=== PATIENT | female | born 1955 | race Caucasian/White ===

== ENCOUNTER 2019-10-03 08:40 | Outpatient (CLI) | payer MEDICARE, OTHER, SELFPAY ==
--- NOTE | 2019-10-03 09:00 | IR_ITS ---
WS: [id number] MYELOGRAM LUMBAR SPINE Fluoroscopic guided lumbar myelogram CLINICAL INFORMATION: Low back pain COMPARISON: None. TECHNIQUE: The procedure, including risks, benefits, and complications, were discussed with the patie nt who agreed to proceed. A timeout was performed to confirm correct patient, procedure, and site. Using sterile technique, the patient was prepped and draped in the usual sterile fashion. After admin istration of local anesthesia using 1% preservative-free lidocaine and using fluoroscopic guidance, a 5 Khmer 22-gauge spinal needle was advanced into the subarachnoid space at the L5-S1 level. Subsequ ently 13 cc of Omnipaque 240 was administered into the thecal sac. The needle was removed and hemosta sis was achieved. Spot fluoroscopic images were obtained. FLUOROSCOPIC TIME: 0.5 minutes. Spot fluoroscopic images demonstrate pedicle screw fixation L3-L5 with interbody fusion grafts L3-L4 and L5-S1. Dorsolateral bony fusion more prominent at L4-L5 and L5-S1. Sacroiliac fusion. Normal alig nment on the neutral view. Dorsal column stimulator. No instability on flexion-extension. Fracture in volving the midshaft left L5 pedicle screw. Please see CT myelogram report for additional detail. IR/IR myelogram sp lumbar [id number] IMPRESSION: 1. Uncomplicated lumbar myelogram. 2. Fracture involving the mid shaft left L5 pedicle screw. 3. No instability on flexion-extension.
[2019-10-03] MEDS: iohexol 240 mg/mL 50 mL Btl INTRATHECA (09:42)
--- NOTE | 2019-10-03 11:30 | CT_ITS ---
WS: [id number] CT LUMBAR MYELOGRAM TECHNIQUE: CT of the lumbar spine with coronal and sagittal reformatted images post intrathecal admin istration of contrast. CLINICAL INFORMATION: Low back pain COMPARISON: MRI 03/06 2014 DLP: 2100.[address] scans at [facility] use at least one of these dose optimization techniques: automat ed exposure control; mA and/or kV adjustment per patient size (includes targeted exams where dose is matched to clinical indication); or iterative reconstruction. FINDINGS: Mild lumbar curve. No acute appearing compression fractures. Prior postoperative changes pedicle scre w fixation L3-L5 with interbody fusion L3-L4 and L5-S1. Solid appearing interbody fusion graft L5-S1 with bony bridging beyond the confines of the graft. Mild subsidence along the L3-4 interbody fusion graft. Lucency along the right L3 pedicle screw. Lucency along the left L4 and left L5 pedicle screws . SI joint fusion. Laminectomy defects L3-L5. Dorsal lateral bony fusion L3-L5 with more solid appear ance at L4-5. L1-L2: Normal. L2-L3: Slight retrolisthesis L2 on L3. Mild annular bulging with slight effacement of the ventral the robi sac. Tiny right pericentral protrusion with slight narrowing of the right subarticular recess. Mi ld right and no significant left foraminal narrowing. L3-L4: Interbody fusion. Spinal canal and foramen are patent. Laminectomy defects. L4-L5: No significant disc bulging. Moderate facet arthropathy. Mild left and no significant right fo raminal narrowing. L5-S1: Prior postoperative changes interbody fusion with laminectomy defects. Spinal canal and forame n are patent. Visualized pelvic bony structures: Normal. Paravertebral soft tissues: Normal. CT/CT lumbar spine w con [id number] IMPRESSION: 1. Mild lumbar curve. No acute compression fractures. 2. Prior postoperative changes pedicle screw fixation L3-L5 with interbody fus ion L3-L4 and L5-S1. Solid appearing L5-S1 interbody fusion graft. 3. Loosening along the right L3, left L4, and left L5 pedicle screws. 4. Laminectomy defects L3-L5. 5. Dorsolateral bony fusion incomplete L3-4. This has a more solid appearance at L4-5 and L5-S1. 6. No high-grade central canal stenosis. 7. Mild central canal stenosis L2-3 with narrowing of the right subarticular r ecess and mild right L2-3 foraminal narrowing. 8. Mild left L4-5 bony foraminal narrowing.
== END 2019-10-03 08:41 | disposition home or self-care (01) ==
LOC: RADWPI 08:44
PROVIDERS: Family Provider Family Medicine; PCP Family Medicine; Visit Provider Licensed Practical Nurse
DX: M54.5 Low back pain (principal); M48.04 Spinal stenosis, thoracic region; S32.059A Unspecified fracture of fifth lumbar vertebra, initial encounter for closed fracture; X58.XXXA Exposure to other specified factors, initial encounter
CPT/HCPCS: 62304; 72120; 72132; J2001; Q9966

== ENCOUNTER → 2019-10-10 08:27 | Outpatient (BNVA) | payer MEDICARE, OTHER, SELFPAY | PROVIDERS: Family Provider Family Medicine; PCP Family Medicine; Referring Provider Licensed Practical Nurse; Visit Provider Psychiatry & Neurology Neurology | DX: M54.18 Radiculopathy, sacral and sacrococcygeal region (principal); Z87.891 Personal history of nicotine dependence | CPT/HCPCS: 95886; 95909 ==

== ENCOUNTER 2020-01-26 13:27 | Outpatient (CLI) | payer MEDICARE, OTHER, SELFPAY ==
--- NOTE | 2020-01-26 13:45 | CT_ITS ---
WS: [id number] CT LUMBAR SPINE TECHNIQUE: Noncontrast CT of the lumbar spine with coronal and sagittal reformatted images. CLINICAL INFORMATION: lumbar pain COMPARISON: CT October 03, 2019 DLP: 2046.[address] scans at [facility] use at least one of these dose optimization techniques: automat ed exposure control; mA and/or kV adjustment per patient size (includes targeted exams where dose is matched to clinical indication); or iterative reconstruction. FINDINGS: Mild lumbar curve. No acute appearing compression fractures. Vacuum disc phenomenon L2-3 with slight retrolisthesis L2 on L3. Prior postoperative changes pedicle screw fixation L3-L5 with interbody fusi on L3-L4 and L5-S1. Solid appearing interbody fusion graft L5-S1 with bony bridging beyond the confin es of the graft. Mild subsidence along the L3-4 interbody fusion graft. Lucency along the right L3 pedicle screw,left L4 and left L5 pedicle screws. SI joint fusion. Laminectomy defects L3-L5. Dorsal lateral bony fusion L3-L5 with more solid appearance at L4-5. L1-L2: Normal. L2-L3: Slight retrolisthesis L2 on L3. Mild annular bulging with slight effacement of the ventral the robi sac. Tiny right pericentral protrusion with slight narrowing of the right subarticular recess. Mi ld right and no significant left foraminal narrowing. L3-L4: Interbody fusion. Spinal canal and foramen are patent. Laminectomy defects. L4-L5: No significant disc bulging. Moderate facet arthropathy. Mild left and no significant right fo raminal narrowing. L5-S1: Prior postoperative changes interbody fusion with laminectomy defects. Spinal canal and forame n are patent. CT/CT lumbar spine wo con* [id number] IMPRESSION: 1. Prior postoperative changes pedicle screw fixation L3-L5 with interbody fus ion L3-L4 and L5-S1. Solid appearing L5-S1 with interbody fusion graft. 2. Unchanged loosening along the right L3-L4 and left L5 pedicle screws unchan ged. 3. Incomplete dorsal lateral fusion L3-4. More solid-appearing dorsal lateral bony fusion L4-L5 and L5-S1 4. Mild central canal stenosis L2-3 with narrowing of the right articular rece ss and mild right L2-3 foraminal narrowing. 5. Mild left L4-5 bony foraminal narrowing. 6. Fracture along the left L5 pedicle screw unchanged. 7. Overall no significant changes since the prior myelogram October 03, 2019
== END 2020-01-26 13:28 | disposition home or self-care (01) ==
PROVIDERS: Family Provider Family Medicine; PCP Family Medicine; Visit Provider Specialist
DX: M43.26 Fusion of spine, lumbar region (principal); M43.27 Fusion of spine, lumbosacral region; M48.061 Spinal stenosis, lumbar region without neurogenic claudication
CPT/HCPCS: 72131

== ENCOUNTER 2020-08-07 13:06 | Outpatient (CLI) | payer MEDICARE, OTHER, SELFPAY ==
--- NOTE | 2020-08-07 13:00 | CT_ITS ---
WS: [id number] CT LUMBAR SPINE TECHNIQUE: Noncontrast CT of the lumbar spine with coronal and sagittal reformatted images. CLINICAL INFORMATION: lumbar pain COMPARISON: January 26, 2020 DLP: 2122.[address] scans at [facility] use at least one of these dose optimization techniques: automat ed exposure control; mA and/or kV adjustment per patient size (includes targeted exams where dose is matched to clinical indication); or iterative reconstruction. FINDINGS: Mild lumbar curve. No acute appearing compression fractures. Vacuum disc phenomenon L2-3 with slight retrolisthesis L2 on L3. Prior postoperative changes pedicle screw fixation L3-L5 with interbody fusi on L3-L4 and L5-S1. Solid appearing interbody fusion graft L5-S1 with bony bridging beyond the confin es of the graft. Mild subsidence along the L3-4 interbody fusion graft unchanged in appearance. Lucency along the righ t L3 pedicle screw, left L4 pedicle screw and left L5 pedicle screws. SI joint fusion. Laminectomy de fects L3-L5. Dorsal lateral bony fusion L3-L5 with more solid appearance at L4-5 unchanged in appeara nce. L1-L2: Small left foraminal protrusion slightly impinges the exiting left L1 nerve root. Spinal canal and right foramen are patent. L2-L3: Slight retrolisthesis L2 on L3. Moderate central canal stenosis. Disc space narrowing at this level has progressed slightly compared to previous. Tiny right pericentral protrusion with slight marko rowing of the right subarticular recess. Moderate bilateral foraminal narrowing. L3-L4: Interbody fusion graft. Spinal canal and foramen are patent. Laminectomy defects. L4-L5: No significant disc bulging. Moderate facet arthropathy. Mild left and no significant right fo raminal narrowing. L5-S1: Prior postoperative changes interbody fusion with laminectomy defects. Spinal canal and forame n are patent. CT/CT lumbar spine wo con* [id number] IMPRESSION: 1. Prior postoperative changes pedicle screw fixation L3-L5 with interbody fus ion L3-L4 and L5-S1. 2. Mature solid appearing interbody fusion L5-S1. 3. Fracture along the left L5 pedicle screw unchanged. Unchanged sparse dorsal lateral fusion L3-4. Solid appearing dorsal lateral fusion L4-L5 and L5-S1. 4. Moderate central canal stenosis L2-L3 with narrowing of the right subarticu lar recess. Moderate L2-3 foraminal narrowing unchanged. 5. Small left foraminal protrusion L1-2 impinges the exiting left L1 nerve everett t with moderate left foraminal narrowing.. 6. Disc space narrowing L2-3 has progressed slightly from previous. Vacuum dis c phenomenon at this level. 7. No other significant changes from previous.
== END 2020-08-07 13:07 | disposition home or self-care (01) ==
LOC: RADWPI 13:11
PROVIDERS: PCP Family Medicine; Visit Provider Specialist
DX: M51.26 Other intervertebral disc displacement, lumbar region (principal); M48.061 Spinal stenosis, lumbar region without neurogenic claudication; S32.059A Unspecified fracture of fifth lumbar vertebra, initial encounter for closed fracture; X58.XXXA Exposure to other specified factors, initial encounter
CPT/HCPCS: 72131

== ENCOUNTER → 2020-08-08 11:03 | Outpatient (BNVA) | payer MEDICARE, OTHER, SELFPAY | PROVIDERS: PCP Family Medicine; Referring Provider Anesthesiology Pain Medicine; Visit Provider Orthopaedic Surgery | DX: M48.062 Spinal stenosis, lumbar region with neurogenic claudication (principal) | CPT/HCPCS: 72110 ==

== ENCOUNTER 2020-08-23 08:30 | Outpatient (CLI) | payer MEDICARE, OTHER, SELFPAY ==
--- NOTE | 2020-08-23 08:44 | IR_ITS ---
WS: [id number] MYELOGRAM LUMBAR SPINE Fluoroscopic guided lumbar myelogram CLINICAL INFORMATION: SPINAL STENOSIS, PAIN, LUMBAR REGION WITH NEUROGENIC CLAUDIC COMPARISON: None. TECHNIQUE: The procedure, including risks, benefits, and complications, were discussed with the patie nt who agreed to proceed. A timeout was performed to confirm correct patient, procedure, and site. Using sterile technique, the patient was prepped and draped in the usual sterile fashion. After admin istration of local anesthesia using 1% preservative-free lidocaine and using fluoroscopic guidance, a 22-gauge spinal needle was advanced into the subarachnoid space at the L5-S1 level. Subsequently 13 cc of Omnipaque 240 was administered into the thecal sac. The needle was removed and hemostasis was a chieved. Spot fluoroscopic images were obtained. FLUOROSCOPIC TIME: 0.3 minutes. Spot fluoroscopic images demonstrate prior postoperative changes pedicle screw fixation L3-L5 laminec chapo defects lower lumbar spine. Dorsal lateral bone graft material L4-L5 and L5-S1. Prior SI joint f usion. Unchanged fractured right L5 pedicle screw. Interbody fusion grafts L3-L4 and L5-S1. Disc spac e narrowing worse at L2-3 with slight retrolisthesis and endplate degenerative changes. Spinal stimul ator partially visualized. No instability on flexion-extension. Please see CT myelogram report for additional anatomic detail. IR/IR myelogram sp lumbar [id number] IMPRESSION: 1. Uncomplicated lumbar myelogram. 2. Stable postoperative changes L3-L5 pedicle screw fixation with interbody fu elodia grafts L3-L4 and L5-S1. 3. Stable fractured right L5 pedicle screw. 4. Disc space narrowing worse at L2-3 with endplate degenerative changes and s light retrolisthesis. 5. No instability on flexion extension. 6. Moderate central canal stenosis L2-3.
[2020-08-23] MEDS: iohexol 240 mg/mL 50 mL Btl INTRATHECA (09:43)
--- NOTE | 2020-08-23 11:30 | CT_ITS ---
WS: [id number] CT LUMBAR SPINE MYELOGRAM TECHNIQUE: Myelogram CT of the lumbar spine with coronal and sagittal reformatted images. CLINICAL INFORMATION: M48.062 - Spinal stenosis, lumbar region with neurogenic claudication COMPARISON: CT August 07, 2020 and myelogram October 03, 2019 DLP: 2362.[address] scans at [facility] use at least one of these dose optimization techniques: automat ed exposure control; mA and/or kV adjustment per patient size (includes targeted exams where dose is matched to clinical indication); or iterative reconstruction. FINDINGS: Mild lumbar curve. No acute appearing compression fractures. Vacuum disc phenomenon L2-3 with slight retrolisthesis L2 on L3. Endplate degenerative changes at this level progressed since the prior myelo gram October 03, 2019. Prior postoperative changes pedicle screw fixation L3-L5 with interbody fusion L3-L4 and L5-S1. Solid appearing interbody fusion graft L5-S1 with bony bridging beyond the confines of the graft is unchan ged. Mild subsidence along the L3-4 interbody fusion graft unchanged in appearance. Lucency along the right L3 pedicle screw, left L4 pedicle screw and left L5 pedicle screws. Stable fr actured left L5 pedicle screw. Previous SI joint fusion. Laminectomy defects L3-L5. Dorsal lateral hetal ny fusion L3-L5 with more solid appearance at L4-5 unchanged in appearance. L1-L2: Small left foraminal protrusion slightly impinges the exiting left L1 nerve root. Spinal canal and right foramen are patent. L2-L3: Slight retrolisthesis L2 on L3. Moderate central canal stenosis. Disc space narrowing at this level has progressed since 2019. Narrowing of the subarticular recess bilaterally. Moderate bilateral foraminal narrowing, right greater than left. L3-L4: Interbody fusion graft is unchanged in appearance. Spinal canal and foramen are patent. Murali ctomy defects. L4-L5: No significant disc bulging. Moderate facet arthropathy. Mild left and no significant right fo raminal narrowing. L5-S1: Prior postoperative changes interbody fusion with laminectomy defects. Spinal canal and forame n are patent. Diffuse fatty infiltration the liver partially visualized. Adrenal glands are normal. Normal caliber abdominal aorta partially visualized. CT/CT lumbar spine w con [id number] IMPRESSION: 1. Stable prior postoperative changes pedicle screw fixation L3-L5. Unchanged interbody fusion grafts L3-L4 and L5-S1. 2. L5-S1 fusion graft is solid in appearance. 3. Unchanged fracture along the left L5 pedicle screw. Stable solid appearing dorsal lateral fusion L4-L5 and L5-S1. 4. Relative scarcity of bone graft material dorsolateral fusion L3-4 unchanged in appearance. 5. Stable moderate central canal stenosis L2-3 with narrowing of the subarticu lar recess bilaterally. Moderate bilateral foraminal narrowing.. 6. Small left foraminal protrusion L1-2 impinges the left L1 nerve root with m oderate left foraminal narrowing unchanged. 7. Vacuum disc phenomenon L2-3 has progressed from the prior myelogram September 042019 with endplate degenerative changes and vacuum disc phenomenon. This is similar in appearance to more recent exam August 07, 2020
== END 2020-08-23 08:31 | disposition home or self-care (01) ==
LOC: RADWPI 08:38
PROVIDERS: PCP Family Medicine; Visit Provider Orthopaedic Surgery
DX: M48.062 Spinal stenosis, lumbar region with neurogenic claudication (principal); M51.26 Other intervertebral disc displacement, lumbar region; S32.058A Other fracture of fifth lumbar vertebra, initial encounter for closed fracture; X58.XXXA Exposure to other specified factors, initial encounter
CPT/HCPCS: 62304; 72120; 72132; Q9966

== ENCOUNTER → 2020-09-13 08:36 | Outpatient (BNVA) | payer MEDICARE, OTHER, SELFPAY | PROVIDERS: PCP Family Medicine; Referring Provider Orthopaedic Surgery; Visit Provider Anesthesiology Pain Medicine | DX: M48.062 Spinal stenosis, lumbar region with neurogenic claudication (principal); Z98.1 Arthrodesis status; Z79.891 Long term (current) use of opiate analgesic | CPT/HCPCS: 99205 ==

== ENCOUNTER → 2020-09-18 12:46 | Outpatient (BNVA) | payer MEDICARE, OTHER, SELFPAY | PROVIDERS: PCP Family Medicine; Visit Provider Anesthesiology Pain Medicine | DX: M51.17 Intervertebral disc disorders with radiculopathy, lumbosacral region (principal); M48.062 Spinal stenosis, lumbar region with neurogenic claudication | CPT/HCPCS: 64483; 64484; J3490 ==

== ENCOUNTER → 2020-10-23 10:40 | Day surgery (SDC) | payer MEDICARE, OTHER, SELFPAY | PROVIDERS: PCP Family Medicine; Visit Provider Orthopaedic Surgery | DX: Z01.818 Encounter for other preprocedural examination (principal) | CPT/HCPCS: 93005 ==

== ENCOUNTER 2020-10-23 14:22 | Outpatient (CLI) | payer MEDICARE, SELFPAY ==
[2020-10-23 10:20] VITALS: BMI 47.7
--- NOTE | 2020-10-23 10:40 | ECG_ITS ---
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: : 1955 Requested By: Raphael Ocasio Order Number: [id number] Fany MD: ASHUTOSH CORTES Measurements Intervals [place] Rate: 89 P: 34 HI: 198 QRS: -9 QRSD: 85 T: 7 QT: 358 QTc: 438 Interpretive Statements SINUS RHYTHM LOW QRS VOLTAGE IN PRECORDIAL LEADS [QRS DEFLECTION < 1.0 mV IN CHEST LEADS] MODERATE VOLTAGE CRITERIA FOR LVH, CONSIDER NORMAL VARIANT [MEETS CRITERIA IN ONE OF: R(aVL), S(V1), R(V5), R(V5/V6)+S(V1)] No previous ECG available for comparison Electronically Signed On 10-23-2020 19:24:19 CDT by ASHUTOSH CORTES [id number]
[2020-10-23 10:46] LABS: Basophils # 0.2 10^3/uL (0.0-0.1); Basophils % 1.6 %; Eosinophils # 0.6 10^3/uL (0.0-0.8); Eosinophils % 6.6 %; Hematocrit 41.2 % (37.0-47.0); Hemoglobin 12.1 g/dL (11.5-15.3); Lymphocytes # 2.5 10^3/uL (0.8-4.8); Lymphocytes % 27.5 %; Mean Corpuscular HGB Conc 29.4 g/dL (30.0-36.0); Mean Corpuscular Hemoglobin 26.2 pg (28.0-34.0); Mean Corpuscular Volume 89.4 fL (81-99); Mean Platelet Volume 8.4 fL (7.4-10.4); Monocytes # 0.6 10^3/uL (0.2-0.9); Monocytes % 5.9 %; Neutrophils # 5.34 10^3/uL (1.8-7.7); Neutrophils % 57.8 %; Nucleated Red Blood Cells % 0 %; Platelet Count 396 10^3/cmm (130-400); Red Blood Count 4.61 10^6/uL (4.1-5.3); Red Cell Distribution Width 14.7 % (12.1-15.1); White Blood Count 9.3 10^3/uL (4.0-10.0)
--- NOTE | 2020-10-23 11:24 | P.ANESASSM_ITS ---
Pre-Anesthetic Assessment Pre-Anesthetic Assessment: Height/Weight: Height 1.68 m Weight 134.263 kg Preop Diagnosis: lumbar stenosis; failed back syndrome Proposed Procedure: Operation Date: 10/30/20 10:00 Proposed Procedures p PSF T-10 L5 with REVISION 80368, 54715, 60545, 85346, 21956, 11859, 75667, 39213, 27620, 62857 (x3) 3+ modifier(Not Applicable) - Saul Fowler DO s hardware removal at L2-5(Not Applicable) - Saul Fowler DO Was Beta Rony taken within 24 hours: N/A Was Clonidine taken within 24 hours: N/A Social: Social History: No alcohol and No tobacco Exam: Pre-Anes Outpt Exam: alert, oriented x 3, clear to auscultation bilaterally and regular rate & rhythm Airway: Submandibular: WNL Cervical ROM: WNL MP: 2 Dentition: Full GI: GI: GERD Metabolic: Metabolic: Morbid obesity Musc/skel: Musc/skel: Lower Back Pain Comments: Chronic pain Neuropsych: Neuropsych: Anxiety Anesthetic Plan: ASA status: 3 Anesthesia: General Risk of > 500 ml blood loss (7ml/kg in children): No PFSH Anesthesia PFSH: Medical History Degenerative lumbar spinal stenosis Intervertebral disc disorder with radiculopathy of lumbosacral region Lumbar stenosis with neurogenic claudication Morbid obesity with BMI of 50.0-59.9, adult Surgical History History of appendectomy History of carpal tunnel repair History of knee surgery History of laparoscopic adjustable gastric banding History of lumbar surgery (~2011) 12/2016 Dr. Martin Joyner Thoracic spinal cord stimulator placement 04/2016 Dr. Martin Joyner Right SI joint fusion 03/2016 Dr. Martin Joyner [facility] Left SI joint fusion 06/2012 Dr. Christopher Olmstead [facility] L2-L3 posterior fusion/fixation. 10/2011 Dr. Christopher Olmstead [facility] Fractured fusion screws removed. 12/[address] Orthopedic surgeon. [facility] Spine: L3-L4, L4-L5 L5-S1 Posterior Fusion/fusion Status post correction of deviated nasal septum Status post insertion of spinal cord stimulator (~2017) Family History Father CAD (coronary artery disease) Social History Smoking and tobacco status: former smoker Alcohol intake: former Household members: spouse Marital status: Current occupational status: disabled History of recent travel: No Data Anesthesia CBC & Chem 7: 10/23/20 10:30 10/23/20 10:30 Other Labs: Laboratory Results - last 48 hr 10/23/20 10:30 WBC 9.3 RBC 4.61 Hgb 12.1 Hct 41.2 MCV 89.4 MCH 26.2 L MCHC 29.4 L RDW 14.7 Plt Count 396 MPV 8.4 Neut % (Auto) 57.8 Lymph % (Auto) 27.5 [place] % (Auto) 5.9 Eos % (Auto) 6.6 Baso % (Auto) 1.6 Neut # (Auto) 5.34 Lymph # (Auto) 2.5 [place] # (Auto) 0.6 Eos # (Auto) 0.6 Baso # (Auto) 0.2 H Nucleated RBC % (auto) 0 Nucleated RBCs # 0.0 Cardiac Studies: No Data to Display
[2020-10-23 11:38] LABS: Alanine Aminotransferase 21 U/L (0-33); Alkaline Phosphatase 134 IU/L (35-105); Anion Gap 14.2 (5-19); Aspartate Amino Transferase 28 U/L (0-32); Blood Urea Nitrogen 8 mg/dL (8-23); Calcium 8.7 mg/dL (8.5-10.5); Carbon Dioxide 29 mmol/L (22-29); Chloride 99 mmol/L (98-107); Globulin 2.9 g/dL (1.3-4.6); Glomerular Filtration Rate 72.4 mL/min (90-130); Glucose 109 mg/dL (65-115); Osmolality Calculated 285 mOsm/kg (285-295); Potassium 4.2 mmol/L (3.5-5.1); Sodium 138 mmol/L (136-145); Total Bilirubin 0.2 mg/dL (0.15-1.2); Total Protein 6.9 g/dL (6.6-8.7)
== END 2020-10-23 14:23 | disposition home or self-care (01) ==
LOC: GILAB 09-18 14:22
PROVIDERS: PCP Family Medicine; Visit Provider Orthopaedic Surgery
DX: Z01.818 Encounter for other preprocedural examination (principal)
CPT/HCPCS: 36415; 80053; 85025

== ENCOUNTER → 2020-10-24 12:27 | Outpatient (BNVA) | payer MEDICARE, OTHER, SELFPAY | PROVIDERS: PCP Family Medicine; Visit Provider Orthopaedic Surgery | DX: M48.062 Spinal stenosis, lumbar region with neurogenic claudication (principal); Z20.822 Contact with and (suspected) exposure to COVID-19 | CPT/HCPCS: 87635 ==

== ENCOUNTER → 2020-11-04 11:10 | Outpatient (BNVA) | payer MEDICARE, OTHER, SELFPAY | PROVIDERS: PCP Family Medicine; Visit Provider Orthopaedic Surgery | DX: Z01.812 Encounter for preprocedural laboratory examination (principal); Z20.822 Contact with and (suspected) exposure to COVID-19 | CPT/HCPCS: 87635 ==

== ENCOUNTER 2020-11-08 17:52 | Inpatient (IN) | payer MEDICARE, OTHER, SELFPAY ==
[2020-11-07 17:33] VITALS: BMI 47.7
[2020-11-08] VITALS (16 sets, daily range): BP systolic 105–177; BP diastolic 65–102; PULSE 16–99; RESP 12–93; TEMP 36.2–37.3; O2SAT 92–98
--- NOTE | 2020-11-08 | SCC_ITS ---
26 seconds of fluoroscopic guidance, for a cumulative dose of 134.2 mGy, was provided to Dr. Fowler by the radiology department. C-arm images of the lumbar spine were saved for the patient's permanent record. Procedure Done: 1. L2/ Interbody fusion with posterolateral fusion 2. Instrumentation T10- pelvis with Lumbo pelvic fixation 3. Fusion form T10 - pelvis 4. Cage at L2/3 5. Laminectomy L2 6. Removal of hardware from spine 7. Removal of Pain stimulator from spine 8. use of autograft from same incision 9. allograft 10. Bone marrow aspirate from right iliac crest MTDD
--- NOTE | 2020-11-08 06:55 | XR_ITS ---
WS: [id number] Portable AP upright chest, 11/08/2020 Clinical Data: surgery Comparison: PA and lateral chest, 05/04/2006. Findings: No nodules, masses or effusions are seen. The heart is normal. The pulmonary vascularity is not increased. No pneumonia or pneumothorax is seen. There are epidural stimulator wires overlying t he mid thoracic spine. XR/XR chest 1V portable [id number] Impression: Negative chest.
[2020-11-08] MEDS: sodium chloride 0.9% 1,000 ML 30 ML IV (07:40)
--- NOTE | 2020-11-08 08:07 | P.ANESUD_ITS ---
Pre-Anesthetic Update Pre-Anesthetic Assessment: Date of Surgery/Procedure: 11/08/20 Preop Regina gnosis: lumbar stenosis; failed back syndrome Proposed Procedure: Operation Date: 11/08/20 08:40 Proposed Procedures p PLIF T-10 L-5 w/revision 40893, 75958, 41142, 287132, 58692, 34105, 92741, 18114, 64057, 46643 (x3) 3+modifier(Not Applicable) - Saul Fowler, DO s Hardware Removal Lumbar L2-5(Not Applicable) - Saul Fowler, DO Any changes to Pre-Anesthetic Assessment?: No Last Intake: Intake Last Liquid Date 11/07/20 Last Liquid Time 06:00 Last Solid Date 11/07/20 Last Solid Time 23:55 Vitals: Temperature 97.8 F 11/08/20 07:06 Temperature Source Temporal Artery S can 11/08/20 07:06 Pulse Rate 99 11/08/20 07:06 Respiratory Rate 18 11/08/20 07:06 Blood Pressure 177/89 11/08/20 07:06 Blood Pressure Quita n 118 11/08/20 07:06 Pulse Oximetry 98 11/08/20 07:06 Oxygen Delivery Me thod 11/08/20 07:06 Exam: Pre-Anes Outpt Exam: alert, oriented x 3, clear to auscultation bilaterally and regular rate & rhythm Cardiac Studies: No Data to Display
--- NOTE | 2020-11-08 08:26 | W.PM.OPSUD ---
Surgery/Procedure H&P Update DATE OF PROCEDURE: November 08, 2020 DATE H&P PERFORMED: 11/08/20 PREOP DIAGNOSIS: lumbar stenosis; failed back syndrome PLANNED PROCEDURE: Operation Date: 11/08/20 08:40 Proposed Procedures p PLIF T-10 L-5 w/revision 89175, 76514, 51348, 369972, 71188, 97843, 11499, 42082, , 36630 (x3) 3+modifier(Not Applicable) - DO kelly Michaud Hardware Removal Lumbar L2-5(Not Applicable) - Saul Fowler DO
--- NOTE | 2020-11-08 08:29 | PM.HP ---
Providers/Chief Complaint Primary Care Provider: Tadeo Prather MD Chief Complaint: psf History of Present Illness Kathy Patel is a 65 year old female Details: Established 64 year old female patient here for follow up of low back pain. Onset:2001, gradually worsening over the last few years Duration: years Characteristics: sharp, stabbing, ache Severity: 02/11 Location: low/ mid back Radiating symptoms: low back around incision into bilateral lower legs and hip joint worse to the right side Aggravating factors: standing, walking, lifting, bending, stooping, everything Alleviating factors: laying down, oral medication decreases pain Neuro deficits: numbness, tingling & weakness to bilateral lower extremities, no incontinence of bowel/bladder, saddle anesthesia. Prior tx: L3-S1 fusion, multiple back surgeries, pain management- prescribes oral medication norco 10/325, gabapentine 600mg, and cyclobenaprine which she states makes the pain manageable. Patient does have pain stimulator implant which she states increases pain, She states that she does not turn it on due to increase pain with use. She feels that the pain stimulator did help at first but with increase adjustments to the pain stimulator she experienced increased discomfort. Lidocaine injections with no relief. Review of Systems Narrative: General: Reports: 10 or more systems reviewed and unremarkable except as noted in History and below Const: Denies: fever(s) or chills Eyes: Denies: change in vision ENMT: Denies: throat pain Card: Denies: chest pain or dyspnea on exertion Resp: Denies: dyspnea, productive cough or wheezing GI: Denies: abdominal pain, nausea or vomiting Musc: Reports: limited range of motion Skin/Breast: Denies: changes in skin color or dry skin Neuro: Reports: numbness in extremities and weakness in extremities Psych: Denies: anxiety Juan/Lymph: Denies: easy bruising or easy bleeding Medications/Allergies Home Medications Medication Instructions Recorded Confirmed Last Taken Type albuterol sulfate 90 mcg/actuation 1 puff INHALATION QID 09/06/19 11/07/20 Unknown History aerosol inhaler alprazolam 0.5 mg tablet 1 mg PO BEDTIME PRN tab 09/06/19 11/08/20 11/07/20 History cetirizine 5 mg-pseudoephedrine ER 1 tab PO BID 09/06/19 11/08/20 11/07/20 History 120 mg tablet,extended release,12hr cyclobenzaprine 10 mg tablet 10 mg PO BID tab 09/06/19 11/08/20 11/07/20 History duloxetine 60 mg capsule,delayed 60 mg PO QAM 09/06/19 11/08/20 11/07/20 History release fluticasone 500 mcg-salmeterol 50 1 inh INHALATION BID 09/06/19 11/07/20 Unknown History mcg/dose blistr powdr for inhalation furosemide 20 mg tablet 20 mg PO DAILY 09/06/19 11/08/20 11/07/20 History hydrocodone 10 mg-acetaminophen 3 tab PO BID PRN 09/06/19 11/08/20 11/08/20 History 325 mg tablet gabapentin 600 mg tablet 1,200 mg PO BID tab 08/08/20 11/08/20 11/08/20 History guaifenesin 600 mg tablet, 600 mg PO BEDTIME tab 08/08/20 11/08/20 11/07/20 History extended release 12 hr meclizine 25 mg tablet 25 mg PO DAILY 08/08/20 11/08/20 11/07/20 History omeprazole 20 mg capsule,delayed 20 mg PO DAILY 08/08/20 11/08/20 11/07/20 History release meloxicam 15 mg tablet 15 mg PO BEDTIME 09/18/20 11/08/20 11/07/20 History Bone Growth Stimulator [id number] #1 ea 10/03/20 10/03/20 Unknown Rx biotin 4 mg PO BID 10/23/20 11/08/20 11/07/20 History calcium carbonate-vitamin D2 2 tab PO BID 10/23/20 11/08/20 11/07/20 History [Calcium + Vitamin D] cranberry 2 mg PO BEDTIME 10/23/20 11/08/20 11/07/20 History duloxetine 30 mg PO QPM 10/23/20 11/08/20 11/08/20 History Allergies Allergy/AdvReac Type Severity Reaction Status Date / Time latex Allergy blisters Verified 11/08/20 07:00 PFSH Acute PFSH: Medical History Degenerative lumbar spinal stenosis Intervertebral disc disorder with radiculopathy of lumbosacral region Lumbar stenosis with neurogenic claudication Morbid obesity with BMI of 50.0-59.9, adult Surgical History History of appendectomy History of carpal tunnel repair History of knee surgery History of laparoscopic adjustable gastric banding History of lumbar surgery (~2011) 12/2016 Dr. Martin Jyoner Thoracic spinal cord stimulator placement 04/2016 Dr. Martin Joyner Right SI joint fusion 03/2016 Dr. Martin Joyner [facility] Left SI joint fusion 06/2012 Dr. Christopher Shah [facility] L2-L3 posterior fusion/fixation. 10/2011 Dr. Christopher Shah [facility] Fractured fusion screws removed. 12/[address] Orthopedic surgeon. [facility] Spine: L3-L4, L4-L5 L5-S1 Posterior Fusion/fusion Status post correction of deviated nasal septum Status post insertion of spinal cord stimulator (~2016) Family History Father CAD (coronary artery disease) Social History Smoking and tobacco status: former smoker Alcohol intake: former Household members: spouse Marital status: Current occupational status: disabled History of recent travel: No Vitals/I&O/Wt Last Vital Signs Temp 97.8 F 11/08/20 07:06 Pulse 99 11/08/20 07:06 Resp 18 11/08/20 07:06 BP 177/89 11/08/20 07:06 Pulse Ox 98 11/08/20 07:06 Weight last 48 hrs Weight 296 lb Physical Exam Narrative: EXAM NARRATIVE: EXAM NARRATIVE: CONSTITUTIONAL: The patient is normal appearing, well groomed, cooperative and in no apparent distress. GENERAL: Patient in no acute distress. Well nourished. CARDIAC: Regular rate and rhythm. CHEST: Normal inspirator effort, normal respiratory rate. ABDOMEN: Soft and non-tender. SKIN: Clear, warm and intact. NEURO?PSYCH: The patient is alert and oriented to person, place and time. NEUROVASCULAR: Upper Extremity Sensory - SILT. Motor Strength: Shoulder abduction C5: 5/5; Wrist extension C6: 5/5; Elbow extension C7: 5/5; Hand Tugboat Engineer C8: 5/5; Finger abduction T1: 5/5. Radial/ Ulnar/ Median in intact Lower Extremity Sensory - SILT. Motor Strength: Hip flexion L2/3; Ant/inner thigh: 5/5; Hip adduction L2/3: 5/5; Knee extension L4 Lat thigh: 5/5; Toe dorsiflexion L5: 5/5; Ankle dorsiflexion L5/ S1: 5/5; Plantar flexion S1: 5/5. DTR: Triceps 2+; Brachioradialis 2+; Patellar 2+; Achilles 2+. MUSCULOSKELETAL: UPPER EXTREMITIES: The patient had full active ROM in fingers, wrist, elbow, and shoulder. The patient demonstrated ability to fully flex/extend/abduct/adduct fingers, make ok sign, cross 2nd/3rd digits, extend 1st digit fully.. Radial pulse 2+, CR<2 seconds. LOWER EXTREMITIES: Pt has full, active ROM of toes, ankle, knee, and hip. Dorsalis pedis & posterior tibialis pulses 2+, CR<2 seconds. SPINE: Skin warm, dry, intact. A&P Assessment and plan (1) Degenerative lumbar spinal stenosis: Revision spine surgery Status: Acute Attestations Medical Necessity Statement*: failed coservative treatment Coding Level of Care Code Acute [employer] Services Assistant for [facility] Fwd Diagnoses Degenerative lumbar spinal stenosis M48.061
--- NOTE | 2020-11-08 11:14 | SUR.OPER ---
updated family via cell phone
[2020-11-08] MEDS: heparin, porcine 1,000 unit/mL INJ 10 mL 10000 UNIT IRRIGATION (15:31)
--- NOTE | 2020-11-08 16:15 | XR_ITS ---
WS: [id number] [facility] RADIOGRAPHS SPINE; 3 IMAGES HISTORY: PSF COMPARISON: 06/20/2012 Intraoperative imaging during fusion of the lumbar spine. Quality the images significantly compromise d. XR/XR lumbar spine 2-3V* [id number] IMPRESSION: Intraoperative imaging during posterior spinal fusion surgery.
--- NOTE | 2020-11-08 16:27 | P.OP_ITS ---
Operative Report Date of procedure: November 08, 2020 Pre-op Diagnosis: lumbar stenosis; failed back syndrome Post-op diagnosis: same Procedure Done: 1. L2/ Interbody fusion with posterolateral fusion 2. Instrumentation T10- pelvis with Lumbo pelvic fixation 3. Fusion form T10 - pelvis 4. Cage at L2/3 5. Laminectomy L2 6. Removal of hardware from spine 7. Removal of Pain stimulator from spine 8. use of autograft from same incision 9. allograft 10. Bone marrow aspirate from right iliac crest Surgeon: Saul Fowler Anesthesia: General Estimated blood loss (mL): 650 Condition: stable Disposition: PACU Procedure: 1. L2/ Interbody fusion with posterolateral fusion 2. Instrumentation T10- pelvis with Lumbo pelvic fixation 3. Fusion form T10 - pelvis 4. Cage at L2/3 5. Laminectomy L2 6. Removal of hardware from spine 7. Removal of Pain stimulator from spine 8. use of autograft from same incision 9. allograft 10. Bone marrow aspirate from right iliac crest 11 Use of spinal navigation Patient is brought to the operative suite. After undergoing anesthesia, the patient had neuro monitoring attached. Patient was then placed in the prone position on the Ben table. All areas of impingement were well-padded. Patient was then prepped and draped in the normal sterile fashion. Skin incision was then made over the T10 to S1 spine. Subperiosteal dissection was made out to the transverse processes of T10 to the sacral Ala. scar tissue was identified from the L3-L5 levels. The L3-L5 pedicle screws her previous place were identified. Once the exposure was complete attention was then brought to placing the pedicle screws. To placing the pedicle screws. The fiducial for the spinal navigation was placed into the iliac crest on the right side. The using C-arm was brought in and a spin was done for the lower half of the spine. Once the spine data was loaded into the navigation system. Attention was then brought to placing an iliac screw on the right side. Patient had previous SI joint fusion screws placed. Navigation was used to navigate around the screws. Patient was brought to placing the left iliac screws. However I cannot get around the SI joint fusion screws. So elected to place a screw at the S1 level. This was done on the left side. The technique for placing the iliac and the S1 screws were using the navigated gearshift. Using the ball probe. Followed by placing the screw. Attention was then brought to removing the hardware at the L3-L5 levels. The screws were identified and the top caps were removed with the rods removed and the screws removed. The left L5 screw was broken. One of the screws at L3 was replaced with a Clay screw. And then a L3-4 and 5 screws were replaced with Frost screws. After the hardware was removed. Another spin with Ziem was done to navigate the T10-L2 levels. Once this pin was completed then attention was brought to placing screws at L2 bilaterally. This was done using the gearshift navigation probe. Followed by the ball probe followed by placing the appropriate size screw. This process was repeated at L1 T12 T11 and T10. Once the pedicle screws the [employer] bone marrow aspirate kit was used to aspirate bone marrow aspirate. This was done by using the sharp probe to open up the bone on the right iliac crest. Aspiration was performed and then the blunt probe was then used to dissect down to through the bone tunnel. An aspirating well drawn back a millimeter approximately 20 cc of bone marrow aspirate was used. And mixed with the allograft and autograft bone that will be used. Next attention was brought to performing the laminectomy of L2. This was done using the high-speed bur Kerrisons and curettes. Once the lamina was removed and then attention was brought to performing a partial facetectomy on the contralateral side. This was done again using the high-speed bur curettes and Kerrisons. The ligamentum flavum was taken down bilaterally from L2 to L3. Attention was then brought to the facet on the ipsilateral side. The facet was taken down. The L3 nerve was decompressed as it passed around the L3 pedicle. The laminectomy was done for purposes of decompressing the nerve as well as placement of the cage. The L2 nerve was identified as it traversed through the L2/3 foramen. The thecal sac was identified and retracted. The L2/3 disc base was identified. Using a knife the disc base was opened. And then sequential brian were placed. The first shaver was a 6 and the last shaver was a 8. Using a pituitary and down going curette the endplates were scraped and disc material was removed from the space. Once adequate decompression of the disc base was felt to be had. Osteoamp sponge was packed into the anterior aspect of the disc base. Then a size 8 cage from [employer] was placed after packing osteoamp into the cage. While placing the cage the thecal sac and L3 nerve was protected. C arm was used to ensure that the cages placed in the appropriate position. Attention was then brought to attaching the rods to the screws placed in the T10 TO THE PELVIS ON THE RIGHT AND T10 TO S1 ON THE LEFT. bilaterally. Rods were bent to accommodate the lordosis of the lumbar spine and the kyphosis of the thoracic spine. Caps were torqued into position. Locking the construct in place. Wound was copiously irrigated and then attention was brought to decorticating the facets and transverse processes laterally T10 to sacrum. Bone that was taken down from the lamina was used along with osteoamp fibers and sponges were packed into the lateral gutters along the facet joints. This was done bilaterally from T10 to the sacrum. Next attention was brought to removing the pain stimulator. The wires were identified going in and around the T9 level. A Kerrison and curette were used to identify where the pain stimulator went into the sublaminar space. Once this was freed up the pain stimulator was removed. And then cut. Incision is made over the lateral flank where the pain stimulator battery was. Incision was made fascia was identified removed. Wires were pulled through the fascial layer. The pouch that was made was gated and closed with 0 Vicryl 2-0 Vicryl and nylon suture. Wound was then closed in a layered fashion starting with the thoracolumbar fascia. 0-stratafix was used the sub cutaneous tissue was closed with 2-0 stratafix and skin with 3-0 nylon. a steril dressing was applied. Patient was then placed in the supine position. The endotracheal tube was removed and patient was transferred to the PACU in stable condition.
--- NOTE | 2020-11-08 16:34 | SUR.PHASEI ---
1634 PT HAS SENSATION/MOVEMENT TO ALL EXTREMITIES
--- NOTE | 2020-11-08 16:53 | ANE.PACU2 ---
Inpatient post-anesthesia follow up: Airway intact: Yes Vital signs: Temperature 97.2 F Pulse Rate 93 Respiratory Rate 14 Blood Pressure 122/90 Pulse Oximetry 96 Oxygen Delivery Me thod Simple Mask Oxygen Flow Rate 8 Fraction of Inspir ed Oxygen Hydration adequate: Yes Nausea and vomiting: No Pain level: 2 Additional Comments: Sedated
--- NOTE | 2020-11-08 18:14 | CTR_ITS ---
PROCEDURE INFORMATION: Exam: CT Head Without Contrast Exam date and time: 11/08/2020 7:35 PM Age: 65 years old Clinical indication: Altered mental status/memory loss; Confusion or disorientation; Patient HX: Post op AMS; Additional info: Confusion post op TECHNIQUE: Imaging protocol: Computed tomography of the head without contrast. Radiation optimization: All CT scans at this facility use at least one of these dose optimization techniques: automated exposure control; mA and/or kV adjustment per patient size (includes targeted exams where dose is matched to clinical indication); or iterative reconstruction. COMPARISON: No relevant prior studies available. RADIATION DOSE METRICS: Total DLP (mGy-cm): 1014.86 FINDINGS: Brain: Normal. No hemorrhage. Unremarkable white matter. No mass effect. Cerebral ventricles: No ventriculomegaly. Bones/joints: Unremarkable. No acute fracture. Paranasal sinuses: The small air-fluid levels in the maxillary sinuses. Mucosal thickening in the ethmoid air cells. Mastoid air cells: Visualized mastoid air cells are well aerated. Soft tissues: Unremarkable. Submandibular/Parotid glands: The fatty infiltration of the left parotid gland. CT/CT head wo con* [id number] IMPRESSION: 1. No acute intracranial abnormality. Radiation Dose CTDIVOL = (mGy): DLP = 1014.86 (mGy-cm)
--- NOTE | 2020-11-08 18:16 | PM.CONSULT ---
Providers/Reason For Consult Consulting Physican/Specialty*: Dr. David MD/internal medicine Reason for Consult*: Medical problems and postoperative care Attending Physician: Saul Fowler DO Primary Care Provider: Tadeo Prather MD History of Present Illness History of Present Illness Kathy Patel is a 65 year old female medical history of morbid obesity, degenerative lumbar stenosis, multiple lumbar surgeries in the past who underwent spinal surgery with Dr. Fowler today for lumbar stenosis and failed back syndrome. Medicine was consulted to manage medical problems during hospitalization. On examination patient is postoperative, drowsy with nurses concern for her to be mildly confused. As per the operative note patient had an approximated blood loss of 650 cc. Patient did not have any episodes of hypotension during the OR. On examination patient is awake, alert 3 times but having occasional episodes of expressive aphasia which she says is common for her and she is tired. Vitals are stable. No labs in the system. Review of Systems General: Reports: 10 or more systems reviewed and unremarkable except in HPI and below Const: Denies: fever(s), chills, body aches, change in appetite, change in weight, malaise, night sweats, diaphoresis, change in sleep pattern, daytime sleepiness or snoring Eyes: Denies: change in vision, blurry vision, photophobia, eye discomfort or eye discharge ENMT: Denies: throat pain, enlarged tonsils, hoarseness, mouth pain, oral sores, dry mouth, tinnitus, nasal congestion or post nasal drip Card: Denies: chest pain, palpitations, irregular heart rhythm, edema, swelling of feet/ankles, lightheadedness, syncope, pre-syncope, dyspnea on exertion, orthopnea, leg pain with exertion or acrocyanosis Resp: Denies: dyspnea, productive cough, non-productive cough, wheezing, stridor, pain on inspiration, change in phlegm color, hemoptysis or chest congestion GI: Denies: abdominal pain, nausea, vomiting, hematemesis, coffee ground emesis, dysphagia, heartburn, diarrhea, constipation, bloating, GI cramping, change in bowel habits, pain on defecation, hematochezia or melena : Denies: flank pain, dysuria, urinary frequency, urinary urgency, urinary hesitancy, nocturia or hematuria Musc: Denies: neck pain, back pain, extremity pain, joint pain, joint swelling, joint redness, joint stiffness or limited range of motion Neuro: Denies: headache(s), numbness in extremities, weakness in extremities, sensory changes, lack of coordination, difficulty walking, frequent falls, dizziness, vertigo, confusion, Slurred speech present, difficulty communicating thoughts or seizure-like activity Psych: Denies: anxiety, depression, mood swings, panic attacks, hopelessness or irritability Endo: Denies: polyuria, polydipsia, tired all the time, cold intolerance, excessive sweating, flushing or heat intolerance Juan/Lymph: Denies: easy bruising or easy bleeding All/Imm: Denies: tongue swelling, facial swelling or acute wheezing Meds/Allergies Home Medications and Allergies Home Medications Medication Instructions Recorded Confirmed Last Taken Type albuterol sulfate 90 mcg/actuation 2 puff INHALATION Q4H PRN 09/06/19 11/09/20 Unknown History aerosol inhaler alprazolam 0.5 mg tablet 1 mg PO DAILY@ tab 09/06/19 11/09/20 Unknown History cyclobenzaprine 10 mg tablet 10 mg PO BID@ tab 09/06/19 11/09/20 Unknown History duloxetine 60 mg capsule,delayed 60 mg PO DAILY@09/06/19 11/09/20 Unknown History release fluticasone 500 mcg-salmeterol 50 1 inh INHALATION BID 09/06/19 11/09/20 Unknown History mcg/dose blistr powdr for inhalation furosemide 20 mg tablet 20 mg PO QAM 09/06/19 11/09/20 Unknown History hydrocodone 10 mg-acetaminophen 3 tab PO BID 09/06/19 11/09/20 Unknown History 325 mg tablet gabapentin 600 mg tablet 600 mg PO BID@ tab 08/08/20 11/09/20 Unknown History guaifenesin 600 mg tablet, 600 mg PO DAILY@ tab 08/08/20 11/09/20 Unknown History extended release 12 hr meclizine 25 mg tablet 25 mg PO PRN 08/08/20 11/09/20 Unknown History omeprazole 20 mg capsule,delayed 20 mg PO DAILY@08/08/20 11/09/20 Unknown History release meloxicam 15 mg tablet 15 mg PO DAILY@09/18/20 11/09/20 Unknown History Bone Growth Stimulator E0748 #1 ea 10/03/20 11/09/20 Unknown Rx duloxetine 30 mg PO DAILY@10/23/20 11/09/20 Unknown History Diane 1 tab PO DAILY PRN 11/09/20 11/09/20 Unknown History ascorbic acid-vitamin E-biotin 4 tab PO DAILY@11/09/20 11/09/20 Unknown History [Hair, Skin, Nails with Biotin] calcium carbonate-vitamin D3 4 tab PO DAILY@11/09/20 11/09/20 Unknown History [Calcium + D] cetirizine [Zyrtec] 10 mg PO DAILY@11/09/20 11/09/20 Unknown History cranberry 2 tab PO DAILY@11/09/20 11/09/20 Unknown History nystatin 5 ml PO BID@11/09/20 11/09/20 Unknown History Allergies Allergy/AdvReac Type Severity Reaction Status Date / Time adhesive tape Allergy Unknown Verified 11/09/20 09:14 latex Allergy blisters Verified 11/08/20 07:00 PFSH Acute PFSH: Medical History Degenerative lumbar spinal stenosis Intervertebral disc disorder with radiculopathy of lumbosacral region Lumbar stenosis with neurogenic claudication Morbid obesity with BMI of 50.0-59.9, adult Surgical History History of appendectomy History of carpal tunnel repair History of knee surgery History of laparoscopic adjustable gastric banding History of lumbar surgery (~2011) 12/2016 Dr. Martin Joyner Thoracic spinal cord stimulator placement 04/2016 Dr. Martin Joyner Right SI joint fusion 03/2016 Dr. Martin Joyner [facility] Left SI joint fusion 06/2012 Dr. Christopher Olmstead [facility] L2-L3 posterior fusion/fixation. 10/2011 Dr. Christopher Olmstead [facility] Fractured fusion screws removed. 12/[address] Orthopedic surgeon. [facility] Spine: L3-L4, L4-L5 L5-S1 Posterior Fusion/fusion Status post correction of deviated nasal septum Status post insertion of spinal cord stimulator (~2016) Family History Father CAD (coronary artery disease) Social History Smoking and tobacco status: former smoker Alcohol intake: former Household members: spouse Marital status: Current occupational status: disabled History of recent travel: No Vitals/I&O/Wt Last Vital Signs Temp 97.9 F 11/08/20 17:25 Pulse 91 11/08/20 17:25 Resp 14 11/08/20 17:25 BP 105/74 11/08/20 17:25 Pulse Ox 93 11/08/20 17:25 11/08/20 11/08/20 11/08/20 06:59 14:59 22:59 Intake Total 1100 / 1100 700 / 1800 Output Total 1250 / 1250 Balance 1100 / 1100 -550 / 550 Weight last 48 hrs Weight 134.263 kg Physical Exam Narrative: EXAM NARRATIVE: EXAM NARRATIVE: General: No acute distress, AO x2-3, occasional expressive aphasia, drowsy HEENT: PERRLA, pupils bilaterally equal and reactive Chest: Normal vesicular breath sounds bilaterally, equal good air entry bilaterally all over the lung rogers CVS: S1-S2 regular, no murmurs, no tachycardia, no gallops, no rubs Abdomen: Soft, nontender, no organomegaly, bowel sounds present, morbidly obese Neuro: No focal deficits, no facial deformity, AO x3, power 5/5 in all limbs. Back: Surgical dressing present. Drain in place. Urinary Catheter Management^: Latex Free: Cath Placed During This Visit: yes Reason for Continuing Indwelling Catheter: Perioperative Use in Selected Surgeries Urinary Catheter Date of Insertion: 11/08/20 Urinary Catheter Time of Insertion: 10:42 A&P Assessment and plan (1) Encounter for postoperative care: Status: Acute (2) Degenerative lumbar spinal stenosis: Status: Acute (3) Morbid obesity with BMI of 50.0-59.9, adult: Status: Chronic Additional A&P Information 65-year-old female past medical history of degenerative disorder of lumbar spine, multiple lumbar spinal disease is seen by the medicine team for postoperative care after spinal surgery. Check CBC, CMP, urinalysis, blood cultures, CT head. Fall precaution, neurological assessment. IV fluids at 75 cc/h. Anticoagulation, diet advancement, physical therapy as per surgical team. Continue chronic medications including Cymbalta, Lasix. Stop meloxicam for now as patient is already on ketorolac. [place] five 1 tablet every 8 hours as needed. Morbid obesity: Patient uses CPAP at night. We will continue with CPAP overnight. We will change medications as per the lab results. Monitor vitals. Full code. Clear liquid diet for now. Advance as per surgical team. Lovenox as per Dr. Fowler. Consult Attestations Medical Necessity Statement: As per primary team Time Spent in Patient Care: Greater than 35 minutes (>than 50% of time spent in counselling and/or direct pt care on unit). Coding Level of Care Code Acute Visual Journalist for [facility] Diagnoses Encounter for postoperative care Z48.89 Degenerative lumbar spinal stenosis M48.061 Morbid obesity with BMI of 50.0-59.9, adult E66.01; Z68.43
[2020-11-08] MEDS: lactated ringers 1,000 ML 90 ML IV (18:47)
[2020-11-08] MEDS: docusate sodium 100 mg Capsule PO (18:50)
[2020-11-08] MEDS: duloxetine 30 mg Capsule PO (18:50)
[2020-11-08] MEDS: ketorolac 30 mg/mL INJ IVP (18:50)
[2020-11-08] MEDS: cyclobenzaprine 10 mg Tablet PO (18:50)
[2020-11-08] MEDS: HYDROcodone-acetaminophen 10-325 mg Tablet PO (20:09)
[2020-11-08] MEDS: gabapentin 400 mg Capsule 1200 MG PO (20:09)
[2020-11-08] MEDS: guaiFENesin 600 mg Tablet PO (20:12)
[2020-11-08 20:46] LABS: Basophils # 0.1 10^3/uL (0.0-0.1); Basophils % 0.5 %; Eosinophils % 0.1 %; Hematocrit 34.9 % (37.0-47.0); Hemoglobin 10.3 g/dL (11.5-15.3); Lymphocytes # 1.4 10^3/uL (0.8-4.8); Lymphocytes % 8.5 %; Mean Corpuscular HGB Conc 29.5 g/dL (30.0-36.0); Mean Corpuscular Hemoglobin 26.2 pg (28.0-34.0); Mean Corpuscular Volume 88.8 fL (81-99); Mean Platelet Volume 8.4 fL (7.4-10.4); Monocytes # 0.5 10^3/uL (0.2-0.9); Monocytes % 2.7 %; Neutrophils # 14.71 10^3/uL (1.8-7.7); Nucleated Red Blood Cells % 0 %; Platelet Count 385 10^3/cmm (130-400); Red Blood Count 3.93 10^6/uL (4.1-5.3); Red Cell Distribution Width 14.8 % (12.1-15.1); White Blood Count 16.9 10^3/uL (4.0-10.0)
[2020-11-08 21:06] LABS: Alanine Aminotransferase 20 U/L (0-33); Albumin Level 3.5 g/dL (3.5-5.2); Alkaline Phosphatase 118 IU/L (35-105); Anion Gap 14.5 (5-19); Aspartate Amino Transferase 41 U/L (0-32); Blood Urea Nitrogen 11 mg/dL (8-23); Calcium 7.9 mg/dL (8.5-10.5); Carbon Dioxide 27 mmol/L (22-29); Chloride 101 mmol/L (98-107); Globulin 2.1 g/dL (1.3-4.6); Glomerular Filtration Rate 63.2 mL/min (90-130); Glucose 166 mg/dL (65-115); Iron 28 ug/dL (37-145); Osmolality Calculated 289 mOsm/kg (285-295); Percent Saturation 9.6 % (20-50); Potassium 4.5 mmol/L (3.5-5.1); Sodium 138 mmol/L (136-145); Total Bilirubin 0.2 mg/dL (0.15-1.2); Total Iron Binding Capacity 290 mcg/dl; Total Protein 5.6 g/dL (6.6-8.7); Unsaturated Iron Binding 262 ug/dL (112-347)
[2020-11-08] MEDS: albuterol 8 gm MDI 1 PUFF INHALATION (21:11)
[2020-11-08 21:16] LABS: Thyroid Stimulating Hormone 1.39 uIU/mL (0.27-4.20)
[2020-11-09] VITALS (14 sets, daily range): BP systolic 119–138; BP diastolic 63–84; PULSE 86–99; RESP 16–20; TEMP 36.4–37.5; O2SAT 92–98
[2020-11-09 06:09] LABS: Basophils % 0.3 %; Eosinophils % 0.1 %; Hematocrit 30.3 % (37.0-47.0); Lymphocytes # 1.8 10^3/uL (0.8-4.8); Lymphocytes % 12.3 %; Mean Corpuscular HGB Conc 29.7 g/dL (30.0-36.0); Mean Corpuscular Hemoglobin 26.2 pg (28.0-34.0); Mean Corpuscular Volume 88.3 fL (81-99); Mean Platelet Volume 8.9 fL (7.4-10.4); Monocytes # 0.9 10^3/uL (0.2-0.9); Monocytes % 5.8 %; Neutrophils # 12.05 10^3/uL (1.8-7.7); Neutrophils % 80.6 %; Nucleated Red Blood Cells % 0 %; Platelet Count 398 10^3/cmm (130-400); Red Blood Count 3.43 10^6/uL (4.1-5.3); Red Cell Distribution Width 14.9 % (12.1-15.1); White Blood Count 14.9 10^3/uL (4.0-10.0)
[2020-11-09] MEDS: duloxetine 60 mg Capsule PO (06:11)
[2020-11-09] MEDS: enoxaparin 40 mg/0.4 mL Syringe SUBCUT (06:11)
[2020-11-09 06:15] LABS: Alanine Aminotransferase 17 U/L (0-33); Albumin Level 3.2 g/dL (3.5-5.2); Alkaline Phosphatase 103 IU/L (35-105); Anion Gap 11.2 (5-19); Aspartate Amino Transferase 38 U/L (0-32); Blood Urea Nitrogen 12 mg/dL (8-23); Calcium 7.8 mg/dL (8.5-10.5); Carbon Dioxide 28 mmol/L (22-29); Chloride 102 mmol/L (98-107); Globulin 2.3 g/dL (1.3-4.6); Glomerular Filtration Rate 84.5 mL/min (90-130); Glucose 146 mg/dL (65-115); Osmolality Calculated 286 mOsm/kg (285-295); Potassium 4.2 mmol/L (3.5-5.1); Sodium 137 mmol/L (136-145); Total Bilirubin 0.3 mg/dL (0.15-1.2); Total Protein 5.5 g/dL (6.6-8.7)
[2020-11-09] MEDS: lactated ringers 1,000 ML 90 ML IV ×2 (06:16→14:43)
[2020-11-09] MEDS: albuterol 8 gm MDI 1 PUFF INHALATION ×4 (07:18→19:25)
[2020-11-09] MEDS: HYDROcodone-acetaminophen 10-325 mg Tablet PO ×2 (07:32→18:22)
[2020-11-09] MEDS: meclizine 25 mg tablet PO (09:02)
[2020-11-09] MEDS: gabapentin 400 mg Capsule 1200 MG PO (09:02)
[2020-11-09] MEDS: calcium carb-vit d 600mg/400unit 1 Tablet 2 EACH PO ×2 (09:02→18:17)
[2020-11-09] MEDS: docusate sodium 100 mg Capsule PO ×2 (09:02→18:08)
[2020-11-09] MEDS: pantoprazole DR 40 mg Tablet PO (09:02)
[2020-11-09] MEDS: cyclobenzaprine 10 mg Tablet PO ×2 (09:02→18:09)
--- NOTE | 2020-11-09 10:43 | PC.CHAP ---
Pastoral Care Encounter/Spiritual Assessment Type of Contact [] Declined cafe aide visit [] Patient/Family/Request visit [] Outpatient visit [] Follow-up visit [] Physician referral [] Code/Alert [XX] Routine visit [] Staff referral [] Actively dying [] Patient sleeping [] Family support [] [] Out of room [] Palliative care [] [XX] Receiving care in room [] Pre-surgical visit [] Trauma [] Long length of stay [] ICU visit [] Other: Relational/Emotional Strength [] Patient feels connected with others/family/visitors/staff [] Distress [] Loneliness/isolation [] Abandonment Spirituality of Patient [] Person of Patience [] Attends Sikh of their Patience [] Believes in Prayer [] Reads Bible or Anglican materials [] There are Spiritual issues to be addressed Steam[employer] Att[employer] Interventions [] Prayer [] Active listening [] Non-anxious presence [] Spiritual/emotional support [] Crisis/trauma care [] Spiritual counseling [] Bereavement support [] Provided bereavement packet [] Provided Bible/devotional materials [] Provided toy/stuffed animal, coloring book to patient or family member [] Provided Communion [] Anointing/Kathleen [] Salvation [] Completed spiritual assessment [] Other: Impact on Illness or Injury [] Angry [] Fearful [] Anxious [] Often cries [] Exhaustion [] Unable to work [] Unable to attend jain [] Unable to walk/stand [] Unable to read [] Unable to drive [] Unable to eat/drink [] Unable to sleep [] Unable to be with family [] Patient intubated [] Other: Summary: Two attempts to visit were made by cafe aide; staff present both times. Time spent with patient
[2020-11-09] MEDS: ketorolac 30 mg/mL INJ IVP (10:48)
--- NOTE | 2020-11-09 10:58 | P.PN_ITS ---
Subjective Subjective: Interval history: pain controlled resting Vitals/I&O/Wt Last Vital Signs Temp 97.7 F 11/09/20 07:41 Pulse 95 11/09/20 07:41 Resp 18 11/09/20 07:41 BP 119/75 11/09/20 07:41 Pulse Ox 92 11/09/20 07:41 11/08/20 11/09/20 11/09/20 22:59 06:59 14:59 Intake Total 940 / 2040 1130 / 3170 400 / 400 Output Total 1250 / 1250 585 / 1835 310 / 310 Balance -310 / 790 545 / 1335 90 / 90 Weight last 48 hrs Weight 296 lb Physical Exam Narrative: EXAM NARRATIVE: 11/06 strength Urinary Catheter Management^: Latex Free: Cath Placed During This Visit: yes, but has since been removed by the nurse Reason for Continuing Indwelling Catheter: Decision to DC Catheter Urinary Catheter Date of Insertion: 11/08/20 Urinary Catheter Time of Insertion: 10:42 Date Urinary Catheter Removed: 11/09/20 Time Urinary Catheter Discontinued: 10:54 Data : 11/09/20 05:25 11/09/20 05:25 Micro: Microbiology 11/08/20 20:27 Blood Culture - Preliminary Blood SPECIMEN COLLECTED 11/08/20 20:33 Blood Culture - Preliminary Blood SPECIMEN COLLECTED A&P Assessment and plan (1) Degenerative lumbar spinal stenosis: POD #1 T10- Pelvis d/c berry up with PT Status: Acute Attestations Medical Necessity Statement*: need pain control Coding Level of Care Code Acute Tutorial Laboratory Supervisor for [facility] Diagnoses Degenerative lumbar spinal stenosis M48.061
[2020-11-09] MEDS: morphine 4 mg/mL SDV 1 mL 1 MG IVP (12:52)
--- NOTE | 2020-11-09 15:06 | CTR_ITS ---
PROCEDURE INFORMATION: Exam: CT Angiography Head With Contrast, Arteriography Exam date and time: 11/09/2020 4:44 PM Age: 65 years old Clinical indication: Speech disturbance; Patient HX: S/P L sp surgery w expressive aphasia TECHNIQUE: Imaging protocol: Computed tomography angiography of the head with contrast. Exam focused on the arteries. 3D rendering (Not supervised by radiologist): MIP and/or 3D reconstructed images were created by the technologist. Radiation optimization: All CT scans at this facility use at least one of these dose optimization techniques: automated exposure control; mA and/or kV adjustment per patient size (includes targeted exams where dose is matched to clinical indication); or iterative reconstruction. Contrast material: OMNI 350; Contrast volume: 95 ml; Contrast route: INTRAVENOUS (IV); COMPARISON: CT head wo con* [id number] 11/08/2020 7:54 PM RADIATION DOSE METRICS: Total DLP (mGy-cm): 2357.28 FINDINGS: ANTERIOR CIRCULATION: Right internal carotid artery: Unremarkable. Intracranial segment is patent with no significant stenosis. No aneurysm. Right middle cerebral artery: Unremarkable. No occlusion or significant stenosis. No aneurysm. Right anterior cerebral artery: Unremarkable. No occlusion or significant stenosis. No aneurysm. Left internal carotid artery: Unremarkable. Intracranial segment is patent with no significant stenosis. No aneurysm. Left middle cerebral artery: Unremarkable. No occlusion or significant stenosis. No aneurysm. Left anterior cerebral artery: Unremarkable. No occlusion or significant stenosis. No aneurysm. POSTERIOR CIRCULATION: Right vertebral artery: Unremarkable. No occlusion or significant stenosis. No aneurysm. Left vertebral artery: Unremarkable. No occlusion or significant stenosis. No aneurysm. Basilar artery: Unremarkable. No occlusion or significant stenosis. No aneurysm. Right posterior cerebral artery: Unremarkable. No occlusion or significant stenosis. No aneurysm. Left posterior cerebral artery: Unremarkable. No occlusion or significant stenosis. No aneurysm. Brain: No definite mass, mass effect, or midline shift. Cerebral ventricles: No ventriculomegaly. Pituitary gland and sella: Empty sella. Bones/joints: Unremarkable. No acute fracture. Soft tissues: Unremarkable. IMPRESSION: 1. No large artery occlusion or stenosis. PROCEDURE INFORMATION: Exam: CT Angiography Neck With Contrast Exam date and time: 11/09/2020 4:44 PM Age: 65 years old Clinical indication: Speech disturbance; Patient HX: S/P L sp surgery w expressive aphasia TECHNIQUE: Imaging protocol: Computed tomography angiography of the neck with contrast. 3D rendering (Not supervised by radiologist): MIP and/or 3D reconstructed images were created by the technologist. Radiation optimization: All CT scans at this facility use at least one of these dose optimization techniques: automated exposure control; mA and/or kV adjustment per patient size (includes targeted exams where dose is matched to clinical indication); or iterative reconstruction. Contrast material: OMNI 350; Contrast volume: 95 ml; Contrast route: INTRAVENOUS (IV); COMPARISON: CT head wo con* [id number] 11/08/2020 7:54 PM RADIATION DOSE METRICS: Total DLP (mGy-cm): 2357.28 FINDINGS: Right common carotid artery: No stenosis. No dissection or occlusion. Right internal carotid artery: Calcified plaque with 0% stenosis in the proximal right internal carotid artery. Right external carotid artery: No occlusion or stenosis of the origin. Right vertebral artery: No stenosis. No dissection or occlusion. Left common carotid artery: No stenosis. No dissection or occlusion. Left internal carotid artery: Calcified plaque with 20% diameter stenosis in the proximal left internal carotid artery. Left external carotid artery: No occlusion or stenosis of the origin. Left vertebral artery: No stenosis. No dissection or occlusion. Bones/joints: No acute fracture. Soft tissues: Normal. No significant soft tissue swelling. Lymph nodes: Prominent mediastinal, cervical and submandibular lymph nodes measure less than 1 cm short axis and are most likely reactive. CT/CT angio headneck* [id number] IMPRESSION: 1. Calcified plaque in the proximal internal carotid arteries with 20% diameter stenosis on the left and 0% stenosis on the right. REFERENCES: NASCET CRITERIA. The degree of internal carotid artery stenosis is based on NASCET criteria. Normal is no stenosis. Mild is less than 50% stenosis. Moderate is 50-69% stenosis. Severe is 70% to 99% stenosis. Total occlusion is no detectable patent lumen. Radiation Dose CTDIVOL = (mGy): DLP = 2357.28~2357.28 (mGy-cm)
--- NOTE | 2020-11-09 15:15 | PM.PN ---
Subjective Subjective: Interval history: No acute events overnight. On examination today patient is a lot more awake. She still having occasional episodes of expressive aphasia. It takes her a long time to remember the correct word for her name. She states this happens to her sometimes when she is tired and is not able to her. Have tried multiple times to get in touch with her to confirm but not able to. Moving all limbs appropriately, no facial deformity. Denies any headache, nausea, vomiting. Worked with physical therapy today. As per the nurse taking care of the patient patient was AOx3 and not having expressive aphasia and this morning. Patient had similar event yesterday after pain medications. Patient got morphine 1 hour prior to my examination. Vitals/I&O/Wt Last Vital Signs Temp 99.5 F 11/09/20 12:00 Pulse 99 11/09/20 15:10 Resp 16 11/09/20 15:10 BP 123/63 11/09/20 12:00 Pulse Ox 96 11/09/20 15:10 11/09/20 11/09/20 11/09/20 06:59 14:59 22:59 Intake Total 1130 / 3170 1515.5 / 1515.5 Output Total 585 / 1835 310 / 310 Balance 545 / 1335 1205.5 / 1205.5 Weight last 48 hrs Weight 134.263 kg Physical Exam Narrative: EXAM NARRATIVE: EXAM NARRATIVE: General: No acute distress, AO 3, occasional expressive aphasia, morbid obesity HEENT: PERRLA, pupils bilaterally equal and reactive Chest: Normal vesicular breath sounds bilaterally, equal good air entry bilaterally all over the lung rogers CVS: S1-S2 regular, no murmurs, no tachycardia, no gallops, no rubs Abdomen: Soft, nontender, no organomegaly, bowel sounds present, morbidly obese Neuro: No focal deficits, no facial deformity, AO x3, power 5/5 in all limbs. Back: Surgical dressing present. Drain in place. Urinary Catheter Management^: Latex Free: Cath Placed During This Visit: yes, but has since been removed by the nurse Reason for Continuing Indwelling Catheter: Decision to DC Catheter Urinary Catheter Date of Insertion: 11/08/20 Urinary Catheter Time of Insertion: 10:42 Date Urinary Catheter Removed: 11/09/20 Time Urinary Catheter Discontinued: 10:54 Data : 11/09/20 05:25 11/09/20 05:25 Micro: Microbiology 11/08/20 20:27 Blood Culture - Preliminary Blood SPECIMEN COLLECTED 11/08/20 20:33 Blood Culture - Preliminary Blood SPECIMEN COLLECTED A&P Assessment and plan (1) Encounter for postoperative care: Status: Acute (2) Degenerative lumbar spinal stenosis: Status: Acute (3) Morbid obesity with BMI of 50.0-59.9, adult: Status: Chronic (4) Expressive aphasia: Status: Acute (5) Obstructive sleep apnea: Status: Acute Additional A&P Information 65-year-old female past medical history of degenerative disorder of lumbar spine, multiple lumbar spinal disease is seen by the medicine team for postoperative care after spinal surgery. Possible expressive aphasia: Patient states is chronic. Not able to confirm the story as is not at bedside and not picking up the phone. CT head results appreciated without any signs of acute abnormality. Check CTA head and neck. Telemetry stable. No electrolyte abnormality. Stop morphine. Continue with [place] as needed. Urinalysis awaited. For now start patient on ceftriaxone. Patient has leukocytosis which is most likely reactive to stress from OR yesterday. IV fluids at 75 cc/h. Fall precautions. Stop meloxicam for now as patient is already on ketorolac. [place] five 1 tablet every 8 hours as needed. Morbid obesity: Patient uses CPAP at night. We will continue with CPAP overnight. Continue other chronic medications including Cymbalta, gabapentin at 600 mg twice daily, meclizine as needed, Lasix. Full code. Regular diet. Lovenox as per Dr. Fowler. Attestations Medical Necessity Statement*: As per primary team Time Spent in Patient Care: Greater than 35 minutes (>than 50% of time spent in counselling and/or direct pt care on unit). Coding Level of Care Code Acute Personal Protection Specialist for [facility] Diagnoses Encounter for postoperative care Z48.89 Degenerative lumbar spinal stenosis M48.061 Morbid obesity with BMI of 50.0-59.9, adult E66.01; Z68.43 Expressive aphasia R47.01 Obstructive sleep apnea G47.33
[2020-11-09] MEDS: cefTRIAXone 1,000 MG in sodium chloride 0.9% (plus) 50 ML 100 MG IV (15:33)
[2020-11-09 16:07] LABS: Urine Appearance Clear (CLEAR); Urine Color Yellow (Yellow)
[2020-11-09 16:08] LABS: Add Urine Microscopic? YES; Bilirubin Urine Neg (Negative); Blood Urine 2+ (Negative); Glucose Urine UA Norm (Normal); Ketones Urine Negative (Negative); Leukocyte Esterase Urine Negative (Negative); Nitrate Urine Negative (Negative); Protein Urine Neg (Negative); Urobilinogen Urine Norm (Negative); pH Urine 5 (5-7)
[2020-11-09 16:09] LABS: Bacteria Urine TRACE /hpf; Mucus Urine TRACE /hpf; RBC Urine 0-4 /hpf (0-2); Squamous Epithelial Cell Urine RARE /hpf (0-5); WBC Urine RARE /hpf (0-5)
[2020-11-09 16:10] LABS: Add Urine Culture? No
[2020-11-09] MEDS: iohexol 350 mg/mL 100 mL Btl IV (17:08)
[2020-11-09] MEDS: duloxetine 30 mg Capsule PO (18:08)
[2020-11-09] MEDS: gabapentin 300 mg Capsule 600 MG PO (18:18)
[2020-11-09] MEDS: guaiFENesin 600 mg Tablet PO (21:11)
[2020-11-10] VITALS (7 sets, daily range): BP systolic 124–149; BP diastolic 63–92; PULSE 97–105; RESP 18; TEMP 36.6–37.5; O2SAT 91–93
[2020-11-10] MEDS: ketorolac 30 mg/mL INJ IVP (01:11)
[2020-11-10] MEDS: lactated ringers 1,000 ML 90 ML IV (03:33)
--- NOTE | 2020-11-10 04:16 | PC.NURSE ---
pt pulled hemavac drain out, Dr. Malone notified and pictures were sent via volte. No active bleeding noticed, Dr. Malone wants Dr. Fowler notified in the AM.
[2020-11-10] MEDS: duloxetine 60 mg Capsule PO (06:14)
[2020-11-10] MEDS: HYDROcodone-acetaminophen 10-325 mg Tablet PO (06:14)
[2020-11-10] MEDS: enoxaparin 40 mg/0.4 mL Syringe SUBCUT (06:15)
[2020-11-10 06:31] LABS: Basophils # 0.1 10^3/uL (0.0-0.1); Basophils % 0.9 %; Eosinophils # 0.2 10^3/uL (0.0-0.8); Eosinophils % 1.3 %; Hematocrit 27.8 % (37.0-47.0); Hemoglobin 8.1 g/dL (11.5-15.3); Lymphocytes # 3.1 10^3/uL (0.8-4.8); Lymphocytes % 26.7 %; Mean Corpuscular HGB Conc 29.1 g/dL (30.0-36.0); Mean Corpuscular Hemoglobin 26.3 pg (28.0-34.0); Mean Corpuscular Volume 90.3 fL (81-99); Mean Platelet Volume 8.7 fL (7.4-10.4); Monocytes % 8.1 %; Neutrophils # 7.17 10^3/uL (1.8-7.7); Neutrophils % 61.3 %; Nucleated Red Blood Cells % 0 %; Platelet Count 366 10^3/cmm (130-400); Red Blood Count 3.08 10^6/uL (4.1-5.3); Red Cell Distribution Width 15.5 % (12.1-15.1); White Blood Count 11.7 10^3/uL (4.0-10.0)
[2020-11-10 06:44] LABS: Alanine Aminotransferase 11 U/L (0-33); Alkaline Phosphatase 90 IU/L (35-105); Anion Gap 11.7 (5-19); Aspartate Amino Transferase 29 U/L (0-32); Blood Urea Nitrogen 13 mg/dL (8-23); Calcium 8.3 mg/dL (8.5-10.5); Carbon Dioxide 30 mmol/L (22-29); Chloride 103 mmol/L (98-107); Globulin 2.2 g/dL (1.3-4.6); Glomerular Filtration Rate 72.4 mL/min (90-130); Glucose 124 mg/dL (65-115); Osmolality Calculated 294 mOsm/kg (285-295); Potassium 3.7 mmol/L (3.5-5.1); Sodium 141 mmol/L (136-145); Total Bilirubin 0.2 mg/dL (0.15-1.2); Total Protein 5.2 g/dL (6.6-8.7)
--- NOTE | 2020-11-10 07:26 | PC.NURSE ---
hemavac drain pulled per Dr. Fowler's orders
[2020-11-10] MEDS: albuterol 8 gm MDI 1 PUFF INHALATION (08:03)
[2020-11-10] MEDS: gabapentin 300 mg Capsule 600 MG PO (09:01)
[2020-11-10] MEDS: pantoprazole DR 40 mg Tablet PO (09:01)
[2020-11-10] MEDS: cyclobenzaprine 10 mg Tablet PO (09:01)
[2020-11-10] MEDS: docusate sodium 100 mg Capsule PO (09:01)
[2020-11-10] MEDS: calcium carb-vit d 600mg/400unit 1 Tablet 2 EACH PO (09:01)
--- NOTE | 2020-11-10 10:12 | PM.DCS ---
Discharge Providers Date of Admission: 11/08/20 17:52 Date of Discharge: November 10, 2020 Attending Provider at Admission: Saul Fowler DO Attending Provider at Discharge: Saul Fowler DO Primary Care Provider: Tadeo Prather MD Diagnoses at Discharge Discharge Diagnosis (1) Encounter for postoperative care: Status: Acute (2) Degenerative lumbar spinal stenosis: Status: Acute (3) Morbid obesity with BMI of 50.0-59.9, adult: Status: Chronic (4) Expressive aphasia: Status: Acute (5) Obstructive sleep apnea: Status: Acute Reason for Visit Reason for Visit: psf Hospital Course Hospital Course Tolerated her stay. She was admitted on 11/08/2020 had a T10 to the pelvis revision fusion done. Her stay was uneventful. She initially postoperatively had some postop confusion likely from the medication from surgery. She did not have any more episodes of this confusion since then. Postop day 2 she will be discharged on 11/10/2020. Physical Exam Urinary Catheter Management^: Latex Free: Cath Placed During This Visit: yes, but has since been removed by the nurse Reason for Continuing Indwelling Catheter: Decision to DC Catheter Urinary Catheter Date of Insertion: 11/08/20 Urinary Catheter Time of Insertion: 10:42 Date Urinary Catheter Removed: 11/09/20 Time Urinary Catheter Discontinued: 10:54 Discharge Data Data Completed and Pending: Completed Studies During Hospitalization Category Date Time Status CT angio headneck * 59669/69766 Urge nt Cat Scan 11/09/20 15:[address] head wo con* 7 0450 Routine Cat Scan 11/08/20 18:14 Completed XR chest 1V tati ble [id number] Routine Exams 11/08/20 06:55 Completed Pending at discharge Category Date Time Status C-arm Fluoroscopy [id number] Routine Exams 11/08/20 06:55 Taken XR lumbar spine 2 -3V* [id number] Routine Exams 11/08/20 16:15 Taken Blood Culture Sta t Lab 11/08/20 20:27 Results Labs from last 24 hours 11/10/20 11/10/20 11/09/20 06:10 06:10 15:02 WBC 11.7 H RBC 3.08 L Hgb 8.1 L Hct 27.8 L MCV 90.3 MCH 26.3 L MCHC 29.1 L RDW 15.5 H Plt Count 366 MPV 8.7 Neut % (Auto) 61.3 Lymph % (Auto) 26.7 Martin % (Auto) 8.1 Eos % (Auto) 1.3 Baso % (Auto) 0.9 Neut # (Auto) 7.17 Lymph # (Auto) 3.1 Martin # (Auto) 1.0 H Eos # (Auto) 0.2 Baso # (Auto) 0.1 Nucleated RBC % (a uto) 0 Nucleated RBCs # 0.0 Sodium 141 Potassium 3.7 Chloride 103 Carbon Dioxide 30 H Anion Gap 11.7 BUN 13 Creatinine 0.8 GFR Calculation 72.4 L Glucose 124 H Calculated Osmolal ity 294 Calcium 8.3 L Total Bilirubin 0.2 AST 29 ALT 11 Alkaline Phosphata se 90 Total Protein 5.2 L Albumin 3.0 L Globulin 2.2 Urine Color Yellow Urine Appearance Clear Urine pH 5 Ur Specific Gravit y 1.020 Urine Protein Neg Urine Glucose (UA) Norm Urine Ketones Negative Urine Blood 2+ H Urine Nitrate Negative Urine Bilirubin Neg Urine Urobilinogen Norm Ur Leukocyte Dipti ase Negative Urine RBC 0-4 H Urine WBC Rare Ur Squamous Epith Cells Rare Amorphous Sediment Not Reportable Urine Bacteria Trace Hyaline Casts 5-10 H Urine Mucus Trace Vitals: Last Vital Signs Temp 97.9 F 11/10/20 08:00 Pulse 105 H 11/10/20 08:07 Resp 18 11/10/20 08:04 BP 129/63 11/10/20 08:00 Pulse Ox 92 11/10/20 08:04 Discharge Plan Discharge Patient Disposition: Home Condition: Stable Prescriptions: New hydrocodone-acetaminophen 10-325 mg tablet 1 - 2 tab PO Q4H PRN (Reason: pain) 7 Days Qty: 60 RF: 0 Continued meloxicam [Mobic] 15 mg tablet 15 mg PO DAILY@ RF: 0 furosemide 20 mg tablet 20 mg PO QAM RF: 0 fluticasone propion-salmeterol [Advair Diskus] 500-50 mcg/dose blister with device 1 inh INHALATION BID RF: 0 cyclobenzaprine 10 mg tablet 10 mg PO BID@ RF: 0 alprazolam 0.5 mg tablet 1 mg PO DAILY@ RF: 0 hydrocodone-acetaminophen 10-325 mg tablet 3 tab PO BID RF: 0 albuterol sulfate [ProAir HFA] 90 mcg/actuation HFA aerosol inhaler 2 puff INHALATION Q4H PRN (Reason: Shortness Of Breath) RF: 0 duloxetine [Cymbalta] 60 mg capsule,delayed release(DR/EC) 60 mg PO DAILY@09 RF: 0 gabapentin 600 mg tablet 600 mg PO BID@ RF: 0 meclizine 25 mg tablet 25 mg PO PRN RF: 0 guaifenesin [Mucinex] 600 mg tablet extended release 12hr 600 mg PO DAILY@ RF: 0 omeprazole 20 mg capsule,delayed release(DR/EC) 20 mg PO DAILY@ RF: 0 (DME) Bone Growth Stimulator E0748 See Rx Instructions .Route .MEDSUPPLY Qty: 1 RF: 0 Diane 1 tab PO DAILY PRN (Reason: Allergy Symptoms) RF: 0 nystatin 100,000 unit/mL suspension 5 ml PO BID@ RF: 0 Zyrtec 10 mg Tablet 10 mg PO DAILY@ RF: 0 calcium carbonate-vitamin D3 600 mg(1,500mg) -200 unit Tablet 4 tab PO DAILY@ RF: 0 Hair, Skin, Nails with Biotin 7.5-7.5-1,250 mg-unit-mcg Tablet,Chewable 4 tab PO DAILY@ RF: 0 cranberry 2 tab PO DAILY@ RF: 0 duloxetine 30 mg capsule,delayed release(DR/EC) 30 mg PO DAILY@ RF: 0 Discharge Orders: Discharge Order (Routine); Ordered 11/10/20 Ordered By: Saul Fowler Referrals: Saul Fowler, DO [Physician] - Discharge Diet: Advance as tolerated Discharge Activity: Limit activity as instructed Patient Instructions: Aphasia (DC), Lumbar Spinal Fusion (GEN), Opioid Safety Activity Restrictions/Additional Instructions: Thank you for [facility] for your care! The following is a list of instructions, from your provider, to follow upon your discharge to ensure you have the optimal recovery from your recent injury orsurgery. Follow-up care is a panchal part of your treatment and safety. Be sure to make and go to all appointments, and call your doctor if you are having problems. If you do not already have a follow-up appointment made, call Dr. Fowler office in the next 1-3 days to make follow up appointment for 2 weeks at [phone]. It is also a good idea to know your test results and keep a list of the medicines you take. Medications will be prescribed for you at your provider's discretion. These medications are to be used as instructed; if they are taken more often that prescribed they will not be refilled early and in most cases will not be refilled at all. > When a refill is needed,you should contact yulissa streeter 2-3 business days before your prescription runs out. Medications will NOT be refilled by sales contract administrator providers after hours! > Many pain medications contain Tylenol (Acetaminophen). Do not consume more than 4,000 mg of Tylenol per day in total with any combination ofmedications. > Pain medications can cause constipation. Please use an over the counter stool softener as directed, while taking pain medications. Consulty our local pharmacist with questions or recommendations on stool softeners. If constipation persists, contact our office or your primary care provider. > While under our care,you are not to receive pain medications or other controlled substances from any other provider unless our office is notified and approves. Any attempts to do so will result in refusal to prescribe any further pain medications and possible dismissal from our practice. ? Your wound and/or dressing should remain clean and dry for 2 days after surgery. On postoperative day 2 (48 hours after your surgery) the dressing (if present) should be removed and it is okay to shower and get the incision wet. Pad dry afterwards. No further dressing should be required from that point on. Do not put any creams or ointments on theincision > It is normal for there to be a small amount of discharge (bloody or blood tinged) present from a surgical wound for the first 1-3days. > The wound should be examined twice a day for signs of infection. Mild redness or bruising is to be expected but indications that an infection maybe starting would include; An increase in redness, swelling, or discharge, a foul odor present around the incision, and/or a fever greater than 101 ?F ? Showering is permitted, however we ask that you do not take a bath, sit in a whirlpool / Jacuzzi, or go swimming for 1 month. For only the first 2 days after surgery, lt wilt be necessary for you to cover your wound/dressing with plastic and tape to keep it dry. ? Walking is essential for the healing process after surgery. We would like you to slowly advance your walking. This should be done on relatively flat clear ground (inside or out) or can be done on a treadmill. Remember this goal does not have to happen all at once, slowly increase your distance and duration. This can be broken into more more than one walk per day as tolerated. Patients who walk as directed after surgery rarely require Physical Therapy. In the unlikely event this issue arises your provider will direct hospital staff to make the appropriate arrangements. ? No lifting over 5 pounds {a gallon of milk) or bending/twisting until further notice. Each of these activities places an unnecessary amount of stress onto the body and can impede the delicate healing process. > Instead of bending at the waist, keep your back straight and bend at the knees. > Instead of twisting your torso, keep your back straight and turn your entire body with your feet. ? You may sleep in any position which makes you comfortable. Many patients find comfort sleeping in a reclining chair. It is not abnormal to have difficulty sleeping for the first several weeks following your surgery. We recommend trying Benadry! or Tylenol PM as directed to help with your sleeping difficulties. Both medications are over the counter and available withoutprescription. ? NO SMOKING!!! Smoking dramatically increases the probability of developing postoperative wound infections. ? Common complaints after lumbar and/or thoracic spine surgery include, but are not limited to: numbness and/or tingling in the legs, pain around the incision and surrounding tissues, muscle spasms, or stiffness of the middle to low back. Contact our office if these symptoms persist or if an acute change occurs. ? No driving for the first 3-5days, and not while taking narcotics until seen at your follow-up appointment and cleared. There are no restrictions for riding on short trips, however if you take a longer trip, arrangements should be made to make regular stops to get out of the vehicle and stretch . ? Swelling is an unfortunate event that will take place with any surgery and is the primary source of your postoperative discomfort. While walking and regular approved activities helps control inflammation, there are additional steps you can take to minimizeswelling. > Place ice over the surgical site and surrounding tissue for twenty minutes, followed by applying a low/medium heat (heating pad) for an additional twenty minutes every 1-2 hours as needed for painrelief. > You may use of over the counter anti-inflammatory medications (Ibuprofen, Motrin, Aleve, Advil, etc) as directed on the package label. These types of medicines wm significantly reduce the amount of discomfort you experience after surgery from swelling. It should be noted that if you have and allergy to any of these medications, or a history of ulcers or kidney disease you should consult you primary care provider prior to starting these medications. Discharge Attestations Time Spent in Discharge Care*: less than 30 min Quality Metrics Clinical Quality Measures During this hospital stay, did patient experience: None Coding Level of Care Code Acute [facility] note Diagnoses Encounter for postoperative care Z48.89 Degenerative lumbar spinal stenosis M48.061 Morbid obesity with BMI of 50.0-59.9, adult E66.01; Z68.43 Expressive aphasia R47.01 Obstructive sleep apnea G47.33
--- NOTE | 2020-11-10 11:22 | P.PN_ITS ---
Subjective Subjective: Interval history: No acute events overnight. She denies any nausea, vomiting, headache overnight. Has remained hemodynamically stable. Working well with physical therapy. Vitals/I&O/Wt Last Vital Signs Temp 97.9 F 11/10/20 08:00 Pulse 105 H 11/10/20 08:07 Resp 18 11/10/20 08:04 BP 129/63 11/10/20 08:00 Pulse Ox 92 11/10/20 08:04 11/09/20 11/10/20 11/10/20 22:59 06:59 14:59 Intake Total 720 / 2235.5 1000 / 3235.5 360 / 360 Output Total 230 / 540 110 / 650 Balance 490 / 1695.5 890 / 2585.5 360 / 360 Physical Exam Narrative: EXAM NARRATIVE: EXAM NARRATIVE: General: No acute distress, AO 3, occasional expressive aphasia, morbid obesity HEENT: PERRLA, pupils bilaterally equal and reactive Chest: Normal vesicular breath sounds bilaterally, equal good air entry bilaterally all over the lung rogers CVS: S1-S2 regular, no murmurs, no tachycardia, no gallops, no rubs Abdomen: Soft, nontender, no organomegaly, bowel sounds present, morbidly obese Neuro: No focal deficits, no facial deformity, AO x3, power 5/5 in all limbs. Back: Surgical dressing present. Drain in place. Urinary Catheter Management^: Latex Free: Cath Placed During This Visit: yes, but has since been removed by the nurse Reason for Continuing Indwelling Catheter: Decision to DC Catheter Urinary Catheter Date of Insertion: 11/08/20 Urinary Catheter Time of Insertion: 10:42 Date Urinary Catheter Removed: 11/09/20 Time Urinary Catheter Discontinued: 10:54 Data : 11/10/20 06:10 11/10/20 06:10 Micro: Microbiology 11/08/20 20:33 Blood Culture - Preliminary Blood NEGATIVE TO DATE 11/08/20 20:27 Blood Culture - Preliminary Blood NEGATIVE TO DATE A&P Assessment and plan (1) Encounter for postoperative care: Status: Acute (2) Degenerative lumbar spinal stenosis: Status: Acute (3) Morbid obesity with BMI of 50.0-59.9, adult: Status: Chronic (4) Expressive aphasia: Status: Acute (5) Obstructive sleep apnea: Status: Acute Additional A&P Information 65-year-old female past medical history of degenerative disorder of lumbar spine, multiple lumbar spinal disease is seen by the medicine team for postoperative care after spinal surgery. Possible expressive aphasia: Patient states is chronic. states she has this problem on and off. Stroke ruled out with a CT head and CTA head and neck. Telemetry stable. No electrolyte abnormality. Stop morphine. Continue with [place] as needed. Urinalysis awaited. For now start patient on ceftriaxone. Patient has leukocytosis which is most likely reactive to stress from OR yesterday. IV fluids at 75 cc/h. Fall precautions. Stop meloxicam for now as patient is already on ketorolac. [place] five 1 tablet every 8 hours as needed. Morbid obesity: Patient uses CPAP at night. We will continue with CPAP overnight. Continue other chronic medications including Cymbalta, gabapentin at 600 mg twice daily, meclizine as needed, Lasix. Patient is stable to be discharged from medicine point of view. Continue with chronic medications like before. She is to follow-up with a primary care provider within next 4 to 7 days. Full code. Regular diet. Lovenox as per Dr. Fowler. Attestations Medical Necessity Statement*: As per primary team Time Spent in Patient Care: Greater than 35 minutes (>than 50% of time spent in counselling and/or direct pt care on unit) . 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
== END 2020-11-10 12:40 | disposition home or self-care (01) | DRG 454 ==
LOC: MEDSURG 11-09 09:29
PROVIDERS: Student in an Organized Health Care Education/Training Program; Admitting Provider Orthopaedic Surgery; PCP Family Medicine; Visit Provider Orthopaedic Surgery
PROC: 0SG00AJ Fusion of Lumbar Vertebral Joint with Interbody Fusion Device, Posterior Approach, Anterior Column, Open Approach (ICD-10-PCS; CPT 22612; principal; 2020-11-08 08:10)
PROC: 0SG00AJ Fusion of Lumbar Vertebral Joint with Interbody Fusion Device, Posterior Approach, Anterior Column, Open Approach (ICD-10-PCS; 2020-11-08 08:10)
DX: M48.061 Spinal stenosis, lumbar region without neurogenic claudication (principal); Z68.42 Body mass index [BMI] 45.0-49.9, adult; R47.01 Aphasia; R41.0 Disorientation, unspecified; M96.1 Postlaminectomy syndrome, not elsewhere classified; E66.01 Morbid (severe) obesity due to excess calories; G47.33 Obstructive sleep apnea (adult) (pediatric); Z79.891 Long term (current) use of opiate analgesic; Z87.891 Personal history of nicotine dependence; Z98.84 Bariatric surgery status
CPT/HCPCS: 36415; 51702; 70450; 70496; 70498; 71045; 72100; 76000; 80053; 81001; 83540; 83550; 84443; 85025; 87040; 94640; 96372; 97110; 97116; 97161; 97530; C1713; J0690; J0696; J1100; J1170; J1644; J1650; J1885; J2270; J2405; J2704; J3010; J3490; J3535; J7030; J8597; Q9967

== ENCOUNTER → 2020-11-26 15:26 | Outpatient (BNVA) | payer MEDICARE, OTHER, SELFPAY | PROVIDERS: PCP Family Medicine; Visit Provider Orthopaedic Surgery | DX: Z98.1 Arthrodesis status; Z47.89 Encounter for other orthopedic aftercare | CPT/HCPCS: 72100 ==

== ENCOUNTER 2020-12-09 10:04 | Outpatient (CLI) | payer MEDICARE, OTHER, SELFPAY | END 2020-12-09 10:05 | disposition home or self-care (01) | LOC: WOUND 10:04 | PROVIDERS: PCP Family Medicine; Visit Provider Nurse Practitioner Family | DX: T81.31XA Disruption of external operation (surgical) wound, not elsewhere classified, initial encounter (principal); Y83.8 Other surgical procedures as the cause of abnormal reaction of the patient, or of later complication, without mention of misadventure at the time of the procedure | CPT/HCPCS: 11042; G0463 ==

== ENCOUNTER 2020-12-16 09:40 | Outpatient (CLI) | payer MEDICARE, OTHER, SELFPAY | END 2020-12-16 09:41 | disposition home or self-care (01) | LOC: WOUND 09:46 | PROVIDERS: PCP Family Medicine; Visit Provider Nurse Practitioner Family | DX: T81.31XA Disruption of external operation (surgical) wound, not elsewhere classified, initial encounter (principal); Y83.8 Other surgical procedures as the cause of abnormal reaction of the patient, or of later complication, without mention of misadventure at the time of the procedure | CPT/HCPCS: 11042 ==

== ENCOUNTER → 2020-12-19 09:26 | Outpatient (BNVA) | payer MEDICARE, OTHER, SELFPAY | PROVIDERS: PCP Family Medicine; Visit Provider Orthopaedic Surgery | DX: Z48.89 Encounter for other specified surgical aftercare (principal); Z98.1 Arthrodesis status | CPT/HCPCS: 72100 ==

== ENCOUNTER 2020-12-23 08:19 | Outpatient (CLI) | payer MEDICARE, OTHER, SELFPAY | END 2020-12-23 08:20 | disposition home or self-care (01) | LOC: WOUND 08:20 | PROVIDERS: PCP Family Medicine; Visit Provider Nurse Practitioner Family | DX: T81.31XA Disruption of external operation (surgical) wound, not elsewhere classified, initial encounter (principal); Y83.8 Other surgical procedures as the cause of abnormal reaction of the patient, or of later complication, without mention of misadventure at the time of the procedure | CPT/HCPCS: 11042 ==

== ENCOUNTER 2020-12-30 09:11 | Outpatient (CLI) | payer MEDICARE, OTHER, SELFPAY | END 2020-12-30 09:12 | disposition home or self-care (01) | LOC: WOUND 09:12 | PROVIDERS: PCP Family Medicine; Visit Provider Nurse Practitioner Family | DX: T81.31XA Disruption of external operation (surgical) wound, not elsewhere classified, initial encounter (principal); Y83.8 Other surgical procedures as the cause of abnormal reaction of the patient, or of later complication, without mention of misadventure at the time of the procedure | CPT/HCPCS: 11042 ==

== ENCOUNTER → 2020-12-31 08:30 | Outpatient (BNVA) | payer MEDICARE, OTHER, SELFPAY | PROVIDERS: PCP Family Medicine; Visit Provider Orthopaedic Surgery | DX: Z48.89 Encounter for other specified surgical aftercare (principal); Z98.1 Arthrodesis status | CPT/HCPCS: 72100 ==

== ENCOUNTER 2021-01-13 09:41 | Outpatient (CLI) | payer MEDICARE, OTHER, SELFPAY | END 2021-01-13 09:42 | disposition home or self-care (01) | LOC: WOUND 09:43 | PROVIDERS: PCP Family Medicine; Visit Provider Thoracic Surgery (Cardiothoracic Vascular Surgery) | DX: T81.31XA Disruption of external operation (surgical) wound, not elsewhere classified, initial encounter (principal); Y83.8 Other surgical procedures as the cause of abnormal reaction of the patient, or of later complication, without mention of misadventure at the time of the procedure | CPT/HCPCS: 11042 ==

== ENCOUNTER 2021-01-20 08:54 | Outpatient (CLI) | payer MEDICARE, OTHER, SELFPAY | END 2021-01-20 08:55 | disposition home or self-care (01) | LOC: WOUND 08:55 | PROVIDERS: PCP Family Medicine; Visit Provider Nurse Practitioner Family | DX: T81.31XA Disruption of external operation (surgical) wound, not elsewhere classified, initial encounter (principal); Y83.8 Other surgical procedures as the cause of abnormal reaction of the patient, or of later complication, without mention of misadventure at the time of the procedure | CPT/HCPCS: 11042 ==

== ENCOUNTER 2021-01-27 10:31 | Outpatient (CLI) | payer MEDICARE, OTHER, SELFPAY | END 2021-01-27 10:32 | disposition home or self-care (01) | LOC: WOUND 10:32 | PROVIDERS: PCP Family Medicine; Visit Provider Nurse Practitioner Family | DX: Z09 Encounter for follow-up examination after completed treatment for conditions other than malignant neoplasm (principal) | CPT/HCPCS: G0463 ==

== ENCOUNTER → 2021-03-14 10:32 | Outpatient (BNVA) | payer MEDICARE, OTHER, SELFPAY | PROVIDERS: PCP Family Medicine; Visit Provider Orthopaedic Surgery | DX: M51.17 Intervertebral disc disorders with radiculopathy, lumbosacral region (principal); Z48.89 Encounter for other specified surgical aftercare | CPT/HCPCS: 72100 ==

== ENCOUNTER 2021-04-13 01:28 | Inpatient (IN) | payer MEDICARE, SELFPAY ==
[2021-04-13] VITALS (17 sets, daily range): BP systolic 120–188; BP diastolic 70–126; PULSE 70–96; RESP 16–20; TEMP 36.5–36.9; O2SAT 90–100; BMI 41.1
--- NOTE | 2021-04-13 01:39 | CTR_ITS ---
PROCEDURE INFORMATION: Exam: CT Abdomen And Pelvis With Contrast Exam date and time: 04/13/2021 1:39 AM Age: 65 years old Clinical indication: Abdominal pain; Localized; Right; Prior surgery; Surgery date: 1-6 months; Surgery type: Back<6months. Appy>6months; Additional info: Abd pain ruq x weeks, worsening TECHNIQUE: Imaging protocol: Computed tomography of the abdomen and pelvis with contrast. Radiation optimization: All CT scans at this facility use at least one of these dose optimization techniques: automated exposure control; mA and/or kV adjustment per patient size (includes targeted exams where dose is matched to clinical indication); or iterative reconstruction. Contrast material: OMNI 300; Contrast volume: 95 ml; Contrast route: INTRAVENOUS (IV); COMPARISON: CT pelvis wo con [id number] 03/23/2016 2:35 PM RADIATION DOSE METRICS: Total DLP (mGy-cm): 1587.89 FINDINGS: Lungs: The lung bases are clear. No effusion Mediastinal space: Small hiatal hernia. Liver: There is fatty infiltration of the liver. Gallbladder and bile ducts: No wall thickening, pericholecystic fluid or stones. Pancreas: Normal. No ductal dilation. Spleen: Normal. No splenomegaly. Adrenal glands: Normal. No mass. Kidneys and ureters: There are multiple hepatic cysts, largest of which measures 11 mm 4 mm nonobstructing left renal pelvis stone. 1.8 cm right renal cyst. Stomach and bowel: Unremarkable. No obstruction. No mucosal thickening. Appendix: Appendix has been removed. Intraperitoneal space: Unremarkable. No free air. No significant fluid collection. Vasculature: Unremarkable. No abdominal aortic aneurysm. Lymph nodes: Unremarkable. No enlarged lymph nodes. Urinary bladder: Unremarkable as visualized. Reproductive: There has been a hysterectomy. Bones/joints: Intact posterior fusion hardware T10 through to the sacrum. There is inferior endplate destruction at T9 with superior endplate destruction at T10. Soft tissues: Unremarkable. CT/CT abdomen pelvis w con* [id number] IMPRESSION: 1. Findings consistent with spondylitis and disc infection at T9-T10 . 2. Small hiatal hernia. 3. Fatty infiltration of the liver. 4. There are multiple hepatic cysts, largest of which measures 11 mm 4 mm nonobstructing left renal pelvis stone. COMMENTS: Consistent with the [employer]'s Incidental Findings Committee white paper (J Am Sulma Radiol 2018): Any incidental renal lesion less than 1 cm or classified as too small to characterize, or any incidental cystic renal lesion characterized as simple-appearing, is likely benign. No follow-up imaging is recommended for these lesions per consensus recommendations based on imaging criteria. Radiation Dose CTDIVOL = (mGy): DLP = 1587.89 (mGy-cm)
--- NOTE | 2021-04-13 01:41 | ED_ITS ---
Documented by User: WILLOW Avalos 04/17/21 06:56 HPI - Abdominal Pain General: Chief Complaint: Abdominal Pain Stated Complaint: abd pain Time Seen by Provider: 04/13/21 04:54 History of Present Illness: HPI narrative: IsArrived via ambulance with complaint about worsening abdominal pain on the right side. Patient states she has had abdominal pain on her that side since her surgery back in December when she had to have a broken screw taken care of in her back. She had a history of multiple back surgeries. Patient was pain clinic patient not going any more and she has been off opioids x3 weeks and she said the pain is intensified since then. Mentation her wanting to stop and the doctor not willing to give her any more opioids. Patient states her bowels working fine she denies any problems eating and drinking no nausea or vomiting. MD elicited complaint: abdominal pain Onset (ago): week(s) Pain Consistency: constant Location: RUQ and RLQ Severity: moderate Quality: aching and fullness Exacerbating factors: nothing Relieving factors: nothing Associated Symptoms: Reports no associated symptoms; Denies chills, fever(s), nausea and vomiting Review of Systems Const: Denies: fever(s), chills or body aches Eyes: Denies: change in vision or blurry vision ENMT: Denies: throat pain or nasal congestion Card: Denies: chest pain or dyspnea on exertion Resp: Denies: dyspnea, productive cough or non-productive cough GI: Reports: abdominal pain; Denies: nausea or vomiting Musc: Denies: extremity pain Skin/Breast: Denies: rash Neuro: Denies: headache(s) Psych: Denies: anxiety or depression Juan/Lymph: Denies: easy bruising PFSH ED PFSH: Medical History (Updated 04/15/21 @ 13:53 by ESPERANZA Fong) DDD (degenerative disc disease), thoracic Degenerative lumbar spinal stenosis Internal fixation device (pin, nixon, or screw) mechanical complication Intervertebral disc disorder with radiculopathy of lumbosacral region Lumbar stenosis with neurogenic claudication Morbid obesity with BMI of 50.0-59.9, adult Spondylarthritis Surgical History History of appendectomy History of carpal tunnel repair History of knee surgery History of laparoscopic adjustable gastric banding History of lumbar surgery (~2011) 12/2016 Dr. Martin Joyner Thoracic spinal cord stimulator placement 04/2016 Dr. Martin Joyner Right SI joint fusion 03/2016 Dr. Martin Joyner [facility] Left SI joint fusion 06/2012 Dr. Christopher Olmstead [facility] L2-L3 posterior fusion/fixation. 10/2011 Dr. Christopher Olmstead [facility] Fractured fusion screws removed. 12/[address] Orthopedic surgeon. [facility] Spine: L3-L4, L4-L5 L5-S1 Posterior Fusion/fusion Status post correction of deviated nasal septum Status post insertion of spinal cord stimulator (~2016) Family History Father CAD (coronary artery disease) Social History Smoking and tobacco status: former smoker Alcohol intake: former Household members: spouse Marital status: Current occupational status: disabled History of recent travel: No Physical Exam Const: COMMON NORMALS: no acute distress, average body habitus and patient oriented x3 HENMT: COMMON NORMALS: normocephalic HEAD & SCALP: normal to inspection and normocephalic FACE & SINUS: normal facial exam Eye: COMMON NORMALS: conjunctivae normal GENERAL EYE: appearance normal, both eyes and all related structures CONJUNCTIVA: Yes conjunctivae normal Neck/C-Spine: COMMON NORMALS: no JVD Chest: COMMONS NORMALS: normal inspection of the chest Resp: COMMON NORMALS: normal respiratory effort and clear to auscultation bilaterally AUSCULTATION: clear to auscultation bilaterally Cardio: COMMON NORMALS: no JVD, regular rate and regular rhythm RATE: regular rate RHYTHM: regular rhythm GI: COMMON NORMALS: Soft to palpation AUSCULTATION: Yes Hypoactive bowel sounds present PALPATION: Yes Soft to palpation and Yes Tenderness to palpation present (GI) (Mild right-sided tenderness) Extremity: COMMON NORMALS: normal to inspection and full ROM Neuro: COMMON NORMALS: patient oriented x3 Course Vital Signs: Vital signs: Vital Signs Temperature 98.1 F 04/17/21 04:00 Pulse Rate 84 04/17/21 04:00 Respiratory Rate 16 04/17/21 04:00 Blood Pressure 144/84 04/17/21 04:00 Pulse Oximetry 90 04/17/21 04:00 MDM - Abdominal Pain Lab Data: Labs: Lab Results 04/13/21 04/13/21 04/13/21 01:27 01:27 01:27 WBC 13.8 10^3/uL H 10 ^3/uL (4.0-10.0) RBC 5.53 10^6/uL H 10 ^6/uL (4.1-5.3) Hgb 11.0 g/dL L g/dL (11.5-15.3) Hct 39.6 % % (37.0-47.0) MCV 71.6 fl L fl (81-99) MCH 19.9 pg L pg (28.0-34.0) MCHC 27.8 g/dL L g/dL (30.0-36.0) RDW 21.2 % H % (12.1-15.1) Plt Count 853 10^3/cmm H 10 ^3/cmm (130-400) MPV 8.7 fL fL (7.4-10.4) Neut % (Auto) 70.3 % % Lymph % (Auto) 19.1 % % [place] % (Auto) 5.1 % % Eos % (Auto) 4.0 % % Baso % (Auto) 0.9 % % Neut # (Auto) 9.69 10^3/uL H 10 ^3/uL (1.8-7.7) Lymph # (Auto) 2.6 10^3/uL 10^3/ uL (0.8-4.8) [place] # (Auto) 0.7 10^3/uL 10^3/ uL (0.2-0.9) Eos # (Auto) 0.6 10^3/uL 10^3/ uL (0.0-0.8) Baso # (Auto) 0.1 10^3/uL 10^3/ uL (0.0-0.1) Nucleated RBC % (a uto) 0 % % Nucleated RBCs # 0.0 /100WBC /100W BC Sodium 139 mmol/L mmol/L (136-145) Potassium 4.0 mmol/L mmol/L (3.5-5.1) Chloride 99 mmol/L mmol/L (98-107) Carbon Dioxide 27 mmol/L mmol/L (22-29) Anion Gap 17.0 (5-19) BUN 8 mg/dL mg/dL (8-23) Creatinine 0.6 mg/dL mg/dL (0.5-0.9) GFR Calculation 101.0 mL/min mL/m in (90-130) Glucose 122 mg/dL H mg/dL (65-115) Calculated Osmolal ity 288 mOsm/kg mOsm/ kg (285-295) Calcium 9.8 mg/dL mg/dL (8.5-10.5) Iron 18 ug/dL L ug/dL (37-145) TIBC 285 mcg/dl mcg/dl % Saturation 6.3 % L % (20-50) Unsat Iron Binding 267 ug/dL ug/dL (112-347) Total Bilirubin 0.2 mg/dL mg/dL (0.15-1.2) AST 18 U/L U/L (0-32) ALT 16 U/L U/L (0-33) Alkaline Phosphata se 144 IU/L H IU/L (35-105) C-Reactive Protein Total Protein 7.0 g/dL g/dL (6.6-8.7) Albumin 3.8 g/dL g/dL (3.5-5.2) Globulin 3.2 g/dL g/dL (1.3-4.6) Lipase 27 U/L U/L (13-60) Procalcitonin 0.07 ng/mL ng/mL (0-0.5) TSH Urine Color Urine Appearance Urine pH Ur Specific Gravit y Urine Protein Urine Glucose (UA) Urine Ketones Urine Blood Urine Nitrate Urine Bilirubin Urine Urobilinogen Ur Leukocyte Dipti ase 3 04/13/21 04/13/21 01:27 03:51 WBC RBC Hgb Hct MCV MCH MCHC RDW Plt Count MPV Neut % (Auto) Lymph % (Auto) [place] % (Auto) Eos % (Auto) Baso % (Auto) Neut # (Auto) Lymph # (Auto) [place] # (Auto) Eos # (Auto) Baso # (Auto) Nucleated RBC % (a uto) Nucleated RBCs # Sodium Potassium Chloride Carbon Dioxide Anion Gap BUN Creatinine GFR Calculation Glucose Calculated Osmolal ity Calcium Iron TIBC % Saturation Unsat Iron Binding Total Bilirubin AST ALT Alkaline Phosphata se C-Reactive Protein 41.9 mg/L H mg/L (0.0-4.9) Total Protein Albumin Globulin Lipase Procalcitonin TSH 0.86 uIU/mL uIU/m L (0.27-4.20) Urine Color Yellow (Yellow) Urine Appearance Clear (CLEAR) Urine pH 5 (5-7) Ur Specific Gravit y 1.005 (1.005-1.030) Urine Protein Neg (Negative) Urine Glucose (UA) Norm (Normal) Urine Ketones Negative (Negative) Urine Blood Neg (Negative) Urine Nitrate Negative (Negative) Urine Bilirubin Neg (Negative) Urine Urobilinogen Norm mg/dL mg/dL (Negative) Ur Leukocyte Dipti ase Negative (Negative) Discharge Plan Discharge Patient Disposition: Admitted As Inpatient Admit Provider: Palak Gomez Clinical Impression: Spondylarthritis, Discitis of thoracic region Condition: Stable Coding Level of Care Code ED Toolmaker Grade Three for Chg Fwd Exam Comprehensive Documented by User: Cosmo Palacios DO 04/13/21 05:19 HPI - Abdominal Pain General: Chief Complaint: Abdominal Pain Stated Complaint: abd pain Time Seen by Provider: 04/13/21 04:54 [facility] ED PFSH: Medical History (Updated 04/15/21 @ 13:53 by ESPERANZA Fong) DDD (degenerative disc disease), thoracic Degenerative lumbar spinal stenosis Internal fixation device (pin, nixon, or screw) mechanical complication Intervertebral disc disorder with radiculopathy of lumbosacral region Lumbar stenosis with neurogenic claudication Morbid obesity with BMI of 50.0-59.9, adult Spondylarthritis Surgical History History of appendectomy History of carpal tunnel repair History of knee surgery History of laparoscopic adjustable gastric banding History of lumbar surgery (~2011) 12/2016 Dr. Martin Joyner Thoracic spinal cord stimulator placement 04/2016 Dr. Martin Joyner Right SI joint fusion 03/2016 Dr. Martin Joyner [facility] Left SI joint fusion 06/2012 Dr. Christopher Olmstead [facility] L2-L3 posterior fusion/fixation. 10/2011 Dr. Christopher Olmstead [facility] Fractured fusion screws removed. 12/[address] Orthopedic surgeon. [facility] Spine: L3-L4, L4-L5 L5-S1 Posterior Fusion/fusion Status post correction of deviated nasal septum Status post insertion of spinal cord stimulator (~2017) Family History Father CAD (coronary artery disease) Social History Smoking and tobacco status: former smoker Alcohol intake: former Household members: spouse Marital status: Current occupational status: disabled History of recent travel: No Course Consultations: Consultation #1: siddhartha Time: 05:17 Vital Signs: Vital signs: Vital Signs Temperature 98.1 F 04/17/21 04:00 Pulse Rate 84 04/17/21 04:00 Respiratory Rate 16 04/17/21 04:00 Blood Pressure 144/84 04/17/21 04:00 Pulse Oximetry 90 04/17/21 04:00 MDM - Abdominal Pain MDM Narrative: Medical decision making narrative: This patient was originally seen by WILLOW Jaramillo. I agree with his history, evaluation, and treatment. Neurologically patient is intact. Her white blood cell count is 13.8. Platelet count is elevated. BMP is essentially normal. She underwent CT scanning, which revealed a T9-10 spondylitis and disc infection. She will be admitted for IV antibiotic therapy. Lab Data: Labs: Lab Results 04/13/21 04/13/21 04/13/21 01:27 01:27 01:27 WBC 13.8 10^3/uL H 10 ^3/uL (4.0-10.0) RBC 5.53 10^6/uL H 10 ^6/uL (4.1-5.3) Hgb 11.0 g/dL L g/dL (11.5-15.3) Hct 39.6 % % (37.0-47.0) MCV 71.6 fl L fl (81-99) MCH 19.9 pg L pg (28.0-34.0) MCHC 27.8 g/dL L g/dL (30.0-36.0) RDW 21.2 % H % (12.1-15.1) Plt Count 853 10^3/cmm H 10 ^3/cmm (130-400) MPV 8.7 fL fL (7.4-10.4) Neut % (Auto) 70.3 % % Lymph % (Auto) 19.1 % % [place] % (Auto) 5.1 % % Eos % (Auto) 4.0 % % Baso % (Auto) 0.9 % % Neut # (Auto) 9.69 10^3/uL H 10 ^3/uL (1.8-7.7) Lymph # (Auto) 2.6 10^3/uL 10^3/ uL (0.8-4.8) [place] # (Auto) 0.7 10^3/uL 10^3/ uL (0.2-0.9) Eos # (Auto) 0.6 10^3/uL 10^3/ uL (0.0-0.8) Baso # (Auto) 0.1 10^3/uL 10^3/ uL (0.0-0.1) Nucleated RBC % (a uto) 0 % % Nucleated RBCs # 0.0 /100WBC /100W BC Sodium 139 mmol/L mmol/L (136-145) Potassium 4.0 mmol/L mmol/L (3.5-5.1) Chloride 99 mmol/L mmol/L (98-107) Carbon Dioxide 27 mmol/L mmol/L (22-29) Anion Gap 17.0 (5-19) BUN 8 mg/dL mg/dL (8-23) Creatinine 0.6 mg/dL mg/dL (0.5-0.9) GFR Calculation 101.0 mL/min mL/m in (90-130) Glucose 122 mg/dL H mg/dL (65-115) Calculated Osmolal ity 288 mOsm/kg mOsm/ kg (285-295) Calcium 9.8 mg/dL mg/dL (8.5-10.5) Iron 18 ug/dL L ug/dL (37-145) TIBC 285 mcg/dl mcg/dl % Saturation 6.3 % L % (20-50) Unsat Iron Binding 267 ug/dL ug/dL (112-347) Total Bilirubin 0.2 mg/dL mg/dL (0.15-1.2) AST 18 U/L U/L (0-32) ALT 16 U/L U/L (0-33) Alkaline Phosphata se 144 IU/L H IU/L (35-105) C-Reactive Protein Total Protein 7.0 g/dL g/dL (6.6-8.7) Albumin 3.8 g/dL g/dL (3.5-5.2) Globulin 3.2 g/dL g/dL (1.3-4.6) Lipase 27 U/L U/L (13-60) Procalcitonin 0.07 ng/mL ng/mL (0-0.5) TSH Urine Color Urine Appearance Urine pH Ur Specific Gravit y Urine Protein Urine Glucose (UA) Urine Ketones Urine Blood Urine Nitrate Urine Bilirubin Urine Urobilinogen Ur Leukocyte Dipti ase 04/13/21 04/13/21 01:27 03:51 WBC RBC Hgb Hct MCV MCH MCHC RDW Plt Count MPV Neut % (Auto) Lymph % (Auto) [place] % (Auto) Eos % (Auto) Baso % (Auto) Neut # (Auto) Lymph # (Auto) [place] # (Auto) Eos # (Auto) Baso # (Auto) Nucleated RBC % (a uto) Nucleated RBCs # Sodium Potassium Chloride Carbon Dioxide Anion Gap BUN Creatinine GFR Calculation Glucose Calculated Osmolal ity Calcium Iron TIBC % Saturation Unsat Iron Binding Total Bilirubin AST ALT Alkaline Phosphata se C-Reactive Protein 41.9 mg/L H mg/L (0.0-4.9) Total Protein Albumin Globulin Lipase Procalcitonin TSH 0.86 uIU/mL uIU/m L (0.27-4.20) Urine Color Yellow (Yellow) Urine Appearance Clear (CLEAR) Urine pH 5 (5-7) Ur Specific Gravit y 1.005 (1.005-1.030) Urine Protein Neg (Negative) Urine Glucose (UA) Norm (Normal) Urine Ketones Negative (Negative) Urine Blood Neg (Negative) Urine Nitrate Negative (Negative) Urine Bilirubin Neg (Negative) Urine Urobilinogen Norm mg/dL mg/dL (Negative) Ur Leukocyte Dipti ase Negative (Negative) Discharge Plan Discharge Patient Disposition: Admitted As Inpatient Admit Provider: Palak Gomez Clinical Impression: Spondylarthritis, Discitis of thoracic region Condition: Stable Coding Level of Care Code ED Toolmaker Grade Three for Chg Fwd Exam Comprehensive
[2021-04-13 01:48] LABS: Basophils # 0.1 10^3/uL (0.0-0.1); Basophils % 0.9 %; Eosinophils # 0.6 10^3/uL (0.0-0.8); Hematocrit 39.6 % (37.0-47.0); Lymphocytes # 2.6 10^3/uL (0.8-4.8); Lymphocytes % 19.1 %; Mean Corpuscular HGB Conc 27.8 g/dL (30.0-36.0); Mean Corpuscular Hemoglobin 19.9 pg (28.0-34.0); Mean Corpuscular Volume 71.6 fl (81-99); Mean Platelet Volume 8.7 fL (7.4-10.4); Monocytes # 0.7 10^3/uL (0.2-0.9); Monocytes % 5.1 %; Neutrophils # 9.69 10^3/uL (1.8-7.7); Neutrophils % 70.3 %; Nucleated Red Blood Cells % 0 %; Platelet Count 853 10^3/cmm (130-400); Red Blood Count 5.53 10^6/uL (4.1-5.3); Red Cell Distribution Width 21.2 % (12.1-15.1); White Blood Count 13.8 10^3/uL (4.0-10.0)
[2021-04-13] MEDS: metoclopramide 5 mg/mL SDV 2 mL IVP (01:55)
[2021-04-13] MEDS: ketorolac 30 mg/mL INJ IVP (01:56)
[2021-04-13] MEDS: cloNIDine 0.1 mg Tablet PO (01:57)
[2021-04-13 02:00] LABS: Alanine Aminotransferase 16 U/L (0-33); Albumin Level 3.8 g/dL (3.5-5.2); Alkaline Phosphatase 144 IU/L (35-105); Aspartate Amino Transferase 18 U/L (0-32); Blood Urea Nitrogen 8 mg/dL (8-23); Calcium 9.8 mg/dL (8.5-10.5); Carbon Dioxide 27 mmol/L (22-29); Chloride 99 mmol/L (98-107); Globulin 3.2 g/dL (1.3-4.6); Glucose 122 mg/dL (65-115); Lipase 27 U/L (13-60); Osmolality Calculated 288 mOsm/kg (285-295); Sodium 139 mmol/L (136-145); Total Bilirubin 0.2 mg/dL (0.15-1.2)
[2021-04-13] MEDS: iohexol 300 mg/mL 100 mL Btl IV (02:15)
[2021-04-13] MEDS: haloperidol inj 5 mg/mL INJ 1 mL 3 MG IVP (03:55)
[2021-04-13 03:56] LABS: Add Urine Microscopic? NO; Charge for UA Resulting for Rev
[2021-04-13 04:04] LABS: Bilirubin Urine Neg (Negative); Blood Urine Neg (Negative); Glucose Urine UA Norm (Normal); Ketones Urine Negative (Negative); Leukocyte Esterase Urine Negative (Negative); Nitrate Urine Negative (Negative); Protein Urine Neg (Negative); Specific Gravity, Urine 1.005 (1.005-1.030); Urine Appearance Clear (CLEAR); Urine Color Yellow (Yellow); Urobilinogen Urine Norm (Negative); pH Urine 5 (5-7)
[2021-04-13] MEDS: cefTRIAXone 1,000 MG in sodium chloride 0.9% (plus) 50 ML 100 MG IV (05:40)
[2021-04-13] MEDS: vancomycin 1,000 MG in sodium chloride 0.9% 250 ML 250 MG IV (05:59)
[2021-04-13] MEDS: gabapentin 300 mg Capsule 600 MG PO ×2 (08:44→20:47)
[2021-04-13] MEDS: pantoprazole DR 40 mg Tablet PO ×2 (08:44→20:47)
[2021-04-13] MEDS: amlodipine 5 mg Tablet PO (08:44)
[2021-04-13] MEDS: duloxetine 60 mg Capsule PO (08:44)
[2021-04-13] MEDS: enoxaparin 40 mg/0.4 mL Syringe SUBCUT (08:45)
[2021-04-13 08:55] LABS: Lactate (Lactic Acid level) 1.1 mmol/L (0.5-2.2)
[2021-04-13] MEDS: vancomycin 750 MG in sodium chloride 0.9% 250 ML 250 MG IV (09:33)
[2021-04-13] MEDS: budesonide 0.5 mg/2 mL Neb INHALATION ×2 (10:27→20:19)
[2021-04-13] MEDS: ipratropium-albuterol 3 mL Neb INHALATION ×3 (10:27→20:20)
--- NOTE | 2021-04-13 11:12 | PM.HP ---
Providers/Chief Complaint Admitting Physician: Palak Gomez MD Primary Care Provider: Tadeo Prather MD Chief Complaint: abd pain History of Present Illness Kathy Patel is a 65 year old femal<del>e</del> with past medical history of morbid obesity, degenerative lumbar stenosis, multiple lumbar surgery with most recent multilevel spinal fusion with Dr. Fowler in November 2020 complicated by delayed wound healing for which she was being followed up by wound care as an outpatient with last seen in January 2021 at which point she was deemed healed and stable she has been on Bactrim on and off as an outpatient. Patient states she used to follow-up with pain clinic but was discharged and has been trying to come off the narcotics for last few months and has not taken any narcotic medication for last few weeks and has been dealing with pain pretty well on oral ibuprofen which she has been taking few times a day. She presented to the ER today with complaint of epigastric pain radiating down the right side and to back associated with nausea but no vomiting. He states she does not have any bowel or bladder accidents, numbness in her feet and finally she thinks she has more sensation in her feet than she has had in the past. She denies of having any fevers, night sweats. She states she has lost up to 70 pounds intentionally. Blood work in the ER showed a white count 13.8, hemoglobin of 11, platelet count of 853, sodium of 139, creatinine of 0.6, alkaline phosphatase of 144, AST/ALT of 18/16, UA negative for any signs of infection with CT abdomen pelvis concerning for possible discitis at T9-T10 level. Review of Systems General: Reports: 10 or more systems reviewed and unremarkable except in HPI and below Const: Denies: fever(s), chills, body aches, change in appetite, change in weight, malaise, night sweats, diaphoresis, change in sleep pattern, daytime sleepiness or snoring Eyes: Denies: change in vision, blurry vision, photophobia, eye discomfort or eye discharge ENMT: Denies: throat pain, enlarged tonsils, hoarseness, mouth pain, oral sores, dry mouth, tinnitus, nasal congestion or post nasal drip Card: Denies: chest pain, palpitations, irregular heart rhythm, edema, swelling of feet/ankles, lightheadedness, syncope, pre-syncope, dyspnea on exertion, orthopnea, leg pain with exertion or acrocyanosis Resp: Denies: dyspnea, productive cough, non-productive cough, wheezing, stridor, pain on inspiration, change in phlegm color, hemoptysis or chest congestion GI: Denies: abdominal pain, nausea, vomiting, hematemesis, coffee ground emesis, dysphagia, heartburn, diarrhea, constipation, bloating, GI cramping, change in bowel habits, pain on defecation, hematochezia or melena : Denies: flank pain, dysuria, urinary frequency, urinary urgency, urinary hesitancy, nocturia or hematuria Musc: Denies: neck pain, back pain, extremity pain, joint pain, joint swelling, joint redness, joint stiffness or limited range of motion Neuro: Denies: headache(s), numbness in extremities, weakness in extremities, sensory changes, lack of coordination, difficulty walking, frequent falls, dizziness, vertigo, confusion, Slurred speech present, difficulty communicating thoughts or seizure-like activity Psych: Denies: anxiety, depression, mood swings, panic attacks, hopelessness or irritability Endo: Denies: polyuria, polydipsia, tired all the time, cold intolerance, excessive sweating, flushing or heat intolerance Juan/Lymph: Denies: easy bruising or easy bleeding All/Imm: Denies: tongue swelling, facial swelling or acute wheezing Medications/Allergies Home Medications Medication Instructions Recorded Confirmed Last Taken Type albuterol sulfate 90 mcg/actuation 2 puff INHALATION Q4H PRN 09/06/19 04/13/21 Unknown History aerosol inhaler alprazolam 0.5 mg tablet 0.5 mg PO TID PRN tab 09/06/19 04/13/21 Unknown History duloxetine 60 mg capsule,delayed 60 mg PO DAILY@09/06/19 04/13/21 Unknown History release fluticasone 500 mcg-salmeterol 50 1 inh INHALATION BID 09/06/19 04/13/21 Unknown History mcg/dose blistr powdr for inhalation gabapentin 600 mg tablet 600 mg PO BID@ tab 08/08/20 04/13/21 Unknown History guaifenesin 600 mg tablet, 600 mg PO DAILY PRN tab 08/08/20 04/13/21 Unknown History extended release 12 hr omeprazole 20 mg capsule,delayed 20 mg PO DAILY@08/08/20 04/13/21 Unknown History release meloxicam 15 mg tablet 15 mg PO DAILY@09/18/20 04/13/21 Unknown History Bone Growth Stimulator E0748 #1 ea 10/03/20 04/13/21 Unknown Rx duloxetine 30 mg PO DAILY@10/23/20 04/13/21 Unknown History Hair, Skin, Nails with Biotin 4 tab PO DAILY@11/09/20 04/13/21 Unknown History calcium carbonate-vitamin D3 4 tab PO DAILY@11/09/20 04/13/21 Unknown History cetirizine [Zyrtec] 10 mg PO DAILY@11/09/20 04/13/21 Unknown History cranberry 2 tab PO DAILY@11/09/20 04/13/21 Unknown History fexofenadine [Diane] 60 mg PO BID PRN #0 11/09/20 04/13/21 Unknown History gauze bandage 4 X 4 #25 ea 12/05/20 04/13/21 Unknown Rx cyclobenzaprine 5 mg tablet 5 mg PO TID PRN #90 tab 12/31/20 04/13/21 Unknown Rx Allergies Allergy/AdvReac Type Severity Reaction Status Date / Time adhesive tape Allergy Unknown Verified 03/20/21 09:25 latex Allergy blisters Verified 03/20/21 09:25 PFSH Acute PFSH: Medical History (Updated 04/13/21 @ 12:46 by Seamus Hernandez MD) DDD (degenerative disc disease), thoracic Degenerative lumbar spinal stenosis Internal fixation device (pin, nixon, or screw) mechanical complication Intervertebral disc disorder with radiculopathy of lumbosacral region Lumbar stenosis with neurogenic claudication Morbid obesity with BMI of 50.0-59.9, adult Spondylarthritis Surgical History History of appendectomy History of carpal tunnel repair History of knee surgery History of laparoscopic adjustable gastric banding History of lumbar surgery (~2011) 12/2016 Dr. Martin Joyner Thoracic spinal cord stimulator placement 04/2016 Dr. Martin Joyner Right SI joint fusion 03/2016 Dr. Martin Joyner [facility] Left SI joint fusion 06/2012 Dr. Christopher Olmstead [facility] L2-L3 posterior fusion/fixation. 10/2011 Dr. Christopher Olmstead [facility] Fractured fusion screws removed. 12/[address] Orthopedic surgeon. Rajani Spine: L3-L4, L4-L5 L5-S1 Posterior Fusion/fusion Status post correction of deviated nasal septum Status post insertion of spinal cord stimulator (~2017) Family History Father CAD (coronary artery disease) Social History Smoking and tobacco status: former smoker Alcohol intake: former Household members: spouse Marital status: Current occupational status: disabled History of recent travel: No Vitals/I&O/Wt Last Vital Signs Temp 98.4 F 04/13/21 08:00 Pulse 88 04/13/21 10:33 Resp 17 04/13/21 10:27 BP 123/84 04/13/21 08:00 Pulse Ox 96 04/13/21 10:27 04/12/21 04/13/21 04/13/21 22:59 06:59 14:59 Intake Total 50 / 50 Balance 50 / 50 Weight last 48 hrs Weight 115.666 kg Physical Exam Narrative: EXAM NARRATIVE: General: No acute distress, AO x3, morbidly obese, ambulatory HEENT: PERRLA, pupils bilaterally equal and reactive Chest: Normal vesicular breath sounds, no added sounds, equal good air entry bilaterally CVS: S1-S2 regular, no murmurs, no tachycardia, no gallops, no rubs Abdomen: Soft, nontender, no organomegaly, bowel sounds present Neuro: No focal deficits, no facial deformity, AO x3, power 5/5 in all limbs Data : 04/13/21 01:27 04/13/21 01:27 Other Labs: Laboratory Results WBC 13.8 10^3/uL (4.0-10.0) H 04/13/21 01:27 RBC 5.53 10^6/uL (4.1-5.3) H 04/13/21 01:27 Hgb 11.0 g/dL (11.5-15.3) L 04/13/21 01:27 Hct 39.6 % (37.0-47.0) 04/13/21 01:27 MCV 71.6 fl (81-99) L 04/13/21 01:27 MCH 19.9 pg (28.0-34.0) L 04/13/21 01: MCHC 27.8 g/dL (30.0-36.0) L 04/13/21 01:27 RDW 21.2 % (12.1-15.1) H 04/13/21 01:27 Plt Count 853 10^3/cmm (130-400) H 04/13/21 01:27 MPV 8.7 fL (7.4-10.4) 04/13/21 01:27 Neut % (Auto) 70.3 % 04/13/21 01:27 Lymph % (Auto) 19.1 % 04/13/21 01:27 Jerome % (Auto) 5.1 % 04/13/21 01:27 Eos % (Auto) 4.0 % 04/13/21 01:27 Baso % (Auto) 0.9 % 04/13/21 01:27 Neut # (Auto) 9.69 10^3/uL (1.8-7.7) H 04/13/21 01:27 Lymph # (Auto) 2.6 10^3/uL (0.8-4.8) 04/13/21 01:27 Jerome # (Auto) 0.7 10^3/uL (0.2-0.9) 04/13/21 01:27 Eos # (Auto) 0.6 10^3/uL (0.0-0.8) 04/13/21 01:27 Baso # (Auto) 0.1 10^3/uL (0.0-0.1) 04/13/21 01:27 Nucleated RBC % (auto) 0 % 04/13/21 01:27 Nucleated RBCs # 0.0 /100WBC 04/13/21 01:27 Sodium 139 mmol/L (136-145) 04/13/21 01:27 Potassium 4.0 mmol/L (3.5-5.1) 04/13/21 01:27 Chloride 99 mmol/L (98-107) 04/13/21 01:27 Carbon Dioxide 27 mmol/L (22-29) 04/13/21 01:27 Anion Gap 17.0 (5-19) 04/13/21 01:27 BUN 8 mg/dL (8-23) 04/13/21 01:27 Creatinine 0.6 mg/dL (0.5-0.9) 04/13/21 01:27 GFR Calculation 101.0 mL/min (90-130) 04/13/21 01:27 Glucose 122 mg/dL (65-115) H 04/13/21 01:27 Calculated Osmolality 288 mOsm/kg (285-295) 04/13/21 01:27 Lactate 1.1 mmol/L (0.5-2.2) 04/13/21 08:05 Calcium 9.8 mg/dL (8.5-10.5) 04/13/21 01:27 Iron 18 ug/dL (37-145) L 04/13/21 01:27 TIBC 285 mcg/dl 04/13/21 01:27 % Saturation 6.3 % (20-50) L 04/13/21 01:27 Unsat Iron Binding 267 ug/dL (112-347) 04/13/21 01:27 Total Bilirubin 0.2 mg/dL (0.15-1.2) 04/13/21 01:27 AST 18 U/L (0-32) 04/13/21 01:27 ALT 16 U/L (0-33) 04/13/21 01:27 Alkaline Phosphatase 144 IU/L (35-105) H 04/13/21 01:27 C-Reactive Protein 41.9 mg/L (0.0-4.9) H 04/13/21 01:27 Total Protein 7.0 g/dL (6.6-8.7) 04/13/21 01:27 Albumin 3.8 g/dL (3.5-5.2) 04/13/21 01:27 Globulin 3.2 g/dL (1.3-4.6) 04/13/21 01:27 Lipase 27 U/L (13-60) 04/13/21 01:27 Procalcitonin 0.07 ng/mL (0-0.5) 04/13/21 01:27 TSH 0.86 uIU/mL (0.27-4.20) 04/13/21 01:27 Urine Color Yellow (Yellow) 04/13/21 03:51 Urine Appearance Clear (CLEAR) 04/13/21 03:51 Urine pH 5 (5-7) 04/13/21 03:51 Ur Specific [place] 1.005 (1.005-1.030) 04/13/21 03:51 Urine Protein Neg (Negative) 04/13/21 03:51 Urine Glucose (UA) Norm (Normal) 04/13/21 03:51 Urine Ketones Negative (Negative) 04/13/21 03:51 Urine Blood Neg (Negative) 04/13/21 03:51 Urine Nitrate Negative (Negative) 04/13/21 03:51 Urine Bilirubin Neg (Negative) 04/13/21 03:51 Urine Urobilinogen Norm mg/dL (Negative) 04/13/21 03:51 Ur Leukocyte Esterase Negative (Negative) 04/13/21 03:51 Impressions Abdomen/Pelvis CT 04/13/21 01:39 IMPRESSION: 1. Findings consistent with spondylitis and disc infection at T9-T10 . 2. Small hiatal hernia. 3. Fatty infiltration of the liver. 4. There are multiple hepatic cysts, largest of which measures 11 mm 4 mm nonobstructing left renal pelvis stone. COMMENTS: Consistent with the [employer]'s Incidental Findings Committee white paper (J Am Sulma Radiol 2018): Any incidental renal lesion less than 1 cm or classified as too small to characterize, or any incidental cystic renal lesion characterized as simple-appearing, is likely benign. No follow-up imaging is recommended for these lesions per consensus recommendations based on imaging criteria. Radiation Dose CTDIVOL = (mGy): DLP = 1587.89 (mGy-cm) ADDENDUM: 04/13/21 0455 THIS REPORT CONTAINS FINDINGS THAT MAY BE CRITICAL TO PATIENT CARE. The findings were verbally communicated by me to Dr Palacios via telephone conference at 4:53 AM CDT on 04/13/2021. The findings were acknowledged and understood. Radiation Dose CTDIVOL = (mGy): DLP = 1587.89 (mGy-cm) Micro: Microbiology 04/13/21 08:10 Blood Culture - Preliminary Blood SPECIMEN COLLECTED 04/13/21 08:05 Blood Culture - Preliminary Blood SPECIMEN COLLECTED A&P Assessment and plan (1) Discitis of thoracic region: Status: Acute (2) Fusion of spine, thoracolumbar region: Status: Acute (3) Obstructive sleep apnea: Status: Acute (4) Morbid obesity: Status: Acute (5) Epigastric abdominal pain: Status: Acute Additional A&P Information Discitis of thoracic region: Recent history of fusion of spine thoracic or lumbar region with delayed wound healing. Check blood culture, ESR, CRP, MRSA swab, procalcitonin MRI thoracic and lumbar spine. Start on broad-spectrum antibiotic with vancomycin and ceftriaxone. Will de-escalate antibiotics as per culture results. Morphine 1 mg every 6 hours as needed for pain, tramadol 50 every 4 hours as needed for pain. We will try to avoid narcotics as per patient request. Fentanyl patch. Epigastric pain: Could be secondary to discitis as a referred pain but cannot rule out gastritis from frequent ibuprofen currently use. Alkaline phosphatase mildly elevated. Check gallbladder ultrasound. Troponin cycle. Protonix IV daily, Zofran as needed. Continue other chronic medications. We will change treatment as per clinical picture. Full code. Cardiac diet. Heparin for DVT prophylaxis. Attestations Medical Necessity Statement*: More than 2 midnights for possible discitis Time Spent in Patient Care: Greater than 35 minutes (>than 50% of time spent in counselling and/or direct pt care on unit). Coding Level of Care Code Acute Biomedical Equipment Tech for [place] Diagnoses Discitis of thoracic region M46.44 Fusion of spine, thoracolumbar region M43.25 Obstructive sleep apnea G47.33 Morbid obesity E66.01 Epigastric abdominal pain R10.13
[2021-04-13] MEDS: HYDROcodone-acetaminophen 5-325 mg Tablet 1 TAB PO (11:18)
[2021-04-13] MEDS: ondansetron 2 mg/ML SDV 2 mL 4 MG IVP ×2 (11:27→19:20)
[2021-04-13 12:16] LABS: Iron 18 ug/dL (37-145); Percent Saturation 6.3 % (20-50); Total Iron Binding Capacity 285 mcg/dl; Unsaturated Iron Binding 267 ug/dL (112-347)
[2021-04-13 12:23] LABS: Procalcitonin 0.07 ng/mL (0-0.5)
[2021-04-13 12:24] LABS: C Reactive Protein 41.9 mg/L (0.0-4.9); Thyroid Stimulating Hormone 0.86 uIU/mL (0.27-4.20)
--- NOTE | 2021-04-13 12:47 | ECG_ITS ---
[facility] Test Date: 2021-04-13 Pat Name: Kathy Patel Department: Room: 261 Gender: Female Hog Buyer: : 1955 Requested By: Seamus Hernandez Order Number: [id number] Fany MD: Shashi Lott M.D. Measurements Intervals [place] Rate: 85 P: 61 DC: 201 QRS: -8 QRSD: 100 T: 56 QT: 385 QTc: 460 Interpretive Statements SINUS RHYTHM MINIMAL VOLTAGE CRITERIA FOR LV NONSPECIFIC T-WAVE ABNORMALITY Compared to ECG 10/23/2020 10:48:19 T-wave abnormality now present Electronically Signed On 04-13-2021 23:19:02 CDT by Shashi Lott M.D. [id number]
[2021-04-13] MEDS: fentaNYL 12 mcg Patch 1 PATCH TRANSDERMA (14:05)
--- NOTE | 2021-04-13 14:06 | PC.NURSE ---
FENTANYL PATCH FENTANYL PATCH APPLIED TO RIGHT UPPER SHOULDER
[2021-04-13 14:22] LABS: Troponin(5th) Baseline 10 ng/L (0-10)
[2021-04-13] MEDS: TRAMadol 50 mg Tablet PO ×2 (14:29→20:45)
--- NOTE | 2021-04-13 14:47 | ECG_ITS ---
[facility] Test Date: 2021-04-13 Pat Name: Kathy Patel Department: Room: 261 Gender: Female Manufacturing Tech: : 1955 Requested By: Seamus Hernandez Order Number: [id number] Reading MD: Shashi Lott M.D. Measurements Intervals [place] Rate: 80 P: 60 MA: 192 QRS: -1 QRSD: 103 T: 52 QT: 409 QTc: 474 Interpretive Statements SINUS RHYTHM NONSPECIFIC T-WAVE ABNORMALITY Compared to ECG 04/13/2021 13:45:13 No significant changes Electronically Signed On 04-13-2021 23:23:17 CDT by Shashi Lott M.D. [id number]
--- NOTE | 2021-04-13 15:56 | PC.NURSE ---
END OF SHIFT SUMMARY PT HAS REMAINED IN BED MOST OF SHIFT - HAS GOTTEN UP TO AMBULATE TO BATHROOM AND RETURNED TO BED - VOICES DECREASE IN ABD PAIN - X1 EPISODE OF NAUSEA WITH ZOFRAN GIVEN - NO EMESIS UP - PT WILL BE NPO AFTER MIDNIGHT FOR GB ULTRASOUND - FENTANYL PATCH APPLIED TO RIGHT SHOULDER - EKG COMPLETED PER RT ORDER - WILL CONTINUE TO MONITOR
[2021-04-13 16:44] LABS: Troponin 5 2HR 10.85 ng/L (0-10); Troponin 5 2HR Delta 0.85 ABS# (0-10)
[2021-04-13] MEDS: cefTRIAXone 2,000 MG in sodium chloride 0.9% (plus) 50 ML 100 MG IV (18:27)
[2021-04-13] MEDS: morphine 4 mg/mL SDV 1 mL 1 MG IVP (19:21)
[2021-04-13 20:19] LABS: Troponin 5 6HR 9.13 ng/L (0-10)
[2021-04-13 20:20] LABS: Troponin 5 6HR Delta -0.87 ng/L (0-12)
[2021-04-13] MEDS: acetaminophen 325 mg Tablet 650 MG PO (20:45)
[2021-04-13] MEDS: duloxetine 30 mg Capsule PO (20:47)
--- NOTE | 2021-04-13 20:53 | PC.NURSE ---
i reported high reps 20 to nurse
[2021-04-14] VITALS (13 sets, daily range): BP systolic 122–162; BP diastolic 77–87; PULSE 64–87; RESP 16–20; TEMP 36.8–37.1; O2SAT 90–100
[2021-04-14] MEDS: morphine 4 mg/mL SDV 1 mL 1 MG IVP ×3 (01:27→21:23)
[2021-04-14] MEDS: ipratropium-albuterol 3 mL Neb INHALATION ×3 (02:31→21:17)
[2021-04-14 05:49] LABS: Basophils # 0.1 10^3/uL (0.0-0.1); Basophils % 1.2 %; Eosinophils # 0.3 10^3/uL (0.0-0.8); Hematocrit 33.3 % (37.0-47.0); Hemoglobin 9.1 g/dL (11.5-15.3); Lymphocytes # 2.6 10^3/uL (0.8-4.8); Lymphocytes % 25.1 %; Mean Corpuscular HGB Conc 27.3 g/dL (30.0-36.0); Mean Corpuscular Hemoglobin 20.3 pg (28.0-34.0); Mean Corpuscular Volume 74.3 fl (81-99); Mean Platelet Volume 8.9 fL (7.4-10.4); Monocytes # 0.6 10^3/uL (0.2-0.9); Monocytes % 6.3 %; Neutrophils # 6.56 10^3/uL (1.8-7.7); Nucleated Red Blood Cells % 0 %; Platelet Count 642 10^3/cmm (130-400); Red Blood Count 4.48 10^6/uL (4.1-5.3); White Blood Count 10.2 10^3/uL (4.0-10.0)
--- NOTE | 2021-04-14 06:00 | US_ITS ---
WS: [id number] ABDOMINAL ULTRASOUND LIMITED REASON FOR VISIT: epigastric pain, elevated alp TECHNIQUE: Grayscale and Doppler ultrasound examination of the abdomen. FINDINGS: Pancreas: No mass, ductal dilatation, or calcification. Abdominal aorta and IVC: Normal Liver: Liver measures 19.0 cm in length. Increased echogenicity without focal lesion. Normal portal v enous blood flow. Gallbladder: Gallbladder wall thickness measures 0.2 mm. No calculi. Common bile duct measures 6 mm w hich is at the upper limits of normal. Right kidney: Right kidney measures 11.2 cm x 5.8 cm x 5.2 cm. No mass, calculus, or hydronephrosis. Normal blood flow. No ascites US/US gall bladder [id number] IMPRESSION: No significant abnormality.
[2021-04-14 06:31] LABS: Alanine Aminotransferase 10 U/L (0-33); Albumin Level 3.1 g/dL (3.5-5.2); Alkaline Phosphatase 106 IU/L (35-105); Anion Gap 13.5 (5-19); Aspartate Amino Transferase 13 U/L (0-32); Blood Urea Nitrogen 8 mg/dL (8-23); Carbon Dioxide 27 mmol/L (22-29); Chloride 106 mmol/L (98-107); Globulin 3.1 g/dL (1.3-4.6); Glucose 127 mg/dL (65-115); Osmolality Calculated 296 mOsm/kg (285-295); Potassium 3.5 mmol/L (3.5-5.1); Sodium 143 mmol/L (136-145); Total Bilirubin 0.2 mg/dL (0.15-1.2); Total Protein 6.2 g/dL (6.6-8.7)
[2021-04-14 07:12] LABS: Procalcitonin 0.08 ng/mL (0-0.5)
--- NOTE | 2021-04-14 07:17 | MR_ITS ---
WS: [id number] MRI LUMBAR SPINE NONCONTRAST HISTORY: discitis level t9 noted on CT abdomen. COMPARISON: None available. TECHNIQUE: Sagittal and axial multisequence imaging is submitted. Quality of this examination is extremely limited due to the extensive hardware throughout the lower t horacic and lumbar spine. There is contiguous hardware from T10 to the sacrum. Extensive postsurgical changes. No definite fluid collections are identified. MR/MR lumbar spine wo con* [id number] IMPRESSION: Essentially nondiagnostic examination for discitis or spondylitis throughout th e lumbar spine due to extensive hardware. Postsurgical changes are noted extens ively in the soft tissues along the posterior paraspinal region.
--- NOTE | 2021-04-14 07:17 | MR_ITS ---
WS: [id number] MRI THORACIC SPINE noncontrast. HISTORY: discitis on CT abdomen COMPARISON: CT 04/13/2021 TECHNIQUE: Multiplanar sequences are performed in sagittal and axial planes. This examination was performed without IV contrast. Posterior fusion hardware begins at the T10 level and extends into the upper lumbar spine. Bone and s oft tissue detail from the T10 level inferiorly is extremely limited. There is marrow edema and increased T2 signal throughout the T9 vertebral body. Low signal on the T1 sequence within the T10 vertebral body consistent with edema. There is also fluid in the disc at T9-1 0. Very small increased T2 signal in the posterior T8 vertebral artery. No epidural abscess or cord c ompression. There is an additional inflammatory collection extending into the RIGHT paravertebral sof t tissues centered at the T9 level. Combination of fragmented vertebral body with adjacent paraverteb ral inflammatory changes. Cannot exclude abscess but no definite fluid collection is seen on this une nhanced study. Nerve root sleeve diverticulum on the RIGHT at T7. MR/MR thoracic spin wo con* [id number] IMPRESSION: 1. There is significant discitis and spondylitis involving the T9 and T10 vert ebral bodies with pathological fracture and fragmentation of the vertebral bodi es. 2. Paravertebral inflammatory soft tissue collection centered to the RIGHT of the T9 vertebral body measures 4.4 x 5.5 cm. 3. Additional marrow edema in the posterior T8 vertebral body may be an additi onal focus of spondylitis.
[2021-04-14] MEDS: FUROsemide 20 mg Tablet PO (07:28)
[2021-04-14] MEDS: gabapentin 300 mg Capsule 600 MG PO ×2 (08:41→20:25)
[2021-04-14] MEDS: amlodipine 5 mg Tablet PO (08:41)
[2021-04-14] MEDS: diazePAM 5 mg Tablet PO (08:41)
[2021-04-14] MEDS: duloxetine 60 mg Capsule PO (08:41)
[2021-04-14] MEDS: heparin 5,000 unit/mL INJ 1 mL 5000 UNIT SUBCUT ×2 (08:41→20:24)
[2021-04-14] MEDS: budesonide 0.5 mg/2 mL Neb INHALATION ×2 (09:38→21:17)
--- NOTE | 2021-04-14 10:08 | PC.CHAP ---
Pastoral Care Encounter/Spiritual Assessment Type of Contact [] Declined candle pourer visit [] Patient/Family/Request visit [] Outpatient visit [] Follow-up visit [] Physician referral [] Code/Alert [x] Routine visit [] Staff referral [] Actively dying [] Patient sleeping [] Family support [] [] Out of room [] Palliative care [] [] Receiving care in room [] Pre-surgical visit [] Trauma [] Long length of stay [] ICU visit [] Other: Relational/Emotional Strength [x] Patient feels connected with others/family/visitors/staff [] Distress [] Loneliness/isolation [] Abandonment Spirituality of Patient [x] Person of Patience [] Attends Bahai of their Patience [] Believes in Prayer [] Reads Bible or Adventist materials [] There are Spiritual issues to be addressed Director Of Cloud Services Interventions [x] Prayer [x] Active listening [x] Non-anxious presence [] Spiritual/emotional support [] Crisis/trauma care [] Spiritual counseling [] Bereavement support [] Provided bereavement packet [] Provided Bible/devotional materials [] Provided toy/stuffed animal, coloring book to patient or family member [] Provided Communion [] Anointing/[place] [] Salvation [x] Completed spiritual assessment [] Other: Impact on Illness or Injury [] Angry [] Fearful [] Anxious [] Often cries [] Exhaustion [] Unable to work [] Unable to attend adventism [] Unable to walk/stand [] Unable to read [] Unable to drive [] Unable to eat/drink [] Unable to sleep [] Unable to be with family [] Patient intubated [] Other: Summary patient has upset stomach Time spent with patient 10 min
[2021-04-14] MEDS: TRAMadol 50 mg Tablet PO ×2 (10:15→16:12)
--- NOTE | 2021-04-14 14:32 | PC.NURSE ---
Patient to MRI at this time.
--- NOTE | 2021-04-14 15:49 | PC.NURSE ---
Patient returned from MRI at this time.
[2021-04-14] MEDS: acetaminophen 325 mg Tablet 650 MG PO (16:39)
[2021-04-14 18:01] LABS: Vancomycin Trough 20.4 ug/mL (10-15)
[2021-04-14] MEDS: cefTRIAXone 2,000 MG in sodium chloride 0.9% (plus) 50 ML 100 MG IV (18:41)
--- NOTE | 2021-04-14 19:02 | PC.NURSE ---
Report to Keeley BARRETO at this time.
[2021-04-14] MEDS: duloxetine 30 mg Capsule PO (20:24)
[2021-04-14] MEDS: fentaNYL 12 mcg Patch 1 PATCH TRANSDERMA (20:24)
[2021-04-14] MEDS: pantoprazole DR 40 mg Tablet PO (20:24)
--- NOTE | 2021-04-14 20:39 | PM.PN ---
Subjective Subjective: Interval history: Patient was seen and examined this morning continues to complain of right upper quadrant, abdominal pain. She has remained afebrile. Awaiting MRI of thoracic and lumbar region. Her other vitals and labs have been reviewed. Medications: Reviewed: Yes Vitals/I&O/Wt Last Vital Signs Temp 98.6 F 04/14/21 16:00 Pulse 87 04/14/21 16:00 Resp 18 04/14/21 16:00 BP 139/87 04/14/21 16:00 Pulse Ox 92 04/14/21 16:00 04/14/21 04/14/21 04/14/21 06:59 14:59 22:59 Intake Total 500 / 2270 550 / 550 Balance 500 / 2270 550 / 550 Weight last 48 hrs Weight 115.666 kg Physical Exam Const: COMMON NORMALS: patient oriented x3 HENMT: COMMON NORMALS: normocephalic and atraumatic HEAD & SCALP: normocephalic and atraumatic Resp: COMMON NORMALS: clear to auscultation bilaterally AUSCULTATION: clear to auscultation bilaterally Cardio: COMMON NORMALS: regular rate, regular rhythm, S1 normal heart sound present, S2 normal heart sound present, No gallops present (Cardio), No murmurs present (Cardio), No rub (Cardio) and Peripheral pulses 2+ throughout RATE: regular rate RHYTHM: regular rhythm HEART SOUNDS: S1 normal heart sound present and S2 normal heart sound present PERIPHERAL PULSES: Peripheral pulses 2+ throughout GI: COMMON NORMALS: Normal to inspection, nondistended, normoactive bowel sounds present AUSCULTATION: Yes normoactive bowel sounds RECTAL EXAM: deferred OTHER: Right upper quadrant tenderness present, no guarding no rigidity, no rebound tenderness Extremity: COMMON NORMALS: no clubbing, cyanosis or edema and no pedal edema Neuro: COMMON NORMALS: patient oriented x3 Data : 04/14/21 04:30 04/14/21 04:30 Micro: Microbiology 04/13/21 12:05 MRSA Culture - Final Nose 04/13/21 08:05 Blood Culture - Preliminary Blood 04/13/21 08:10 Blood Culture - Preliminary Blood NEGATIVE TO DATE A&P Assessment and plan (1) Discitis of thoracic region: Status: Acute (2) Fusion of spine, thoracolumbar region: Status: Acute (3) Obstructive sleep apnea: Status: Acute (4) Morbid obesity: Status: Acute (5) Epigastric abdominal pain: Status: Acute Additional A&P Information Discitis of thoracic region: Recent history of fusion of spine thoracic or lumbar region with delayed wound healing. Check blood culture, ESR, CRP, MRSA swab, procalcitonin MRI thoracic and lumbar spine. Start on broad-spectrum antibiotic with vancomycin and ceftriaxone. Will de-escalate antibiotics as per culture results. Morphine 1 mg every 6 hours as needed for pain, tramadol 50 every 4 hours as needed for pain. We will try to avoid narcotics as per patient request. Fentanyl patch. Epigastric pain: Could be secondary to discitis as a referred pain but cannot rule out gastritis from frequent ibuprofen currently use. Alkaline phosphatase mildly elevated. Check gallbladder ultrasound. Troponin cycle. Protonix IV daily, Zofran as needed. Continue other chronic medications. We will change treatment as per clinical picture. Full code. Cardiac diet. Heparin for DVT prophylaxis. Attestations Medical Necessity Statement*: Patient needs to be in hospital for management of discitis. Coding Level of Care Code Acute Edge Trimming Machine Operator for [place] Diagnoses Discitis of thoracic region M46.44 Fusion of spine, thoracolumbar region M43.25 Obstructive sleep apnea G47.33 Morbid obesity E66.01 Epigastric abdominal pain R10.13
[2021-04-14] MEDS: cyclobenzaprine 10 mg Tablet PO (21:30)
[2021-04-15] VITALS (12 sets, daily range): BP systolic 122–148; BP diastolic 70–80; PULSE 76–98; RESP 16–18; TEMP 36.3–36.9; O2SAT 90–97
[2021-04-15] MEDS: TRAMadol 50 mg Tablet PO ×2 (00:58→09:16)
[2021-04-15] MEDS: acetaminophen 325 mg Tablet 650 MG PO ×2 (00:59→17:52)
[2021-04-15] MEDS: morphine 4 mg/mL SDV 1 mL 1 MG IVP (03:46)
[2021-04-15] MEDS: FUROsemide 20 mg Tablet PO (05:34)
[2021-04-15] MEDS: heparin 5,000 unit/mL INJ 1 mL 5000 UNIT SUBCUT ×2 (09:11→21:28)
[2021-04-15] MEDS: duloxetine 60 mg Capsule PO (09:12)
[2021-04-15] MEDS: amlodipine 5 mg Tablet PO (09:12)
[2021-04-15] MEDS: diazePAM 5 mg Tablet PO (09:12)
[2021-04-15] MEDS: gabapentin 300 mg Capsule 600 MG PO ×2 (09:12→21:28)
[2021-04-15] MEDS: ipratropium-albuterol 3 mL Neb INHALATION ×2 (09:49→15:36)
[2021-04-15] MEDS: budesonide 0.5 mg/2 mL Neb INHALATION ×2 (09:49→19:45)
--- NOTE | 2021-04-15 10:59 | PC.CHAP ---
Pastoral Care Encounter/Spiritual Assessment Type of Contact [] Declined blueprint processor visit [] Patient/Family/Request visit [] Outpatient visit [] Follow-up visit [] Physician referral [] Code/Alert [x] Routine visit [] Staff referral [] Actively dying [] Patient sleeping [] Family support [] [] Out of room [] Palliative care [] [] Receiving care in room [] Pre-surgical visit [] Trauma [] Long length of stay [] ICU visit [] Other: Relational/Emotional Strength [] Patient feels connected with others/family/visitors/staff [] Distress [] Loneliness/isolation [] Abandonment Spirituality of Patient [] Person of Patience [] Attends Church of their Patience [] Believes in Prayer [] Reads Bible or Religion materials [] There are Spiritual issues to be addressed Non Destructive Testing Scientist Interventions [] Prayer [] Active listening [] Non-anxious presence [] Spiritual/emotional support [] Crisis/trauma care [] Spiritual counseling [] Bereavement support [] Provided bereavement packet [] Provided Bible/devotional materials [] Provided toy/stuffed animal, coloring book to patient or family member [] Provided Communion [] Anointing/[place] [] Salvation [] Completed spiritual assessment [] Other: Impact on Illness or Injury [] Angry [] Fearful [] Anxious [] Often cries [] Exhaustion [] Unable to work [] Unable to attend evangelical [] Unable to walk/stand [] Unable to read [] Unable to drive [] Unable to eat/drink [] Unable to sleep [] Unable to be with family [] Patient intubated [] Other: Summary She was on the phone. Time spent with patient
[2021-04-15] MEDS: cyclobenzaprine 10 mg Tablet PO (12:59)
--- NOTE | 2021-04-15 13:43 | P.CONIM_ITS ---
Providers/Reason For Consult Consulting Physician/Specialty*: Ortho Spine Reason for Consult*: Back Pain Attending Physician: Ras Tirado MD Primary Care Provider: Tadeo Prather MD History of Present Illness History of Present Illness Kathy Patel is a 65 year old female [facility] number of different paths. SHe underwent a revision thoracolumbar fusion and during followup reported increased back pain. Denied any fevers, chills or signs of infection. Her back xrays suggested new compression fracture. An MRI scan was performed. Her back pain increased and was sharp, stabbing and constant in nature. 9/10 on the pain scale. Review of Systems General: Reports: 10 or more systems reviewed and unremarkable except in HPI and below Const: Denies: fever(s), chills, body aches, change in appetite, change in weight, malaise, night sweats, diaphoresis, change in sleep pattern, daytime sleepiness or snoring Eyes: Denies: change in vision, blurry vision, photophobia, eye discomfort or eye discharge ENMT: Denies: throat pain, enlarged tonsils, hoarseness, mouth pain, oral sores, dry mouth, tinnitus, nasal congestion or post nasal drip Card: Denies: chest pain, palpitations, irregular heart rhythm, edema, swelling of feet/ankles, lightheadedness, syncope, pre-syncope, dyspnea on exertion, orthopnea, leg pain with exertion or acrocyanosis Resp: Denies: dyspnea, productive cough, non-productive cough, wheezing, stridor, pain on inspiration, change in phlegm color, hemoptysis or chest congestion GI: Denies: abdominal pain, nausea, vomiting, hematemesis, coffee ground emesis, dysphagia, heartburn, diarrhea, constipation, bloating, GI cramping, change in bowel habits, pain on defecation, hematochezia or melena : Denies: flank pain, dysuria, urinary frequency, urinary urgency, urinary hesitancy, nocturia or hematuria Musc: Denies: neck pain, back pain, extremity pain, joint pain, joint swelling, joint redness, joint stiffness or limited range of motion Skin/Breast: Reports: surgical incision; Denies: rash Neuro: Denies: headache(s), numbness in extremities, weakness in extremities, sensory changes, lack of coordination, difficulty walking, frequent falls, dizziness, vertigo, confusion, Slurred speech present, difficulty communicating thoughts or seizure-like activity Psych: Denies: anxiety, depression, mood swings, panic attacks, hopelessness or irritability Endo: Denies: polyuria, polydipsia, tired all the time, cold intolerance, excessive sweating, flushing or heat intolerance Juan/Lymph: Denies: easy bruising or easy bleeding All/Imm: Denies: tongue swelling, facial swelling or acute wheezing Meds/Allergies Home Medications and Allergies Home Medications Medication Instructions Recorded Confirmed Last Taken Type albuterol sulfate 90 mcg/actuation 2 puff INHALATION Q4H PRN 09/06/19 04/13/21 Unknown History aerosol inhaler alprazolam 0.5 mg tablet 0.5 mg PO TID PRN tab 09/06/19 04/13/21 Unknown History duloxetine 60 mg capsule,delayed 60 mg PO DAILY@09/06/19 04/13/21 Unknown History release fluticasone 500 mcg-salmeterol 50 1 inh INHALATION BID 09/06/19 04/13/21 Unknown History mcg/dose blistr powdr for inhalation gabapentin 600 mg tablet 600 mg PO BID@ tab 08/08/20 04/13/21 Unknown History guaifenesin 600 mg tablet, 600 mg PO DAILY PRN tab 08/08/20 04/13/21 Unknown History extended release 12 hr omeprazole 20 mg capsule,delayed 20 mg PO DAILY@08/08/20 04/13/21 Unknown History release meloxicam 15 mg tablet 15 mg PO DAILY@09/18/20 04/13/21 Unknown History Bone Growth Stimulator E0748 #1 ea 10/03/20 04/13/21 Unknown Rx duloxetine 30 mg PO DAILY@10/23/20 04/13/21 Unknown History Hair, Skin, Nails with Biotin 4 tab PO DAILY@11/09/20 04/13/21 Unknown History calcium carbonate-vitamin D3 4 tab PO DAILY@11/09/20 04/13/21 Unknown History cetirizine [Zyrtec] 10 mg PO DAILY@11/09/20 04/13/21 Unknown History cranberry 2 tab PO DAILY@11/09/20 04/13/21 Unknown History fexofenadine [Diane] 60 mg PO BID PRN #0 11/09/20 04/13/21 Unknown History gauze bandage 4 X 4 #25 ea 12/05/20 04/13/21 Unknown Rx cyclobenzaprine 5 mg tablet 5 mg PO TID PRN #90 tab 12/31/20 04/13/21 Unknown Rx Allergies Allergy/AdvReac Type Severity Reaction Status Date / Time adhesive tape Allergy Unknown Verified 03/20/21 09:25 latex Allergy blisters Verified 03/20/21 09:25 Current Medications Current Medications Generic Name Dose Route Start Last Admin Trade Name Freq PRN Reason Stop Dose Admin Acetaminophen 650 mg 04/13/21 07:17 04/15/21 00:59 Acetaminophen 325 Mg Tablet PO 650 mg Q6H PRN Administration Mild/Mod Pain Or Temp >/= 101 Albuterol/Ipratropium 3 ml 04/13/21 09:00 04/15/21 09:49 Ipratropium-Albuterol 3 Ml Neb INHALATION 3 ml Q6H NUBIA Administration Amlodipine Besylate 5 mg 04/13/21 09:00 04/15/21 09:12 Amlodipine 5 Mg Tablet PO 5 mg DAILY NUBIA Administration Budesonide 0.5 mg 04/13/21 08:00 04/15/21 09:49 Budesonide 0.5 Mg/2 Ml Neb INHALATION 0.5 mg BID.RESPIRATORY NUBIA Administration Cyclobenzaprine HCl 10 mg 04/15/21 11:50 04/15/21 12:59 Cyclobenzaprine 10 Mg Tablet PO 10 mg TID PRN Administration MUSCLE SPASMS Duloxetine HCl 60 mg 04/13/21 09:00 04/15/21 09:12 Duloxetine 60 Mg Capsule PO 60 mg DAILY@09 NUBIA Administration Duloxetine HCl 30 mg 04/13/21 21:00 04/14/21 20:24 Duloxetine 30 Mg Capsule PO 30 mg DAILY@ NUBIA Administration Fentanyl 1 patch 04/14/21 20:00 04/14/21 20:24 Fentanyl 12 Mcg Patch TRANSDERMA 1 patch Q72H NUBIA Administration Furosemide 20 mg 04/14/21 06:00 04/15/21 05:34 Furosemide 20 Mg Tablet PO 20 mg QAM NUBIA Administration Gabapentin 600 mg 04/13/21 09:00 04/15/21 09:12 Gabapentin 300 Mg Capsule PO 600 mg BID@ NUBIA Administration Heparin Sodium (Porcine) 5,000 unit 04/14/21 08:00 04/15/21 09:11 Heparin 5,000 Unit/Ml Inj 1 Ml SUBCUT 5,000 unit Q12H NUBIA Administration Ceftriaxone Sodium 2,000 mg/ 50 mls @ 100 mls/hr 04/13/21 17:30 04/14/21 19:19 Sodium Chloride IV Infused Q24H NUBIA Infusion Protocol Vancomycin HCl 2,000 mg/ 500 mls @ 250 mls/hr 04/15/21 10:00 04/15/21 12:46 Sodium Chloride IV Infused Q18H NUIBA Infusion Ondansetron HCl 4 mg 04/13/21 07:17 04/13/21 19:20 Ondansetron 2 Mg/Ml Sdv 2 Ml IVP 4 mg Q8H PRN Administration vomiting, or N/V if npo Pantoprazole Sodium 40 mg 04/13/21 21:00 04/14/21 20:[address] 40 Mg Tablet PO 40 mg DAILY@21 NUBIA Administration PFSH Acute PFSH: Medical History (Updated 04/15/21 @ 13:53 by ESPERANZA Fong) DDD (degenerative disc disease), thoracic Degenerative lumbar spinal stenosis Internal fixation device (pin, nixon, or screw) mechanical complication Intervertebral disc disorder with radiculopathy of lumbosacral region Lumbar stenosis with neurogenic claudication Morbid obesity with BMI of 50.0-59.9, adult Spondylarthritis Surgical History History of appendectomy History of carpal tunnel repair History of knee surgery History of laparoscopic adjustable gastric banding History of lumbar surgery (~2011) 12/2016 Dr. Martin Joyner Thoracic spinal cord stimulator placement 04/2016 Dr. Martin Joyner Right SI joint fusion 03/2016 Dr. Martin Joyner [facility] Left SI joint fusion 06/2012 Dr. Christopher Olmstead [facility] L2-L3 posterior fusion/fixation. 10/2011 Dr. Christopher Olmstead [facility] Fractured fusion screws removed. 12/[address] Orthopedic surgeon. [facility] Spine: L3-L4, L4-L5 L5-S1 Posterior Fusion/fusion Status post correction of deviated nasal septum Status post insertion of spinal cord stimulator (~2016) Family History Father CAD (coronary artery disease) Social History Smoking and tobacco status: former smoker Alcohol intake: former Household members: spouse Marital status: Current occupational status: disabled History of recent travel: No Dietary Habits: Current diet type/program: regular Exercise: What type of physical activity do you participate in?: none Vitals/I&O/Wt Last Vital Signs Temp 98.2 F 04/15/21 12:00 Pulse 81 04/15/21 12:00 Resp 16 04/15/21 12:00 BP 129/74 04/15/21 12:00 Pulse Ox 93 04/15/21 12:00 04/14/21 04/15/21 04/15/21 22:59 06:59 14:59 Intake Total 550 / 550 500 / 500 Balance 550 / 550 500 / 500 Physical Exam Narrative: EXAM NARRATIVE: AO x3 with good general appearance, normal mood and affect, in no apparent distress, Palpable pain over midline of thoracic spine, incision c/d, 5/5 motor strength in BLE, fires in all mucsle groups, feet warm with good cap refill Resp: COMMON NORMALS: normal respiratory effort Cardio: COMMON NORMALS: regular rate and regular rhythm RATE: regular rate RHYTHM: regular rhythm : COMMON NORMALS: Yes no CVA tenderness BLADDER/KIDNEY EXAM: Yes no CVA tenderness Back/Pelvis: COMMON NORMALS: no CVA tenderness Psych: COMMON NORMALS: mental status grossly normal Data Micro: Micro: Microbiology 04/13/21 12:05 MRSA Culture - Fin al Nose 04/13/21 08:05 Blood Culture - Pr eliminary Blood A&P Assessment and plan (1) Fracture, thoracic vertebra, compression: Dr Fowler recommends Kyphoplasty, discussed options of brace verses surgery with patient. She would like to procedure with surgery. I discussed risks and benefits with her which include but not limited to, bleeding, infection, continued back pain, further fracture, continued pain. she understands and wishes to proceed. Status: Acute (2) Fusion of spine, thoracolumbar region: Status: Acute Coding Level of Care Code Acute Coding Advisor for [facility] Fwd Diagnoses Fracture, thoracic vertebra, compression S22.000A Fusion of spine, thoracolumbar region M43.25
[2021-04-15] MEDS: TRAMadol 50 mg Tablet 100 MG PO ×2 (15:01→21:35)
--- NOTE | 2021-04-15 16:59 | PM.PN ---
Subjective Subjective: Interval history: Patient was seen and examined this morning continues abdominal pain has improved. Medications: Reviewed: Yes Vitals/I&O/Wt Last Vital Signs Temp 98.2 F 04/15/21 12:00 Pulse 88 04/15/21 15:43 Resp 17 04/15/21 15:36 BP 129/74 04/15/21 12:00 Pulse Ox 90 04/15/21 15:36 04/15/21 04/15/21 04/15/21 06:59 14:59 22:59 Intake Total 500 / 500 Balance 500 / 500 Physical Exam Const: COMMON NORMALS: patient oriented x3 HENMT: COMMON NORMALS: normocephalic and atraumatic HEAD & SCALP: normocephalic and atraumatic Resp: COMMON NORMALS: clear to auscultation bilaterally AUSCULTATION: clear to auscultation bilaterally Cardio: COMMON NORMALS: regular rate, regular rhythm, S1 normal heart sound present, S2 normal heart sound present, No gallops present (Cardio), No murmurs present (Cardio), No rub (Cardio) and Peripheral pulses 2+ throughout RATE: regular rate RHYTHM: regular rhythm HEART SOUNDS: S1 normal heart sound present and S2 normal heart sound present PERIPHERAL PULSES: Peripheral pulses 2+ throughout GI: COMMON NORMALS: Normal to inspection, nondistended, normoactive bowel sounds present AUSCULTATION: Yes normoactive bowel sounds RECTAL EXAM: deferred OTHER: Right upper quadrant tenderness present, no guarding no rigidity, no rebound tenderness Extremity: COMMON NORMALS: no clubbing, cyanosis or edema and no pedal edema Neuro: COMMON NORMALS: patient oriented x3 Data : 04/14/21 04:30 04/14/21 04:30 Micro: Microbiology 04/13/21 08:05 Blood Culture - Preliminary Blood Bacillus sp not b. anthracis 04/13/21 12:05 MRSA Culture - Final Nose A&P Assessment and plan (1) Discitis of thoracic region: Status: Acute (2) Fusion of spine, thoracolumbar region: Status: Acute (3) Obstructive sleep apnea: Status: Acute (4) Morbid obesity: Status: Acute (5) Epigastric abdominal pain: Status: Acute Additional A&P Information Compression fracture in thoracic vertebra: Orthopedic surgery intended to kyphoplasty Discitis of thoracic region: Recent history of fusion of spine thoracic or lumbar region with delayed wound healing. blood culture: 07/07 bottles : bacillus sp not b anthracis ESR:39 CRP: 41.9 MRSA swab: Not detected procalcitonin: Normal MRI thoracic without contrast: There is significant discitis and spondylitis involving the T9 and T10 vertebral bodies with pathological fracture and fragmentation of the vertebral bodies.Paravertebral inflammatory soft tissue collection centered to the RIGHT of the T9 vertebral body measures 4.4 x 5.5 cm. MRI lumbar spine without contrast: nondiagnostic examination for discitis or spondylitis throughout the lumbar spine due to extensive hardware. Continue vancomycin and ceftriaxone. Will de-escalate antibiotics as per culture results. Morphine 1 mg every 6 hours as needed for pain, tramadol 50 every 4 hours as needed for pain. We will try to avoid narcotics as per patient request. Fentanyl patch. Epigastric pain: Could be secondary to discitis as a referred pain but cannot rule out gastritis from frequent ibuprofen currently use. Alkaline phosphatase mildly elevated. ultrasound abdomen; No significant abnormality. Troponin without significant delta Protonix IV daily, Zofran as needed. Continue other chronic medications. We will change treatment as per clinical picture. Full code. Cardiac diet. Heparin for DVT prophylaxis. Attestations Medical Necessity Statement*: Patient needs to be in hospital for management of compression fracture and discitis Coding Level of Care Code Acute Manager Credit for [facility] Fwkrunal Exam Detailed Diagnoses Discitis of thoracic region M46.44 Fusion of spine, thoracolumbar region M43.25 Obstructive sleep apnea G47.33 Morbid obesity E66.01 Epigastric abdominal pain R10.13
[2021-04-15 17:06] LABS: Erythrocyte Sedimentation Rate 39 mm/hr (0-15)
[2021-04-15] MEDS: docusate sodium 100 mg Capsule PO (17:45)
[2021-04-15] MEDS: cefTRIAXone 2,000 MG in sodium chloride 0.9% (plus) 50 ML 100 MG IV (17:45)
--- NOTE | 2021-04-15 18:52 | PC.NURSE ---
Report to Porsha BARRETO at this time.
[2021-04-15] MEDS: duloxetine 30 mg Capsule PO (21:28)
[2021-04-15] MEDS: pantoprazole DR 40 mg Tablet PO (21:28)
[2021-04-16] VITALS (15 sets, daily range): BP systolic 103–184; BP diastolic 65–104; PULSE 74–90; RESP 14–19; TEMP 36.2–37.3; O2SAT 88–100
--- NOTE | 2021-04-16 | SCC_ITS ---
Procedure Done: T8 Kyphoplasty T9 Kyphoplasty 101.3 seconds of fluoroscopic guidance, for a cumulative dose of 39.92 mGy and 60.19 mGy , was provided to Dr. Fowler by the radiology department. C-arm images of the [facility] spine were saved for the patient's permanent record. [facility]
[2021-04-16] MEDS: TRAMadol 50 mg Tablet 100 MG PO (02:11)
[2021-04-16] MEDS: acetaminophen 325 mg Tablet 650 MG PO (02:11)
[2021-04-16] MEDS: sodium chloride 0.9% 1,000 ML 30 ML IV (07:51)
--- NOTE | 2021-04-16 07:51 | P.ANESASSM_ITS ---
Pre-Anesthetic Assessment Pre-Anesthetic Assessment: Height/Weight: Height 1.68 m Weight 115.666 kg Temp Pulse Resp BP Pulse Ox 97.7 F 82 18 184/104 96 04/16/21 07:21 04/16/21 07:21 04/16/21 07:21 04/16/21 07:21 04/16/21 07:21 Preop Diagnosis: lumbar stenosis; failed back syndrome Proposed Procedure: Operation Date: 04/16/21 08:15 Proposed Procedures p Kyphoplasty t8, t9(Not Applicable) - Saul Fowler, Familial anesthetic complications: None Was Beta Rony taken within 24 hours: N/A Was Clonidine taken within 24 hours: N/A Last intake: Intake Last Liquid Date 04/16/21 Last Liquid Time 02:30 Last Solid Date 04/15/21 Last Solid Time 19:00 Social: Social History: No alcohol and No tobacco Exam: Pre-Anes Outpt Exam: alert, oriented x 3, clear to auscultation bilaterally and regular rate & rhythm Airway: Cervical ROM: WNL MP: 3 Dentition: Full Pulmonary: Pulmonary: Sleep apnea GI: GI: GERD Metabolic: Metabolic: Morbid obesity Musc/skel: Musc/skel: Lower Back Pain Anesthetic Plan: ASA status: 3 Anesthesia: General Risk of > 500 ml blood loss (7ml/kg in children): No Meds/Allergies Current Medications: Current Medications Generic Name Dose Route Start Last Admin Trade Name Freq PRN Reason Stop Dose Admin Acetaminophen 650 mg 04/13/21 07:17 04/16/21 02:11 Acetaminophen 32 5 Mg Tablet PO 650 mg Q6H PRN Administration Mild/Mod Pain Or Temp >/= 101 Albuterol/Ipratrop ium 3 ml 04/13/21 09:00 04/15/21 15:36 Ipratropium-Albu terol 3 Ml Neb INHALATION 3 ml Q6H NUBIA Administration Amlodipine Besylat e 5 mg 04/13/21 09:00 04/15/21 09:12 Amlodipine 5 Mg Tablet PO 5 mg DAILY NUBIA Administration Budesonide 0.5 mg 04/13/21 08:00 04/15/21 19:45 Budesonide 0.5 M g/2 Ml Neb INHALATION 0.5 mg BID.RESPIRATORY S CH Administration Cyclobenzaprine HC l 10 mg 04/15/21 11:50 04/15/21 12:59 Cyclobenzaprine 10 Mg Tablet PO 10 mg TID PRN Administration MUSCLE SPASMS Docusate Sodium 100 mg 04/15/21 15:45 04/15/21 17:45 Docusate Sodium 100 Mg Capsule PO 100 mg DAILY NUBIA Administration Duloxetine HCl 60 mg 04/13/21 09:00 04/15/21 09:12 Duloxetine 60 Mg Capsule PO 60 mg DAILY@09 NUBIA Administration Duloxetine HCl 30 mg 04/13/21 21:00 04/15/21 21:28 Duloxetine 30 Mg Capsule PO 30 mg DAILY@ NUBIA Administration Fentanyl 1 patch 04/14/21 20:00 04/14/21 20:24 Fentanyl 12 Mcg Patch TRANSDERMA 1 patch Q72H NUBIA Administration Furosemide 20 mg 04/14/21 06:00 04/16/21 06:17 Furosemide 20 Mg Tablet PO Not Given QAM NUBIA Gabapentin 600 mg 04/13/21 09:00 04/15/21 21:28 Gabapentin 300 M g Capsule PO 600 mg BID@ NUBIA Administration Heparin Sodium (Po rcine) 5,000 unit 04/14/21 08:00 04/15/21 21:28 Heparin 5,000 Un it/Ml Inj 1 Ml SUBCUT 5,000 unit Q12H NUBIA Administration Ceftriaxone Sodium 2,000 mg/ 50 mls @ 100 mls/ hr 04/13/21 17:30 04/15/21 18:15 Sodium Chloride IV Infused Q24H NUBIA Infusion Protocol Vancomycin HCl 2,0 00 mg/ 500 mls @ 250 mls /hr 04/15/21 10:00 04/16/21 07:13 Sodium Chloride IV Infused Q18H NUBIA Infusion Ondansetron HCl 4 mg 04/13/21 07:17 04/13/21 19:20 Ondansetron 2 Mg /Ml Sdv 2 Ml IVP 4 mg Q8H PRN Administration vomiting, or N/V if npo Pantoprazole Sodiu m 40 mg 04/13/21 21:00 04/15/21 21:[address] 40 Mg Tablet PO 40 mg DAILY@21 NUBIA Administration Polyethylene Glyco l 17 gm 04/15/21 18:00 04/15/21 17:45 Polyethylene Gly col 3350 Pkt 17 Gm PO Not Given BID NUBIA Tramadol HCl 100 mg 04/15/21 11:53 04/16/21 02:11 Tramadol 50 Mg T ablet PO 100 mg Q6H PRN Administration MODERATE PAIN PFSH Anesthesia PFSH: Medical History (Updated 04/15/21 @ 13:53 by ESPERANZA Fong) DDD (degenerative disc disease), thoracic Degenerative lumbar spinal stenosis Internal fixation device (pin, nixon, or screw) mechanical complication Intervertebral disc disorder with radiculopathy of lumbosacral region Lumbar stenosis with neurogenic claudication Morbid obesity with BMI of 50.0-59.9, adult Spondylarthritis Surgical History History of appendectomy History of carpal tunnel repair History of knee surgery History of laparoscopic adjustable gastric banding History of lumbar surgery (~2011) 12/2016 Dr. Martin Joyner Thoracic spinal cord stimulator placement 04/2016 Dr. Martin Joyner Right SI joint fusion 03/2016 Dr. Martin Joyner [facility] Left SI joint fusion 06/2012 Dr. Christopher Shah [facility] L2-L3 posterior fusion/fixation. 10/2011 Dr. Christopher Olmstead [facility] Fractured fusion screws removed. 12/[address] Orthopedic surgeon. [facility] Spine: L3-L4, L4-L5 L5-S1 Posterior Fusion/fusion Status post correction of deviated nasal septum Status post insertion of spinal cord stimulator (~2016) Family History Father CAD (coronary artery disease) Social History Smoking and tobacco status: former smoker Alcohol intake: former Household members: spouse Marital status: Current occupational status: disabled History of recent travel: No Data Anesthesia CBC & Chem 7: 04/14/21 04:30 04/14/21 04:30 Other Labs: Laboratory Results - last 48 hr 04/14/21 04/14/21 04:30 16:20 ESR 39 H Vancomycin Trough 20.4 H Micro: Microbiology 04/13/21 08:05 Blood Culture - Preliminary Blood Bacillus sp not b. anthracis Cardiac Studies: No Data to Display
--- NOTE | 2021-04-16 07:59 | W.PM.OPSUD ---
Surgery/Procedure H&P Update DATE OF PROCEDURE: April 16, 2021 DATE H&P PERFORMED: 04/15/21 H&P UPDATE INFORMATION: I have reviewed H&P completed within last 30 days, I have examined patient prior to procedure and No changes to prior documentation PREOP DIAGNOSIS: lumbar stenosis; failed back syndrome PLANNED PROCEDURE: Operation Date: 04/16/21 08:15 Proposed Procedures p Kyphoplasty t8, t9(Not Applicable) - Saul Fowler DO
--- NOTE | 2021-04-16 08:09 | SC_ITS ---
WS: [id number] Exam: C-arm FL for Kyphoplasty Date/Time of Exam: 04/16/2021 8:09 AM Reason For Exam: T8-T9 Kyphoplasty Intraoperative C-arm images of the lower T-spine are submitted in the lateral and AP projections. The re are signs of kyphoplasty with methyl methacrylate injection in the region of the lower endplate of the T9. There are pedicle screws and posterior rods extending from T10 to T12. No other significant finding on this limited study.
[2021-04-16] MEDS: iohexol 300 mg/mL 50 mL Btl (OR ONLY) XX (09:03)
--- NOTE | 2021-04-16 09:25 | PM.OP ---
Operative Report Date of procedure: April 16, 2021 Pre-op Diagnosis: T8and T9 compression fracture Procedure Done: T8 Kyphoplasty T9 Kyphoplasty Surgeon: Saul Fowler Anesthesia: General Estimated blood loss (mL): 5 Condition: stable Disposition: PACU Procedure: Patient was brought to the operative suite after undergoing anesthesia was placed in a prone position. All areas impingement well-padded. Patient was prepped and draped normal sterile fashion. Skin incision was made over the T9 pedicle on the left side. The starting awl was inserted through the pedicle pain attention to the endplates and the pedicles. The drill was placed and then the bone from the drill was sent for culture. The balloon was then inserted in the balloon both of the endplate where the screw below had likely broken through. Next attention was brought to the T8 level. The awl was inserted followed by the drill followed by the balloon. The cement was then inserted into the T8 and T9 levels. The cement tracked into the disc and of the T10 T9 level. And then the T8 cement was inserted into the preposition. The AP lateral fluoroscopy inserted the cement was in good position and wounds were irrigated closed with nylon suture sterile dressings applied patient was transferred to the PACU in some addition.
--- NOTE | 2021-04-16 09:50 | SUR.PHASEI ---
PT AWAKE ALERT TALKATIVE TAKING ICE CHIPS DENIES PAIN , UNABLE TO GIVE REPORT TO FLOOR, VSS, PT NOW IN HOLDING.
--- NOTE | 2021-04-16 10:09 | SUR.PHASEI ---
STILL UNABLE TO GIVE REPORT TO FLOOR, VSS IV PATENT.WILL GIVE REPORT ON THE FLOOR.
--- NOTE | 2021-04-16 11:14 | P.PN_ITS ---
Subjective Subjective: Interval history: Patient was seen and examined this morning s/p T8 Kyphoplasty. Medications: Reviewed: Yes Vitals/I&O/Wt Last Vital Signs Temp 97.4 F L 04/16/21 09:57 Pulse 79 04/16/21 09:57 Resp 17 04/16/21 09:57 BP 112/65 04/16/21 09:57 Pulse Ox 94 04/16/21 09:57 04/15/21 04/16/21 04/16/21 22:59 06:59 14:59 Intake Total 50 / 550 500 / 500 Output Total 5 / 5 Balance 50 / 550 495 / 495 Physical Exam Const: COMMON NORMALS: patient oriented x3 HENMT: COMMON NORMALS: normocephalic and atraumatic HEAD & SCALP: normocephalic and atraumatic Resp: COMMON NORMALS: clear to auscultation bilaterally AUSCULTATION: clear to auscultation bilaterally Cardio: COMMON NORMALS: regular rate, regular rhythm, S1 normal heart sound present, S2 normal heart sound present, No gallops present (Cardio), No murmurs present (Cardio), No rub (Cardio) and Peripheral pulses 2+ throughout RATE: regular rate RHYTHM: regular rhythm HEART SOUNDS: S1 normal heart sound present and S2 normal heart sound present PERIPHERAL PULSES: Peripheral pulses 2+ throughout GI: COMMON NORMALS: Normal to inspection, nondistended, normoactive bowel sounds present AUSCULTATION: Yes normoactive bowel sounds RECTAL EXAM: deferred OTHER: Right upper quadrant tenderness present, no guarding no rigidity, no rebound tenderness Extremity: COMMON NORMALS: no clubbing, cyanosis or edema and no pedal edema Neuro: COMMON NORMALS: patient oriented x3 Data : 04/14/21 04:30 04/14/21 04:30 Micro: Microbiology 04/13/21 08:05 Blood Culture - Preliminary Blood Bacillus sp not b. anthracis A&P Assessment and plan (1) Discitis of thoracic region: Status: Acute (2) Fusion of spine, thoracolumbar region: Status: Acute (3) Obstructive sleep apnea: Status: Acute (4) Morbid obesity: Status: Acute (5) Epigastric abdominal pain: Status: Acute Additional A&P Information Compression fracture in thoracic vertebra: Orthopedic surgery intended to kyphoplasty Possible discitis of thoracic region: Recent history of fusion of spine thoracic or lumbar region with delayed wound healing. blood culture: 07/07 bottles : bacillus sp not b anthracis ESR:39 CRP: 41.9 MRSA swab: Not detected procalcitonin: Normal MRI thoracic without contrast: There is significant discitis and spondylitis involving the T9 and T10 vertebral bodies with pathological fracture and fragmentation of the vertebral bodies.Paravertebral inflammatory soft tissue collection centered to the RIGHT of the T9 vertebral body measures 4.4 x 5.5 cm. MRI lumbar spine without contrast: nondiagnostic examination for discitis or spondylitis throughout the lumbar spine due to extensive hardware. She has been on vancomycin and ceftriaxone. Since admission, based on orthopedic feedback, they are of the opinion that right now they want to hold off on antibiotics. They will follow up with the cultures taken during kyphoplasty. And based on that we will decide a further course of antibiotic if needed and possible ID consult. Plan is to discontinue antibiotic on discharge. Morphine 1 mg every 6 hours as needed for pain, tramadol 50 every 4 hours as n eeded for pain. We will try to avoid narcotics as per patient request. Fentanyl patch. Epigastric pain: Could be secondary to discitis as a referred pain but cannot rule out gastritis from frequent ibuprofen currently use. Alkaline phosphatase mildly elevated. ultrasound abdomen; No significant abnormality. Troponin without significant delta Protonix IV daily, Zofran as needed. Continue other chronic medications. We will change treatment as per clinical picture. Full code. Cardiac diet. Heparin for DVT prophylaxis. Attestations Medical Necessity Statement*: s/p Kyphoplasty. 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
--- NOTE | 2021-04-16 12:15 | PC.SOCIAL ---
IMM update IMM updated with patient. Verbalized an understanding. Copy Pg 2 provided. Initialled, dated, timed, and placed in chart.
[2021-04-16] MEDS: HYDROcodone-acetaminophen 5-325 mg Tablet PO ×2 (14:43→20:16)
--- NOTE | 2021-04-16 15:03 | ANE.PACU2 ---
Inpatient post-anesthesia follow up: Airway intact: Yes Vital signs: Temperature 98.1 F Pulse Rate [Monito r] 86 Pulse Rate 81 Respiratory Rate 18 Blood Pressure [Ri ght Arm] 185/121 Blood Pressure 122/65 Pulse Oximetry 95 Oxygen Delivery Me thod Room Air Oxygen Flow Rate Fraction of Inspir ed Oxygen Hydration adequate: Yes Nausea and vomiting: No Pain level: 2 Mental status: Baseline
[2021-04-16] MEDS: cefTRIAXone 2,000 MG in sodium chloride 0.9% (plus) 50 ML 100 MG IV (17:21)
[2021-04-16] MEDS: docusate sodium 100 mg Capsule PO (17:23)
[2021-04-16] MEDS: polyethylene glycol 3350 Pkt 17 gm PO (17:23)
[2021-04-16] MEDS: pantoprazole DR 40 mg Tablet PO (20:17)
[2021-04-16] MEDS: duloxetine 30 mg Capsule PO (20:17)
[2021-04-16] MEDS: heparin 5,000 unit/mL INJ 1 mL 5000 UNIT SUBCUT (20:18)
[2021-04-16] MEDS: gabapentin 300 mg Capsule 600 MG PO (20:20)
[2021-04-16 21:29] LABS: Vancomycin Trough 20.4 ug/mL (10-15)
[2021-04-17] MEDS: cyclobenzaprine 10 mg Tablet PO (00:49)
[2021-04-17 03:07] VITALS: PULSE 86; RESP 18; O2SAT 92
[2021-04-17 04:00] VITALS: BP 144/84; PULSE 84; RESP 16; TEMP 36.7; O2SAT 90
[2021-04-17] MEDS: HYDROcodone-acetaminophen 5-325 mg Tablet PO (05:20)
[2021-04-17] MEDS: FUROsemide 20 mg Tablet PO (05:20)
--- NOTE | 2021-04-17 07:32 | PM.PN ---
Subjective Subjective: Interval history: POD 1 Patient reports walking the halls last evening. Reports her pain has improved significantly reporting only dull aches around her back and in the right upper quadrant region her pain is significantly less than prior to surgery. She denies any chest pain denies any shortness of breath or headaches. Vitals/I&O/Wt Last Vital Signs Temp 98.1 F 04/17/21 04:00 Pulse 84 04/17/21 04:00 Resp 16 04/17/21 04:00 BP 144/84 04/17/21 04:00 Pulse Ox 90 04/17/21 04:00 04/16/21 04/17/21 04/17/21 22:59 06:59 14:59 Intake Total 110 / 1910 560 / 2470 Balance 110 / 1905 560 / 2465 Physical Exam Narrative: EXAM NARRATIVE: She is alert and orient x3 she has good general appearance normal normal affect. Fires in all motor groups with 5 out of 5 strength. Incisions clean and dry. Normal sensation light touch down both lower extremities skin is clear warm feet normal good cap refill. Data : 04/14/21 04:30 04/14/21 04:30 A&P Assessment and plan (1) Fracture, thoracic vertebra, compression: Status: Acute (2) Fusion of spine, thoracolumbar region: Status: Acute Additional A&P Information I encouraged her to continue walking program and be cautious with bending lifting or twisting. We will see her back in the office in 2 weeks for postoperative follow-up or sooner if she is having problems. Encouraged her to continue with incentive spirometry at home for pulmonary toilet. Okay from orthopedic standpoint to discharge home once medically stable. 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
[2021-04-17 08:00] VITALS: BP 150/70; PULSE 86; RESP 16; TEMP 36.8; O2SAT 100
[2021-04-17] MEDS: heparin 5,000 unit/mL INJ 1 mL 5000 UNIT SUBCUT (08:02)
[2021-04-17] MEDS: amlodipine 5 mg Tablet PO (08:02)
[2021-04-17] MEDS: duloxetine 60 mg Capsule PO (08:02)
[2021-04-17] MEDS: docusate sodium 100 mg Capsule PO (08:02)
[2021-04-17] MEDS: gabapentin 300 mg Capsule 600 MG PO (08:02)
[2021-04-17] MEDS: polyethylene glycol 3350 Pkt 17 gm PO (08:04)
[2021-04-17 08:07] VITALS: PULSE 102; RESP 18; O2SAT 95
--- NOTE | 2021-04-17 10:10 | P.DS_ITS ---
Discharge Providers Date of Admission: 04/13/21 06:36 Date of Discharge: April 17, 2021 Attending Provider at Admission: Palak Gomez MD Attending Provider at Discharge: Ras Tirado MD Primary Care Provider: Tadeo Prather MD Diagnoses at Discharge Discharge Diagnosis (1) Fracture, thoracic vertebra, compression: Status: Acute (2) Fusion of spine, thoracolumbar region: Status: Acute Reason for Visit Reason for Visit: abd pain Hospital Course Hospital Course HPI By 65 year old female with past medical history of morbid obesity, degenerative lumbar stenosis, multiple lumbar surgery with most recent multilevel spinal fusion with Dr. Fowler in November 2020 complicated by delayed wound healing for which she was being followed up by wound care as an outpatient with last seen in January 2021 at which point she was deemed healed and stable she has been on Bactrim on and off as an outpatient. Patient states she used to follow-up with pain clinic but was discharged and has been trying to come off the narcotics for last few months and has not taken any narcotic medication for last few weeks and has been dealing with pain pretty well on oral ibuprofen which she has been taking few times a day. She presented to the ER today with complaint of epigastric pain radiating down the right side and to back associated with nausea but no vomiting. He states she does not have any bowel or bladder accidents, numbness in her feet and finally she thinks she has more sensation in her feet than she has had in the past. She denies of having any fevers, night sweats. She states she has lost up to 70 pounds intentionally. Blood work in the ER showed a white count 13.8, hemoglobin of 11, platelet count of 853, sodium of 139, creatinine of 0.6, alkaline phosphatase of 144, AST/ALT of 18/16, UA negative for any signs of infection with CT abdomen pelvis concerning for possible discitis at T9-T10 level. Hospital course Initially admitted for the management of possible discitis of thoracic region, kept on broad-spectrum antibiotic. blood culture: 07/07 bottles : bacillus sp not b anthracis, repeat blood culture negative,ESR:39,CRP: 41.9 MRSA swab: Not detected procalcitonin: Normal. MRI thoracic without contrast: There is significant discitis and spondylitis involving the T9 and T10 vertebral bodies with pathological fracture and fragmentation of the vertebral bodies.Paravertebral inflammatory soft tissue collection centered to the RIGHT of the T9 vertebral body measures 4.4 x 5.5 cm. MRI lumbar spine without contrast: nondiagnostic examination for discitis or spondylitis throughout the lumbar spine due to extensive hardware. CT Abdomen And Pelvis With Contrast:Findings consistent with spondylitis and disc infection at T9-T10 . Orthopedic surgery was brought on board: They are of the opinion that it is compression fraction of thoracic vertebra T8and T9. S/p T8 Kyphoplasty. Tissue cultures was taken at the time of procedure. Given the low clinical suspicion for possible discitis antibiotics has been held on discharge.They will follow up with the cultures taken during kyphoplasty. And based on that it will be decided a further course of antibiotic if needed and possible ID consult. Patient was also complaining of referred right upper quadrant abdominal pain: Ultrasound abdomen was done to rule out any abdominal pathology No significant abnormality seen on ultrasound abdomen.Troponin without significant delta. Patient is being discharged in stable condition will follow orthopedic as an outpatient. Physical Exam Const: COMMON NORMALS: patient oriented x3 HENMT: COMMON NORMALS: normocephalic and atraumatic HEAD & SCALP: normocephalic and atraumatic Resp: COMMON NORMALS: clear to auscultation bilaterally AUSCULTATION: clear to auscultation bilaterally Cardio: COMMON NORMALS: regular rate, regular rhythm, S1 normal heart sound present, S2 normal heart sound present, No gallops present (Cardio), No murmurs present (Cardio), No rub (Cardio) and Peripheral pulses 2+ throughout RATE: regular rate RHYTHM: regular rhythm HEART SOUNDS: S1 normal heart sound present and S2 normal heart sound present PERIPHERAL PULSES: Peripheral pulses 2+ throughout GI: COMMON NORMALS: Normal to inspection, nondistended, normoactive bowel sounds present AUSCULTATION: Yes normoactive bowel sounds RECTAL EXAM: deferred Extremity: COMMON NORMALS: no clubbing, cyanosis or edema and no pedal edema Neuro: COMMON NORMALS: patient oriented x3 Discharge Data Data Completed and Pending: Completed Studies During Hospitalization Category Date Time Status CT abdomen pelvis w con* [id number] Stat Cat Scan 04/13/21 01:39 Completed MR lumbar spine w o con* [id number] Routi ne MRI 04/14/21 07:17 Completed MR thoracic spin wo con* [id number] Rout ine MRI 04/14/21 07:17 Completed US gall bladder 7 [id number] Routine Ultrasound 04/14/21 06:00 Completed Pending at discharge Category Date Time Status C-arm FL for Kyph oplasty Routine Exams 04/16/21 08:09 Taken Blood Culture Sta t Lab 04/13/21 08:10 Results Tissue Culture an d Gram Stain Mark ne Lab 04/16/21 08:53 Results Labs from last 24 hours 04/16/21 20:37 Vancomycin Trough 20.4 H Vitals: Last Vital Signs Temp 98.2 F 04/17/21 08:00 Pulse 102 H 04/17/21 08:07 Resp 18 04/17/21 08:07 BP 150/70 04/17/21 08:00 Pulse Ox 95 04/17/21 08:07 Discharge Plan Discharge Patient Disposition: Home Condition: Stable Prescriptions: New polyethylene glycol 3350 17 gram powder in packet 17 g PO DAILY 7 Days RF: 0 hydrocodone-acetaminophen 5-325 mg tablet 1 - 2 tab PO .Q4-6H Qty: 40 RF: 0 Continued meloxicam [Mobic] 15 mg tablet 15 mg PO DAILY@21 RF: 0 fluticasone propion-salmeterol [Advair Diskus] 500-50 mcg/dose blister with device 1 inh INHALATION BID RF: 0 alprazolam 0.5 mg tablet 0.5 mg PO TID PRN (Reason: Anxiety) RF: 0 albuterol sulfate [ProAir HFA] 90 mcg/actuation HFA aerosol inhaler 2 puff INHALATION Q4H PRN (Reason: Shortness Of Breath) RF: 0 duloxetine [Cymbalta] 60 mg capsule,delayed release(DR/EC) 60 mg PO DAILY@09 RF: 0 gabapentin 600 mg tablet 600 mg PO BID@ RF: 0 guaifenesin [Mucinex] 600 mg tablet extended release 12hr 600 mg PO DAILY PRN (Reason: Congestion) RF: 0 omeprazole 20 mg capsule,delayed release(DR/EC) 20 mg PO DAILY@21 RF: 0 (DME) Bone Growth Stimulator E0748 See Rx Instructions .Route .MEDSUPPLY Qty: 1 RF: 0 (DME) gauze bandage 4 X 4 bandage See Rx Instructions .Route Qty: 25 RF: 0 cyclobenzaprine 5 mg tablet 5 mg PO TID PRN (Reason: muscle spasm) Qty: 90 RF: 0 cetirizine [Zyrtec] 10 mg Tablet 10 mg PO DAILY@21 RF: 0 calcium carbonate-vitamin D3 600 mg(1,500mg) -200 unit Tablet 4 tab PO DAILY@21 RF: 0 fexofenadine 30 mg Tablet 60 mg PO BID PRN (Reason: allergy symptoms) Qty: 0 RF: 0 Hair, Skin, Nails with Biotin 7.5-7.5-1,250 mg-unit-mcg Tablet,Chewable 4 tab PO DAILY@21 RF: 0 cranberry 2 tab PO DAILY@21 RF: 0 duloxetine 30 mg capsule,delayed release(DR/EC) 30 mg PO DAILY@21 RF: 0 Discharge Orders: Discharge Order (Routine); Ordered 04/17/21 Ordered By: Ras Tirado Referrals: Saul Fowler DO [Physician] - 05/01/21 9:00 am Tadeo Prather MD [Primary Care Provider] - 05/01/21 12:40 pm Discharge Diet: Regular Discharge Activity: Increase activity as tolerated Patient Instructions: Hydrocodone/Acetaminophen (By mouth), Polyethylene Glycol 3350 (By mouth), Kyphoplasty (DC), Opioid Safety Discharge Attestations Time Spent in Discharge Care*: less than 30 min Specific Discharge Activities: educating patient, educating and/or supporting family/caregiver, discussing with pcp/other providers, discussing with disease case manager rn/social workers/dc planners, documenting/other paperwork and evaluating patient/reviewing data Status at Discharge: Cognitive status at discharge: cognitively intact , Behavioral status at discharge: cooperative , Functional status at discharge: independent ambulation Overall status at discharge: patient is progressing back to baseline Quality Metrics Clinical Quality Measures During this hospital stay, did patient experience: None Coding Level of Care Code Acute Chg FW DC note Exam Detailed Diagnoses Fracture, thoracic vertebra, compression S22.000A Fusion of spine, thoracolumbar region M43.25
[2021-04-17 12:34] VITALS: PULSE 102; RESP 18; TEMP 36.8; O2SAT 95
--- NOTE | 2021-04-18 15:06 | PC.SOCIAL ---
discharge follow up call, spoke with patients. she reports she is feeling great. patient is taking hydrocodone as needed for pain with pain relief. patient is ambulating slow but without difficulty. patient is aware of follow up appointment dates and times. patient denies any questions regarding discharge instructions.
== END 2021-04-17 11:30 | disposition home or self-care (01) | DRG 516 ==
LOC: ER 05:42 → MEDSURG 06:37
PROVIDERS: Nurse Practitioner Family; Orthopaedic Surgery; Student in an Organized Health Care Education/Training Program; Admitting Provider Student in an Organized Health Care Education/Training Program; Emergency Provider Emergency Medicine; PCP Family Medicine; Visit Provider Internal Medicine
PROC: 0PU40JZ Supplement Thoracic Vertebra with Synthetic Substitute, Open Approach (ICD-10-PCS; principal; 2021-04-16 08:10)
DX: M48.54XA Collapsed vertebra, not elsewhere classified, thoracic region, initial encounter for fracture (principal); Z68.41 Body mass index [BMI] 40.0-44.9, adult; M46.94 Unspecified inflammatory spondylopathy, thoracic region; E66.01 Morbid (severe) obesity due to excess calories; M47.9 Spondylosis, unspecified; Z98.1 Arthrodesis status; Z87.891 Personal history of nicotine dependence; G47.33 Obstructive sleep apnea (adult) (pediatric); G89.29 Other chronic pain; Z79.51 Long term (current) use of inhaled steroids; K29.70 Gastritis, unspecified, without bleeding; T39.315A Adverse effect of propionic acid derivatives, initial encounter
CPT/HCPCS: 36415; 72146; 72148; 74177; 76000; 76705; 80053; 80202; 81003; 83540; 83550; 83605; 83690; 84145; 84443; 84484; 85025; 85651; 86140; 87040; 87070; 87176; 87205; 87641; 93005; 94640; 96365; 96367; 96372; 96375; 97116; 97161; 97530; 99285; J0690; J0696; J1630; J1644; J1650; J1885; J2270; J2405; J2704; J2765; J3010; J3370; J3490; J7030; J7040; J7050; J7626; Q9967

== ENCOUNTER → 2021-05-08 08:59 | Outpatient (BNVA) | payer MEDICARE, OTHER, SELFPAY | PROVIDERS: PCP Family Medicine; Visit Provider Orthopaedic Surgery | DX: Z47.89 Encounter for other orthopedic aftercare (principal); Z98.1 Arthrodesis status; M48.062 Spinal stenosis, lumbar region with neurogenic claudication; M51.17 Intervertebral disc disorders with radiculopathy, lumbosacral region | CPT/HCPCS: 72070; 72100 ==

== ENCOUNTER → 2021-06-05 14:53 | Outpatient (BNVA) | payer MEDICARE, OTHER, SELFPAY | PROVIDERS: PCP Family Medicine; Visit Provider Orthopaedic Surgery | DX: Z48.89 Encounter for other specified surgical aftercare (principal); M48.061 Spinal stenosis, lumbar region without neurogenic claudication; Z98.1 Arthrodesis status | CPT/HCPCS: 72070; 72100 ==

== ENCOUNTER → 2021-06-19 10:07 | Outpatient (BNVA) | payer MEDICARE, OTHER, SELFPAY | PROVIDERS: PCP Family Medicine; Visit Provider Orthopaedic Surgery | DX: M48.062 Spinal stenosis, lumbar region with neurogenic claudication (principal); Z48.89 Encounter for other specified surgical aftercare; M48.54XA Collapsed vertebra, not elsewhere classified, thoracic region, initial encounter for fracture | CPT/HCPCS: 72070; 72100 ==

== ENCOUNTER 2021-07-01 11:30 | Outpatient (CLI) | payer MEDICARE, OTHER, SELFPAY | END 2021-07-01 11:31 | disposition home or self-care (01) | LOC: SPT 07-06 16:42 | PROVIDERS: PCP Family Medicine; Visit Provider Orthopaedic Surgery | DX: Z46.89 Encounter for fitting and adjustment of other specified devices (principal); M54.50 Low back pain, unspecified; M43.23 Fusion of spine, cervicothoracic region | CPT/HCPCS: 97760; L0456 ==

== ENCOUNTER 2021-07-15 16:17 | Observation (INO) | payer MEDICARE, SELFPAY ==
--- NOTE | 2021-07-15 16:21 | CTR_ITS ---
PROCEDURE INFORMATION: Exam: CT Head Without Contrast Exam date and time: 07/15/2021 4:21 PM Age: 65 years old Clinical indication: Altered mental status/memory loss; Additional info: Symptoms of acute stroke TECHNIQUE: Imaging protocol: Computed tomography of the head without contrast. Radiation optimization: All CT scans at this facility use at least one of these dose optimization techniques: automated exposure control; mA and/or kV adjustment per patient size (includes targeted exams where dose is matched to clinical indication); or iterative reconstruction. COMPARISON: CT head wo con* [id number] 11/08/2020 7:54 PM RADIATION DOSE METRICS: Total DLP (mGy-cm): 987.07 FINDINGS: Brain: No hemorrhage. No cerebral edema. No significant white matter disease. No mass effect. Partially empty sella noted. Cerebral ventricles: No ventriculomegaly. Paranasal sinuses: Visualized sinuses are unremarkable. No fluid levels. Mastoid air cells: Visualized mastoid air cells are well aerated. Bones/joints: Unremarkable. No acute fracture. Soft tissues: Unremarkable. CT/CT head wo con* [id number] IMPRESSION: No acute intracranial abnormality.
--- NOTE | 2021-07-15 16:21 | ECG_ITS ---
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 Measurements Intervals [place] Rate: 102 P: 44 [place]: 184 QRS: -5 QRSD: 82 T: 15 QT: 350 QTc: 456 Interpretive Statements SINUS TACHYCARDIA ABNORMAL RHYTHM ECG Compared to ECG 04/13/2021 15:30:40 Sinus rhythm no longer present T-wave abnormality no longer present Electronically Signed On 07-16-2021 19:54:00 MARIONETTE PERFORMER by Chase Rodriguez M.D. [id number]
[2021-07-15 16:23] VITALS: BP 159/108; PULSE 102; RESP 17; O2SAT 98; BMI 40.8
--- NOTE | 2021-07-15 16:34 | CTR_ITS ---
PROCEDURE INFORMATION: Exam: CT Angiography Head With Contrast, Arteriography Exam date and time: 07/15/2021 4:34 PM Age: 65 years old Clinical indication: Weakness; Additional info: Late presentation CVA TECHNIQUE: Imaging protocol: Computed tomography angiography of the head with contrast. Exam focused on the arteries. 3D rendering (Not supervised by radiologist): MIP and/or 3D reconstructed images were created by the technologist. Radiation optimization: All CT scans at this facility use at least one of these dose optimization techniques: automated exposure control; mA and/or kV adjustment per patient size (includes targeted exams where dose is matched to clinical indication); or iterative reconstruction. Contrast material: OMNI 350; Contrast volume: 95 ml; Contrast route: INTRAVENOUS (IV); COMPARISON: CT angio headneck* [id number] 11/09/2020 5:01 PM RADIATION DOSE METRICS: Total DLP (mGy-cm): 2532.32 FINDINGS: ANTERIOR CIRCULATION: Right internal carotid artery: Unremarkable. Intracranial segment is patent with no significant stenosis. No aneurysm. Right middle cerebral artery: Unremarkable. No occlusion or significant stenosis. No aneurysm. Right anterior cerebral artery: Unremarkable. No occlusion or significant stenosis. No aneurysm. Left internal carotid artery: Unremarkable. Intracranial segment is patent with no significant stenosis. No aneurysm. Left middle cerebral artery: Unremarkable. No occlusion or significant stenosis. No aneurysm. Left anterior cerebral artery: Unremarkable. No occlusion or significant stenosis. No aneurysm. POSTERIOR CIRCULATION: Right vertebral artery: Unremarkable. No occlusion or significant stenosis. No aneurysm. Left vertebral artery: Unremarkable. No occlusion or significant stenosis. No aneurysm. Basilar artery: Unremarkable. No occlusion or significant stenosis. No aneurysm. Right posterior cerebral artery: Unremarkable. No occlusion or significant stenosis. No aneurysm. Left posterior cerebral artery: Unremarkable. No occlusion or significant stenosis. No aneurysm. Brain: No definite mass, mass effect, or midline shift. Cerebral ventricles: No ventriculomegaly. Bones/joints: Unremarkable. No acute fracture. Soft tissues: Unremarkable. PROCEDURE INFORMATION: Exam: CT Angiography Neck With Contrast Exam date and time: 07/15/2021 4:34 PM Age: 65 years old Clinical indication: Weakness; Additional info: Late presentation CVA TECHNIQUE: Imaging protocol: Computed tomography angiography of the neck with contrast. 3D rendering (Not supervised by radiologist): MIP and/or 3D reconstructed images were created by the technologist. Radiation optimization: All CT scans at this facility use at least one of these dose optimization techniques: automated exposure control; mA and/or kV adjustment per patient size (includes targeted exams where dose is matched to clinical indication); or iterative reconstruction. Contrast material: OMNI 350; Contrast volume: 95 ml; Contrast route: INTRAVENOUS (IV); COMPARISON: CT angio headneck* [id number] 11/09/2020 5:01 PM RADIATION DOSE METRICS: Total DLP (mGy-cm): 2532.32 FINDINGS: Right common carotid artery: No stenosis. No dissection or occlusion. Right internal carotid artery: Calcified plaque in the proximal right internal carotid artery with 0% stenosis. Right external carotid artery: No occlusion or stenosis of the origin. Left common carotid artery: No stenosis. No dissection or occlusion. Left internal carotid artery: Calcified plaque in the proximal left internal carotid artery with 20% diameter stenosis. Left external carotid artery: No occlusion or stenosis of the origin. Right vertebral artery: No stenosis. No dissection or occlusion. Left vertebral artery: No stenosis. No dissection or occlusion. Aorta: The ascending thoracic aorta is upper normal in diameter measuring 3.9 cm. Soft tissues: Normal. No significant soft tissue swelling. Bones/joints: No acute fracture. CT/CT angio headneck* [id number] IMPRESSION: No large artery stenosis or occlusion. IMPRESSION: 1. No acute finding. 2. Stable calcified plaque in the proximal internal carotid arteries with 20% stenosis on the left and 0% stenosis on the right. REFERENCES: NASCET CRITERIA. The degree of internal carotid artery stenosis is based on NASCET criteria. Normal is no stenosis. Mild is less than 50% stenosis. Moderate is 50-69% stenosis. Severe is 70% to 99% stenosis. Total occlusion is no detectable patent lumen.
[2021-07-15 16:49] LABS: Basophils # 0.2 10^3/uL (0.0-0.1); Basophils % 1.4 %; Eosinophils # 0.1 10^3/uL (0.0-0.8); Hematocrit 40.8 % (37.0-47.0); Hemoglobin 11.8 g/dL (11.5-15.3); Lymphocytes # 2.8 10^3/uL (0.8-4.8); Lymphocytes % 22.2 %; Mean Corpuscular HGB Conc 28.9 g/dL (30.0-36.0); Mean Corpuscular Hemoglobin 21.4 pg (28.0-34.0); Mean Platelet Volume 8.6 fL (7.4-10.4); Monocytes # 0.7 10^3/uL (0.2-0.9); Monocytes % 5.3 %; Neutrophils # 8.88 10^3/uL (1.8-7.7); Neutrophils % 69.8 %; Nucleated Red Blood Cells % 0 %; Platelet Count 903 10^3/cmm (130-400); Red Blood Count 5.51 10^6/uL (4.1-5.3); Red Cell Distribution Width 18.3 % (12.1-15.1); White Blood Count 12.7 10^3/uL (4.0-10.0)
--- NOTE | 2021-07-15 17:01 | PC.NURSE ---
BGL IS [id number]
[2021-07-15 17:04] LABS: INR 0.91 (0.8-1.2); Partial Thromboplastin Time 34.2 SECONDS (23.9-36.7)
--- NOTE | 2021-07-15 17:05 | W.ED.NEUROSD ---
HPI - Neuro Symptoms/Deficit General: Chief Complaint: Neuro Symptoms/Deficit Stated Complaint: STROKE LIKE SYMPTOMS Time Seen by Provider: 07/15/21 16:20 History of Present Illness: HPI Narrative: 65-year-old female presents to the emergency room with slurred speech and left-sided weakness. She woke with up with it this morning at around 8 or 9 AM. She told the nurse aide she told me 9:00 when she was giving her history. She has difficulty with word finding and slurred speech she does have very subtle left-sided weakness. She gone to bed at around 9:00 the night before states that was the last time she was felt to be well. She recently had a kyphoplasty and is complaining some pain in her back she thinks she may have fallen in the bathroom earlier today. She has difficult time relating the story she has something about her she may have tripped over her dogs. Onset (ago): hour(s) (20) Time: 16:17 Last Observed Normal: 21:00 Location: speech, left arm and left leg History of same: No Severity: moderate Quality: weak Relieving factors: none Exacerbating factors: none Context: other (Awoke with symptoms) Associated symptoms: Deny chest pain, cough, diaphoresis, fevers/chills, headache(s), anorexia, malaise, nausea, seizures, short of breath, syncope, tingling, vertigo, vomiting or weakness Treatments Prior to Arrival: none Review of Systems Const: Denies: malaise or diaphoresis ENMT: Denies: throat pain, ear or mastoid pain, nasal discharge or nasal congestion Card: Denies: chest pain or syncope Resp: Denies: dyspnea, productive cough or non-productive cough GI: Denies: nausea or vomiting : Denies: flank pain, difficulty voiding, dysuria, urinary frequency or urinary urgency Skin/Breast: Denies: rash or pruritus Neuro: Denies: headache(s) or vertigo PFSH ED PFSH: Medical History (Updated 07/19/21 @ 13:55 by Leonard Su DO) Chronic prescription opiate use DDD (degenerative disc disease), thoracic Degenerative lumbar spinal stenosis Discitis of thoracic region Epigastric abdominal pain Fracture, thoracic vertebra, compression Fusion of spine, thoracolumbar region Internal fixation device (pin, nixon, or screw) mechanical complication Intervertebral disc disorder with radiculopathy of lumbosacral region Lumbar stenosis with neurogenic claudication Morbid obesity Morbid obesity with BMI of 50.0-59.9, adult Obstructive sleep apnea Spondylarthritis Surgical History History of appendectomy History of carpal tunnel repair History of knee surgery History of laparoscopic adjustable gastric banding History of lumbar surgery (~2011) 12/2016 Dr. Martin Joyner Thoracic spinal cord stimulator placement 04/2016 Dr. Martin Joyner Right SI joint fusion 03/2016 Dr. Martin Joyner [place] [facility] Left SI joint fusion 06/2012 Dr. Christopher Olmstead [facility] L2-L3 posterior fusion/fixation. 10/2011 Dr. Christopher Olmstead [facility] Fractured fusion screws removed. 12/[address] Orthopedic surgeon. [facility] Spine: L3-L4, L4-L5 L5-S1 Posterior Fusion/fusion Status post correction of deviated nasal septum Status post insertion of spinal cord stimulator (~2016) Family History Father CAD (coronary artery disease) Social History Smoking and tobacco status: never smoked Alcohol intake: former Household members: spouse Marital status: Current occupational status: disabled History of recent travel: No NIH stroke score NIHSS: Level Of Consciousness - 1a: 1 Level Of Consciousness Questions - 1b: One Correct Level Of Consciousness Commands - 1c: One Correct Best Gaze - 2: Normal Visual Raymond - 3: No Visual Loss Facial Palsy - 4: Normal Motor Arm Right - 5: No Drift Motor Arm Left - 5: No Drift Motor Leg Right - 6: No Drift Motor Leg Left - 6: No Drift Limb Ataxia - 7: Absent Sensory - 8: Normal Best Language - 9: Mild/Moderate Aphasia Dysarthia - 10: Mild/Moderate Dysarthia Extinction And Inattention - 11: 0 Score: Total Score: 5 Physical Exam Const: GENERAL APPEARANCE: cooperative and comfortable ORIENTATION/CONSCIOUSNESS: Yes awake HENMT: COMMON NORMALS: normocephalic, atraumatic and hearing grossly normal bilaterally HEAD & SCALP: normocephalic and atraumatic Neck/C-Spine: COMMON NORMALS: no JVD Resp: COMMON NORMALS: normal respiratory effort, No retractions, No use of accessory muscles and clear to auscultation bilaterally AUSCULTATION: clear to auscultation bilaterally Cardio: COMMON NORMALS: no JVD, regular rate, regular rhythm and No murmurs present (Cardio) RATE: regular rate RHYTHM: regular rhythm GI: COMMON NORMALS: Soft to palpation and No hepatosplenomegaly present AUSCULTATION: Yes normoactive bowel sounds PALPATION: Yes Soft to palpation, No Tenderness to palpation present (GI), No Guarding due to palpation present (GI) and Yes No hepatosplenomegaly present Extremity: COMMON NORMALS: normal to inspection, capillary refill normal, no clubbing, cyanosis or edema, no calf tenderness and no pedal edema Skin: COMMON NORMALS: no rashes or lesions noted GENERAL SKIN EXAM: no rashes or lesions noted Course Vital Signs: Vital signs: Vital Signs Temperature 98.2 F 07/16/21 14:55 Pulse Rate 107 H 07/16/21 14:55 Respiratory Rate 18 07/16/21 14:55 Blood Pressure 134/75 07/16/21 14:55 Pulse Oximetry 97 07/16/21 14:55 MDM - Neuro Symptoms/Deficit MDM Narrative: Medical decision making narrative: Patient has left-sided weakness on exam we will go ahead and admit discussed Dr. Serna orders written. Lab Data: Labs: Lab Results 07/15/21 07/15/21 07/15/21 00:37 16:03 16:03 WBC 12.7 10^3/uL H 10 ^3/uL (4.0-10.0) RBC 5.51 10^6/uL H 10 ^6/uL (4.1-5.3) Hgb 11.8 g/dL g/dL (11.5-15.3) Hct 40.8 % % (37.0-47.0) MCV 74.0 fl L fl (81-99) MCH 21.4 pg L pg (28.0-34.0) MCHC 28.9 g/dL L g/dL (30.0-36.0) RDW 18.3 % H % (12.1-15.1) Plt Count 903 10^3/cmm H 10 ^3/cmm (130-400) MPV 8.6 fL fL (7.4-10.4) Neut % (Auto) 69.8 % % Lymph % (Auto) 22.2 % % Marin % (Auto) 5.3 % % Eos % (Auto) 1.0 % % Baso % (Auto) 1.4 % % Neut # (Auto) 8.88 10^3/uL H 10 ^3/uL (1.8-7.7) Lymph # (Auto) 2.8 10^3/uL 10^3/ uL (0.8-4.8) Marin # (Auto) 0.7 10^3/uL 10^3/ uL (0.2-0.9) Eos # (Auto) 0.1 10^3/uL 10^3/ uL (0.0-0.8) Baso # (Auto) 0.2 10^3/uL H 10^ 3/uL (0.0-0.1) Nucleated RBC % (a uto) 0 % % Nucleated RBCs # 0.0 /100WBC /100W BC PT 12.60 SECONDS SEC ONDS (12.1-14.9) INR 0.91 (0.8-1.2) APTT 34.2 SECONDS SECO NDS (23.9-36.7) Specimen Type Arterial Sample Site Radial, left ABG pH 7.49 H (7.35-7.45) ABG pCO2 36.2 mmHg mmHg (35-45) ABG pO2 75.0 mmHg L mmHg (80.0-100.0) ABG HCO3 27.6 mmol/L H mmo l/L (22-26) ABG Base Excess 4.1 mmol/L H mmol /L (-2.0-2.0) Benton Test Pos Hematocrit 34.6 % L % (37-47) O2 Delivery Device Room air FiO2 21.0 % % Chief Recordist ID glc Sodium Potassium Chloride Carbon Dioxide Anion Gap BUN Creatinine GFR Calculation Glucose Calculated Osmolal ity Calcium Total Bilirubin AST ALT Alkaline Phosphata se Total Protein Albumin Globulin 07/15/21 16:03 WBC RBC Hgb Hct MCV MCH MCHC RDW Plt Count MPV Neut % (Auto) Lymph % (Auto) Marin % (Auto) Eos % (Auto) Baso % (Auto) Neut # (Auto) Lymph # (Auto) Marin # (Auto) Eos # (Auto) Baso # (Auto) Nucleated RBC % (a uto) Nucleated RBCs # PT INR APTT Specimen Type Sample Site ABG pH ABG pCO2 ABG pO2 ABG HCO3 ABG Base Excess Benton Test Hematocrit O2 Delivery Device FiO2 Chief Recordist ID Sodium 141 mmol/L mmol/L (136-145) Potassium 4.3 mmol/L mmol/L (3.5-5.1) Chloride 100 mmol/L mmol/L (98-107) Carbon Dioxide 22 mmol/L mmol/L (22-29) Anion Gap 23.3 H (5-19) BUN 6 mg/dL L mg/dL (8-23) Creatinine 0.5 mg/dL mg/dL (0.5-0.9) GFR Calculation 124.6 mL/min mL/m in (90-130) Glucose 147 mg/dL H mg/dL (65-115) Calculated Osmolal ity 292 mOsm/kg mOsm/ kg (285-295) Calcium 10.3 mg/dL mg/dL (8.5-10.5) Total Bilirubin 0.4 mg/dL mg/dL (0.15-1.2) AST 23 U/L U/L (0-32) ALT 10 U/L U/L (0-33) Alkaline Phosphata se 147 IU/L H IU/L (35-105) Total Protein 8.0 g/dL g/dL (6.6-8.7) Albumin 4.0 g/dL g/dL (3.5-5.2) Globulin 4.0 g/dL g/dL (1.3-4.6) Discharge Plan Discharge Patient Disposition: Admitted As Inpatient Admit Provider: Vamshi Malone Clinical Impression: Cerebrovascular accident, Obstructive sleep apnea, Obesity Condition: Stable Discharge Diet: Cardiac Discharge Activity: Increase activity as tolerated and Use walker/crutches as instructed Coding Level of Care Code ED Brake Drum Lathe Operator for Chg Fwd Exam Comprehensive
[2021-07-15 17:07] VITALS: BP 181/108; PULSE 103; RESP 24; O2SAT 97
--- NOTE | 2021-07-15 17:07 | PC.NURSE ---
PT PLACED ON CONTINUOUS SPO2, NIBP, AND CM.
[2021-07-15 17:20] LABS: Alanine Aminotransferase 10 U/L (0-33); Alkaline Phosphatase 147 IU/L (35-105); Aspartate Amino Transferase 23 U/L (0-32); Blood Urea Nitrogen 6 mg/dL (8-23); Calcium 10.3 mg/dL (8.5-10.5); Carbon Dioxide 22 mmol/L (22-29); Chloride 100 mmol/L (98-107); Creatinine Clr Calc Pharmacy 148.1417; Glomerular Filtration Rate 124.6 mL/min (90-130); Glucose 147 mg/dL (65-115); Osmolality Calculated 292 mOsm/kg (285-295); Sodium 141 mmol/L (136-145); Total Bilirubin 0.4 mg/dL (0.15-1.2)
[2021-07-15 17:27] LABS: Anion Gap 23.3 (5-19); Potassium 4.3 mmol/L (3.5-5.1)
[2021-07-15] MEDS: iohexol 350 mg/mL 100 mL Btl IV (17:47)
--- NOTE | 2021-07-15 18:14 | XRR_ITS ---
PROCEDURE INFORMATION: Exam: XR Thoracic Spine Exam date and time: 07/15/2021 6:14 PM Age: 65 years old Clinical indication: Pain in thoracic spine; Prior surgery; Surgery date: 6+ months; Surgery type: T and L spine TECHNIQUE: Imaging protocol: XR of the thoracic spine. Views: 3 views. COMPARISON: CR XR thoracic spine 2V [id number] 06/19/2021 10:14 AM FINDINGS: Bones/joints: Pedicle screws and posterior stabilization hardware extending from T10 into the lumbar spine. Stable compression of T9 and T10 with kyphoplasty cement and focal kyphosis. Stable cement in the T8 vertebral body. The other vertebral bodies are normal alignment and stature. No acute fracture identified. Soft tissues: Unremarkable. XR/XR thoracic spine 3V* [id number] IMPRESSION: 1. No acute finding. 2. Stable compression fractures of T9 and T10, previously treated with cement.
--- NOTE | 2021-07-15 19:09 | PC.NURSE ---
REPORT GIVEN TO [facility].
[2021-07-15 20:47] VITALS: BMI 40.8
[2021-07-15 21:40] VITALS: PULSE 99; O2SAT 97
[2021-07-15 22:15] VITALS: BP 142/86; PULSE 88; RESP 20; TEMP 36.8; O2SAT 97
[2021-07-15 23:07] LABS: Add Urine Microscopic? YES; Bilirubin Urine Neg (Negative); Blood Urine Neg (Negative); Glucose Urine UA Norm (Normal); Ketones Urine 1+ (Negative); Leukocyte Esterase Urine Negative (Negative); Nitrate Urine Negative (Negative); Protein Urine Neg (Negative); Sulfosalicylic Acid Urine Negative (Negative); Urine Appearance Clear (CLEAR); Urine Color Yellow (Yellow); Urobilinogen Urine 1 mg/dL (Negative); pH Urine 9 (5-7)
--- NOTE | 2021-07-15 23:12 | P.HP_ITS ---
Providers/Chief Complaint Admitting Physician: Vamshi Malone MD Primary Care Provider: Tadeo Prather MD Chief Complaint: STROKE LIKE SYMPTOMS History of Present Illness Kathy Patel is a 65 year old female with past medical history of morbid obesity, degenerative lumbar stenosis, multiple lumbar surgery, last T8 kyphoplasty 04/16/21 brought to the ER today by EMS with slurred speech and left sided weakness. History obtained by talking to as patient's speech is slurred, disoriented. Per , patient was in her usual state of health when he left for work this morning. It appears patient had a telemedicine follow up with her pain medicine provider and she was noted to have slurred speech over the phone for which EMS was called. When her returned from work, there was an unintelligible note on the door, uncertain if left by the patient. Per , patient was off narcotics for a few months, doing well overall however recently resumed narcotics again on Wednesday. Uncertain at this time if she may have taken too much of her prescription medications. She has a h/o being on increasing narcotics for chronic pain over last several years and a corela tion has been noticed between her becoming lethargic, slurred with her speech when she is on. For the few months that she was off narcotics, her mentation was reportedly better. No recent h/o fever. H/o increased recent falls thought to be related to increasing kyphosis from recent surgery. CT myelogram had been prescriebed on outpatient visit in 06/2021 but unable to find results. Ct head today is unremarkable, CTA without acute large vessel occlusion. ROS + for h/o recurrent UTIs. No recent fver, chills , dysuria. Review of Systems General: Reports: ROS unobtainable due to mental status Medications/Allergies Home Medications Medication Instructions Recorded Confirmed Last Taken Type albuterol sulfate 90 mcg/actuation 2 puff INHALATION Q4H PRN 09/06/19 07/15/21 Unknown History aerosol inhaler alprazolam 0.5 mg tablet 0.5 mg PO TID PRN tab 09/06/19 07/15/21 Unknown History duloxetine 60 mg capsule,delayed 60 mg PO DAILY@09 09/06/19 07/15/21 07/14/21 History release fluticasone 500 mcg-salmeterol 50 1 inh INHALATION BID 09/06/19 07/15/21 07/14/21 History mcg/dose blistr powdr for inhalation gabapentin 600 mg tablet 600 mg PO BID@ tab 08/08/20 07/15/21 07/14/21 History guaifenesin 600 mg tablet, 600 mg PO DAILY PRN tab 08/08/20 07/15/21 Unknown History extended release 12 hr omeprazole 20 mg capsule,delayed 20 mg PO DAILY@08/08/20 07/15/21 07/14/21 Hi story release meloxicam 15 mg tablet 15 mg PO DAILY@09/18/20 07/15/21 07/14/21 History Bone Growth Stimulator E0748 #1 ea 10/03/20 07/15/21 Unknown Rx duloxetine 30 mg PO DAILY@10/23/20 07/15/21 07/14/21 History Hair, Skin, Nails with Biotin 4 tab PO DAILY@11/09/20 07/15/21 07/14/21 History calcium carbonate-vitamin D3 4 tab PO DAILY@11/09/20 07/15/21 07/14/21 History cetirizine [Zyrtec] 10 mg PO DAILY@11/09/20 07/15/21 07/14/21 History cranberry 2 tab PO DAILY@11/09/20 07/15/21 07/14/21 History fexofenadine 60 mg PO BID PRN #0 11/09/20 07/15/21 Unknown History gauze bandage 4 X 4 #25 ea 12/05/20 07/15/21 Unknown Rx TLSO Brace #1 ea 06/19/21 07/15/21 Unknown Rx cyclobenzaprine 5 mg tablet 5 mg PO TID PRN #30 tab 06/19/21 07/15/21 Unknown Rx hydrocodone 5 mg-acetaminophen 325 1 - 2 tab PO .Q4-6H PRN 7 Days #40 07/08/21 07/15/21 Unknown Rx mg tablet tab Allergies Allergy/AdvReac Type Severity Reaction Status Date / Time adhesive tape Allergy Unknown Verified 07/01/21 10:49 latex Allergy blisters Verified 07/01/21 10:49 PFSH Acute PFSH: Medical History (Updated 07/15/21 @ 23:26 by Palak Gomez MD) DDD (degenerative disc disease), thoracic Degenerative lumbar spinal stenosis Discitis of thoracic region Epigastric abdominal pain Fracture, thoracic vertebra, compression Fusion of spine, thoracolumbar region Internal fixation device (pin, nixon, or screw) mechanical complication Intervertebral disc disorder with radiculopathy of lumbosacral region Lumbar stenosis with neurogenic claudication Morbid obesity Morbid obesity with BMI of 50.0-59.9, adult Obstructive sleep apnea Spondylarthritis Surgical History History of appendectomy History of carpal tunnel repair History of knee surgery History of laparoscopic adjustable gastric banding History of lumbar surgery (~2011) 12/2016 Dr. Martin Joyner Thoracic spinal cord stimulator placement 04/2016 Dr. Martin Joyner Right SI joint fusion 03/2016 Dr. Martin Joyner [place] [facility] Left SI joint fusion 06/2012 Dr. Christopher Olmstead [facility] L2-L3 posterior fusion/fixation. 10/2011 Dr. Christopher Olmstead [facility] Fractured fusion screws removed. 12/[address] Orthopedic surgeon. [facility] Spine: L3-L4, L4-L5 L5-S1 Posterior Fusion/fusion Status post correction of deviated nasal septum Status post insertion of spinal cord stimulator (~2016) Family History Father CAD (coronary artery disease) Social History Smoking and tobacco status: never smoked Alcohol intake: former Household members: spouse Marital status: Current occupational status: disabled History of recent travel: No Vitals/I&O/Wt Last Vital Signs Temp 98.3 F 07/15/21 22:15 Pulse 88 07/15/21 22:15 Resp 20 H 07/15/21 22:15 BP 142/86 07/15/21 22:15 Pulse Ox 97 07/15/21 22:15 Weight last 48 hrs Weight 114.759 kg Weight 114.759 kg Physical Exam Narrative: EXAM NARRATIVE: General: No acute distress, lethargic, dysarthria HEENT: PERRLA, pupils bilaterally equal and reactive, pallors not present Chest: Normal vesicular breath sounds, no added sounds, equal good air entry bilaterally CVS: S1-S2 regular, no murmurs, no tachycardia, no gallops, no rubs Abdomen: Soft, nontender, no organomegaly, bowel sounds present Neuro: unable to assess at this time Data : 07/16/21 04:33 07/15/21 16:03 A&P Assessment and plan (1) Altered mental status: Presenting today with AMS, left sided weakness and droop on initial exam Differentials include CVA, CT head and CTA head and neck currently without acute events start ASA 81mg po daily and statin Other possibilities include opiate overdose check urine drug screen Given elevated WBC count and h/o recurrent UTI will additionally evalute for UTI with UA and urine cx if positive UA. Check blood cx given PMH possible discitis Hold opiates and monitor for improvement ABG to evaluate for hypercapnea TSH Status: Acute (2) Morbid obesity with BMI of 50.0-59.9, adult: Status: Chronic (3) Chronic prescription opiate use: Status: Acute Attestations Medical Necessity Statement*: anticipate >2midnight admission for above defined care Coding Level of Care Code Acute Mime Artist for Chg Fwd Diagnoses Altered mental status R41.82 Morbid obesity with BMI of 50.0-59.9, adult E66.01; Z68.43 Chronic prescription opiate use Z79.891
[2021-07-16] VITALS: BP 140/85; PULSE 85; RESP 18; TEMP 36.8; O2SAT 98
[2021-07-16 00:50] LABS: ABG PCO2 36.2 mmHg (35-45); ABG PH Result 7.49 (7.35-7.45); Arterial Blood Gas Hematocrit 34.6 % (37-47); Base Excess ABG 4.1 mmol/L (-2.0-2.0); Blood Gas Allen Test Pos; Blood Gas Operator Identificat glc; Blood Gas Sample Site Radial, left; Blood Gas Sample Type Arterial; HCO3 ABG 27.6 mmol/L (22-26); Oxygen Device ROOM AIR
[2021-07-16 03:29] LABS: Amphetamines Screen Urine Negative (Negative); Barbiturates Screen Urine Negative (Negative); Benzodiazepines Screen Urine Positive (Negative); Cocaine Screen Urine Negative (Negative); Opiate Screen Urine Positive (Negative); PCP Screen Urine Negative (Negative); THC Screen Urine Negative (Negative)
[2021-07-16 04:00] VITALS: BP 159/86; PULSE 86; RESP 18; TEMP 36.8; O2SAT 95
[2021-07-16 06:40] LABS: Basophils # 0.1 10^3/uL (0.0-0.1); Basophils % 1.1 %; Eosinophils # 0.2 10^3/uL (0.0-0.8); Eosinophils % 1.8 %; Hematocrit 36.7 % (37.0-47.0); Hemoglobin 10.4 g/dL (11.5-15.3); Lymphocytes # 2.2 10^3/uL (0.8-4.8); Lymphocytes % 21.8 %; Mean Corpuscular HGB Conc 28.3 g/dL (30.0-36.0); Mean Corpuscular Hemoglobin 21.3 pg (28.0-34.0); Mean Corpuscular Volume 75.1 fl (81-99); Mean Platelet Volume 8.4 fL (7.4-10.4); Monocytes # 0.7 10^3/uL (0.2-0.9); Monocytes % 6.5 %; Neutrophils # 7.03 10^3/uL (1.8-7.7); Neutrophils % 68.5 %; Nucleated Red Blood Cells % 0 %; Platelet Count 722 10^3/cmm (130-400); Red Blood Count 4.89 10^6/uL (4.1-5.3); Red Cell Distribution Width 18.4 % (12.1-15.1); White Blood Count 10.3 10^3/uL (4.0-10.0)
[2021-07-16 07:12] LABS: Alanine Aminotransferase 7 U/L (0-33); Albumin Level 3.6 g/dL (3.5-5.2); Alkaline Phosphatase 127 IU/L (35-105); Anion Gap 18.8 (5-19); Aspartate Amino Transferase 18 U/L (0-32); Blood Urea Nitrogen 7 mg/dL (8-23); Calcium 8.8 mg/dL (8.5-10.5); Carbon Dioxide 24 mmol/L (22-29); Chloride 101 mmol/L (98-107); Globulin 3.4 g/dL (1.3-4.6); Glomerular Filtration Rate 161.2 mL/min (90-130); Glucose 101 mg/dL (65-115); Osmolality Calculated 288 mOsm/kg (285-295); Potassium 3.8 mmol/L (3.5-5.1); Sodium 140 mmol/L (136-145); Thyroid Stimulating Hormone 0.16 uIU/mL (0.27-4.20); Total Bilirubin 0.3 mg/dL (0.15-1.2)
[2021-07-16 07:18] VITALS: BP 138/86; PULSE 106; RESP 16; O2SAT 99
[2021-07-16 07:54] VITALS: PULSE 90; O2SAT 95
[2021-07-16] MEDS: duloxetine 60 mg Capsule PO (07:54)
[2021-07-16] MEDS: pantoprazole DR 40 mg Tablet PO (07:54)
[2021-07-16] MEDS: aspirin 81 mg EC Tablet PO (07:54)
--- NOTE | 2021-07-16 09:54 | P.DS_ITS ---
Discharge Providers Date of Admission: 07/15/21 18:22 Date of Discharge: July 16, 2021 Attending Provider at Admission: Vamshi Malone MD Attending Provider at Discharge: Vamshi Malone MD Primary Care Provider: Tadeo Prather MD Diagnoses at Discharge Discharge Diagnosis (1) Altered mental status: Status: Acute (2) Morbid obesity with BMI of 50.0-59.9, adult: Status: Chronic (3) Chronic prescription opiate use: Status: Acute Reason for Visit Reason for Visit: STROKE LIKE SYMPTOMS Hospital Course Hospital Course History of Present Illness by Dr Patricia Chavez Fang Patel is a 65 year old female with past medical history of morbid obesity, degenerative lumbar stenosis, multiple lumbar surgery, last T8 kyphoplasty 04/16/21 brought to the ER today by EMS with slurred speech and left sided weakness. History obtained by talking to as patient's speech is slurred, disoriented. Per , patient was in her usual state of health when he left for work this morning. It appears patient had a telemedicine follow up with her pain medicine provider and she was noted to have slurred speech over the phone for which EMS was called. When her returned from work, there was an unintelligible note on the door, uncertain if left by the patient. Per , patient was off narcotics for a few months, doing well overall however recently resumed narcotics again on Wednesday. Uncertain at this time if she may have taken too much of her prescription medications. She has a h/o being on increasing narcotics for chronic pain over last several years and a corelat ion has been noticed between her becoming lethargic, slurred with her speech when she is on. For the few months that she was off narcotics, her mentation was reportedly better. No recent h/o fever. H/o increased recent falls thought to be related to increasing kyphosis from recent surgery. CT myelogram had been prescriebed on outpatient visit in 06/2021 but unable to find results. Ct head today is unremarkable, CTA without acute large vessel occlusion. ROS + for h/o recurrent UTIs. No recent fver, chills , dysuria Hospital course Code stroke was called 5 mins before patient arrived in the ER, however not a tPA candidate because of low NIH score and out of tPA window. Her symptoms started 20 hours before her arrival in the ER. Her drug screen positive for benzodiazepine and opioids. Her symptoms have temporal association with initiation of opioids at home. When I examined the patient on 07/16, her slurring of speech improved, there was no numbness, there was no focal deficit, patient was feeling much better and improved. She will be discharged home, patient is stating that she will not be using opioids anymore however for possible TIA I will add aspirin Plavix for 3 weeks and then she will take aspirin along atorvastatin. CTA head and neck showed 20% stenosis of left ICA. CT head unremarkable. Physical Exam Narrative: EXAM NARRATIVE: Patient was doing well NIH 0 No slurring of speech No cerebellar or cerebral signs Nonfocal neuro exam EOMI, PERRLA Awake and alert oriented x3 GCS 15 S1, S2 Abdomen soft visceral obesity No signs of edema Very pleasant and conversive during my evaluation Discharge Data Data Completed and Pending: Completed Studies During Hospitalization Category Date Time Status CT angio headneck * [id number] Stat Cat Scan 07/15/21 16:[address] head wo con* [id number] Stat Cat Scan 07/15/21 16:21 Completed XR thoracic spine 3V* [id number] Stat Exams 07/15/21 18:14 Completed Pending at discharge Category Date Time Status Blood Culture AM LABS Lab 07/16/21 04:33 Results Free T4 Free Thyr oxine Stat Lab 07/16/21 04:33 Received Labs from last 24 hours 07/16/21 07/16/21 07/16/21 04:33 04:33 04:33 WBC 10.3 H RBC 4.89 Hgb 10.4 L Hct 36.7 L MCV 75.1 L MCH 21.3 L MCHC 28.3 L RDW 18.4 H Plt Count 722 H MPV 8.4 Neut % (Auto) 68.5 Lymph % (Auto) 21.8 Mcminn % (Auto) 6.5 Eos % (Auto) 1.8 Baso % (Auto) 1.1 Neut # (Auto) 7.03 Lymph # (Auto) 2.2 Mcminn # (Auto) 0.7 Eos # (Auto) 0.2 Baso # (Auto) 0.1 Nucleated RBC % (a uto) 0 Nucleated RBCs # 0.0 PT INR APTT Specimen Type Sample Site ABG pH ABG pCO2 ABG pO2 ABG HCO3 ABG Base Excess Benton Test Hematocrit O2 Delivery Device FiO2 Parts Assembler ID Sodium 140 Potassium 3.8 Chloride 101 Carbon Dioxide 24 Anion Gap 18.8 BUN 7 L Creatinine 0.4 L GFR Calculation 161.2 H Glucose 101 Calculated Osmolal ity 288 Calcium 8.8 Total Bilirubin 0.3 AST 18 ALT 7 Alkaline Phosphata se 127 H Total Protein 7.0 Albumin 3.6 Globulin 3.4 TSH 0.16 L Free T4 Pending Urine Color Urine Appearance Urine pH Ur Specific Gravit y Urine Protein Urine Glucose (UA) Urine Ketones Urine Blood Urine Nitrate Urine Bilirubin Prot Sulfosalicyli c Acd Urine Urobilinogen Ur Leukocyte Dipti ase Urine RBC Urine WBC Ur Squamous Epith Cells Amorphous Sediment Urine Bacteria Urine Opiates Scre en Ur Barbiturates Sc reen Ur Phencyclidine S crn Ur Amphetamines Sc reen U Benzodiazepines Scrn Urine Cocaine Scre en U Marijuana (THC) Screen 07/15/21 07/15/21 07/15/21 22:00 22:00 16:03 WBC RBC Hgb Hct MCV MCH MCHC RDW Plt Count MPV Neut % (Auto) Lymph % (Auto) Mcminn % (Auto) Eos % (Auto) Baso % (Auto) Neut # (Auto) Lymph # (Auto) Mcminn # (Auto) Eos # (Auto) Baso # (Auto) Nucleated RBC % (a uto) Nucleated RBCs # PT INR APTT Specimen Type Sample Site ABG pH ABG pCO2 ABG pO2 ABG HCO3 ABG Base Excess Benton Test Hematocrit O2 Delivery Device FiO2 Parts Assembler ID Sodium 141 Potassium 4.3 Chloride 100 Carbon Dioxide 22 Anion Gap 23.3 H BUN 6 L Creatinine 0.5 GFR Calculation 124.6 Glucose 147 H Calculated Osmolal ity 292 Calcium 10.3 Total Bilirubin 0.4 AST 23 ALT 10 Alkaline Phosphata se 147 H Total Protein 8.0 Albumin 4.0 Globulin 4.0 TSH Free T4 Urine Color Yellow Urine Appearance Clear Urine pH 9 H Ur Specific Gravit y 1.010 Urine Protein Neg Urine Glucose (UA) Norm Urine Ketones 1+ H Urine Blood Neg Urine Nitrate Negative Urine Bilirubin Neg Prot Sulfosalicyli c Acd Negative Urine Urobilinogen 1 H Ur Leukocyte Dipti ase Negative Urine RBC None Urine WBC None Ur Squamous Epith Cells None Amorphous Sediment Not Reportable Urine Bacteria None Urine Opiates Scre en Positive H Ur Barbiturates Sc reen Negative Ur Phencyclidine S crn Negative Ur Amphetamines Sc reen Negative U Benzodiazepines Scrn Positive H Urine Cocaine Scre en Negative U Marijuana (THC) Screen Negative 07/15/21 07/15/21 07/15/21 16:03 16:03 00:37 WBC 12.7 H RBC 5.51 H Hgb 11.8 Hct 40.8 MCV 74.0 L MCH 21.4 L MCHC 28.9 L RDW 18.3 H Plt Count 903 H MPV 8.6 Neut % (Auto) 69.8 Lymph % (Auto) 22.2 Mcminn % (Auto) 5.3 Eos % (Auto) 1.0 Baso % (Auto) 1.4 Neut # (Auto) 8.88 H Lymph # (Auto) 2.8 Mcminn # (Auto) 0.7 Eos # (Auto) 0.1 Baso # (Auto) 0.2 H Nucleated RBC % (a uto) 0 Nucleated RBCs # 0.0 PT 12.60 INR 0.91 APTT 34.2 Specimen Type Arterial Sample Site Radial, left ABG pH 7.49 H ABG pCO2 36.2 ABG pO2 75.0 L ABG HCO3 27.6 H ABG Base Excess 4.1 H Benton Test Pos Hematocrit 34.6 L O2 Delivery Device Room air FiO2 21.0 Parts Assembler ID glc Sodium Potassium Chloride Carbon Dioxide Anion Gap BUN Creatinine GFR Calculation Glucose Calculated Osmolal ity Calcium Total Bilirubin AST ALT Alkaline Phosphata se Total Protein Albumin Globulin TSH Free T4 Urine Color Urine Appearance Urine pH Ur Specific Gravit y Urine Protein Urine Glucose (UA) Urine Ketones Urine Blood Urine Nitrate Urine Bilirubin Prot Sulfosalicyli c Acd Urine Urobilinogen Ur Leukocyte Dipti ase Urine RBC Urine WBC Ur Squamous Epith Cells Amorphous Sediment Urine Bacteria Urine Opiates Scre en Ur Barbiturates Sc reen Ur Phencyclidine S crn Ur Amphetamines Sc reen U Benzodiazepines Scrn Urine Cocaine Scre en U Marijuana (THC) Screen Vitals: Last Vital Signs Temp 98.3 F 07/16/21 04:00 Pulse 90 07/16/21 07:54 Resp 16 07/16/21 07:18 BP 138/86 07/16/21 07:18 Pulse Ox 95 07/16/21 07:54 Discharge Plan Discharge Patient Disposition: Home Condition: Stable Prescriptions: New aspirin 81 mg tablet,chewable 81 mg PO DAILY Qty: 60 RF: 3 atorvastatin 40 mg tablet 40 mg PO DAILY Qty: 60 RF: 2 Plavix 75 mg tablet 75 mg PO DAILY Qty: 20 RF: 0 Continued meloxicam [Mobic] 15 mg tablet 15 mg PO DAILY@21 RF: 0 fluticasone propion-salmeterol [Advair Diskus] 500-50 mcg/dose blister with device 1 inh INHALATION BID RF: 0 alprazolam 0.5 mg tablet 0.5 mg PO TID PRN (Reason: Anxiety) RF: 0 albuterol sulfate [ProAir HFA] 90 mcg/actuation HFA aerosol inhaler 2 puff INHALATION Q4H PRN (Reason: Shortness Of Breath) RF: 0 duloxetine [Cymbalta] 60 mg capsule,delayed release(DR/EC) 60 mg PO DAILY@09 RF: 0 gabapentin 600 mg tablet 600 mg PO BID@, RF: 0 guaifenesin [Mucinex] 600 mg tablet extended release 12hr 600 mg PO DAILY PRN (Reason: Congestion) RF: 0 omeprazole 20 mg capsule,delayed release(DR/EC) 20 mg PO DAILY@21 RF: 0 (DME) Bone Growth Stimulator [id number] See Rx Instructions .Route .MEDSUPPLY Qty: 1 RF: 0 (DME) gauze bandage 4 X 4 bandage See Rx Instructions .Route Qty: 25 RF: 0 (DME) TLSO Brace See Rx Instructions .Route .MEDSUPPLY Qty: 1 RF: 0 cyclobenzaprine 5 mg tablet 5 mg PO TID PRN (Reason: muscle spasm) Qty: 30 RF: 0 hydrocodone-acetaminophen 5-325 mg tablet 1 - 2 tab PO .Q4-6H PRN (Reason: pain) 7 Days Qty: 40 RF: 0 cetirizine [Zyrtec] 10 mg Tablet 10 mg PO DAILY@21 RF: 0 calcium carbonate-vitamin D3 600 mg(1,500mg) -200 unit Tablet 4 tab PO DAILY@21 RF: 0 fexofenadine 30 mg Tablet 60 mg PO BID PRN (Reason: allergy symptoms) Qty: 0 RF: 0 Hair, Skin, Nails with Biotin 7.5-7.5-1,250 mg-unit-mcg Tablet,Chewable 4 tab PO DAILY@21 RF: 0 cranberry 2 tab PO DAILY@21 RF: 0 duloxetine 30 mg capsule,delayed release(DR/EC) 30 mg PO DAILY@21 RF: 0 Discharge Orders: Discharge Order (Routine); Ordered 07/16/21 Ordered By: Vamshi Malone Referrals: Tadeo rPather MD [Primary Care Provider] - 07/23/21 12:40 pm Discharge Diet: Cardiac Discharge Activity: Increase activity as tolerated and Use walker/crutches as instructed Patient Instructions: Aspirin (By mouth), Atorvastatin (By mouth), Clopidogrel (By mouth), Stroke (DC), Opioid Safety, Stroke Stoplight Discharge Attestations Time Spent in Discharge Care*: less than 30 min Status at Discharge: Cognitive status at discharge: cognitively intact , Behavioral status at discharge: cooperative , Quality Metrics Clinical Quality Measures During this hospital stay, did patient experience: None Coding Level of Care Code Acute Chg FW DC note Diagnoses Altered mental status R41.82 Morbid obesity with BMI of 50.0-59.9, adult E66.01; Z68.43 Chronic prescription opiate use Z79.891
--- NOTE | 2021-07-16 10:54 | PC.CHAP ---
Pastoral Care Encounter/Spiritual Assessment Type of Contact [] Declined tie hacker visit [] Patient/Family/Request visit [] Outpatient visit [] Follow-up visit [] Physician referral [] Code/Alert [x] Routine visit [] Staff referral [] Actively dying [] Patient sleeping [] Family support [] [] Out of room [] Palliative care [] [] Receiving care in room [] Pre-surgical visit [] Trauma [] Long length of stay [] ICU visit [] Other: Relational/Emotional Strength [x] Patient feels connected with others/family/visitors/staff [] Distress [] Loneliness/isolation [] Abandonment Spirituality of Patient [x] Person of Patience [x] Attends [employer] of their Patience [x] Believes in Prayer [] Reads Bible or Church materials [] There are Spiritual issues to be addressed Industrial Designer Interventions [x] Prayer [x] Active listening [x] Non-anxious presence [x] Spiritual/emotional support [] Crisis/trauma care [] Spiritual counseling [] Bereavement support [] Provided bereavement packet [] Provided Bible/devotional materials [] Provided toy/stuffed animal, coloring book to patient or family member [] Provided Communion [] Anointing/[place] [] Salvation [x] Completed spiritual assessment [] Other: Impact on Illness or Injury [] Angry [] Fearful [] Anxious [] Often cries [] Exhaustion [] Unable to work [] Unable to attend mandaen [] Unable to walk/stand [] Unable to read [] Unable to drive [] Unable to eat/drink [] Unable to sleep [] Unable to be with family [] Patient intubated [] Other: Summary Time spent with patient +10 min
[2021-07-16 11:38] VITALS: BP 134/75; PULSE 107; RESP 18; TEMP 36.8; O2SAT 97
[2021-07-16 14:55] VITALS: BP 134/75; PULSE 107; RESP 18; TEMP 36.8; O2SAT 97
== END 2021-07-16 14:20 | disposition home or self-care (01) ==
LOC: ER 19:22 → MEDSURG 19:57
PROVIDERS: Student in an Organized Health Care Education/Training Program; Admitting Provider Internal Medicine; Emergency Provider Family Medicine; PCP Family Medicine; Visit Provider Internal Medicine
DX: R41.82 Altered mental status, unspecified (principal); E66.01 Morbid (severe) obesity due to excess calories; Z68.43 Body mass index [BMI] 50.0-59.9, adult; Z79.891 Long term (current) use of opiate analgesic; G47.33 Obstructive sleep apnea (adult) (pediatric); Z82.49 Family history of ischemic heart disease and other diseases of the circulatory system
CPT/HCPCS: 36600; 70450; 70496; 70498; 72072; 80053; 80306; 81001; 82803; 84439; 84443; 85025; 85610; 85730; 87040; 93005; 97161; 97165; 99285; G0378; Q9967

== ENCOUNTER 2021-09-04 10:20 | Outpatient (CLI) | payer MEDICARE, SELFPAY ==
--- NOTE | 2021-09-04 10:30 | CT_ITS ---
WS: [email or web address] CT THORACIC MYELOGRAM HISTORY: M48.062 - Spinal stenosis, lumbar region with neurogenic ... TECHNIQUE: Contiguous 2.5 mm axial images are reviewed to thoracic spine. Images are reformatted in s agittal and coronal planes. All CT scans at [facility] use at least one of these dose optimiz ation techniques: automated exposure control; mA and/or kV adjustment per patient size (includes targ eted exams where dose is matched to clinical indication); or iterative reconstruction. DLP: 2679.94 mGy-cm. COMPARISON: 07/15/2021. Limited opacification of the thecal sac with contrast due to patient's immobility and body habitus. T here is layering of the intrathecal contrast posteriorly. Posterior fusion hardware at T10-T12. Verte broplasty cement at T8 and T9. Destructive of the adjacent disc spaces and vertebral bodies from T8 t hrough T10. This has been previously described. There is increased soft tissue surrounding the verteb ral vertebral bodies. Chronic osteomyelitis should be considered. There is also posterior retropulsio n by 8 mm of the posterior inferior T9 vertebral body with contact on the cord. There is mild posteri or displacement of the thoracic cord at T9-10 level. T8-9: Annular disc bulging with increased soft tissue surrounding the vertebral body encroaching upon the ventral thecal sac. T9-10: Destruction of the endplates of the vertebral bodies with loss of height and a focal kyphosis. Posterior retropulsion of the vertebral bodies. There is slight encasement the central canal by oste ophyte. Cannot exclude chronic osteomyelitis. Central canal narrowing from T8 to the superior endplate of T10 to the soft tissue in the retropulsio n of the T9 vertebral body. Mild central stenosis and encasement by soft tissue. The remaining discs levels demonstrate no significant areas of high-grade stenosis. Low-attenuation n odule measuring 10 mm at the RIGHT C7 8 foramen is probably a nerve root diverticulum. CT/CT thoracic spine w con [id number] IMPRESSION: 1. Quality of this myelogram examination is degraded by body habitus and artif act from hardware. 2. Destructive changes involving the endplates of T8-9 and T9-T10 have been pr eviously described. Chronic osteomyelitis or treated osteomyelitis should be co nsidered. Vertebroplasty is now present T8 and T9. 3. Retropulsion of posterior and there are endplate of T9 with contact and pos terior displacement of the thoracic cord. 4. Soft tissue encasement of the vertebral bodies of T8, T9 and T10. 5. Posterior fusion hardware from T10 to T12.
--- NOTE | 2021-09-04 10:30 | CT_ITS ---
WS: [email or web address] CT MYELOGRAM LUMBAR SPINE HISTORY: M48.062 - Spinal stenosis, lumbar region with neurogenic ... TECHNIQUE: Contiguous 2.5 mm axial imaging performed from T12 through the mid sacral level. Bone and soft tissue windows reviewed. Sagittal and coronal reformats are submitted and reviewed. DLP: All CT scans at [facility] use at least one of these dose optimization techniques: automated e xposure control; mA and/or kV adjustment per patient size (includes targeted exams where dose is matc hed to clinical indication); or iterative reconstruction. COMPARISON: 08/23/2020 Quality of this examination is significantly degraded by body habitus and hardware. Fusion hardware throughout the lumbar spine begins at the L1 level through S2. Interbody spacers at L 2-3 and L3-4 are stable in position. Mild disc space narrowing at L5-S1. Pedicle screws on the RIGHT from L1 to L5. Pedicle screws on the LEFT at L1, L2 and L3. Removal of the L4 pedicle screw. L5 pedic le screw is fractured. There is significant lucency surrounding the LEFT S1 pedicle screw indicating loosening. L1-L2: Mild annular disc bulging. No significant stenosis. L2-L3: Large posterior laminectomy defect greatest on the LEFT. Deformity of the thecal sac. No high- grade stenosis. L3-L4: Large posterior laminectomy defect. No significant stenosis. L4-L5: Extensive laminectomy defects with posterior bone grafting. Partial fusion of bone graft mater ial. There is very minimal disc contact on the LEFT L4 nerve root. Nerve roots are becoming clumped w ithin the thecal sac. L5-S1: Large posterior laminectomy defects with clumping of the nerve roots. No significant stenosis. Bilateral SI joint stabilization hardware. There is mild asymmetry of widening of the RIGHT SI joint as compared to the LEFT. The RIGHT SI joint widening has progressed since 08/23/2020 measuring up to 7 mm. Bilateral SI joint erosions. Nonobstructing calcification LEFT kidney. CT/CT lumbar spine w con [id number] IMPRESSION: 1. Quality of the lumbar myelogram is limited due to body habitus and extensiv e hardware. 2. There is hardware throughout the lumbar spine extending into the sacrum. 3. Significant lucency surrounding the LEFT S1 pedicle screw probably indicati ng loosening. 4. Extensive laminectomy defects throughout the lumbar spine. No areas of high -grade stenosis or significant disc protrusions. 5. Fractured LEFT L5 pedicle screw, previously described. 6. Mild progressive widening of the RIGHT SI joint as compared to 08/23/2020.
--- NOTE | 2021-09-04 10:30 | IR_ITS ---
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 Chronic back pain. COMPARISON: 08/23/2020 FLUOROSCOPY TIME: 2.5 minutes. Procedure, risks and complications were explained to the patient. Risks including bleeding, infection , headaches, allergic reaction and seizures. Consent has been obtained. With the patient in prone position the skin over the lumbar region is cleansed with ChloraPrep and an esthetized with lidocaine. 22-gauge spinal needle is inserted into the thecal sac at the appropriate level determined by fluoroscopy. Omnipaque 240; 13 ml is injected slowly under fluoroscopy with no co mplications. Needle bevel is perpendicular to the longitudinal fibers of the dura. Stylet is reinsert ed prior to removal of the needle. Patient tolerated the procedure well. Patient will proceed to CT f or further evaluation. Injection is successful at the L5-S1 level. Good injection of contrast into the thecal sac. The theca l sac is widely patent during injection. There are pedicle rods and fixation screws noted. Interbody spacer at L2-3. Additional interbody spacer at L3-4. Rods extend from T10 to S1. There is a broken pe dicle screw at L5 on the LEFT. Prior vertebroplasties at T8 and T9. Increase in thoracic kyphosis jesse tered at the T9-10 level. Very little contrast noted within the thecal sac due to body habitus. IR/IR myelogram spine thorac/lumb IMPRESSION: 1. Uncomplicated thoracic and lumbar spine injection. 2. Extensive hardware throughout the lower thoracic and lumbar spines as descr ibed above. 3. Prior vertebroplasties at T8 and T9. 4. Focal kyphosis centered at T9-10 with loss of the disc space and endplates. 5. CT myelogram thoracic and lumbar spines to follow.
[2021-09-04] MEDS: iohexol 240 mg/mL 50 mL Btl INTRATHECA (12:23)
== END 2021-09-04 10:21 | disposition home or self-care (01) ==
LOC: RAD 10:37
PROVIDERS: PCP Family Medicine; Visit Provider Orthopaedic Surgery
DX: M48.062 Spinal stenosis, lumbar region with neurogenic claudication (principal); M51.17 Intervertebral disc disorders with radiculopathy, lumbosacral region; M96.1 Postlaminectomy syndrome, not elsewhere classified
CPT/HCPCS: 62305; 72120; 72129; 72132

== ENCOUNTER → 2021-12-09 07:52 | Outpatient (BNVA) | payer MEDICARE, SELFPAY | PROVIDERS: PCP Family Medicine; Visit Provider Orthopaedic Surgery | DX: Z47.89 Encounter for other orthopedic aftercare (principal); Z98.890 Other specified postprocedural states | CPT/HCPCS: 72070; 72120; 99213 ==

== ENCOUNTER → 2022-03-26 14:43 | Outpatient (BNVA) | payer MEDICARE, SELFPAY | PROVIDERS: PCP Family Medicine; Visit Provider Physician Assistant | DX: R20.2 Paresthesia of skin (principal); Z98.1 Arthrodesis status | CPT/HCPCS: 72070; 72100; 99213 ==

== ENCOUNTER → 2022-06-16 12:54 | Outpatient (BNVA) | payer MEDICARE, SELFPAY | PROVIDERS: PCP Family Medicine; Referring Provider Physician Assistant; Visit Provider Specialist | DX: M48.061 Spinal stenosis, lumbar region without neurogenic claudication (principal); Z98.1 Arthrodesis status; R20.2 Paresthesia of skin | CPT/HCPCS: 95909; 95911 ==

== ENCOUNTER → 2022-06-23 11:23 | Outpatient (BNVA) | payer MEDICARE, SELFPAY | PROVIDERS: PCP Family Medicine; Visit Provider Orthopaedic Surgery | DX: Z47.89 Encounter for other orthopedic aftercare (principal); Z98.1 Arthrodesis status; M47.812 Spondylosis without myelopathy or radiculopathy, cervical region | CPT/HCPCS: 72040; 72100; 99213 ==

== ENCOUNTER 2022-07-23 15:23 | Outpatient (CLI) | payer MEDICARE, SELFPAY ==
--- NOTE | 2022-07-23 15:15 | MR_ITS ---
WS: [email or web address] MRI CERVICAL SPINE NONCONTRAST TECHNIQUE: Sagittal T1, T2 and STIR imaging. Axial T2, gradient, and fiesta imaging. CLINICAL INFORMATION: pain COMPARISON: None. FINDINGS: Straightening/reversal the normal cervical lordosis. Disc bulging mid cervical spine C4-C6. C2-C3: Mild LEFT and no significant RIGHT foraminal narrowing. Mild facet arthropathy. Spinal canal i s patent. Proximal C3-C4: Mild disc osteophytic ridging. Moderate RIGHT and mild LEFT bony foraminal narrowing. Moderate facet arthropathy. C4-C5: Disc osteophyte complex with endplate ridging. Small central disc osteophyte protrusion with i ndentation on cervical cord. Mild central canal stenosis. Moderate bilateral bony foraminal narrowing . Moderate facet arthropathy. C5-C6: Disc osteophyte complex with indentation on the LEFT ventral cervical cord. Moderate central c anal stenosis. Moderate bilateral bony foraminal narrowing. Moderate facet arthropathy. C6-C7: Disc osteophyte complex with endplate ridging. Moderate bilateral bony foraminal narrowing. Mi ld facet arthropathy. Spinal canal is patent. C7-T1: Mild LEFT and no significant RIGHT foraminal narrowing. Spinal canal is patent. Benign partially empty sella partially visualized. Visualized brain stem structures: Normal. Prevertebral soft tissues: Normal. A few partially visualized small thyroid nodules the largest measuring 9 mm. MR/MR cervical spin wo con* [id number] IMPRESSION: 1. Straightening with slight reversal normal cervical lordosis. 2. Mild central canal stenosis C4-C5 and C5-C6 due to small central disc osteo phyte protrusions. Slight indentation on cervical cord. 3. Moderate bony foraminal narrowing worse at RIGHT C3-C4, bilateral C4-C5, bi lateral C5-C6, and LEFT C6-C7. 4. Moderate bony foraminal narrowing C3-C4 C4-C5 and C5-C6.
== END 2022-07-23 15:24 | disposition home or self-care (01) ==
LOC: RAD 15:25
PROVIDERS: PCP Family Medicine; Visit Provider Orthopaedic Surgery
DX: M48.02 Spinal stenosis, cervical region; M25.78 Osteophyte, vertebrae
CPT/HCPCS: 72141

== ENCOUNTER → 2022-07-30 10:43 | Outpatient (BNVA) | payer MEDICARE, SELFPAY | PROVIDERS: PCP Family Medicine; Visit Provider Orthopaedic Surgery | DX: M48.02 Spinal stenosis, cervical region (principal); M54.12 Radiculopathy, cervical region | CPT/HCPCS: 99214 ==

== ENCOUNTER → 2022-08-25 10:09 | Outpatient (BNVA) | payer MEDICARE, SELFPAY | PROVIDERS: PCP Family Medicine; Visit Provider Orthopaedic Surgery | DX: M47.12 Other spondylosis with myelopathy, cervical region (principal); R29.6 Repeated falls | CPT/HCPCS: 72050; 99214 ==

== ENCOUNTER 2022-09-28 10:06 | Inpatient (IN) | payer MEDICARE, SELFPAY ==
--- NOTE | 2022-08-26 13:42 | P.ANESASSM_ITS ---
Pre-Anesthetic Assessment Height/Weight: Height 1.68 m Preop Diagnosis: T8and T9 compression fracture Operation Date: 09/28/22 07:30 Proposed Procedures p Anterior Cervical Discectomy & Fusion C4/5 C5/6 C6/7 with Cage 21544, Anterior Instruction 39286, Allograft 00121 Navigation 13437 Modifier 59(Not Applicable) - Saul Fowler DO s Anterior Interbody Fusion C4/5 C5/6 C6/7 77041 [id number] 64255 Latex Allergy: YES-Latex and Adhesive Tape,M47.12(Not Applicable) - Saul Fowler DO Familial anesthetic complications: None Social Tobacco and No alcohol Exam alert, oriented x 3, clear to auscultation bilaterally and regular rate & rhythm Airway Mallampati: Class II Dentition: other (nio teeth) Pulmonary Sleep Apnea CV/HEM None reported None reported Hepatic None reported GI Gastroesophageal Reflux Disease Metabolic Diabetes Mellitus Musc/skel Lower Back Pain and Osteoarthritis/DJD Neuropsych None reported Anesthetic Plan ASA status: 3 Anesthesia: General Risk of > 500 ml blood loss (7ml/kg in children): No Medications/Allergies Home Medications Medication Instructions Recorded Confirmed Last Taken Type duloxetine 60 mg capsule,delayed 60 mg PO DAILY@09 09/06/19 08/25/22 07/14/21 History release (Cymbalta) fluticasone 500 mcg-salmeterol 50 1 inh inhalation BID 09/06/19 08/25/22 07/14/21 History mcg/dose blistr powdr for inhalation (Advair Diskus) gabapentin 600 mg tablet 600 mg PO BID@08/08/20 08/25/22 07/14/21 History guaifenesin 600 mg tablet, 600 mg PO DAILY PRN Congestion 08/08/20 08/25/22 Unknown History extended release 12 hr (Mucinex) omeprazole 20 mg capsule,delayed 20 mg PO DAILY@08/08/20 08/25/22 07/14/21 History release duloxetine 30 mg capsule,delayed 30 mg PO DAILY@ depression 10/23/20 08/25/22 07/14/21 History release ascorbic acid 7.5 mg-vit E 7.5 4 tab PO DAILY@11/09/20 08/25/22 07/14/21 History unit-biotin 1,250 mcg chewable tablet (Hair,Skin,Nails with Biotin) calcium carbonate 600 mg-vitamin 4 tab PO DAILY@11/09/20 08/25/22 07/14/21 History D3 5 mcg (200 unit) tablet cetirizine 10 mg tablet (Zyrtec) 10 mg PO DAILY@11/09/20 08/25/22 07/14/21 History cranberry 2 tab PO DAILY@11/09/20 08/25/22 07/14/21 History fexofenadine 30 mg tablet 60 mg PO BID PRN allergy symptoms 11/09/20 08/25/22 Unknown History ##0 gauze bandage 4 X 4 #25 ea 12/05/20 08/25/22 Unknown Rx TLSO Brace #1 ea 06/19/21 08/25/22 Unknown Rx cyclobenzaprine 5 mg tablet 5 mg PO TID PRN muscle spasm #30 06/19/21 08/25/22 Unknown Rx tabs hydrocodone 5 mg-acetaminophen 325 1 - 2 tab PO .Q4-6H PRN pain 7 07/08/21 08/25/22 Unknown Rx mg tablet days #40 tabs aspirin 81 mg chewable tablet 81 mg PO DAILY #60 tabs 07/16/21 08/25/22 Unknown Rx atorvastatin 40 mg tablet 40 mg PO DAILY #60 tabs 07/16/21 08/25/22 Unknown Rx clopidogrel 75 mg tablet (Plavix) 75 mg PO DAILY #20 tabs 07/16/21 08/25/22 Unknown Rx albuterol sulfate 90 mcg/actuation 2 puff inhalation Q4H PRN 02/26/22 08/25/22 Unknown Rx aerosol inhaler (ProAir HFA) Shortness Of Breath #8.5 grams meloxicam 15 mg tablet 15 mg PO DAILY@ #90 tabs 04/16/22 08/25/22 Unknown Rx gabapentin 300 mg capsule 300 mg PO BID nerve pain #30 caps 04/22/22 08/25/22 Unknown Rx c-pap supplies #1 ea 05/03/22 08/25/22 Unknown Rx amitriptyline 25 mg tablet See Rx Instructions .Route 06/25/22 08/25/22 Unknown Rx .COMPLEX #180 tabs alprazolam 0.5 mg tablet 0.5 mg PO TID PRN Anxiety #90 tabs 08/24/22 08/25/22 Unknown Rx Bone Growth Stimulator EO748 #1 ea 08/25/22 08/25/22 Unknown Rx Intraoperative Neuromonitoring #1 ea 08/25/22 08/25/22 Unknown Rx Allergies Allergy/AdvReac Type Severity Reaction Status Date / Time adhesive tape Allergy Unknown Verified 07/30/22 11:17 latex Allergy blisters Verified 07/30/22 11:17 [facility] Anesthesia Medical History Chronic prescription opiate use DDD (degenerative disc disease), thoracic Degenerative lumbar spinal stenosis Discitis of thoracic region Epigastric abdominal pain Fracture, thoracic vertebra, compression Fusion of spine, thoracolumbar region Internal fixation device (pin, nixon, or screw) mechanical complication Intervertebral disc disorder with radiculopathy of lumbosacral region Lumbar stenosis with neurogenic claudication Morbid obesity Morbid obesity with BMI of 50.0-59.9, adult Obstructive sleep apnea Spondylarthritis Surgical History History of appendectomy History of carpal tunnel repair History of knee surgery History of laparoscopic adjustable gastric banding History of lumbar surgery (~2011) 12/2016 Dr. Martin Joyner Thoracic spinal cord stimulator placement 04/2016 Dr. Martin Joyner Right SI joint fusion 03/2016 Dr. Martin Joyner [facility] Left SI joint fusion 06/2012 Dr. Christopher Olmstead [facility] L2-L3 posterior fusion/fixation. 10/2011 Dr. Christopher Olmstead [facility] Fractured fusion screws removed. 12/[address] Orthopedic surgeon. [facility] Spine: L3-L4, L4-L5 L5-S1 Posterior Fusion/fusion Status post correction of deviated nasal septum Status post insertion of spinal cord stimulator (~2016) Family History Father CAD (coronary artery disease) Social History Smoking and tobacco status: never smoked Alcohol intake: former Household members: spouse Marital status: Current occupational status: disabled Data Anesthesia Cardiac Studies: No Data to Display
--- NOTE | 2022-09-23 10:29 | ECG_ITS ---
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 Measurements Intervals [place] Rate: 88 P: 46 MA: 187 QRS: 17 QRSD: 85 T: 16 QT: 353 QTc: 427 Interpretive Statements SINUS RHYTHM LOW QRS VOLTAGE IN PRECORDIAL LEADS [QRS DEFLECTION < 1.0 mV IN CHEST LEADS] Compared to ECG 07/15/2021 17:12:18 Low QRS voltage now present Sinus tachycardia no longer present Electronically Signed On 09-23-2022 16:46:10 CDT by Shashi Lott M.D. [id number]
--- NOTE | 2022-09-23 11:01 | P.ANESASSM_ITS ---
Pre-Anesthetic Assessment Height/Weight: Height 1.68 m Weight 146.964 kg Preop Diagnosis: T8and T9 compression fracture Operation Date: 09/28/22 07:00 Proposed Procedures p Anterior Cervical Discectomy & Fusion C4/5 C5/6 C6/7 with Cage 54997, Anterior Instruction 05567, Allograft 83837 Navigation 47338 Modifier 59(Not Applicable) - Saul Fowler DO s Anterior Interbody Fusion C4/5 C5/6 C6/7 47571 11894 80911 Latex Allergy: YES-Latex and Adhesive Tape,M47.12(Not Applicable) - Saul Fowler DO Familial anesthetic complications: none Social No alcohol and No tobacco Exam alert, oriented x 3, clear to auscultation bilaterally and regular rate & rhythm Airway Mallampati: Class III Dentition: chipped Pulmonary Sleep Apnea GI Gastroesophageal Reflux Disease Metabolic Morbid Obesity Neuropsych Cerebrovascular Accident Anesthetic Plan ASA status: 3 Anesthesia: General Risk of > 500 ml blood loss (7ml/kg in children): No Medications/Allergies Home Medications Medication Instructions Recorded Confirmed Last Taken Type duloxetine 60 mg capsule,delayed 60 mg PO DAILY@09/06/19 09/23/22 09/23/22 History release (Cymbalta) omeprazole 20 mg capsule,delayed 20 mg PO DAILY@08/08/20 09/23/22 09/23/22 History release ascorbic acid 7.5 mg-vit E 7.5 4 tab PO DAILY@11/09/20 09/23/22 09/23/22 H istory unit-biotin 1,250 mcg chewable tablet (Hair,Skin,Nails with Biotin) calcium carbonate 600 mg-vitamin 4 tab PO DAILY@11/09/20 09/23/22 09/23/22 History D3 5 mcg (200 unit) tablet cetirizine 10 mg tablet (Zyrtec) 10 mg PO DAILY@11/09/20 09/23/22 07/14/21 History cranberry 2 tab PO DAILY@11/09/20 08/30/22 09/23/22 History TLSO Brace #1 ea 06/19/21 08/30/22 Unknown Rx aspirin 81 mg chewable tablet 81 mg PO DAILY #60 tabs 07/16/21 09/23/22 09/16/22 Rx albuterol sulfate 90 mcg/actuation 2 puff inhalation Q4H PRN 02/26/22 09/23/22 09/20/22 Rx aerosol inhaler (ProAir HFA) Shortness Of Breath #8.5 grams meloxicam 15 mg tablet 15 mg PO DAILY@21 #90 tabs 04/16/22 09/23/22 09/09/22 Rx c-pap supplies #1 ea 05/03/22 08/30/22 Unknown Rx amitriptyline 25 mg tablet See Rx Instructions .Route 06/25/22 09/23/22 09/22/22 Rx .COMPLEX #180 tabs prednisone 20 mg tablet 20 mg PO DAILY #6 tabs 08/30/22 09/23/22 09/23/22 Rx pregabalin 75 mg capsule (Lyrica) 150 mg PO BID 08/30/22 09/23/22 09/23/22 History alprazolam 0.5 mg tablet 0.5 mg PO TID PRN Anxiety #90 tabs 09/02/22 09/23/22 09/22/22 Rx intraoperative Neuromonitoring #1 ea 09/07/22 Unknown Rx Allergies Allergy/AdvReac Type Severity Reaction Status Date / Time adhesive tape Allergy Unknown Verified 09/23/22 10:06 [facility] Anesthesia Medical History Chronic prescription opiate use DDD (degenerative disc disease), thoracic Degenerative lumbar spinal stenosis Discitis of thoracic region Epigastric abdominal pain Fracture, thoracic vertebra, compression Fusion of spine, thoracolumbar region Internal fixation device (pin, nixon, or screw) mechanical complication Intervertebral disc disorder with radiculopathy of lumbosacral region Lumbar stenosis with neurogenic claudication Morbid obesity Morbid obesity with BMI of 50.0-59.9, adult Obstructive sleep apnea Spondylarthritis Surgical History History of appendectomy History of carpal tunnel repair History of knee surgery History of laparoscopic adjustable gastric banding History of lumbar surgery (~2011) 12/2016 Dr. Martin Joyner Thoracic spinal cord stimulator placement 04/2016 Dr. Martin Joyner Right SI joint fusion 03/2016 Dr. Martin Joyner [place] [facility] Left SI joint fusion 06/2012 Dr. Christopher Shah [facility] L2-L3 posterior fusion/fixation. 10/2011 Dr. Christopher Shah [facility] Fractured fusion screws removed. 12/[address] Orthopedic surgeon. [facility] Spine: L3-L4, L4-L5 L5-S1 Posterior Fusion/fusion Status post correction of deviated nasal septum Status post insertion of spinal cord stimulator (~2017) Family History Father CAD (coronary artery disease) Social History Smoking and tobacco status: never smoked Alcohol intake: former Household members: spouse Marital status: Current occupational status: disabled Data Anesthesia Cardiac Studies: No Data to Display
[2022-09-28] VITALS (52 sets, daily range): BP systolic 99–177; BP diastolic 60–109; PULSE 84–104; RESP 11–21; TEMP 36.2–36.9; O2SAT 90–99; BMI 52.2
[2022-09-28] MEDS: sodium chloride 0.9% 1,000 ML 30 ML IV (06:18)
--- NOTE | 2022-09-28 06:36 | P.HP_ITS ---
Providers/Chief Complaint Primary Care Provider: Tadeo Prather MD Chief Complaint: M19.012 History of Present Illness Kathy Patel is a 67 year old female paul pain. She reports a recent fall, landing on her left side, hitting her head. She states she fell approximately 10 days ago. She reports frequent falls due to dizziness. She reports increased neck pain since her last fall. She reports frequent constant headaches. She states she has been evaluated by Dr. Barbosa at [facility]. She states Dr. Barbosa told her to follow up with Dr. Fowler. She explains she has tried at home exercises with no relief. Review of Systems General: Reports: 10 or more systems reviewed and unremarkable except in HPI and below Const: Denies: fever(s), chills or body aches Eyes: Denies: blurry vision ENMT: Denies: throat pain Card: Denies: chest pain or orthopnea Resp: Denies: dyspnea, productive cough or wheezing GI: Denies: abdominal pain, nausea or vomiting : Denies: flank pain Musc: Reports: neck pain and extremity pain Skin/Breast: Denies: changes in skin color or dry skin Neuro: Reports: headache(s), numbness in extremities, weakness in extremities and frequent falls Psych: Denies: anxiety Endo: Denies: polyuria Juan/Lymph: Denies: easy bruising or easy bleeding Medications/Allergies Home Medications Medication Instructions Recorded Confirmed Last Taken Type duloxetine 60 mg capsule,delayed 60 mg PO DAILY@09/06/19 09/23/22 09/23/22 History release (Cymbalta) omeprazole 20 mg capsule,delayed 20 mg PO DAILY@08/08/20 09/23/22 09/23/22 History release ascorbic acid 7.5 mg-vit E 7.5 4 tab PO DAILY@11/09/20 09/23/22 09/23/22 History unit-biotin 1,250 mcg chewable tablet (Hair,Skin,Nails with Biotin) calcium carbonate 600 mg-vitamin 4 tab PO DAILY@11/09/20 09/23/22 09/23/22 History D3 5 mcg (200 unit) tablet cetirizine 10 mg tablet (Zyrtec) 10 mg PO DAILY@11/09/20 09/23/22 07/14/21 History cranberry 2 tab PO DAILY@21 11/09/20 08/30/22 09/23/22 History TLSO Brace #1 ea 06/19/21 08/30/22 Unknown Rx aspirin 81 mg chewable tablet 81 mg PO DAILY #60 tabs 07/16/21 09/23/22 09/16/22 Rx albuterol sulfate 90 mcg/actuation 2 puff inhalation Q4H PRN 02/26/22 09/23/22 09/28/22 Rx aerosol inhaler (ProAir HFA) Shortness Of Breath #8.5 grams meloxicam 15 mg tablet 15 mg PO DAILY@21 #90 tabs 04/16/22 09/23/22 09/09/22 Rx c-pap supplies #1 ea 05/03/22 08/30/22 Unknown Rx amitriptyline 25 mg tablet See Rx Instructions .Route 06/25/22 09/23/22 09/22/22 Rx .COMPLEX #180 tabs prednisone 20 mg tablet 20 mg PO DAILY #6 tabs 08/30/22 09/23/22 09/23/22 Rx pregabalin 75 mg capsule (Lyrica) 150 mg PO BID 08/30/22 09/23/22 09/23/22 History alprazolam 0.5 mg tablet 0.5 mg PO TID PRN Anxiety #90 tabs 09/02/22 09/23/22 09/28/22 Rx intraoperative Neuromonitoring #1 ea 09/07/22 Unknown Rx Allergies Allergy/AdvReac Type Severity Reaction Status Date / Time adhesive tape Allergy Unknown Verified 09/23/22 10:06 PFSH Acute PFSH: Medical History Chronic prescription opiate use DDD (degenerative disc disease), thoracic Degenerative lumbar spinal stenosis Discitis of thoracic region Epigastric abdominal pain Fracture, thoracic vertebra, compression Fusion of spine, thoracolumbar region Internal fixation device (pin, nixon, or screw) mechanical complication Intervertebral disc disorder with radiculopathy of lumbosacral region Lumbar stenosis with neurogenic claudication Morbid obesity Morbid obesity with BMI of 50.0-59.9, adult Obstructive sleep apnea Spondylarthritis Surgical History History of appendectomy History of carpal tunnel repair History of knee surgery History of laparoscopic adjustable gastric banding History of lumbar surgery (~2011) 12/2016 Dr. Martin Joyner Thoracic spinal cord stimulator placement 04/2016 Dr. Mratin Joyner Right SI joint fusion 03/2016 Dr. Martin Joyner [facility] Left SI joint fusion 06/2012 Dr. Christopher Olmstead [facility] L2-L3 posterior fusion/fixation. 10/2011 Dr. Christopher Olmstead [facility] Fractured fusion screws removed. 12/[address] Orthopedic surgeon. [facility] Spine: L3-L4, L4-L5 L5-S1 Posterior Fusion/fusion Status post correction of deviated nasal septum Status post insertion of spinal cord stimulator (~2016) Family History Father CAD (coronary artery disease) Social History Smoking and tobacco status: never smoked Alcohol intake: former Household members: spouse Marital status: Current occupational status: disabled Vitals/I&O/Wt Last Vital Signs Temp 97.5 F L 09/28/22 06:12 Pulse 104 H 09/28/22 06:12 Resp 18 09/28/22 06:12 BP 158/97 09/28/22 06:12 Pulse Ox 96 09/28/22 06:12 O2 Del Method 09/28/22 06:14 Physical Exam Narrative: CONSTITUTIONAL: The patient is a normal appearing [] in no apparent distress. GENERAL: Patient in no acute distress. CARDIAC: Regular rate and rhythm. CHEST: Normal inspiratory effort, normal respiratory rate. ABDOMEN: Soft and nontender. SKIN: Clear, warm and intact. A&P Assessment and plan (1) Cervical spondylosis with radiculopathy: ?Plan is to do a C4-5 C5-6 and C6-7 ACDF.? I had an open and honest discussion with the patient about the risks, benefits and alternatives to both surgical and nonsurgical treatment.? The patient verbalized understanding of the inherent unpredictability associated with surgery.? Risk of surgery were discussed including, but not limited to, infection, bleeding, temporary and permanent nerve damage, continued pain, stiffness, incomplete healing, need for revision surgery, blood clot and other complications.? The patient verbalized understanding that there is spine is elective in nature and if they find any of these risks to be unacceptable then they should choose not to have the surgery.? The patient verbalized understanding of these risks and elected to proceed with the surgery. Attestations Medical Necessity Statement*: failed conservative tx Coding Level of Care Code Acute Code for Chg Fwd Diagnoses Cervical spondylosis with radiculopathy M47.22
[2022-09-28] MEDS: ceFAZolin 1,000 MG in sodium chloride 0.9% (plus) 50 ML 100 MG IV (07:00)
[2022-09-28] MEDS: ceFAZolin 2,000 MG in sodium chloride 0.9% (plus) 50 ML 100 MG IV ×3 (07:02→22:46)
--- NOTE | 2022-09-28 07:40 | SUR.OPER ---
attempted to contact to notify him of surgical start. no answer.
--- NOTE | 2022-09-28 08:09 | P.ANESUD_ITS ---
Pre-Anesthetic Update Pre-Anesthetic Assessment: Date of Surgery/Procedure: 09/28/22 Preop Regina gnosis: Cervical spondylosis with myelopathy Proposed Procedure: Operation Date: 09/28/22 07:00 Proposed Procedures p Anterior Cervical Discectomy & Fusion C4/5 C5/6 C6/7 with Cage 46909, Anterior Instruction , Allograft Navigation 48135 Modifier 59(Not Applicable) - Saul Fowler, DO s Anterior Interbody Fusion C4/5 C5/6 C6/7 74550 22898 19346 Latex Allergy: YES-Latex and Adhesive Tape,M47.12(Not Applicable) - Saul Fowler, DO Any changes to Pre-Anesthetic Assessment?: No Last Intake: Intake Last Liquid Date 09/27/22 Last Liquid Time 23:00 Last Solid Date 09/27/22 Last Solid Time 22:30 Vitals: Temperature 97.5 F L 09/28/22 06:12 Temperature Source Temporal Artery S can 09/28/22 06:12 Pulse Rate 104 H 09/28/22 06:12 Respiratory Rate 18 09/28/22 06:12 Blood Pressure 158/97 09/28/22 06:12 Blood Pressure Quita n 117 09/28/22 06:12 Pulse Oximetry 96 09/28/22 06:12 Oxygen Delivery Me thod 09/28/22 06:14 Exam: Pre-Anes Outpt Exam: alert, oriented x 3, clear to auscultation bilaterally and regular rate & rhythm Cardiac Studies: No Data to Display
[2022-09-28] MEDS: lidocaine-epi 1% 20 mL INJ INJECTION (08:21)
--- NOTE | 2022-09-28 08:52 | XR_ITS ---
WS: [id number] INTRAOPERATIVE TECHNIQUE: 3 Spot fluoroscopic images for intraoperative purposes. FLUOROSCOPY TIME: 16.4 seconds CLINICAL INFORMATION: OR PICS COMPARISON: None. FINDINGS: Endotracheal tube above the grant. Plate and screw fixation C4-C6. XR/XR lumbar spine 1V [id number] IMPRESSION: Images obtained for intraoperative purposes.
--- NOTE | 2022-09-28 09:19 | P.OP_ITS ---
Operative Report Date of procedure: September 28, 2022 Pre-op diagnosis: Preop Diagnosis Cervical spondylosis with myelopathy Post-op diagnosis: same Procedure done: 1. Anterior diskectomy C4/5 2. Anterior discectomy C5/6 3. Insertion of cage C4/5 4. Insertion of Cage C5/6 5. Instrumentation with anterior plate from C4-6 6. Use of allograft Surgeon: Saul Fowler Accounts Payable Professional: Jacky Jackson Accounts Payable Professional: The surgical elastic knitter, Jacky Jackson, PAC was needed for his expertise under the microscope. He was important and necessary throughout the procedure to complete in a safe and timely manner. He assisted with patient positioning prepping and draping tissue retraction suctioning of the operative field protection of the dural sac and tissue closure Estimated blood loss (mL): 25 Procedure: 1. Anterior diskectomy C4/5 2. Anterior discectomy C5/6 3. Insertion of cage C4/5 4. Insertion of Cage C5/6 5. Instrumentation with anterior plate from C4-6 6. Use of allograft The patient was taken to the operating room, where he underwent general endotracheal anesthesia without complications. He was then positioned supine on the operating table, and all areas of impingement were well padded. The arms were carefully padded and tucked at his sides. A roll was placed between the shoulder blades.. An x-ray was done to determine the appropriate level for the skin incision. The entire neck was then sterilely prepped and draped in the usual fashion. Neuromonitoring was attached prior to prepping. A transverse skin incision was made and carried down to the platysma muscle. This was then split in line with its fibers. Blunt dissection was carried down medial to the carotid sheath and lateral to the trachea and esophagus until the anterior cervical spine was visualized. A needle was placed into a disc and an x-ray was done to determine its location. The longus colli muscles were then elevated bilaterally with the electrocautery unit. Self-retaining retractors were placed deep to the longus colli muscle. Attention was brought to the C4/5 level that was confirmed on x-ray. A caspar pin was placed into the C4 vertebrae and the C5 vertebrae. The disk space was then distracted. The microscope was then brought in. A radical anterior discectomies were performed at C4/5. This included complete removal of the anterior annulus, nucleus, and posterior annulus. The posterior longitudinal ligament was removed as were the posterior osteophytes. Foraminotomies were then accomplished bilaterally. This was done using a high speed doris, kerrison rongeurs and curretes Once all of this was accomplished, the curved currette was used to check for any residual compression. The central canal was wide open as were the foramen. A high-speed bur was used to remove the cartilaginous endplates above and below the interspace. Bleeding cancellous bone was exposed. The disc space were measured and appropriate size cage were placed sterilely onto the field. Allograft graft was packed into the cages. The cage was then placed and there was good juxtaposition against the bleeding decorticated surfaces and good distraction of each interspace. Attention was brought to the next interspace. The Energy pins were removed. Bone wax was used to prevent any bleeding from occurring at the pin sites. Attention was brought to the C5/6 level that was confirmed on x-ray. A caspar pin was placed into the C5 vertebrae and the C6 vertebrae. The disk space was then distracted. The microscope was then brought in. A radical anterior discectomies were performed at C5/6. This included complete removal of the anterior annulus, nucleus, and posterior annulus. The posterior longitudinal ligament was removed as were the posterior osteophytes. Foraminotomies were then accomplished bilaterally. This was done using a high speed doris, kerrison rongeurs and curretes Once all of this was accomplished, the curved currette was used to check for any residual compression. The central canal was wide open as were the foramen. A high-speed bur was used to remove the cartilaginous endplates above and below the interspace. Bleeding cancellous bone was exposed. The disc space were measured and appropriate size cage were placed sterilely onto the field. Allograft graft was packed into the cages. The cage was then placed and there was good juxtaposition against the bleeding decorticated surfaces and good distraction of each interspace. Attention was brought to the next interspace. The Energy pins were removed. Bone wax was used to prevent any bleeding from occurring at the pin sites. We are going to go to the C6-7 level however patient had a significant amount of stretch on her soft tissues. It was very deep review the MRI at that point the 6 7 level was the least worrisome level. At this point the risk versus be more to do the 6 7 level were not worth the risks and I felt like she can get a good outcome from just doing the C4-5 and C5-6 at this point. Compared to bring a lot of stretch on her esophagus and stretch on the nerve. The appropriate size anterior cervical locking plate was chosen and bent into gentle lordosis. Two screws were then placed into each of the vertebral bodies at C4,C5 and C6. There was excellent purchase. A final x-ray was done confirming good position of the hardware and Cages. The locking screws were then applied, also with excellent purchase. Following a final copious irrigation, there was good hemostasis and no dural leaks. The carotid pulse was strong. The wounds were then closed in layers using 2-0 Vicryl suture for the platysma muscle, 2-0 Vicryl suture for the subcutaneous tissue, and 4-0 monocryl suture in a subcuticular skin closure. Glue was placed followed by application of a sterile dressing. The drain was hooked to bulb suction. A soft collar was applied. The patient was then carefully returned to the supine position on his hospital bed where he was reversed and extubated and taken to the recovery room having tolerated the procedure well.
--- NOTE | 2022-09-28 09:43 | PC.NURSE ---
Pt arrived to PACU, ET tube in place and placed on mechanical ventilator by Mee, respiratory therapist at bedside. Dressing and brace to neck C/D/I. SCDs in place and running. Ram patent and draining.
--- NOTE | 2022-09-28 10:15 | PC.NURSE ---
Dr Smith at bedside, pt extabated, tolerated well. Able to cough. Placed on simple mask with O2 at 10L/min.
[2022-09-28] MEDS: ipratropium-albuterol 3 mL Neb INHALATION ×3 (11:45→20:27)
--- NOTE | 2022-09-28 11:45 | PC.NURSE ---
Pt easily arousable. O2 at 3L/min via NC and sats around 89-92%. Spoke with Dr Smith and instructed to administer breathing treatment at this time.
[2022-09-28] MEDS: FUROsemide 10 mg/mL SDV 2mL IVP (12:15)
[2022-09-28] MEDS: lactated ringers 1,000 ML 90 ML IV ×2 (14:30→22:49)
[2022-09-28] MEDS: HYDROcodone-acetaminophen 5-325 mg Tablet PO ×2 (14:32→20:18)
--- NOTE | 2022-09-28 15:41 | ANE.PACU2 ---
Inpatient post-anesthesia follow up: Airway intact: Yes Vital signs: Temperature 98.4 F Pulse Rate 99 Respiratory Rate 18 Blood Pressure 174/82 Pulse Oximetry 94 Oxygen Delivery Me thod BiPAP Oxygen Flow Rate 2 Fraction of Inspir ed Oxygen 35 Hydration adequate: Yes Nausea and vomiting: No Pain level: 3 Mental status: Altered (sedated) Additional Comments: Took additional time to wake up fully in PACU. In addition, hypoventilation/bronchospasm/pulmonary edema?-- breathing tx and IV lasix with improvement.
[2022-09-28] MEDS: ketorolac 30 mg/mL INJ IVP (17:24)
[2022-09-28] MEDS: docusate sodium 100 mg Capsule PO (17:25)
[2022-09-28] MEDS: pregabalin 150 mg Capsule PO (17:25)
[2022-09-28] MEDS: pantoprazole DR 40 mg Tablet PO (20:18)
[2022-09-28] MEDS: cetirizine 10 mg Tablet PO (20:18)
[2022-09-28] MEDS: amitriptyline 25 mg Tablet PO (20:18)
[2022-09-29] VITALS (9 sets, daily range): BP systolic 114–156; BP diastolic 67–83; PULSE 82–98; RESP 17–20; TEMP 36.3–36.8; O2SAT 91–95
[2022-09-29] MEDS: ipratropium-albuterol 3 mL Neb INHALATION ×4 (00:51→11:14)
[2022-09-29] MEDS: HYDROcodone-acetaminophen 5-325 mg Tablet PO ×2 (01:09→04:52)
[2022-09-29] MEDS: ceFAZolin 2,000 MG in sodium chloride 0.9% (plus) 50 ML 100 MG IV (05:57)
--- NOTE | 2022-09-29 06:44 | PM.PN ---
Subjective Subjective: POD 1 Resting comfortably. Reports both arms are much improved. Mild swallowing discomfort. Denies any headaches or shortness of breath or chest pain. Vitals/I&O/Wt Last Vital Signs Temp 97.4 F L 09/29/22 03:58 Pulse 84 09/29/22 03:58 Resp 20 H 09/29/22 03:58 BP 114/67 09/29/22 03:58 Pulse Ox 93 09/29/22 03:58 O2 Del Method 09/29/22 03:12 O2 Flow Rate 2 09/28/22 20:33 FiO2 35 09/29/22 03:12 09/28/22 09/28/22 09/29/22 14:59 22:59 06:59 Intake Total 975 / 975 1088.5 / 2063.5 50 / 2113.5 Output Total 350 / 350 1200 / 1550 700 / 2250 Balance 625 / 625 -111.5 / 513.5 -650 / -136.5 Weight last 48 hrs Weight 324 lb Physical Exam Narrative: Patient is alert and oriented x3 with a good general appearance normal mood and affect. Mildly tender with palpation about the incisional site. Incision appears to be clean and dry without signs of erythema or drainage. No signs of infection. Good motor strength throughout both upper extremities. Appears to fire in all motor groups with 5/5 strength. Hands are warm good cap refill in all digits. Normal sensation to light touch in all dermatomal areas. Urinary Catheter Management: Ram: Cath Placed During This Visit: yes Reason for Continuing Indwelling Catheter: Perioperative Use in Selected Surgeries Urinary Catheter Date of Insertion: 09/28/22 Urinary Catheter Time of Insertion: 07:15 A&P Assessment and plan (1) Status post cervical spinal fusion: Physical therapy to mobilize. Charlotte J collar is not fitting correctly we will try a smaller soft cervical collar to see if that is more appropriate for her. I will put that order in for physical therapy to assess that. Discontinue Ram catheter. Encourage incentive spirometer at home for pulmonary toilet. No overhead lifting no bending lifting or twisting activities more than 10 pounds. We will see her back in the office in 1 week's time for wound check. Call if she is having problems. Attestations Medical Necessity Statement*: Discharge home later this morning. Coding Level of Care Code Acute Code for Chg Fwd Diagnoses Status post cervical spinal fusion Z98.1
--- NOTE | 2022-09-29 08:16 | PC.NURSE ---
Ram removed at 0813.
--- NOTE | 2022-09-29 09:56 | PC.PHAR ---
Addendum entered by Ammy Toussaint 09/29/22 09:57: ext med history shows lasix 20mg daily filled 09/18/22 90d/s Original Note: discharge orders in-unable to update med rec with discharge orders in
[2022-09-29] MEDS: duloxetine 60 mg Capsule PO (10:25)
[2022-09-29] MEDS: docusate sodium 100 mg Capsule PO (10:25)
[2022-09-29] MEDS: aspirin 81 mg Chew Tablet PO (10:26)
[2022-09-29] MEDS: pregabalin 150 mg Capsule PO (10:26)
[2022-09-29] MEDS: predniSONE 20 mg Tablet PO (10:26)
--- NOTE | 2022-09-29 10:36 | PC.CHAP ---
Pastoral Care Encounter/Spiritual Assessment Type of Contact [] Declined hand splitter visit [] Patient/Family/Request visit [] Outpatient visit [] Follow-up visit [] Physician referral [] Code/Alert [x] Routine visit [] Staff referral [] Actively dying [] Patient sleeping [] Family support [] [] Out of room [] Palliative care [] [] Receiving care in room [] Pre-surgical visit [] Trauma [] Long length of stay [] ICU visit [] Other: Relational/Emotional Strength [x] Patient feels connected with others/family/visitors/staff [] Distress [] Loneliness/isolation [] Abandonment Spirituality of Patient [x] Person of Patience [] Attends Anglican of their Patience [x] Believes in Prayer [] Reads Bible or Zoroastrianism materials [] There are Spiritual issues to be addressed Quality 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 Technician Interventions [x] Prayer [x] Active listening [] Non-anxious presence [x] Spiritual/emotional support [] Crisis/trauma care [] Spiritual counseling [] Bereavement support [] Provided bereavement packet [] Provided Bible/devotional materials [] Provided toy/stuffed animal, coloring book to patient or family member [] Provided Communion [] Anointing/[place] [] Salvation [x] Completed spiritual assessment [] Other: Impact on Illness or Injury [] Angry [] Fearful [] Anxious [] Often cries [] Exhaustion [] Unable to work [] Unable to attend orthodoxy [] Unable to walk/stand [] Unable to read [] Unable to drive [] Unable to eat/drink [] Unable to sleep [] Unable to be with family [] Patient intubated [] Other: Summary Time spent with patient 5 min
--- NOTE | 2022-09-29 10:38 | PC.NURSE ---
Discussed discharge, new medications, continued medications and follow up appointments. Patient verbalized understanding. Patient is also trying to get a hold of to take home.
== END 2022-09-29 10:35 | disposition home or self-care (01) | DRG 472 ==
LOC: MEDSURG 20:27
PROVIDERS: Admitting Provider Orthopaedic Surgery; PCP Family Medicine; Visit Provider Orthopaedic Surgery
PROC: 0RB30ZZ Excision of Cervical Vertebral Disc, Open Approach (ICD-10-PCS; CPT 22551; principal; 2022-09-28 07:00)
PROC: 0RG20A0 Fusion of 2 or more Cervical Vertebral Joints with Interbody Fusion Device, Anterior Approach, Anterior Column, Open Approach (ICD-10-PCS; 2022-09-28 07:00)
DX: M47.22 Other spondylosis with radiculopathy, cervical region (principal); Z68.43 Body mass index [BMI] 50.0-59.9, adult; Z79.891 Long term (current) use of opiate analgesic; M51.34 Other intervertebral disc degeneration, thoracic region; M48.062 Spinal stenosis, lumbar region with neurogenic claudication; Z98.1 Arthrodesis status; E66.01 Morbid (severe) obesity due to excess calories; G47.33 Obstructive sleep apnea (adult) (pediatric); Z98.84 Bariatric surgery status; Z96.82 Presence of neurostimulator
CPT/HCPCS: 51702; 72020; 76000; 93005; 94640; 94660; 97110; 97116; 97161; C1713; C1763; C9359; J0690; J1170; J1885; J1940; J2250; J2310; J2704; J3010; J3490; J7030; J7120; J7512; L0172

== ENCOUNTER → 2022-10-13 10:35 | Outpatient (BNVA) | payer MEDICARE, SELFPAY | PROVIDERS: PCP Family Medicine; Visit Provider Orthopaedic Surgery | DX: Z47.89 Encounter for other orthopedic aftercare (principal); Z98.1 Arthrodesis status | CPT/HCPCS: 72040; 99024 ==

== ENCOUNTER → 2022-10-22 11:23 | Outpatient (BNVA) | payer MEDICARE, SELFPAY | PROVIDERS: PCP Family Medicine; Visit Provider Family Medicine | DX: R73.9 Hyperglycemia, unspecified (principal); E66.9 Obesity, unspecified; R20.2 Paresthesia of skin; I63.9 Cerebral infarction, unspecified | CPT/HCPCS: 80053; 80061; 83036; 84443 ==

== ENCOUNTER → 2022-11-10 10:31 | Outpatient (BNVA) | payer MEDICARE, SELFPAY | PROVIDERS: PCP Family Medicine; Visit Provider Orthopaedic Surgery | DX: Z47.89 Encounter for other orthopedic aftercare (principal); Z98.1 Arthrodesis status | CPT/HCPCS: 72040; 99024 ==

== ENCOUNTER → 2022-12-03 09:42 | Outpatient (BNVA) | payer MEDICARE, SELFPAY | PROVIDERS: PCP Family Medicine; Visit Provider Anesthesiology Pain Medicine | DX: M54.6 Pain in thoracic spine (principal); M48.062 Spinal stenosis, lumbar region with neurogenic claudication; M79.604 Pain in right leg; M79.605 Pain in left leg | CPT/HCPCS: 72072; 99215 ==

== ENCOUNTER → 2022-12-22 11:24 | Outpatient (BNVA) | payer MEDICARE, SELFPAY | PROVIDERS: PCP Family Medicine; Visit Provider Orthopaedic Surgery | DX: Z98.1 Arthrodesis status (principal); M47.22 Other spondylosis with radiculopathy, cervical region | CPT/HCPCS: 72040; 99024 ==

== ENCOUNTER → 2023-01-27 10:15 | Outpatient (BNVA) | payer MEDICARE, SELFPAY | PROVIDERS: PCP Family Medicine; Visit Provider Anesthesiology Pain Medicine | DX: M48.062 Spinal stenosis, lumbar region with neurogenic claudication (principal) | CPT/HCPCS: 99214 ==

== ENCOUNTER → 2023-02-17 13:09 | Outpatient (BNVA) | payer MEDICARE, SELFPAY | PROVIDERS: PCP Family Medicine; Referring Provider Dermatology; Visit Provider Nurse Practitioner Family | DX: Z80.8 Family history of malignant neoplasm of other organs or systems (principal); I87.2 Venous insufficiency (chronic) (peripheral); L71.8 Other rosacea; D22.4 Melanocytic nevi of scalp and neck; L81.4 Other melanin hyperpigmentation | CPT/HCPCS: 99204 ==

== ENCOUNTER → 2023-03-30 11:15 | Outpatient (BNVA) | payer MEDICARE, SELFPAY | PROVIDERS: PCP Family Medicine; Visit Provider Orthopaedic Surgery | DX: Z98.1 Arthrodesis status; M54.6 Pain in thoracic spine | CPT/HCPCS: 99214 ==

== ENCOUNTER 2023-04-07 14:29 | Outpatient (CLI) | payer MEDICARE, SELFPAY ==
--- NOTE | 2023-04-07 14:30 | MR_ITS ---
WS: [id number] MRI THORACIC SPINE noncontrast HISTORY: Pain COMPARISON: 04/14/2021 TECHNIQUE: Multiplanar sequences are performed in sagittal and axial planes. There is significant artifact in the distal thoracic spine from the extensive posterior thoracic fusi on. Fusion hardware begins at T10 and extends inferiorly. There is significant artifact obscuring the central canal and detail through the lower thoracic spine. Previously described edema within the T9 and T10 vertebral bodies has resolved. There is no edema remaining. There is increased soft tissue trimble rrounding the T9 and T10 vertebral bodies. Marked narrowing of the disc space at T9-10. There is no f luid along the disc space. There is mild posterior retropulsion and bulging of the T10 vertebral body contacting the cord. Nerve root sleeve diverticulum on the RIGHT at T8-9. Marked facet joint arthrit is at T9-10. Below T9 and T10 the disc bases are poorly visualized due to the hardware artifact. IMPRESSION: 1. Previously described edema and osteomyelitis suspected at T9 and T10 is resolved. There is no resi dual edema. 2. Posterior retropulsion of the T10 vertebral body contacting the ventral thoracic cord. There is ar tifact at this level making evaluation of the cord difficult. This retropulsion appears slightly more prominent as compared to the prior examination
== END 2023-04-07 14:30 | disposition home or self-care (01) ==
PROVIDERS: PCP Family Medicine; Visit Provider Orthopaedic Surgery
DX: M54.6 Pain in thoracic spine (principal)
CPT/HCPCS: 72146

== ENCOUNTER → 2023-04-15 14:20 | Outpatient (BNVA) | payer MEDICARE, SELFPAY | PROVIDERS: PCP Family Medicine; Visit Provider Orthopaedic Surgery | DX: M48.062 Spinal stenosis, lumbar region with neurogenic claudication (principal); Z98.1 Arthrodesis status; M40.204 Unspecified kyphosis, thoracic region | CPT/HCPCS: 99214 ==

== ENCOUNTER → 2023-06-01 10:20 | Outpatient (BNVA) | payer MEDICARE, SELFPAY | PROVIDERS: PCP Family Medicine; Visit Provider Orthopaedic Surgery | DX: M48.04 Spinal stenosis, thoracic region (principal); Z98.1 Arthrodesis status | CPT/HCPCS: 72072; 99214 ==

== ENCOUNTER 2023-07-23 11:49 | Outpatient (CLI) | payer MEDICARE, SELFPAY ==
[2023-07-23 12:45] LABS: Basophils # 0.3 10^3/uL (0.0-0.1); Basophils % 2.2 %; Eosinophils # 1.7 10^3/uL (0.0-0.8); Eosinophils % 13.2 %; Hematocrit 32.1 % (36-47); Lymphocytes # 2.9 10^3/uL (0.8-4.8); Mean Corpuscular HGB Conc 24.6 g/dL (30-55); Mean Corpuscular Hemoglobin 16.6 pg (27-33); Mean Corpuscular Volume 67.6 fl (85-98); Mean Platelet Volume 8.4 fL (7.4-10.4); Monocytes # 0.8 10^3/uL (0.2-0.9); Monocytes % 6.3 %; Neutrophils # 6.79 10^3/uL (1.8-7.7); Nucleated Red Blood Cells % 0.2 %; Platelet Count 499 10^3/cmm (157-399); Red Blood Count 4.75 10^6/uL (3.85-5.65); White Blood Count 12.57 10^3/uL (3.29-11.43)
[2023-07-23 13:01] LABS: Alanine Aminotransferase 13 U/L (0-33); Albumin Level 3.7 g/dL (3.5-5.2); Alkaline Phosphatase 154 U/L (35-105); Anion Gap 14.5 (5-19); Aspartate Amino Transferase 24 U/L (0-32); Blood Urea Nitrogen 12 mg/dL (8-23); Calcium 8.8 mg/dL (8.5-10.5); Carbon Dioxide 25 mmol/L (22-29); Chloride 106 mmol/L (98-107); Globulin 3.3 g/dL (1.3-4.6); Glucose 114 mg/dL (65-115); Osmolality Calculated 293 mOsm/kg (285-295); Potassium 4.5 mmol/L (3.5-5.1); Sodium 141 mmol/L (136-145); Total Bilirubin 0.2 mg/dL (0.15-1.2)
[2023-07-23 13:24] LABS: Urine Color Yellow (Yellow)
[2023-07-23 13:25] LABS: Add Urine Culture? No; Add Urine Microscopic? YES; Amorphous Sediment Urine 1+ /hpf; Bacteria Urine TRACE /hpf; Bilirubin Urine Neg (Negative); Blood Urine Neg (Negative); Calcium Oxalate Crystals Urine >100 /hpf; Glucose Urine UA Norm (Normal); Ketones Urine Negative (Negative); Leukocyte Esterase Urine 2+ (Negative); Nitrate Urine Negative (Negative); Protein Urine Trace (Negative); RBC Urine 0-4 /hpf (0-2); Urine Appearance Cloudy (CLEAR); Urobilinogen Urine 1 mg/dL (Negative); pH Urine 5 (5-7)
== END 2023-07-23 11:50 | disposition home or self-care (01) ==
LOC: LAB 11:50
PROVIDERS: Family Medicine; PCP Family Medicine; Visit Provider Orthopaedic Surgery
DX: Z01.818 Encounter for other preprocedural examination (principal)
CPT/HCPCS: 36415; 80053; 81001; 85025

== ENCOUNTER → 2023-08-17 11:17 | Outpatient (BNVA) | payer MEDICARE, SELFPAY | PROVIDERS: PCP Family Medicine; Visit Provider Surgery | DX: D64.9 Anemia, unspecified (principal) | CPT/HCPCS: 99203 ==

== ENCOUNTER 2023-08-18 13:36 | Outpatient (CLI) | payer MEDICARE, SELFPAY | END 2023-08-18 13:37 | disposition home or self-care (01) | LOC: LAB 13:37 | PROVIDERS: PCP Family Medicine; Visit Provider Surgery | DX: D64.9 Anemia, unspecified (principal) | CPT/HCPCS: 82274 ==

== ENCOUNTER → 2023-08-24 14:43 | Outpatient (BNVA) | payer MEDICARE, SELFPAY | PROVIDERS: PCP Family Medicine; Visit Provider Surgery | DX: D64.9 Anemia, unspecified (principal) | CPT/HCPCS: 99212 ==

== ENCOUNTER 2023-08-26 07:16 | Day surgery (SDC) | payer MEDICARE, SELFPAY ==
--- NOTE | 2023-08-26 06:39 | P.HPUD_ITS ---
Surgery/Procedure H&P Update DATE OF PROCEDURE: August 26, 2023 DATE H&P PERFORMED: 08/17/22 H&P UPDATE INFORMATION: I have reviewed H&P completed within last 30 days, I have examined patient prior to procedure, No changes to prior documentation and H&P is in [facility] EMR on date indicated PLANNED PROCEDURE: Operation Date: 08/26/23 08:20 Proposed Procedures p [id number] colon G0105 screen colon H risk D50.9(Not Applicable) - Morris Alba MD
[2023-08-26 07:39] VITALS: BP 146/92; PULSE 116; RESP 18; TEMP 36.3; O2SAT 94; BMI 49.2
[2023-08-26] MEDS: sodium chloride 0.9% 1,000 ML 30 ML IV (07:50)
--- NOTE | 2023-08-26 07:55 | P.ANESASSM_ITS ---
Pre-Anesthetic Assessment Height/Weight: Height 1.68 m Weight 138.346 kg Temp Pulse Resp BP Pulse Ox O2 Del Method 97.4 F L 116 H 18 146/92 94 Room Air 08/26/23 07:39 08/26/23 07:39 08/26/23 07:39 08/26/23 07:39 08/26/23 07:39 08/26/23 07:39 Preop Diagnosis: anemia Operation Date: 08/26/23 08:20 Proposed Procedures p [id number] colon G0105 screen colon H risk D50.9(Not Applicable) - Morris Alba MD Familial anesthetic complications: no issues Was Beta Rony taken within 24 hours: N/A Was Clonidine taken within 24 hours: N/A Last intake: Intake Last Liquid Date 08/25/23 Last Liquid Time 22:00 Last Solid Date 08/24/23 Last Solid Time 18:00 Social No alcohol and No tobacco Exam alert, oriented x 3 and clear to auscultation bilaterally Airway Submandibular: within normal limits Cervical ROM: within normal limits Mallampati: Class II Dentition: full Comments: Comments: front left tooth chipped Pulmonary Sleep Apnea (CPAP broke 1wk prior compliant prior) CV/HEM None reported on Lasix due to BLE swelling patient states she does not have HF that its due to obesity. None reported Hepatic None reported GI Gastroesophageal Reflux Disease (controlled) previous weight loss surgery Metabolic Morbid Obesity Musc/skel Lower Back Pain and Weakness (prn walker use) Neuropsych Anxiety and Neuropathy (L>R in legs) Anesthetic Plan ASA status: 3 Anesthesia: MAC Medications/Allergies Home Medications Medication Instructions Recorded Confirmed Last Taken Type duloxetine 60 mg capsule,delayed 60 mg PO DAILY@09/06/19 08/24/23 08/25/23 History release (Cymbalta) omeprazole 20 mg capsule,delayed 20 mg PO DAILY@08/08/20 08/24/23 08/05/23 History release ascorbic acid 7.5 mg-vit E 7.5 4 tab PO DAILY@11/09/20 08/24/23 08/25/23 History unit-biotin 1,250 mcg chewable tablet (Hair,Skin,Nails with Biotin) calcium carbonate 600 mg-vitamin 4 tab PO DAILY@ PRN Indigestion 11/09/20 08/24/23 08/24/23 History D3 5 mcg (200 unit) tablet cetirizine 10 mg tablet (Zyrtec) 10 mg PO DAILY@21 PRN allergies 11/09/20 08/24/23 08/24/23 History cranberry 2 tab PO DAILY@21 11/09/20 08/24/23 08/24/23 History TLSO Brace #1 ea 06/19/21 08/24/23 Unknown Rx albuterol sulfate 90 mcg/actuation 2 puff inhalation Q4H PRN 02/26/22 08/24/23 08/24/23 Rx aerosol inhaler (ProAir HFA) Shortness Of Breath #8.5 grams Bone Growth Stimulator E0748 #1 ea 09/28/22 08/24/23 Unknown Rx alprazolam 0.5 mg tablet 0.5 mg PO TID PRN Anxiety #90 tabs 06/02/23 08/24/23 08/25/23 Rx ferrous sulfate 325 mg (65 mg 325 mg PO TID #90 tabs 08/04/23 08/24/23 08/25/23 Rx iron) tablet oxycodone-acetaminophen 7.5 mg-325 1 tab PO QID 08/17/23 08/24/23 08/25/23 History mg tablet amitriptyline 25 mg tablet See Rx Instructions .Route 08/24/23 08/26/23 Unknown Rx .COMPLEX #180 tabs c-pap supplies #1 ea 08/24/23 Unknown Rx furosemide 20 mg tablet 20 mg PO DAILY PRN swelling 08/24/23 08/24/23 08/05/23 History magnesium 200 mg tablet 400 mg PO DAILY 08/24/23 08/24/23 08/25/23 History Allergies Allergy/AdvReac Type Severity Reaction Status Date / Time adhesive tape Allergy Unknown Verified 08/24/23 14:44 Current Medications Generic Name Dose Route Start Last Admin Trade Name Freq PRN Reason Stop Dose Admin Sodium Chloride 1,000 mls @ 30 mls/hr 08/26/23 07:30 08/26/23 07:50 Sodium Chloride 0.9% IV 30 mls/hr .Q24H NUBIA Administration PFSH Anesthesia Medical History Chronic prescription opiate use Fracture, thoracic vertebra, compression Epigastric abdominal pain Discitis of thoracic region Spondylarthritis DDD (degenerative disc disease), thoracic Fusion of spine, thoracolumbar region Obstructive sleep apnea Morbid obesity Degenerative lumbar spinal stenosis Internal fixation device (pin, nixon, or screw) mechanical complication Morbid obesity with BMI of 50.0-59.9, adult Lumbar stenosis with neurogenic claudication Intervertebral disc disorder with radiculopathy of lumbosacral region Surgical History Status post cervical spinal fusion 09/24 Status post correction of deviated nasal septum History of appendectomy History of carpal tunnel repair History of knee surgery History of laparoscopic adjustable gastric banding Status post insertion of spinal cord stimulator (~2016) History of lumbar surgery (~2011) 12/2016 Dr. Martin Joyner Thoracic spinal cord stimulator placement 04/2016 Dr. Martin Joyner Right SI joint fusion 03/2016 Dr. Martin Joyner [facility] Left SI joint fusion 06/2012 Dr. Christopher Olmstead [facility] L2-L3 posterior fusion/fixation. 10/2011 Dr. Christopher Olmstead [facility] Fractured fusion screws removed. 12/[address] Orthopedic surgeon. [facility] Spine: L3-L4, L4-L5 L5-S1 Posterior Fusion/fusion Family History Father CAD (coronary artery disease) Social History Smoking and tobacco/nicotine status: never used tobacco/nicotine Alcohol intake: former Substance/Drug Use: never Household members: spouse Marital status: Current occupational status: disabled Data Anesthesia Cardiac Studies: No Data to Display
[2023-08-26 08:59] VITALS: BP 133/73; PULSE 80; RESP 14; TEMP 36.5; O2SAT 100
[2023-08-26 09:18] VITALS: BP 115/71; PULSE 80; RESP 16; O2SAT 100
--- NOTE | 2023-08-26 09:40 | ANE.PACU2 ---
Inpatient post-anesthesia follow up: Airway intact: Yes Vital signs: Temperature 97.7 F Pulse Rate 80 Respiratory Rate 16 Blood Pressure 115/71 Pulse Oximetry 100 Oxygen Delivery Me thod Room Air Oxygen Flow Rate 6 Fraction of Inspir ed Oxygen Hydration adequate: Yes Nausea and vomiting: No Pain level: 1 Mental status: Baseline
== END 2023-08-26 09:40 | disposition home or self-care (01) ==
PROVIDERS: PCP Family Medicine; Visit Provider Surgery
PROC: 0DJD8ZZ Inspection of Lower Intestinal Tract, Via Natural or Artificial Opening Endoscopic (ICD-10-PCS; CPT 45378; principal; 2023-08-26 08:20)
PROC: 0DJ08ZZ Inspection of Upper Intestinal Tract, Via Natural or Artificial Opening Endoscopic (ICD-10-PCS; CPT 43235; 2023-08-26 08:20)
DX: D50.9 Iron deficiency anemia, unspecified (principal); K29.50 Unspecified chronic gastritis without bleeding; K25.3 Acute gastric ulcer without hemorrhage or perforation; E66.01 Morbid (severe) obesity due to excess calories; Z68.42 Body mass index [BMI] 45.0-49.9, adult; G47.33 Obstructive sleep apnea (adult) (pediatric)
CPT/HCPCS: 43239; 45378; 88305; 88342; J2704; J7030

== ENCOUNTER → 2023-09-08 11:01 | Outpatient (BNVA) | payer MEDICARE, SELFPAY | PROVIDERS: PCP Family Medicine; Visit Provider Surgery | DX: Z09 Encounter for follow-up examination after completed treatment for conditions other than malignant neoplasm (principal) | CPT/HCPCS: 99213 ==

== ENCOUNTER → 2023-09-29 13:15 | Outpatient (BNVA) | payer MEDICARE, SELFPAY | PROVIDERS: PCP Family Medicine; Visit Provider Family Medicine | DX: D64.9 Anemia, unspecified (principal); Z98.890 Other specified postprocedural states | CPT/HCPCS: 80048; 83540; 85025 ==

== ENCOUNTER → 2023-10-21 10:53 | Outpatient (BNVA) | payer MEDICARE, SELFPAY | PROVIDERS: PCP Family Medicine; Visit Provider Family Medicine | DX: D64.9 Anemia, unspecified (principal); N18.9 Chronic kidney disease, unspecified | CPT/HCPCS: 80048; 80053; 83540; 85025 ==

== ENCOUNTER → 2023-10-26 13:30 | Outpatient (BNVA) | payer MEDICARE, SELFPAY | PROVIDERS: PCP Family Medicine; Visit Provider Dermatology | DX: L71.8 Other rosacea (principal); D22.4 Melanocytic nevi of scalp and neck; L81.4 Other melanin hyperpigmentation; Z80.8 Family history of malignant neoplasm of other organs or systems; L82.0 Inflamed seborrheic keratosis; L91.8 Other hypertrophic disorders of the skin | CPT/HCPCS: 11200; 17110; 99213 ==

== ENCOUNTER → 2023-11-10 14:59 | Outpatient (BNVA) | payer MEDICARE, SELFPAY | PROVIDERS: PCP Family Medicine; Visit Provider Family Medicine | DX: D64.9 Anemia, unspecified (principal) | CPT/HCPCS: 85025 ==

== ENCOUNTER → 2023-12-21 14:20 | Outpatient (BNVA) | payer MEDICARE, SELFPAY | PROVIDERS: PCP Family Medicine; Visit Provider Nurse Practitioner Family | DX: L43.8 Other lichen planus (principal); L82.0 Inflamed seborrheic keratosis; D22.5 Melanocytic nevi of trunk; L81.4 Other melanin hyperpigmentation; Z80.8 Family history of malignant neoplasm of other organs or systems | CPT/HCPCS: 17110; 99214 ==

== ENCOUNTER → 2023-12-23 14:18 | Outpatient (BNVA) | payer MEDICARE, SELFPAY | PROVIDERS: PCP Family Medicine; Visit Provider Orthopaedic Surgery | DX: Z98.1 Arthrodesis status (principal); Z98.890 Other specified postprocedural states; M54.9 Dorsalgia, unspecified; M48.062 Spinal stenosis, lumbar region with neurogenic claudication | CPT/HCPCS: 72072; 72100; 73523; 80053; 81001; 85025; 99214 ==

== ENCOUNTER → 2024-02-02 09:16 | Outpatient (BNVA) | payer MEDICARE, SELFPAY | PROVIDERS: PCP Family Medicine; Visit Provider Family Medicine | DX: Z01.818 Encounter for other preprocedural examination (principal) | CPT/HCPCS: 80053; 81003; 85025; 93005 ==

== ENCOUNTER → 2024-02-15 15:56 | Outpatient (BNVA) | payer MEDICARE, SELFPAY | PROVIDERS: PCP Family Medicine; Visit Provider Orthopaedic Surgery | DX: Z98.1 Arthrodesis status (principal) | CPT/HCPCS: 72040; 72110; 99213 ==

== ENCOUNTER 2024-02-28 10:35 | Day surgery (SDC) | payer MEDICARE, SELFPAY ==
[2024-02-28] VITALS (10 sets, daily range): BP systolic 110–157; BP diastolic 72–107; PULSE 80–105; RESP 16–18; TEMP 36.3–36.6; O2SAT 92–96; BMI 48.7
[2024-02-28] MEDS: sodium chloride 0.9% 1,000 ML 30 ML IV (11:06)
--- NOTE | 2024-02-28 14:28 | W.PM.OPSUD ---
Surgery/Procedure H&P Update DATE OF PROCEDURE: February 28, 2024 DATE H&P PERFORMED: 02/15/24 H&P UPDATE INFORMATION: I have reviewed H&P completed within last 30 days, I have examined patient prior to procedure and No changes to prior documentation PREOP DIAGNOSIS: Proximal junctional kyphosis PLANNED PROCEDURE: Operation Date: 02/28/24 12:10 Proposed Procedures p Thoracic Fusion/ Posterior spine fusion(Not Applicable) - Saul Fowler DO
--- NOTE | 2024-02-28 17:13 | ANES.PREANE2 ---
Pre-Anesthetic Assessment Height/Weight: Height 1.68 m Weight 136.985 kg Temp Pulse Resp BP Pulse Ox O2 Del Method 97.4 F L 105 H 18 157/107 93 Room Air 02/28/24 10:58 02/28/24 10:58 02/28/24 10:58 02/28/24 10:58 02/28/24 10:58 02/28/24 10:58 Preop Diagnosis: Proximal junctional kyphosis Operation Date: 02/28/24 12:10 Proposed Procedures p Thoracic Fusion/ Posterior spine fusion(Not Applicable) - Saul Fowler, DO Familial anesthetic complications: Required post-op vent with ACDF Was Beta Rnoy taken within 24 hours: N/A Was Clonidine taken within 24 hours: N/A Last intake: Intake Last Liquid Date 02/27/24 Last Liquid Time 22:00 Last Solid Date 02/27/24 Last Solid Time 20:00 Social No alcohol and No tobacco Exam alert, oriented x 3, clear to auscultation bilaterally and regular rate & rhythm Airway Mallampati: Class I Dentition: chipped Pulmonary Sleep Apnea Metabolic Morbid Obesity Neuropsych Cerebrovascular Accident Anesthetic Plan ASA status: 3 Anesthesia: General Risk of > 500 ml blood loss (7ml/kg in children): No Medications/Allergies Home Medications Medication Instructions Recorded Confirmed Last Taken Type ascorbic acid 7.5 mg-vit E 7.5 4 tab PO DAILY 11/09/20 02/28/24 02/27/24 History unit-biotin 1,250 mcg chewable tablet (Hair,Skin,Nails with Biotin) cetirizine 10 mg tablet (Zyrtec) 10 mg PO DAILY@21 PRN allergies 11/09/20 02/28/24 08/24/23 History cranberry 2 tab PO DAILY@21 11/09/20 02/28/24 02/27/24 History TLSO Brace #1 ea 06/19/21 02/15/24 Unknown Rx Bone Growth Stimulator E0748 #1 ea 09/28/22 02/15/24 Unknown Rx oxycodone-acetaminophen 7.5 mg-325 1 tab PO QID PRN Pain 08/17/23 02/28/24 02/28/24 History mg tablet c-pap supplies #1 ea 08/24/23 02/15/24 Unknown Rx furosemide 20 mg tablet 20 mg PO DAILY PRN swelling 08/24/23 02/28/24 02/22/24 History alprazolam 0.5 mg tablet 0.5 mg PO TID PRN Anxiety #90 tabs 11/02/23 02/28/24 02/27/24 Rx duloxetine 30 mg capsule,delayed 30 mg PO BID 02/02/24 02/28/24 02/28/24 History release magnesium 200 mg tablet 400 mg PO DAILY PRN Sleep 02/02/24 02/28/24 Unknown History amitriptyline 25 mg tablet 25 - 50 mg PO QPM 02/25/24 02/28/24 02/27/24 History ferrous sulfate 325 mg (65 mg 325 mg PO TID 02/25/24 02/28/24 02/27/24 History iron) tablet (FeroSul) omeprazole 20 mg capsule,delayed 20 mg PO DAILY 02/25/24 02/28/24 02/27/24 History release Allergies Allergy/AdvReac Type Severity Reaction Status Date / Time adhesive tape Allergy Unknown Verified 02/28/24 10:45 Current Medications Generic Name Dose Route Start Last Admin Trade Name Freq PRN Reason Stop Dose Admin Sodium Chloride 1,000 mls @ 30 mls/hr 02/28/24 11:00 02/28/24 11:06 Sodium Chloride 0.9% IV 02/29/24 10:59 30 mls/hr .Q24H NUBIA Administration PFSH Anesthesia Medical History Chronic prescription opiate use Fracture, thoracic vertebra, compression Epigastric abdominal pain Discitis of thoracic region Spondylarthritis DDD (degenerative disc disease), thoracic Fusion of spine, thoracolumbar region Obstructive sleep apnea Morbid obesity Degenerative lumbar spinal stenosis Internal fixation device (pin, nixon, or screw) mechanical complication Morbid obesity with BMI of 50.0-59.9, adult Lumbar stenosis with neurogenic claudication Intervertebral disc disorder with radiculopathy of lumbosacral region Surgical History Status post cervical spinal fusion 09/24 Status post correction of deviated nasal septum History of appendectomy History of carpal tunnel repair History of knee surgery History of laparoscopic adjustable gastric banding Status post insertion of spinal cord stimulator (~2016) History of lumbar surgery (~2011) 12/2016 Dr. Martin Joyner Thoracic spinal cord stimulator placement 04/2016 Dr. Martin Joyner Right SI joint fusion 03/2016 Dr[facility] Martin Joyner [place] [facility] Left SI joint fusion 06/2012 Dr. Christopher Olmstead [facility] L2-L3 posterior fusion/fixation. 10/2011 Dr. Christopher Olmstead [facility] Fractured fusion screws removed. 12/[address] Orthopedic surgeon. [facility] Spine: L3-L4, L4-L5 L5-S1 Posterior Fusion/fusion Family History Father CAD (coronary artery disease) Social History Smoking and tobacco/nicotine status: never used tobacco/nicotine Alcohol intake: former Substance/Drug Use: never Household members: spouse Marital status: Current occupational status: disabled Data Anesthesia Blood Bank 02/28/24 14:13 Blood Type O Positive Rho(D) Type Rh positive Antibody Screen Negative Cardiac Studies: No Data to Display
--- NOTE | 2024-02-28 19:30 | ANE.PACU2 ---
Inpatient post-anesthesia follow up: Airway intact: Yes Vital signs: Temperature 97.9 F Pulse Rate 84 Respiratory Rate 16 Blood Pressure 110/85 Pulse Oximetry 96 Oxygen Delivery Me thod Room Air Oxygen Flow Rate 2 Fraction of Inspir ed Oxygen Hydration adequate: Yes Nausea and vomiting: No Pain level: 1 Mental status: Baseline
== END 2024-02-28 19:30 | disposition home or self-care (01) ==
PROVIDERS: PCP Family Medicine; Visit Provider Orthopaedic Surgery
DX: M40.294 Other kyphosis, thoracic region (principal); Z86.73 Personal history of transient ischemic attack (TIA), and cerebral infarction without residual deficits; G47.30 Sleep apnea, unspecified; E66.01 Morbid (severe) obesity due to excess calories; Z68.42 Body mass index [BMI] 45.0-49.9, adult; Z53.9 Procedure and treatment not carried out, unspecified reason
CPT/HCPCS: 86850; 86900; J0131; J0330; J1100; J1170; J2405; J2704; J3010; J3490; J7030

== ENCOUNTER 2024-03-09 10:25 | Inpatient (IN) | payer MEDICARE, SELFPAY ==
[2024-03-08] VITALS (37 sets, daily range): BP systolic 127–197; BP diastolic 78–130; PULSE 69–91; RESP 10–24; TEMP 36.2–36.6; O2SAT 90–97; BMI 50.3; BMI 51.7
--- NOTE | 2024-03-08 | SC_ITS ---
WS: [email or web address] EXAMINATION: C-arm [place] for CVA [id number] ORDER DATE: 03/08/2024 12:00 AM REASON FOR EXAM: THORASIC FUSION COMPARISON: None available. # OF SPOT FILMS: 2 video series has been performed Intraoperative images demonstrate posterior nixon and pedicle screw fixation of the mid and lower thora cic spine. Please see intraoperative note for full explanation of findings and the procedure.
--- NOTE | 2024-03-08 | XR_ITS ---
NOTE: Report was unsigned for reason: Order was edited. Original Signature date and time was: 03/08/24 @ 1016 WS: [email or web address] 13 seconds of fluoroscopy was utilized. The dap is calculated 58.4 mGy. Addendum Dictated By: Victor M Bartholomew MD Addendum Signed By: Signed Date/Time: Addendum Cosigned By: WS: [email or web address] EXAMINATION: C-arm FL for CVA [id number] ORDER DATE: 03/08/2024 12:00 AM REASON FOR EXAM: THORASIC FUSION COMPARISON: None available. # OF SPOT FILMS: 2 video series has been performed Intraoperative images demonstrate posterior nixon and pedicle screw fixation of the mid and lower thoracic spine. Please see intraoperative note for full explanation of findings and the procedure. Dictated By: Victor M Bartholomew MD Signed By: Signed Date/Time: DD/ 1016 MTDD
--- NOTE | 2024-03-08 06:26 | W.PM.OPSUD ---
Surgery/Procedure H&P Update DATE OF PROCEDURE: March 08, 2024 DATE H&P PERFORMED: 02/15/24 H&P UPDATE INFORMATION: I have reviewed H&P completed within last 30 days, I have examined patient prior to procedure and No changes to prior documentation PLANNED PROCEDURE: Operation Date: 03/08/24 07:00 Proposed Procedures p Thoracic Fusion(Not Applicable) - Saul Fowler DO
--- NOTE | 2024-03-08 06:38 | P.ANESUD_ITS ---
Pre-Anesthetic Update Pre-Anesthetic Assessment: Date of Surgery/Procedure: 03/08/24 Proposed Procedure: Operation Date: 03/08/24 07:00 Proposed Procedures p Thoracic Fusion(Not Applicable) - Saul Fowler, DO Any changes to Pre-Anesthetic Assessment?: No Last Intake: Intake Last Liquid Date 03/07/24 Last Liquid Time 10:00 Last Solid Date 03/07/24 Last Solid Time 18:00 Vitals: Oxygen Delivery Me thod Room Air 03/08/24 06:03 Exam: Pre-Anes Outpt Exam: alert, oriented x 3, clear to auscultation bilaterally and regular rate & rhythm Cardiac Studies: 2 No Data to Display
[2024-03-08] MEDS: sodium chloride 0.9% 1,000 ML 30 ML IV (06:54)
[2024-03-08] MEDS: ceFAZolin 3,000 MG in sodium chloride 0.9% (plus) 100 ML 200 MG IV (07:03)
[2024-03-08] MEDS: lidocaine-epi 1% 20 mL INJ INJECTION (08:17)
[2024-03-08] MEDS: vancomycin 1,000 MG SDV 1000 MG XX (08:17)
--- NOTE | 2024-03-08 10:35 | P.OP_ITS ---
Operative Report Date of procedure: March 08, 2024 Pre-op diagnosis: Proximal junctional kyphosis Post-op diagnosis: same Procedure done: 1. T5-T11 posterior spine fusion 2. T5-T11 posterior spine instrumentation 3. Use of computer navigation stereotactic for spine 4. Use of allograft 5. Hardware removal from spine Surgeon: Saul Fowler DO Estimated blood loss (mL): 300 Procedure: 1. T5-T11 posterior spine fusion 2. T5-T11 posterior spine instrumentation 3. Use of computer navigation stereotactic for spine 4. Use of allograft 5. Hardware removal from spine Patient brought the op suite after going anesthesia placed in the prone position. All areas impingement well-padded. Patient's prepped draped normal sterile fashion. Skin incision made over the previous lesion extending up to the T5 level. Subperiosteal dissection was made out for a T5 down to T9. The s crews at T10 and T11 were identified. The fiducial for computer navigation was attached to the spinous processes a spinous process clamp at the T11 level. C-arm was brought in and spun around the patient and the information from the computer was used to place computer navigated pedicle screws. Next tension was brought to placing the pedicle screws. The T9 was skipped due to the kyphoplasty. There was cement in T8 however is able to get screws around the cement. These were 30 mm screws. Then screws were placed at T7 bilaterally, T6 bilaterally, and T5 bilaterally. Once this was completed then attention was brought to removing the T10 screws. This was done by lifting the nixon out of the tulip after the screw Was removed and then removing the screw. Next an inline connector was placed on the end of the rods bilaterally. The right side rubs little longer had to be cut this was cut with a medical number. And then the inline connectors were connected. And then the nixon was placed from T5 to this connector the rods were then locked in the connector. In the T5 to T 11 connection was made. This was done bilaterally. Screw caps were placed and then everything was torqued into p osition. Wound was irrigated. The bone was then decorticated and ostial amp bone graft was then packed into the lateral gutters from T5 down to T11. Vancomycin powder was placed deep drain was placed and wound was closed in a layered fashion with 0 Vicryl 2-0 Vicryl and Monocryl suture. Sterile dressings applied and patient transferred to the PACU in stable condition.
--- NOTE | 2024-03-08 12:04 | SUR.PHASEI ---
1200 Reported to Lissy, 2nd floor charge nurse that Pts hemovac drain is stitched in place. Lissy to pass that information on to shift commander charge nurses. Lissy stated that she will pass that information to [facility] nurse.
[2024-03-08] MEDS: labetalol 5 mg/mL SDV 20mL IVP (12:50)
--- NOTE | 2024-03-08 13:18 | ANE.PACU2 ---
Inpatient post-anesthesia follow up: Airway intact: Yes Vital signs: Temperature 97.9 F Pulse Rate 77 Respiratory Rate 18 Blood Pressure 127/81 Pulse Oximetry 94 Oxygen Delivery Me thod Nasal Cannula Oxygen Flow Rate 3 Fraction of Inspir ed Oxygen Hydration adequate: Yes Nausea and vomiting: No Pain level: 2 Mental status: Baseline
[2024-03-08] MEDS: lactated ringers 1,000 ML 90 ML IV (13:59)
[2024-03-08] MEDS: ceFAZolin 2,000 mg SDV 2000 MG IVP ×2 (15:33→22:22)
[2024-03-08] MEDS: ferrous sulfate EC 325 mg Tablet PO ×2 (15:34→20:11)
[2024-03-08] MEDS: ketorolac 30 mg/mL INJ IVP (15:34)
[2024-03-08] MEDS: amitriptyline 25 mg Tablet PO (18:01)
[2024-03-08] MEDS: docusate sodium 100 mg Capsule PO (18:01)
[2024-03-08] MEDS: duloxetine 30 mg Capsule PO (18:01)
[2024-03-08] MEDS: oxyCODONE-APAP 10-325 mg Tablet PO (21:27)
[2024-03-08] MEDS: morphine 4 mg/mL SDV 1 mL 2 MG IVP (23:00)
[2024-03-09] MEDS: lactated ringers 1,000 ML 90 ML IV (01:20)
[2024-03-09 04:04] VITALS: BP 149/78; PULSE 90; RESP 18; TEMP 36.4; O2SAT 95
[2024-03-09 06:22] VITALS: RESP 18
[2024-03-09] MEDS: oxyCODONE-APAP 10-325 mg Tablet PO ×2 (06:22→10:58)
[2024-03-09] MEDS: ceFAZolin 2,000 mg SDV 2000 MG IVP (06:23)
[2024-03-09 07:23] VITALS: BP 153/88; PULSE 84; RESP 17; TEMP 36.6; O2SAT 94
[2024-03-09] MEDS: ferrous sulfate EC 325 mg Tablet PO (08:42)
[2024-03-09] MEDS: pantoprazole DR 40 mg Tablet PO (08:42)
[2024-03-09] MEDS: docusate sodium 100 mg Capsule PO (08:42)
[2024-03-09] MEDS: duloxetine 30 mg Capsule PO (08:42)
--- NOTE | 2024-03-09 09:01 | PM.DCS ---
Discharge Providers Date of Admission: 03/08/24 10:24 Date of Discharge: March 09, 2024 Attending Provider at Admission: Saul Fowler DO Attending Provider at Discharge: Saul Fowler DO Primary Care Provider: Tadeo Prather MD Reason for Visit Reason for Visit: M47.24 Physical Exam Narrative: Patient doing well pain controlled. Urinary Catheter Management: Ram: Cath Placed During This Visit: yes, but has since been removed by the nurse Reason for Continuing Indwelling Catheter: Decision to DC Catheter Urinary Catheter Date of Insertion: 03/08/24 Urinary Catheter Time of Insertion: 07:30 Date Urinary Catheter Removed: 03/09/24 Time Urinary Catheter Discontinued: 06:38 Discharge Data Studies Completed and Pending Laboratory Results Blood Type O Positive 03/08/24 06:01 Rho(D) Type Rh positive 03/08/24 06:01 Antibody Screen Negative 03/08/24 06:01 Vitals Last Vital Signs Temp 97.8 F 03/09/24 07:23 Pulse 84 03/09/24 07:23 Resp 17 03/09/24 07:23 BP 153/88 03/09/24 07:23 Pulse Ox 94 03/09/24 07:23 O2 Del Method Nasal Cannula 03/09/24 07:23 O2 Flow Rate 2 03/08/24 20:13 Discharge Plan Discharge Patient Disposition: Home Condition: Stable Prescriptions: New oxycodone-acetaminophen 10-325 mg tablet 1 tab PO Q4H PRN (Reason: pain) 7 Days Qty: 40 0RF Continued duloxetine 30 mg capsule,delayed release(DR/EC) 30 mg PO BID cetirizine [Zyrtec] 10 mg Tablet 10 mg PO DAILY@21 PRN (Reason: allergies) Hair, Skin, Nails with Biotin 7.5-7.5-1,250 mg-unit-mcg Tablet,Chewable 4 tab PO DAILY cranberry 2 tab PO DAILY@21 omeprazole 20 mg Capsule,Delayed Release(Dr/Ec) 20 mg PO DAILY amitriptyline 25 mg tablet 25 - 50 mg PO QPM Rx Instructions: TAKE 1 TO 2 TABLETS BY MOUTH NIGHTLY ferrous sulfate [FeroSul] 325 mg (65 mg iron) tablet 325 mg PO TID Rx Instructions: TAKE 1 TABLET BY MOUTH THREE TIMES DAILY furosemide 20 mg tablet 20 mg PO DAILY PRN (Reason: swelling) Rx Instructions: Take 1 tablet by mouth once daily magnesium 200 mg tablet 400 mg PO DAILY PRN (Reason: Sleep) Discontinued oxycodone-acetaminophen 7.5-325 mg tablet 1 tab PO QID PRN (Reason: Pain) alprazolam 0.5 mg tablet 0.5 mg PO TID PRN (Reason: Anxiety) Qty: 90 3RF No Action (DME) TLSO Brace See Rx Instructions .Route .MEDSUPPLY Qty: 1 0RF Rx Instructions: As directed (DME) Bone Growth Stimulator E0748 See Rx Instructions .Route .MEDSUPPLY Qty: 1 0RF Rx Instructions: As directed (DME) c-pap supplies See Rx Instructions .Route .MEDSUPPLY Qty: 1 11RF Rx Instructions: As directed Discharge Orders: Discharge Order (Routine); Ordered 03/09/24 Ordered By: Saul Fowler Discharge Diet: Advance as tolerated Discharge Activity: Limit activity as instructed Patient Instructions: Acute Wound Care (DC), Opioid Safety, Post Anesthesia Care Activity Restrictions/Additional Instructions: Okay to start alprazolam when you get home Thank you for [facility] for your care! The following is a list of instructions, from your provider, to follow upon your discharge to ensure you have the optimal recovery from your recent injury orsurgery. Follow-up care is a panchal part of your treatment and safety. Be sure to make and go to all appointments, and call your doctor if you are having problems. If you do not already have a follow-up appointment made, call Dr. Fowler office in the next 1-3 days to make follow up appointment for 1 weeks at [phone]. It is also a good idea to know your test results and keep a list of the medicines you take. Medications will be prescribed for you at your provider's discretion. These medications are to be used as instructed; if they are taken more often that prescribed they will not be refilled early and in most cases will not be refilled at all. > When a refill is needed,you should contact yulissa streeter 2-3 business days before your prescription runs out. Medications will NOT be refilled by central station operator providers after hours! > Many pain medications contain Tylenol (Acetaminophen). Do not consume more than 4,000 mg of Tylenol per day in total with any combination ofmedications. > Pain medications can cause constipation. Please use an over the counter stool softener as directed, while taking pain medications. Consulty our local pharmacist with questions or recommendations on stool softeners. If constipation persists, contact our office or your primary care provider. > While under our care,you are not to receive pain medications or other controlled substances from any other provider unless our office is notified and approves. Any attempts to do so will result in refusal to prescribe any further pain medications and possible dismissal from our practice. ? Will change dressing in clinic in 1 week. ? Showering is permitted, however we ask that you do not take a bath, sit in a whirlpool / Jacuzzi, or go swimming for 1 month. For only the first 2 days after surgery, lt wilt be necessary for you to cover your wound/dressing with plastic and tape to keep it dry. ? Walking is essential for the healing process after surgery. We would like you to slowly advance your walking. This should be done on relatively flat clear ground (inside or out) or can be done on a treadmill. Remember this goal does not have to happen all at once, slowly increase your distance and duration. This can be broken into more more than one walk per day as tolerated. Patients who walk as directed after surgery rarely require Physical Therapy. In the unlikely event this issue arises your provider will direct hospital staff to make the appropriate arrangements. ? No lifting over 5 pounds {a gallon of milk) or bending/twisting until further notice. Each of these activities places an unnecessary amount of stress onto the body and can impede the delicate healing process. > Instead of bending at the waist, keep your back straight and bend at the knees. > Instead of twisting your torso, keep your back straight and turn your entire body with your feet. ? You may sleep in any position which makes you comfortable. Many patients find comfort sleeping in a reclining chair. It is not abnormal to have difficulty sleeping for the first several weeks following your surgery. We recommend trying Benadry! or Tylenol PM as directed to help with your sleeping difficulties. Both medications are over the counter and available withoutprescription. ? NO SMOKING!!! Smoking dramatically increases the probability of developing postoperative wound infections. ? Common complaints after lumbar and/or thoracic spine surgery include, but are not limited to: numbness and/or tingling in the legs, pain around the incision and surrounding tissues, muscle spasms, or stiffness of the middle to low back. Contact our office if these symptoms persist or if an acute change occurs. ? No driving for the first 3-5days, and not while taking narcotics until seen at your follow-up appointment and cleared. There are no restrictions for riding on short trips, however if you take a longer trip, arrangements should be made to make regular stops to get out of the vehicle and stretch . ? Swelling is an unfortunate event that will take place with any surgery and is the primary source of your postoperative discomfort. While walking and regular approved activities helps control inflammation, there are additional steps you can take to minimizeswelling. > Place ice over the surgical site and surrounding tissue for twenty minutes, followed by applying a low/medium heat (heating pad) for an additional twenty minutes every 1-2 hours as needed for painrelief. > You may use of over the counter anti-inflammatory medications (Ibuprofen, Motrin, Aleve, Advil, etc) as directed on the package label. These types of medicines wm significantly reduce the amount of discomfort you experience after surgery from swelling. It should be noted that if you have and allergy to any of these medications, or a history of ulcers or kidney disease you should consult you primary care provider prior to starting these medications. Discharge Attestations Time Spent in Discharge Care*: less than 30 min Status at Discharge: Cognitive status at discharge: cognitively intact, Behavioral status at discharge: cooperative, Quality Metrics Clinical Quality Measures [ No reported AMI, CVA or VTE this stay] Coding Level of Care Code Acute Code for Chg Armen
--- NOTE | 2024-03-09 10:05 | PC.CHAP ---
Pastoral Care Encounter/Spiritual Assessment Type of Contact [] Declined art gallery internship visit [] Patient/Family/Request visit [] Outpatient visit [] Follow-up visit [] Physician referral [] Code/Alert [x] Routine visit [] Staff referral [] Actively dying [] Patient sleeping [] Family support [] [] Out of room [] Palliative care [] [] Receiving care in room [] Pre-surgical visit [] Trauma [] Long length of stay [] ICU visit [] Other: Relational/Emotional Strength [x] Patient feels connected with others/family/visitors/staff [] Distress [] Loneliness/isolation [] Abandonment Spirituality of Patient [x] Person of Patience [x] Attends Amish of their Patience [x] Believes in Prayer [x] Reads Bible or Latter-Day materials [] There are Spiritual issues to be addressed Cut Off Machine Operator Interventions [x] Prayer [x] Active listening [] Non-anxious presence [x] Spiritual/emotional support [] Crisis/trauma care [] Spiritual counseling [] Bereavement support [] Provided bereavement packet [] Provided Bible/devotional materials [] Provided toy/stuffed animal, coloring book to patient or family member [] Provided Communion [] Anointing/[place] [] Salvation [x] Completed spiritual assessment [] Other: Impact on Illness or Injury [] Angry [] Fearful [] Anxious [] Often cries [] Exhaustion [] Unable to work [] Unable to attend evangelical [] Unable to walk/stand [] Unable to read [] Unable to drive [] Unable to eat/drink [] Unable to sleep [] Unable to be with family [] Patient intubated [] Other: Summary Time spent with patient 15 min
[2024-03-09 10:58] VITALS: RESP 18
[2024-03-09 11:40] VITALS: BP 141/83; PULSE 82; RESP 17; TEMP 36.6; O2SAT 93
[2024-03-09 13:45] VITALS: BP 141/83; PULSE 82; RESP 17; TEMP 36.6; O2SAT 93
== END 2024-03-09 13:45 | disposition home or self-care (01) | DRG 460 ==
PROVIDERS: Admitting Provider Orthopaedic Surgery; PCP Family Medicine; Visit Provider Orthopaedic Surgery
PROC: 0RG70K1 Fusion of 2 to 7 Thoracic Vertebral Joints with Nonautologous Tissue Substitute, Posterior Approach, Posterior Column, Open Approach (ICD-10-PCS; principal; 2024-03-08 07:00)
DX: M51.34 Other intervertebral disc degeneration, thoracic region (principal); Z68.43 Body mass index [BMI] 50.0-59.9, adult; M96.3 Postlaminectomy kyphosis; M51.17 Intervertebral disc disorders with radiculopathy, lumbosacral region; M48.062 Spinal stenosis, lumbar region with neurogenic claudication; G47.33 Obstructive sleep apnea (adult) (pediatric); Z98.1 Arthrodesis status; E66.01 Morbid (severe) obesity due to excess calories
CPT/HCPCS: 36415; 51702; 72070; 76000; 77001; 86850; 86900; 97116; 97161; 97530; C1713; J0131; J0330; J0690; J1170; J1885; J2250; J2270; J2704; J3010; J3370; J3490; J7030; J7120; P9045

== ENCOUNTER → 2024-03-14 14:13 | Outpatient (BNVA) | payer MEDICARE, SELFPAY | PROVIDERS: PCP Family Medicine; Visit Provider Orthopaedic Surgery | DX: Z98.1 Arthrodesis status (principal) | CPT/HCPCS: 99024 ==

== ENCOUNTER → 2024-03-21 08:26 | Outpatient (BNVA) | payer MEDICARE, SELFPAY | PROVIDERS: PCP Family Medicine; Visit Provider Orthopaedic Surgery | DX: Z98.1 Arthrodesis status (principal) | CPT/HCPCS: 99024 ==

== ENCOUNTER → 2024-04-20 07:55 | Outpatient (BNVA) | payer MEDICARE, SELFPAY | PROVIDERS: PCP Family Medicine; Visit Provider Orthopaedic Surgery | DX: Z98.1 Arthrodesis status (principal) | CPT/HCPCS: 72072; 99024 ==

== ENCOUNTER → 2024-06-06 08:30 | Outpatient (BNVA) | payer MEDICARE, SELFPAY | PROVIDERS: PCP Family Medicine; Visit Provider Orthopaedic Surgery | DX: M54.9 Dorsalgia, unspecified (principal); Z98.1 Arthrodesis status | CPT/HCPCS: 72072; 99024 ==

== ENCOUNTER 2024-07-03 21:26 | Emergency (ER) | payer MEDICARE, SELFPAY ==
[2024-07-03 21:27] VITALS: BP 114/74; PULSE 86; RESP 18; TEMP 36.7; O2SAT 96; BMI 45.1
--- NOTE | 2024-07-03 21:33 | W.ED.BACK ---
Documented by User: Leonard Su, 07/04/24 06:13 HPI - Back Pain/Injury General: Chief Complaint: Back Pain/Injury Stated Complaint: BACK PAIN Time Seen by Provider: 07/03/24 21:27 History of Present Illness: 68-year-old female presents emergency room complaining of mid upper back pain. She has previously had a surgery to her neck resulting in a fusion. She is also had multiple lumbar surgeries and a spinal cord stimulator placed previously. She had x-rays done earlier this month that showed a slightly progressed T5 compression fracture she is complaining of pain at approximately that same level no recent trauma she woke up this morning and the symptoms were significantly worse. Associated symptoms: Deny abdominal pain, chills, dysuria, fever(s) or urinary urgency Related Data Home Medications Medication Instructions Recorded Confirmed ascorbic acid 7.5 mg-vit E 7.5 4 tab PO DAILY 11/09/20 06/06/24 unit-biotin 1,250 mcg chewable tablet (Hair,Skin,Nails with Biotin) cetirizine 10 mg tablet (Zyrtec) 10 mg PO DAILY@21 PRN allergies 11/09/20 06/06/24 cranberry 2 tab PO DAILY@21 11/09/20 06/06/24 furosemide 20 mg tablet 20 mg PO DAILY PRN swelling 08/24/23 06/06/24 duloxetine 30 mg capsule,delayed 30 mg PO BID 02/02/24 06/06/24 release magnesium 200 mg tablet 400 mg PO DAILY PRN Sleep 02/02/24 06/06/24 omeprazole 20 mg capsule,delayed 20 mg PO DAILY 02/25/24 06/06/24 release Previous Rx's Medication Instructions Recorded TLSO Brace #1 ea 06/19/21 Bone Growth Stimulator E0748 #1 ea 09/28/22 c-pap supplies #1 ea 08/24/23 ferrous sulfate 325 mg (65 mg See Rx Instructions .Route 04/17/24 iron) tablet (FeroSul) .COMPLEX #90 tabs amitriptyline 100 mg tablet 100 mg PO DAILY #30 tabs 05/11/24 oxycodone-acetaminophen 10 mg-325 1 tab PO Q4H PRN pain 7 days #42 06/19/24 mg tablet tabs prednisone 50 mg tablet 50 mg PO DAILY #5 tabs 07/04/24 pregabalin 75 mg capsule (Lyrica) 75 mg PO BID #30 caps 07/04/24 Allergies Allergy/AdvReac Type Severity Reaction Status Date / Time adhesive tape Allergy Unknown Verified 07/03/24 21:32 Review of Systems Const: Denies: fever(s) or chills Card: Denies: chest pain Resp: Denies: dyspnea GI: Denies: abdominal pain : Denies: dysuria, urinary frequency or urinary urgency Musc: Reports: back pain; Denies: neck pain Skin/Breast: Denies: rash PFSH ED PFSH: Medical History Chronic prescription opiate use Fracture, thoracic vertebra, compression Epigastric abdominal pain Discitis of thoracic region Spondylarthritis DDD (degenerative disc disease), thoracic Fusion of spine, thoracolumbar region Obstructive sleep apnea Morbid obesity Degenerative lumbar spinal stenosis Internal fixation device (pin, nixon, or screw) mechanical complication Morbid obesity with BMI of 50.0-59.9, adult Lumbar stenosis with neurogenic claudication Intervertebral disc disorder with radiculopathy of lumbosacral region Surgical History Status post cervical spinal fusion 09/24 Status post correction of deviated nasal septum History of appendectomy History of carpal tunnel repair History of knee surgery History of laparoscopic adjustable gastric banding Status post insertion of spinal cord stimulator (~2016) History of lumbar surgery (~2011) 12/2016 Dr. Martin Joyner Thoracic spinal cord stimulator placement 04/2016 Dr. Martin Joyner Right SI joint fusion 03/2016 Dr. Martin Joyner [facility] Left SI joint fusion 06/2012 Dr. Christopher Shah [facility] L2-L3 posterior fusion/fixation. 10/2011 Dr. Christopher Shah [facility] Fractured fusion screws removed. 12/[address] Orthopedic surgeon. [facility] Spine: L3-L4, L4-L5 L5-S1 Posterior Fusion/fusion Family History Father CAD (coronary artery disease) Social History Smoking and tobacco/nicotine status: never used tobacco/nicotine Alcohol intake: former Substance/Drug Use: never Household members: spouse Marital status: Current occupational status: disabled Physical Exam Const: GENERAL APPEARANCE: cooperative ORIENTATION/CONSCIOUSNESS: Yes awake, Yes oriented to person, Yes oriented to place and Yes oriented to time HENMT: COMMON NORMALS: normocephalic, atraumatic and hearing grossly normal bilaterally HEAD & SCALP: normocephalic and atraumatic Resp: COMMON NORMALS: normal respiratory effort, No retractions, No use of accessory muscles and clear to auscultation bilaterally AUSCULTATION: clear to auscultation bilaterally Cardio: COMMON NORMALS: regular rate, regular rhythm and No murmurs present (Cardio) RATE: regular rate RHYTHM: regular rhythm GI: COMMON NORMALS: Soft to palpation and No hepatosplenomegaly present AUSCULTATION: Yes normoactive bowel sounds PALPATION: Yes Soft to palpation, No Tenderness to palpation present (GI), No Guarding due to palpation present (GI) and Yes No hepatosplenomegaly present Extremity: COMMON NORMALS: normal to inspection, capillary refill normal, no clubbing, cyanosis or edema, no calf tenderness and no pedal edema Neuro: SENSORIUM/ORIENTATION: Yes oriented to person, Yes oriented to place and Yes oriented to time Skin: COMMON NORMALS: no rashes or lesions noted GENERAL SKIN EXAM: no rashes or lesions noted Course Vital Signs: Vital signs: Vital Signs Temperature 98.0 F 07/03/24 21:27 Pulse Rate 72 07/04/24 01:06 Respiratory Rate 16 07/04/24 01:06 Blood Pressure 134/83 07/04/24 01:06 Pulse Oximetry 94 07/04/24 01:06 Oxygen Delivery Me thod Room Air 07/03/24 23:26 MDM - Back Pain/Injury Medical Decision Making Care signed out to Dr. Garcia at change of shift. See final notes for diagnosis and disposition. Labs Radiology Impressions Lumbar Spine CT 07/03/24 21:41 IMPRESSION: Post posterior instrumentation of the visualized spine with no hardware fracture. Multilevel Ludmila screw lucencies as described in the findings. Thoracic Spine CT 07/03/24 21:41 IMPRESSION: 1. Partially included posterior T5 to the pelvis instrumentation with multilevel lucencies as described in the findings. 2. Chronic moderate compression deformity of the T5 vertebral body. No severe bony canal stenosis. Discharge Plan Discharge Patient Disposition: Home Clinical Impression: Intervertebral disc disorder with radiculopathy of lumbosacral region Thoracic back pain Qualifiers: Chronicity: chronic Back pain laterality: bilateral Qualified Code(s): M54.6 - Pain in thoracic spine Condition: Stable Prescriptions: New prednisone 50 mg tablet 50 mg PO DAILY Qty: 5 0RF pregabalin [Lyrica] 75 mg capsule 75 mg PO BID Qty: 30 0RF No Action (DME) TLSO Brace See Rx Instructions .Route .MEDSUPPLY Qty: 1 0RF Rx Instructions: As directed duloxetine 30 mg capsule,delayed release(DR/EC) 30 mg PO BID amitriptyline 100 mg tablet 100 mg PO DAILY Qty: 30 11RF (DME) Bone Growth Stimulator E0748 See Rx Instructions .Route .MEDSUPPLY Qty: 1 0RF Rx Instructions: As directed (DME) c-pap supplies See Rx Instructions .Route .MEDSUPPLY Qty: 1 11RF Rx Instructions: As directed ferrous sulfate [FeroSul] 325 mg (65 mg iron) tablet See Rx Instructions .ROUTE .COMPLEX Qty: 90 4RF Dose Instruction: TAKE 1 TABLET BY MOUTH THREE TIMES DAILY Rx Instructions: TAKE 1 TABLET BY MOUTH THREE TIMES DAILY oxycodone-acetaminophen 10-325 mg tablet 1 tab PO Q4H MDD 6 PRN (Reason: pain) 7 Days Qty: 42 0RF cetirizine [Zyrtec] 10 mg Tablet 10 mg PO DAILY@21 PRN (Reason: allergies) Hair, Skin, Nails with Biotin 7.5-7.5-1,250 mg-unit-mcg Tablet,Chewable 4 tab PO DAILY cranberry 2 tab PO DAILY@21 omeprazole 20 mg Capsule,Delayed Release(Dr/Ec) 20 mg PO DAILY furosemide 20 mg tablet 20 mg PO DAILY PRN (Reason: swelling) Rx Instructions: Take 1 tablet by mouth once daily magnesium 200 mg tablet 400 mg PO DAILY PRN (Reason: Sleep) Discharge Orders: Discharge ED (Routine); Ordered 07/04/24 Ordered By: Gigi Garcia Referrals: Tadeo Prather MD [Primary Care Provider] - 1 week Patient Instructions: Osteoarthritis (ED), Back Pain (ED) Activity Restrictions/Additional Instructions: Your CT scans did not show any acute fractures and showed severe back arthritis and possible loosening of multiple screws hardware. You have been prescribed prednisone and Lyrica to help with your nerve type pain. Please continue on your oxycodone as previously directed. Please call Dr. Fowler's office first thing in the morning to arrange close follow-up. Thank you for choosing [facility] for your healthcare needs today. Please realize that you were seen in the emergency department and that we are providing you with an emergency medical screening exam and this may not be a complete and all exclusive of all testing and/or medical workup we may need to determine your element or severity of your illness. It is very important that you follow-up as instructed with your primary care provider or specialist for the additional evaluation and to discuss your medical treatment plan. You may return to the emergency department should you have concerns or if your condition changes or worsens in any way. 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 [employer] Documented by User: Gigi Garcia DO 07/04/24 00:25 HPI - Back Pain/Injury General: Chief Complaint: Back Pain/Injury Stated Complaint: BACK PAIN Time Seen by Provider: 07/03/24 21:27 Related Data Home Medications Medication Instructions Recorded Confirmed ascorbic acid 7.5 mg-vit E 7.5 4 tab PO DAILY 11/09/20 06/06/24 unit-biotin 1,250 mcg chewable tablet (Hair,Skin,Nails with Biotin) cetirizine 10 mg tablet (Zyrtec) 10 mg PO DAILY@21 PRN allergies 11/09/20 06/06/24 cranberry 2 tab PO DAILY@21 11/09/20 06/06/24 furosemide 20 mg tablet 20 mg PO DAILY PRN swelling 08/24/23 06/06/24 duloxetine 30 mg capsule,delayed 30 mg PO BID 02/02/24 06/06/24 release magnesium 200 mg tablet 400 mg PO DAILY PRN Sleep 02/02/24 06/06/24 omeprazole 20 mg capsule,delayed 20 mg PO DAILY 02/25/24 06/06/24 release Previous Rx's Medication Instructions Recorded TLSO Brace #1 ea 06/19/21 Bone Growth Stimulator E0748 #1 ea 09/28/22 c-pap supplies #1 ea 08/24/23 ferrous sulfate 325 mg (65 mg See Rx Instructions .Route 04/17/24 iron) tablet (FeroSul) .COMPLEX #90 tabs amitriptyline 100 mg tablet 100 mg PO DAILY #30 tabs 05/11/24 oxycodone-acetaminophen 10 mg-325 1 tab PO Q4H PRN pain 7 days #42 06/19/24 mg tablet tabs prednisone 50 mg tablet 50 mg PO DAILY #5 tabs 07/04/24 pregabalin 75 mg capsule (Lyrica) 75 mg PO BID #30 caps 07/04/24 Allergies Allergy/AdvReac Type Severity Reaction Status Date / Time adhesive tape Allergy Unknown Verified 07/03/24 21:32 [facility] ED PFSH: Medical History Chronic prescription opiate use Fracture, thoracic vertebra, compression Epigastric abdominal pain Discitis of thoracic region Spondylarthritis DDD (degenerative disc disease), thoracic Fusion of spine, thoracolumbar region Obstructive sleep apnea Morbid obesity Degenerative lumbar spinal stenosis Internal fixation device (pin, nixon, or screw) mechanical complication Morbid obesity with BMI of 50.0-59.9, adult Lumbar stenosis with neurogenic claudication Intervertebral disc disorder with radiculopathy of lumbosacral region Surgical History Status post cervical spinal fusion 09/24 Status post correction of deviated nasal septum History of appendectomy History of carpal tunnel repair History of knee surgery History of laparoscopic adjustable gastric banding Status post insertion of spinal cord stimulator (~2016) History of lumbar surgery (~2011) 12/2016 Dr. Martin Joyner Thoracic spinal cord stimulator placement 04/2016 Dr. Martin Joyner Right SI joint fusion 03/2016 Dr. Martin Joyner [facility] Left SI joint fusion 06/2012 Dr. Christopher [facility] L2-L3 posterior fusion/fixation. 10/2011 Dr. Christopher Ol[place]stead [facility] Fractured fusion screws removed. 12/[address] Orthopedic surgeon. [facility] Spine: L3-L4, L4-L5 L5-S1 Posterior Fusion/fusion Family History Father CAD (coronary artery disease) Social History Smoking and tobacco/nicotine status: never used tobacco/nicotine Alcohol intake: former Substance/Drug Use: never Household members: spouse Marital status: Current occupational status: disabled Course Vital Signs: Vital signs: Vital Signs Temperature 98.0 F 07/03/24 21:27 Pulse Rate 72 07/04/24 01:06 Respiratory Rate 16 07/04/24 01:06 Blood Pressure 134/83 07/04/24 01:06 Pulse Oximetry 94 07/04/24 01:06 Oxygen Delivery Me thod Room Air 07/03/24 23:26 MDM - Back Pain/Injury Medical Decision Making Care signed out to Dr. Garcia at change of shift. See final notes for diagnosis and disposition. CT scan of the lumbar spine and thoracic spine showed multiple potential loosening of the hardware but no new compression type fractures. These results was discussed with the patient. Patient says she is taking gabapentin in the past and it did not work as it made her too drowsy. We will try to put the patient on Lyrica and prednisone and have her call Dr. Fowler's office tomorrow to arrange close follow-up. Medical Records I reviewed the patient's medical records. Labs I reviewed the patient's lab results. Radiology Impressions Lumbar Spine CT 07/03/24 21:41 IMPRESSION: Post posterior instrumentation of the visualized spine with no hardware fracture. Multilevel Ludmila screw lucencies as described in the findings. Thoracic Spine CT 07/03/24 21:41 IMPRESSION: 1. Partially included posterior T5 to the pelvis instrumentation with multilevel lucencies as described in the findings. 2. Chronic moderate compression deformity of the T5 vertebral body. No severe bony canal stenosis. All radiology interpretation(s) finalized by discharge Discharge Plan Discharge Patient Disposition: Home Clinical Impression: Intervertebral disc disorder with radiculopathy of lumbosacral region Thoracic back pain Qualifiers: Chronicity: chronic Back pain laterality: bilateral Qualified Code(s): M54.6 - Pain in thoracic spine Condition: Stable Prescriptions: New prednisone 50 mg tablet 50 mg PO DAILY Qty: 5 0RF pregabalin [Lyrica] 75 mg capsule 75 mg PO BID Qty: 30 0RF No Action (DME) TLSO Brace See Rx Instructions .Route .MEDSUPPLY Qty: 1 0RF Rx Instructions: As directed duloxetine 30 mg capsule,delayed release(DR/EC) 30 mg PO BID amitriptyline 100 mg tablet 100 mg PO DAILY Qty: 30 11RF (DME) Bone Growth Stimulator E0748 See Rx Instructions .Route .MEDSUPPLY Qty: 1 0RF Rx Instructions: As directed (DME) c-pap supplies See Rx Instructions .Route .MEDSUPPLY Qty: 1 11RF Rx Instructions: As directed ferrous sulfate [FeroSul] 325 mg (65 mg iron) tablet See Rx Instructions .ROUTE .COMPLEX Qty: 90 4RF Dose Instruction: TAKE 1 TABLET BY MOUTH THREE TIMES DAILY Rx Instructions: TAKE 1 TABLET BY MOUTH THREE TIMES DAILY oxycodone-acetaminophen 10-325 mg tablet 1 tab PO Q4H MDD 6 PRN (Reason: pain) 7 Days Qty: 42 0RF cetirizine [Zyrtec] 10 mg Tablet 10 mg PO DAILY@21 PRN (Reason: allergies) Hair, Skin, Nails with Biotin 7.5-7.5-1,250 mg-unit-mcg Tablet,Chewable 4 tab PO DAILY cranberry 2 tab PO DAILY@21 omeprazole 20 mg Capsule,Delayed Release(Dr/Ec) 20 mg PO DAILY furosemide 20 mg tablet 20 mg PO DAILY PRN (Reason: swelling) Rx Instructions: Take 1 tablet by mouth once daily magnesium 200 mg tablet 400 mg PO DAILY PRN (Reason: Sleep) Discharge Orders: Discharge ED (Routine); Ordered 07/04/24 Ordered By: Gigi Garcia Referrals: Tadeo Prather MD [Primary Care Provider] - 1 week Patient Instructions: Osteoarthritis (ED), Back Pain (ED) Activity Restrictions/Additional Instructions: Your CT scans did not show any acute fractures and showed severe back arthritis and possible loosening of multiple screws hardware. You have been prescribed prednisone and Lyrica to help with your nerve type pain. Please continue on your oxycodone as previously directed. Please call Dr. Fowler's office first thing in the morning to arrange close follow-up. Thank you for choosing [facility] for your healthcare needs today. Please realize that you were seen in the emergency department and that we are providing you with an emergency medical screening exam and this may not be a complete and all exclusive of all testing and/or medical workup we may need to determine your element or severity of your illness. It is very important that you follow-up as instructed with your primary care provider or specialist for the additional evaluation and to discuss your medical treatment plan. You may return to the emergency department should you have concerns or if your condition changes or worsens in any way. 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
--- NOTE | 2024-07-03 21:41 | CTR_ITS ---
PROCEDURE INFORMATION: Exam: CT Thoracic Spine Without Contrast Exam date and time: 07/03/2024 10:04 PM Age: 68 years old Clinical indication: Pain in thoracic spine and pain in thoracic intervertebral disc disorder; Without myelpathy or radiculopathy; Prior surgery; Surgery date: 6+ months; Surgery type: Complete spine surgeries as noted on images, best possible; Additional info: Pain previous t5 compression fracture TECHNIQUE: Imaging protocol: Computed tomography of the thoracic spine without contrast. Radiation optimization: All CT scans at this facility use at least one of these dose optimization techniques: automated exposure control; mA and/or kV adjustment per patient size (includes targeted exams where dose is matched to clinical indication); or iterative reconstruction. COMPARISON: MR thoracic spin wo con* [id number] 04/07/2023 2:50 PM RADIATION DOSE METRICS: Total DLP (mGy-cm): 1249.77 FINDINGS: Bones/joints: Moderate compression deformity of the T5 vertebral body but no significant retropulsion. Posterior spinal instrumentation hardware extending from T5 to the pelvis. No hardware fracture. There is 2 mm lucency surrounding bilateral T5 screws. The T5 screws of relating the upper endplate of T5 into the T4-T5 disc space. Chronic loss of height of the T9 and T10 vertebral bodies with deformity and fusion. Cement are seen in the T8, T9 and T10 vertebral bodies. 5 mm lucency surrounding bilateral T11 and T12 screws. Ghost tracts from prior T10 screws. No severe bony canal stenosis. Soft tissues: Atelectatic changes in the dependent portions of both lungs. CT/CT thoracic spin wo con* [id number] IMPRESSION: 1. Partially included posterior T5 to the pelvis instrumentation with multilevel lucencies as described in the findings. 2. Chronic moderate compression deformity of the T5 vertebral body. No severe bony canal stenosis.
--- NOTE | 2024-07-03 21:41 | CTR_ITS ---
PROCEDURE INFORMATION: Exam: CT Lumbar Spine Without Contrast Exam date and time: 07/03/2024 10:08 PM Age: 68 years old Clinical indication: Lumbago and numbness and weakness; Prior surgery; Surgery date: 6+ months; Surgery type: Multiple spine surgeries; Additional info: Pain TECHNIQUE: Imaging protocol: Computed tomography of the lumbar spine without contrast. Radiation optimization: All CT scans at this facility use at least one of these dose optimization techniques: automated exposure control; mA and/or kV adjustment per patient size (includes targeted exams where dose is matched to clinical indication); or iterative reconstruction. COMPARISON: CT lumbar spine w con [id number] 09/04/2021 12:25 PM RADIATION DOSE METRICS: Total DLP (mGy-cm): 1711.95 FINDINGS: Bones/joints: Surgical changes of posterior instrumentation of the visualized lower thoracic spine to the level of the pelvis. Bilateral sacroiliac joint ankylosis screws. There are 2 mm lucency surrounding bilateral T12 screws. 1 mm lucency surrounding the right L3 screw. 3 mm lucency surrounding the right L4 screw. 6 mm lucency surrounding the left S1 screw. 2 mm lucency surrounding the right sacroiliac screws. 1 mm lucency surrounding the right S2 screw. L5-S1, L2-L3 and L3-L4 disc cages are seen in satisfactory positions. Left L5 screw fragment. No hardware fracture. No compression deformity. No spondylolisthesis. No severe bony canal or bony foraminal stenosis. Schmorl's node of the upper endplate of T12. Kidneys and ureters: There are multiple bilateral renal collecting system calcifications. Vasculature: There are numerous benign phleboliths in the pelvis. Calcified atheromas of the visualized arteries. Soft tissues: Unremarkable. CT/CT lumbar spine wo con* [id number] IMPRESSION: Post posterior instrumentation of the visualized spine with no hardware fracture. Multilevel Ludmila screw lucencies as described in the findings.
[2024-07-03] MEDS: ondansetron 2 mg/ML SDV 2 mL 4 MG IVP (21:46)
[2024-07-03] MEDS: orphenadrine 30 mg/mL Inj 2 mL 60 MG IM (21:48)
[2024-07-03] MEDS: ketorolac 30 mg/mL INJ IVP (21:49)
[2024-07-03 21:51] VITALS: RESP 16
[2024-07-03] MEDS: morphine 4 mg/mL SDV 1 mL IVP (21:51)
[2024-07-03] MEDS: dexamethasone 10 mg/mL INJ IM (21:52)
[2024-07-03 22:01] VITALS: BP 114/74; PULSE 80; RESP 16; O2SAT 96
[2024-07-03 22:27] VITALS: BP 110/62; PULSE 76; RESP 16; O2SAT 93
[2024-07-03 23:26] VITALS: BP 94/61; PULSE 79; RESP 20; O2SAT 94
[2024-07-04 01:06] VITALS: BP 134/83; PULSE 72; RESP 16; O2SAT 94
== END 2024-07-04 01:08 | disposition home or self-care (01) ==
PROVIDERS: Emergency Provider Family Medicine; PCP Family Medicine
DX: M51.17 Intervertebral disc disorders with radiculopathy, lumbosacral region (principal)
CPT/HCPCS: 72128; 72131; 96372; 96374; 96375; 99285; J1100; J1885; J2270; J2360; J2405

== ENCOUNTER 2024-07-06 19:51 | Inpatient (IN) | payer MEDICARE, SELFPAY ==
[2024-07-06 20:02] VITALS: BP 155/83; PULSE 93; TEMP 36.8; O2SAT 94
--- NOTE | 2024-07-06 20:03 | CTR_ITS ---
PROCEDURE INFORMATION: Exam: CT Lumbar Spine Without Contrast Exam date and time: 07/06/2024 8:30 PM Age: 68 years old Clinical indication: Lumbago and lumbago with sciatica and numbness and sciatica and weakness; Bilateral; [place] and low back pain and lumbago and lumbago with sciatica and sciatica; Prior surgery; Surgery date: 6+ months; Surgery type: Multiple spine SX; Additional info: Pain, trouble walking. TECHNIQUE: Imaging protocol: Computed tomography of the lumbar spine without contrast. Radiation optimization: All CT scans at this facility use at least one of these dose optimization techniques: automated exposure control; mA and/or kV adjustment per patient size (includes targeted exams where dose is matched to clinical indication); or iterative reconstruction. COMPARISON: CT lumbar spine wo con* [id number] 07/03/2024 10:08 PM RADIATION DOSE METRICS: Total DLP (mGy-cm): 1606.42 FINDINGS: Bones/joints: No acute fracture. Extensive thoracic and lumbar fusion spanning through S1. Obviously complex history with previous areas of pedicular screw removal. Areas of periscrew lucency in the mid to lower lumbar spine and sacrum. This implies chronic appearance. There is moderate diffuse lumbar degenerative change with loss of disc space and osteophyte formation with advanced facet arthropathy. Multiple moderate broad-based disc bulges cause moderate mass effect and moderate spinal stenosis. No significant neural foraminal narrowing. Bilateral sacroiliac joint ankylosis screws. There are 2 mm lucency surrounding bilateral T12 screws. 1 mm lucency surrounding the right L3 screw. 3 mm lucency surrounding the right L4 screw. 6 mm lucency surrounding the left S1 screw. 2 mm lucency surrounding the right sacroiliac screws. 1 mm lucency surrounding the right S2 screw. Left L5 screw fragment. No change. Diaphragm: Small hiatal hernia. Liver: Liver is steatotic. Kidneys and ureters: Minor bilateral nephrolithiasis. Stomach and bowel: The colon is rather fecal filled. Vasculature: Advanced diffuse vascular calcification noted. Soft tissues: Moderate back subcutaneous edema and fluid again seen. CT/CT lumbar spine wo con* [id number] IMPRESSION: 1. No acute lumbar spine fracture noted. 2. Extensive spinal surgery with multiple periscrew lucencies. No change from 3 days ago. 3. Degenerative change and other chronic findings.
--- NOTE | 2024-07-06 20:03 | CTR_ITS ---
PROCEDURE INFORMATION: Exam: CT Thoracic Spine Without Contrast Exam date and time: 07/06/2024 8:27 PM Age: 68 years old Clinical indication: Numbness and weakness; Pain in thoracic spine and pain in thoracic intervertebral disc disorder; Without myelpathy or radiculopathy; Prior surgery; Surgery date: 6+ months; Surgery type: Multiple spine surgeries; Additional info: Pain, diff walking. TECHNIQUE: Imaging protocol: Computed tomography of the thoracic spine without contrast. Radiation optimization: All CT scans at this facility use at least one of these dose optimization techniques: automated exposure control; mA and/or kV adjustment per patient size (includes targeted exams where dose is matched to clinical indication); or iterative reconstruction. COMPARISON: CT thoracic spin wo con* [id number] 07/03/2024 10:04 PM RADIATION DOSE METRICS: Total DLP (mGy-cm): 1354.68 FINDINGS: Bones/joints: Moderate compression deformity of the T5 vertebral body but no significant retropulsion. Posterior spinal instrumentation hardware extending from T5 to the pelvis. No hardware fracture. There is 2 mm lucency surrounding bilateral T5 screws. The T5 screws of relating the upper endplate of T5 into the T4-T5 disc space. Chronic loss of height of the T9 and T10 vertebral bodies with deformity and fusion. Cement seen in the T8, T9 and T10 vertebral bodies. 5 mm lucency surrounding bilateral T11 and T12 screws. Ghost tracts from prior T10 screws. No severe bony canal stenosis. Soft tissues: Atelectatic changes in the dependent portions of both lungs. CT/CT thoracic spin wo con* [id number] IMPRESSION: 1. No significant change from 3 days ago. 2. Complex surgical patient. 3. Partially included posterior T5 to the pelvis instrumentation with multilevel lucencies as described in the findings. 4. Chronic moderate compression deformity of the T5 vertebral body. No severe bony canal stenosis.
--- NOTE | 2024-07-06 20:09 | W.ED.BACK ---
HPI - Back Pain/Injury General: Chief Complaint: Back Pain/Injury Stated Complaint: Back Pain post fall Time Seen by Provider: 07/06/24 19:58 History of Present Illness: 68-year-old woman with a history of multiple back surgeries and chronic back pain presents emergency room with midthoracic back pain and difficulty getting up after she said she became suddenly weak secondary to her pain and slowly went to the floor and then could not get back up. Says she thinks is because of the pain. She can move her legs just fine. She says she just has too much pain to stand up or walk. She is on oxycodone 10 at home. No saddle numbness, no urinary retention or incontinence, no focal motor deficit, no sensory deficit. no recent fever. no cough. no shortness of breath. no chest pain. no abdominal pain. no nausea or vomiting. no dysuria. no altered mental status. no edema. Related Data Home Medications Medication Instructions Recorded Confirmed ascorbic acid 7.5 mg-vit E 7.5 4 tab PO DAILY 11/09/20 06/06/24 unit-biotin 1,250 mcg chewable tablet (Hair,Skin,Nails with Biotin) cetirizine 10 mg tablet (Zyrtec) 10 mg PO DAILY@21 PRN allergies 11/09/20 06/06/24 cranberry 2 tab PO DAILY@21 11/09/20 06/06/24 furosemide 20 mg tablet 20 mg PO DAILY PRN swelling 08/24/23 06/06/24 duloxetine 30 mg capsule,delayed 30 mg PO BID 02/02/24 06/06/24 release magnesium 200 mg tablet 400 mg PO DAILY PRN Sleep 02/02/24 06/06/24 omeprazole 20 mg capsule,delayed 20 mg PO DAILY 02/25/24 06/06/24 release Previous Rx's Medication Instructions Recorded TLSO Brace #1 ea 06/19/21 Bone Growth Stimulator E0748 #1 ea 09/28/22 c-pap supplies #1 ea 08/24/23 ferrous sulfate 325 mg (65 mg See Rx Instructions .Route 04/17/24 iron) tablet (FeroSul) .COMPLEX #90 tabs amitriptyline 100 mg tablet 100 mg PO DAILY #30 tabs 05/11/24 oxycodone-acetaminophen 10 mg-325 1 tab PO Q4H PRN pain 7 days #42 12/16/24 mg tablet tabs prednisone 50 mg tablet 50 mg PO DAILY #5 tabs 07/04/24 pregabalin 75 mg capsule (Lyrica) 75 mg PO BID #30 caps 07/04/24 cyclobenzaprine 10 mg tablet 10 mg PO Q8H PRN muscle spasm #20 07/06/24 tabs Allergies Allergy/AdvReac Type Severity Reaction Status Date / Time adhesive tape Allergy Unknown Verified 07/06/24 20:07 Review of Systems Narrative: Constitutional symptoms: Negative except as documented in HPI. Skin symptoms: Negative except as documented in HPI. Eye symptoms: Negative except as documented in HPI. ENMT symptoms: Negative except as documented in HPI. Respiratory symptoms: Negative except as documented in HPI. Cardiovascular symptoms: Negative except as documented in HPI. Gastrointestinal symptoms: Negative except as documented in HPI. Genitourinary symptoms: Negative except as documented in HPI. Musculoskeletal symptoms: Negative except as documented in HPI. Neurologic symptoms: Negative except as documented in HPI. Psychiatric symptoms: Negative except as documented in HPI. Endocrine symptoms: Negative except as documented in HPI. PFSH ED PFSH: Medical History Chronic prescription opiate use Fracture, thoracic vertebra, compression Epigastric abdominal pain Discitis of thoracic region Spondylarthritis DDD (degenerative disc disease), thoracic Fusion of spine, thoracolumbar region Obstructive sleep apnea Morbid obesity Degenerative lumbar spinal stenosis Internal fixation device (pin, nixon, or screw) mechanical complication Morbid obesity with BMI of 50.0-59.9, adult Lumbar stenosis with neurogenic claudication Intervertebral disc disorder with radiculopathy of lumbosacral region Surgical History Status post cervical spinal fusion 09/24 Status post correction of deviated nasal septum History of appendectomy History of carpal tunnel repair History of knee surgery History of laparoscopic adjustable gastric banding Status post insertion of spinal cord stimulator (~2016) History of lumbar surgery (~2011) 12/2016 Dr. Martin Joyner Thoracic spinal cord stimulator placement 04/2016 Dr. Martin Joyner Right SI joint fusion 03/2016 [facility] SI joint fusion 06/[address] [facility] L2-L3 posterior fusion/fixation. 10/[address] [facility] Fractured fusion screws removed. 12/[address] Orthopedic surgeon. [facility] Spine: L3-L4, L4-L5 L5-S1 Posterior Fusion/fusion Family History Father CAD (coronary artery disease) Social History Smoking and tobacco/nicotine status: never used tobacco/nicotine Alcohol intake: former Substance/Drug Use: never Household members: spouse Marital status: Current occupational status: disabled Physical Exam Narrative: EXAM NARRATIVE: General: Alert, no acute distress. Head: Normocephalic Neck: Trachea midline Eye: Extraocular movements are intact. Ears, nose, mouth and throat: Oral mucosa moist Respiratory: Respirations are non-labored Musculoskeletal: Normal ROM Back: no step off, no focal tenderness, some paraspinal muscle tenderness Neurological: Alert and oriented to person, place, time, and situation, No focal neurological deficit observed. Psychiatric: Cooperative, appropriate mood & affect. Course Vital Signs: Vital signs: Vital Signs Temperature 98.2 F 07/06/24 20:02 Pulse Rate 93 07/06/24 20:02 Blood Pressure 155/83 07/06/24 20:02 Pulse Oximetry 94 07/06/24 20:02 Oxygen Delivery Me thod Room Air 07/06/24 20:02 MDM - Back Pain/Injury Medical Decision Making Assessment and plan: Chronic back pain Worsening back pain ?Dilaudid and Norflex in the emergency room. Also another dose of steroids. She has steroids at home. Will send her home with some muscle relaxers and she already has pain meds. If she needs increased pain medication she will need to talk to Dr. Fowler, her PCP or a pain doctor. - Discharged home - Discussed plan with patient. Answered any questions. - Evaluation and treatment of this problem were appropriate in the emergency setting. Labs 07/06/24 20:58 Laboratory Results WBC 11.53 10^3/uL (3.29-11.43) H 07/06/24 20:58 RBC 4.86 10^6/uL (3.85-5.65) 07/06/24 20:58 Hgb 11.40 g/dL (11.27-16.99) 07/06/24 20:58 Hct 38.7 % (36-47) 07/06/24 20:58 MCV 79.6 fl (85-98) L 07/06/24 20:58 MCH 23.5 pg (27-33) L 07/06/24 20:58 MCHC 29.5 g/dL (30-55) L 07/06/24 20:58 RDW 17.0 % (12.1-15.1) H 07/06/24 20:58 Plt Count 490 10^3/cmm (157-399) H 07/06/24 20:58 MPV 7.9 fL (7.4-10.4) 07/06/24 20:58 Neut % (Auto) 82.1 % 07/06/24 20:58 Lymph % (Auto) 12.2 % 07/06/24 20:58 [place] % (Auto) 4.2 % 07/06/24 20:58 Eos % (Auto) 0.3 % 07/06/24 20:58 Baso % (Auto) 0.3 % 07/06/24 20:58 Neut # (Auto) 9.46 10^3/uL (1.8-7.7) H 07/06/24 20:58 Lymph # (Auto) 1.4 10^3/uL (0.8-4.8) 07/06/24 20:58 [place] # (Auto) 0.5 10^3/uL (0.2-0.9) 07/06/24 20:58 Eos # (Auto) 0.0 10^3/uL (0.0-0.8) 07/06/24 20:58 Baso # (Auto) 0.0 10^3/uL (0.0-0.1) 07/06/24 20:58 Nucleated RBC % (auto) 0 % 07/06/24 20:58 Nucleated RBCs # 0.0 /100WBC 07/06/24 20:58 XR interpretation done by ED provider, pending radiology final review Discharge Plan Discharge Patient Disposition: Home Clinical Impression: History of lumbar surgery, Chronic back pain, Acute back pain Condition: Stable Prescriptions: New cyclobenzaprine 10 mg tablet 10 mg PO Q8H PRN (Reason: muscle spasm) Qty: 20 0RF No Action (DME) TLSO Brace See Rx Instructions .Route .MEDSUPPLY Qty: 1 0RF Rx Instructions: As directed duloxetine 30 mg capsule,delayed release(DR/EC) 30 mg PO BID amitriptyline 100 mg tablet 100 mg PO DAILY Qty: 30 11RF (DME) Bone Growth Stimulator E0748 See Rx Instructions .Route .MEDSUPPLY Qty: 1 0RF Rx Instructions: As directed (DME) c-pap supplies See Rx Instructions .Route .MEDSUPPLY Qty: 1 11RF Rx Instructions: As directed ferrous sulfate [FeroSul] 325 mg (65 mg iron) tablet See Rx Instructions .ROUTE .COMPLEX Qty: 90 4RF Dose Instruction: TAKE 1 TABLET BY MOUTH THREE TIMES DAILY Rx Instructions: TAKE 1 TABLET BY MOUTH THREE TIMES DAILY oxycodone-acetaminophen 10-325 mg tablet 1 tab PO Q4H MDD 6 PRN (Reason: pain) 7 Days Qty: 42 0RF cetirizine [Zyrtec] 10 mg Tablet 10 mg PO DAILY@21 PRN (Reason: allergies) Hair, Skin, Nails with Biotin 7.5-7.5-1,250 mg-unit-mcg Tablet,Chewable 4 tab PO DAILY cranberry 2 tab PO DAILY@21 omeprazole 20 mg Capsule,Delayed Release(Dr/Ec) 20 mg PO DAILY prednisone 50 mg tablet 50 mg PO DAILY Qty: 5 0RF pregabalin [Lyrica] 75 mg capsule 75 mg PO BID Qty: 30 0RF furosemide 20 mg tablet 20 mg PO DAILY PRN (Reason: swelling) Rx Instructions: Take 1 tablet by mouth once daily magnesium 200 mg tablet 400 mg PO DAILY PRN (Reason: Sleep) Discharge Orders: Discharge ED (Routine); Ordered 07/06/24 Ordered By: Trinh Mcgee Referrals: Saul Fowler DO [Physician] - 4-7 days (Please keep your follow-up appointment with Dr. Fowler. If he cannot get in with him please talk with your primary care provider about increased pain control.) Tadeo Prather MD [Primary Care Provider] - Discharge Diet: As Directed Discharge Activity: Increase activity as tolerated Patient Instructions: Opioid Safety, Pain Management Activity Restrictions/Additional Instructions: Thank you for choosing [facility] for your healthcare needs today. Please realize this is an emergency room and that we are providing you with a medical screening exam and this may not be complete and all inclusive of all the testing and or work up that you may need to determine your ailment or severity of your illness. You have been screened and evaluated and felt safe for discharge. Health conditions do change or evolve sometimes and as such it is important that you follow up with your Primary Doctor to be re checked, 3-5 days is a general good time frame for follow up. You are always welcome to return to the ED for re assessment if your symptoms are worsening or you have new concerns Coding Level of Care Code ED Reaming Press Operator for Morro Ayers
[2024-07-06 21:04] LABS: Basophils % 0.3 %; Eosinophils % 0.3 %; Hematocrit 38.7 % (36-47); Lymphocytes # 1.4 10^3/uL (0.8-4.8); Lymphocytes % 12.2 %; Mean Corpuscular HGB Conc 29.5 g/dL (30-55); Mean Corpuscular Hemoglobin 23.5 pg (27-33); Mean Corpuscular Volume 79.6 fl (85-98); Mean Platelet Volume 7.9 fL (7.4-10.4); Monocytes # 0.5 10^3/uL (0.2-0.9); Monocytes % 4.2 %; Neutrophils # 9.46 10^3/uL (1.8-7.7); Neutrophils % 82.1 %; Nucleated Red Blood Cells % 0 %; Platelet Count 490 10^3/cmm (157-399); Red Blood Count 4.86 10^6/uL (3.85-5.65); White Blood Count 11.53 10^3/uL (3.29-11.43)
[2024-07-06 21:08] VITALS: O2SAT 94
[2024-07-06] MEDS: HYDROmorphone 1 mg/mL INJ 1 mL IVP (21:08)
[2024-07-06] MEDS: orphenadrine 30 mg/mL Inj 2 mL 60 MG IVP (21:08)
[2024-07-06] MEDS: methylPREDNISolone sod succ 125 mg/2 mL INJ IVP (21:08)
--- NOTE | 2024-07-06 21:31 | P.HP_ITS ---
Providers/Chief Complaint 2 Primary Care Provider: Tadeo Prather MD Chief Complaint: Back Pain post fall History of Present Illness Kathy Patel is a 68 year old female with history of chronic back pain, T11-T5 fusion, takes opioids, Lyrica, presented with worsening of pain and inability to walk at home secondary to pain. She was discharged from the ER after workup patient and family stating that she is not able to walk up to the car or enter her house. Patient is stating that she stood up from her bed today using her walker, then she did not had enough strength to move, she slid right down which she described as if body was melting she is also endorsing urinary incontinence, able to wiggle her toes, she does have sensations intact in her side of her thighs, no rectal incontinence, patient has an appointment with Dr. Fowler on Wednesday 8 AM I requested MRI started on Decadron, patient does not want to be transferred to tertiary level of care where a neurosurgeon or spine surgeon could evaluate her overnight she is aware that Dr. Fowler is not available until 07/[address] Banks today who asked her to come to the ER for further evaluation Review of Systems 2 Const: Denies: fever(s) Eyes: Denies: change in vision Resp: Denies: dyspnea GI: Denies: abdominal pain : Denies: flank pain Musc: Reports: back pain Medications/Allergies Home Medications Medication Instructions Recorded Confirmed Last Taken Type ascorbic acid 7.5 mg-vit E 7.5 4 tab PO DAILY 11/09/20 06/06/24 03/07/24 History unit-biotin 1,250 mcg chewable tablet (Hair,Skin,Nails with Biotin) cetirizine 10 mg tablet (Zyrtec) 10 mg PO DAILY@21 PRN allergies 11/09/20 06/06/24 08/24/23 History cranberry 2 tab PO DAILY@21 11/09/20 06/06/24 03/07/24 History TLSO Brace #1 ea 06/19/21 06/06/24 Unknown Rx Bone Growth Stimulator E0748 #1 ea 09/28/22 06/06/24 Unknown Rx c-pap supplies #1 ea 08/24/23 06/06/24 Unknown Rx furosemide 20 mg tablet 20 mg PO DAILY PRN swelling 08/24/23 06/06/24 02/22/24 History duloxetine 30 mg capsule,delayed 30 mg PO BID 02/02/24 06/06/24 03/07/24 History release magnesium 200 mg tablet 400 mg PO DAILY PRN Sleep 02/02/24 06/06/24 Unknown History omeprazole 20 mg capsule,delayed 20 mg PO DAILY 02/25/24 06/06/24 03/07/24 History release ferrous sulfate 325 mg (65 mg See Rx Instructions .Route 04/17/24 06/06/24 Unknown Rx iron) tablet (FeroSul) .COMPLEX #90 tabs amitriptyline 100 mg tablet 100 mg PO DAILY #30 tabs 05/11/24 06/06/24 Unknown Rx oxycodone-acetaminophen 10 mg-325 1 tab PO Q4H PRN pain 7 days #42 06/19/24 Unknown Rx mg tablet tabs prednisone 50 mg tablet 50 mg PO DAILY #5 tabs 07/04/24 Unknown Rx pregabalin 75 mg capsule (Lyrica) 75 mg PO BID #30 caps 07/04/24 Unknown Rx cyclobenzaprine 10 mg tablet 10 mg PO Q8H PRN muscle spasm #20 07/06/24 Unknown Rx tabs Allergies Allergy/AdvReac Type Severity Reaction Status Date / Time adhesive tape Allergy Unknown Verified 07/06/24 20:07 PFSH Acute 2 PFSH: Medical History Chronic prescription opiate use Fracture, thoracic vertebra, compression Epigastric abdominal pain Discitis of thoracic region Spondylarthritis DDD (degenerative disc disease), thoracic Fusion of spine, thoracolumbar region Obstructive sleep apnea Morbid obesity Degenerative lumbar spinal stenosis Internal fixation device (pin, nixon, or screw) mechanical complication Morbid obesity with BMI of 50.0-59.9, adult Lumbar stenosis with neurogenic claudication Intervertebral disc disorder with radiculopathy of lumbosacral region Surgical History Status post cervical spinal fusion 09/24 Status post correction of deviated nasal septum History of appendectomy History of carpal tunnel repair History of knee surgery History of laparoscopic adjustable gastric banding Status post insertion of spinal cord stimulator (~2016) History of lumbar surgery (~2011) 12/2016 Dr. Martin Joyner Thoracic spinal cord stimulator placement 04/2016 Dr. Martin Joyner Right SI joint fusion 03/2016 Dr. Martin Joyner [facility] Left SI joint fusion 06/2012 Dr. Christopher Olmstead [facility] L2-L3 posterior fusion/fixation. 10/2011 Dr. Christopher Olmstead [facility] Fractured fusion screws removed. 12/[address] Orthopedic surgeon. [facility] Spine: L3-L4, L4-L5 L5-S1 Posterior Fusion/fusion Family History Father CAD (coronary artery disease) Social History Smoking and tobacco/nicotine status: never used tobacco/nicotine Alcohol intake: former Substance/Drug Use: never Household members: spouse Marital status: Current occupational status: disabled Vitals/I&O/Wt Last Vital Signs Temp 98.2 F 07/06/24 20:02 Pulse 93 07/06/24 20:02 BP 155/83 07/06/24 20:02 Pulse Ox 94 07/06/24 21:08 O2 Del Method Room Air 07/06/24 20:02 Physical Exam 2 Narrative: Patient is pleasant and cooperative Morbid obese GCS 15 Nonfocal neuroexam She is able to wiggle her toes Not able to lift her leg against gravity Sensations intact medial thigh area Nonfocal neuroexam Awake and alert Hypertensive Currently room air Laying supine S1, S2 Nontender abdomen Data 07/06/24 20:58 07/06/24 20:58 A&P Assessment and plan (1) Obesity: (2) Thoracic back pain: Qualifiers: Back pain laterality: bilateral Chronicity: chronic Qualified Code(s): M54.6 - Pain in thoracic spine; G89.29 - Other chronic pain (3) Chronic back pain: (4) Acute back pain: (5) History of lumbar surgery: (6) Intervertebral disc disorder with radiculopathy of lumbosacral region: (7) Lumbar stenosis with neurogenic claudication: (8) S/P spinal fusion: (9) Paresthesia of lower extremity: (10) Obstructive sleep apnea: (11) Insomnia: Plan Acute on chronic back pain Inability to walk, incontinence of urine No rectal incontinence, does have sensations intact medial thigh area Meets have criteria for cauda equina will request MRI, will start on Decadron Patient does not want to be transferred stating that she would wait for Dr. Fowler to see her on Wednesday I will request physical therapy as well Will continue her Lyrica Continue opioids along bowel regimen Patient is requesting Ram catheter placement For struct of sleep apnea will request CPAP Full code DVT prophylaxis heparin Cardiac diet Attestations 2 Medical Necessity Statement*: Anticipating discharge within 48 hours, further plan will be made after reviewing MRI report Diagnoses Obesity E66.9 Thoracic back pain M54.6; G89.29 Back pain laterality: bilateral Chronicity: chronic Chronic back pain M54.9; G89.29 Acute back pain M54.9 History of lumbar surgery Z98.890 Intervertebral disc disorder with radiculopathy of lumbosacral region M51.17 Lumbar stenosis with neurogenic claudication M48.062 S/P spinal fusion Z98.1 Paresthesia of lower extremity R20.2 Obstructive sleep apnea G47.33 Insomnia G47.00
[2024-07-06 22:13] VITALS: BP 157/86; PULSE 72; RESP 16; O2SAT 95
[2024-07-06 22:45] VITALS: BP 157/86; PULSE 72; RESP 16; O2SAT 95
[2024-07-06 22:50] VITALS: BMI 49.2
[2024-07-06] MEDS: heparin 5,000 unit/mL INJ 1 mL 5000 UNIT SUBCUT (23:09)
[2024-07-06] MEDS: trazodone 50 mg Tablet 25 MG PO (23:14)
[2024-07-06 23:35] VITALS: BP 172/105; PULSE 78; RESP 18; TEMP 36.6; O2SAT 95
[2024-07-07] VITALS (7 sets, daily range): BP systolic 157–184; BP diastolic 84–96; PULSE 80–84; RESP 16–19; TEMP 36.6–37; O2SAT 91–97
[2024-07-07] MEDS: morphine 4 mg/mL SDV 1 mL 2 MG IVP (01:13)
[2024-07-07 05:16] LABS: Anion Gap 15.5 (5-19); Blood Urea Nitrogen 17 mg/dL (8-23); Calcium 9.7 mg/dL (8.5-10.5); Carbon Dioxide 27 mmol/L (22-29); Chloride 100 mmol/L (98-107); Creatinine Clr Calc Pharmacy 99.3829; Glucose 169 mg/dL (65-115); Magnesium 2.1 mg/dL (1.7-2.3); Osmolality Calculated 291 mOsm/kg (285-295); Potassium 4.5 mmol/L (3.5-5.1); Sodium 138 mmol/L (136-145)
--- NOTE | 2024-07-07 07:00 | MR_ITS ---
WS: [id number] MRI LUMBAR SPINE NONCONTRAST HISTORY: Concern for cauda equina COMPARISON: 04/14/2021, CT 07/06/2024 TECHNIQUE: Sagittal and axial multisequence imaging is submitted. Patient has extensive contiguous hardware throughout majority of thoracic and entire lumbar spine. As on prior examination this is a nondiagnostic evaluation due to extensive metal artifact. Lumbar alignment appears appropriate with mild increased in the lordosis. Disc spaces are slightly narrowed and majority are obscured. Conus is not visualized. Axial imaging is nondiagnostic to evaluate for significant cord compression or disc protrusions. Most significant obscuration is from T12-L1 to L3-4. At L4-5 there is no compression on the thecal sac. N o abnormality at L5-S1. MR/MR lumbar spine wo con* [id number] IMPRESSION: 1. Nondiagnostic evaluation of the lumbar spine to exclude cauda equina syndro me in compression of the conus. 2. Extensive hardware in the lower thoracic and lumbar spine causing significa nt artifact obscuring the central canal.
[2024-07-07] MEDS: morphine IR 15 mg Tablet PO ×2 (09:03→17:16)
[2024-07-07] MEDS: pregabalin 75 mg Capsule PO (09:03)
[2024-07-07] MEDS: dexamethasone 4 mg/mL INJ PO ×4 (09:05→20:52)
[2024-07-07] MEDS: sennosides-docusate Tablet 2 TAB PO ×2 (09:05→17:16)
--- NOTE | 2024-07-07 10:17 | PC.SOCIAL ---
IMM Updated Updated pt on IMM. No questions voiced. Provided pt a copy. Initialed, dated, & timed a copy & placed in chart.
[2024-07-07 11:13] LABS: C Reactive Protein 28.3 mg/L (0.0-4.9)
[2024-07-07 11:20] LABS: Erythrocyte Sedimentation Rate 91 mm/hr (0-15); Procalcitonin 0.04 ng/mL (0-0.5)
[2024-07-07] MEDS: heparin 5,000 unit/mL INJ 1 mL 5000 UNIT SUBCUT ×2 (11:44→20:52)
--- NOTE | 2024-07-07 14:09 | P.PN_ITS ---
Subjective 2 Subjective: Patient was seen this morning, she complains of pain higher up in her back, she tells me that she has certainly been more active since her surgery, and she is getting much more mobility but she suffered a setback on the , since then, she has had back pain more higher up, with lower extremity weakness, no falls, injuries, no fevers, no chills, no bowel incontinence, did report urinary incontinence no saddle paresthesia, no fevers, Vitals/I&O/Wt Last Vital Signs Temp 98.6 F 07/07/24 11:14 Pulse 82 07/07/24 13:52 Resp 17 07/07/24 13:52 BP 159/90 07/07/24 11:14 Pulse Ox 93 07/07/24 13:52 O2 Del Method Room Air 07/07/24 13:52 07/06/24 07/07/24 07/07/24 22:59 06:59 14:59 Intake Total 240 / 240 Output Total 1400 / 1400 1999 / 1999 Balance -1400 / -1400 -1760 / -1760 Weight last 48 hrs Weight 138.572 kg Weight 138.346 kg Physical Exam 2 Const: COMMON NORMALS: no acute distress and patient oriented x3 Resp: COMMON NORMALS: normal respiratory effort, No retractions, No use of accessory muscles and clear to auscultation bilaterally AUSCULTATION: clear to auscultation bilaterally Cardio: COMMON NORMALS: regular rate, regular rhythm, S1 normal heart sound present and S2 normal heart sound present RATE: regular rate RHYTHM: r egular rhythm HEART SOUNDS: S1 normal heart sound present and S2 normal heart sound present GI: COMMON NORMALS: Normal to inspection, nondistended, normoactive bowel sounds present and non-tender Extremity: COMMON NORMALS: no pedal edema NARRATIVE EXTREMITY EXAM: DP PT pulses palpable Strength bilateral lower extremities present, equal bilaterally Eversion, inversion Neuro: COMMON NORMALS: patient oriented x3 Psych: COMMON NORMALS: mental status grossly normal Urinary Catheter Management: Ram: Cath Placed During This Visit: yes Reason for Continuing Indwelling Catheter: Acute Urinary Retention or Obstruction Urinary Catheter Date of Insertion: 07/06/24 Urinary Catheter Time of Insertion: 23:39 Data 07/06/24 20:58 07/07/24 04:24 A&P Assessment and plan (1) Obesity: (2) Thoracic back pain: Qualifiers: Back pain laterality: bilateral Chronicity: chronic Qualified Code(s): M54.6 - Pain in thoracic spine; G89.29 - Other chronic pain (3) Chronic back pain: (4) Acute back pain: (5) History of lumbar surgery: (6) Intervertebral disc disorder with radiculopathy of lumbosacral region: (7) Lumbar stenosis with neurogenic claudication: (8) S/P spinal fusion: (9) Paresthesia of lower extremity: (10) Obstructive sleep apnea: (11) Insomnia: Plan Acute on chronic back pain Inability to walk, incontinence of urine No rectal incontinence, does have sensations intact medial thigh area CT thoracic spine Bones/joints: Moderate compression deformity of the T5 vertebral body but no significant retropulsion. Posterior spinal instrumentation hardware extending from T5 to the pelvis. No hardware fracture. There is 2 mm lucency surrounding bilateral T5 screws. The T5 screws of relating the upper endplate of T5 into the T4-T5 disc space. Chronic loss of height of the T9 and T10 vertebral bodies with deformity and fusion. Cement seen in the T8, T9 and T10 vertebral bodies. 5 mm lucency surrounding bilateral T11 and T12 screws. Ghost tracts from prior T10 screws. No severe bony canal stenosis. ct lumbar spine Bones/joints: No acute fracture. Extensive thoracic and lumbar fusion spanning through S1. Obviously complex history with previous areas of pedicular screw removal. Areas of periscrew lucency in the mid to lower lumbar spine and sacrum. This implies chronic appearance. There is moderate diffuse lumbar degenerative change with loss of disc space and osteophyte formation with advanced facet arthropathy. Multiple moderate broad-based disc bulges cause moderate mass effect and moderate spinal stenosis. No significant neural foraminal narrowing. Bilateral sacroiliac joint ankylosis screws. There are 2 mm lucency surrounding bilateral T12 screws. 1 mm lucency surrounding the right L3 screw. 3 mm lucency surrounding the right L4 screw. 6 mm lucency surrounding the left S1 screw. 2 mm lucency surrounding the right sacroiliac screws. 1 mm lucency surrounding the right S2 screw. Left L5 screw fragment. No change. Concerns for cauda equina, lumbar MRI ordered Patient's pain is higher up, more T5 level, added on thoracic MRI Continue Decadron ESR, CRP, Pro-Virgilio, blood cultures Patient does not want to be transferred stating that she would wait for Dr. Fowler to see her on Wednesday I will request physical therapy as well Will continue her Lyrica Continue opioids along bowel regimen Patient is requesting Ram catheter placement For struct of sleep apnea will request CPAP Full code DVT prophylaxis heparin Cardiac diet Attestations 2 Medical Necessity Statement*: Patient requires hospitalization due to acute on chronic low back pain Diagnoses Obesity E66.9 Thoracic back pain M54.6; G89.29 Back pain laterality: bilateral Chronicity: chronic Chronic back pain M54.9; G89.29 Acute back pain M54.9 History of lumbar surgery Z98.890 Intervertebral disc disorder with radiculopathy of lumbosacral region M51.17 Lumbar stenosis with neurogenic claudication M48.062 S/P spinal fusion Z98.1 Paresthesia of lower extremity R20.2 Obstructive sleep apnea G47.33 Insomnia G47.00
--- NOTE | 2024-07-07 14:22 | MRR_ITS ---
PROCEDURE INFORMATION: Exam: MR Thoracic Spine Without Contrast Exam date and time: 07/07/2024 4:32 PM Age: 68 years old Clinical indication: Prior surgery; Surgery date: 6+ months; Surgery type: Multilevel fusion; Patient HX: Bilateral lower extremity weakness, incontinence. T5 FX; Additional info: Pain, TECHNIQUE: Imaging protocol: Magnetic resonance imaging of the thoracic spine without contrast. COMPARISON: CT thoracic spin wo con* [id number] 07/06/2024 8:27 PM FINDINGS: Tubes, catheters and devices: Multilevel metallic hardware limits the images significantly. Bones/joints: Multiple old healed vertebral body fractures are noted. No definite acute fracture identified. Spinal cord: Normal signal. No cord compression. T1-T2: No significant disc bulge or herniation. No severe spinal canal stenosis. No significant neural foraminal narrowing. T2-T3: No significant disc bulge or herniation. No severe spinal canal stenosis. No significant neural foraminal narrowing. T3-T4: No significant disc bulge or herniation. No severe spinal canal stenosis. No significant neural foraminal narrowing. T4-T5: No significant disc bulge or herniation. No severe spinal canal stenosis. No significant neural foraminal narrowing. T5-T6: No significant disc bulge or herniation. No severe spinal canal stenosis. No significant neural foraminal narrowing. T6-T7: No significant disc bulge or herniation. No severe spinal canal stenosis. No significant neural foraminal narrowing. T7-T8: No significant disc bulge or herniation. No severe spinal canal stenosis. No significant neural foraminal narrowing. T8-T9: No significant disc bulge or herniation. No severe spinal canal stenosis. No significant neural foraminal narrowing. T9-T10: No significant disc bulge or herniation. No severe spinal canal stenosis. No significant neural foraminal narrowing. T10-T11: No significant disc bulge or herniation. No severe spinal canal stenosis. No significant neural foraminal narrowing. T11-T12: No significant disc bulge or herniation. No severe spinal canal stenosis. No significant neural foraminal narrowing. T12-L1: No significant disc bulge or herniation. No severe spinal canal stenosis. No significant neural foraminal narrowing. Soft tissues: Unremarkable. Other findings: No abnormal fluid collection noted. MR/MR thoracic spin wo con* [id number] IMPRESSION: Very limited scan. No definite acute abnormality noted.
[2024-07-07] MEDS: trazodone 50 mg Tablet 25 MG PO (20:51)
[2024-07-08] VITALS (11 sets, daily range): BP systolic 113–194; BP diastolic 56–106; PULSE 66–98; RESP 14–19; TEMP 36.6–37; O2SAT 90–100
[2024-07-08] MEDS: morphine IR 15 mg Tablet PO (00:51)
[2024-07-08] MEDS: morphine 4 mg/mL SDV 1 mL 2 MG IVP (04:47)
[2024-07-08] MEDS: amlodipine 10 mg Tablet PO (04:47)
[2024-07-08] MEDS: heparin 5,000 unit/mL INJ 1 mL 5000 UNIT SUBCUT ×2 (08:21→22:12)
[2024-07-08] MEDS: sennosides-docusate Tablet 2 TAB PO ×2 (08:21→17:20)
[2024-07-08] MEDS: pregabalin 75 mg Capsule PO (08:21)
[2024-07-08] MEDS: dexamethasone 4 mg/mL INJ PO ×4 (08:21→20:27)
[2024-07-08 09:44] LABS: Basophils % 0.2 %; Eosinophils % 0.1 %; Hematocrit 42.9 % (36-47); Lymphocytes # 2.9 10^3/uL (0.8-4.8); Lymphocytes % 19.7 %; Mean Corpuscular HGB Conc 29.6 g/dL (30-55); Mean Corpuscular Hemoglobin 22.8 pg (27-33); Monocytes # 0.7 10^3/uL (0.2-0.9); Monocytes % 4.8 %; Neutrophils # 11.04 10^3/uL (1.8-7.7); Neutrophils % 73.9 %; Nucleated Red Blood Cells % 0 %; Platelet Count 671 10^3/cmm (157-399); Red Blood Count 5.57 10^6/uL (3.85-5.65); Red Cell Distribution Width 16.6 % (12.1-15.1); White Blood Count 14.93 10^3/uL (3.29-11.43)
[2024-07-08 10:06] LABS: Erythrocyte Sedimentation Rate 47 mm/hr (0-15)
[2024-07-08 10:17] LABS: C Reactive Protein 5.7 mg/L (0.0-4.9)
[2024-07-08 10:27] LABS: Alanine Aminotransferase 23 U/L (0-33); Albumin Level 3.7 g/dL (3.5-5.2); Alkaline Phosphatase 126 U/L (35-105); Anion Gap 16.9 (5-19); Aspartate Amino Transferase 20 U/L (0-32); Blood Urea Nitrogen 19 mg/dL (8-23); Calcium 9.2 mg/dL (8.5-10.5); Carbon Dioxide 26 mmol/L (22-29); Chloride 96 mmol/L (98-107); Creatinine Clr Calc Pharmacy 98.4049; Globulin 3.1 g/dL (1.3-4.6); Glucose 202 mg/dL (65-115); Osmolality Calculated 288 mOsm/kg (285-295); Potassium 3.9 mmol/L (3.5-5.1); Sodium 135 mmol/L (136-145); Total Bilirubin 0.3 mg/dL (0.15-1.2); Total Protein 6.8 g/dL (6.6-8.7)
[2024-07-08] MEDS: amitriptyline 25 mg Tablet 100 MG PO (10:32)
[2024-07-08] MEDS: duloxetine 30 mg Capsule PO ×2 (10:33→17:20)
--- NOTE | 2024-07-08 14:28 | P.PN_ITS ---
Subjective 2 Subjective: Patient was seen this morning, she is alert oriented x 3, following all commands, she has ability to do dorsal and plantar flexion of bilateral feet, eversion and inversion, her anterior compartments of bilateral lower extremities are diminished, she has good sensation of bilateral lower extremities, she has good strength at her hip flexors, bilateral thighs she does have increased mobility compared to yesterday, still has generalized weakness, no saddle or perianal anesthesia, good sensation bilateral feet, bilateral lower extremities, bilateral thighs, equal bilaterally, no ascending weakness Vitals/I&O/Wt Last Vital Signs Temp 98.2 F 07/08/24 11:41 Pulse 98 07/08/24 11:41 Resp 15 07/08/24 11:41 BP 113/56 07/08/24 11:41 Pulse Ox 90 07/08/24 11:41 O2 Del Method Room Air 07/08/24 11:41 07/07/24 07/08/24 07/08/24 22:59 06:59 14:59 Intake Total 480 / 720 120 / 840 360 / 360 Output Total 1650 / 3650 Balance 480 / -1280 -1530 / -2810 360 / 360 Weight last 48 hrs Weight 136.333 kg Weight 138.572 kg Weight 138.346 kg Physical Exam 2 Const: COMMON NORMALS: no acute distress and patient oriented x3 Resp: COMMON NORMALS: normal respiratory effort, No retractions, No use of accessory muscles and clear to auscultation bilaterally AUSCULTATION: clear to auscultation bilaterally Cardio: COMMON NORMALS: regular rate, regular rhythm, S1 normal heart sound present and S2 normal heart sound present RATE: regular rate RHYTHM: r egular rhythm HEART SOUNDS: S1 normal heart sound present and S2 normal heart sound present GI: COMMON NORMALS: Normal to inspection, nondistended, normoactive bowel sounds present and non-tender Extremity: COMMON NORMALS: no pedal edema Neuro: COMMON NORMALS: patient oriented x3 Psych: COMMON NORMALS: mental status grossly normal Urinary Catheter Management: Ram: Cath Placed During This Visit: yes Reason for Continuing Indwelling Catheter: Acute Urinary Retention or Obstruction Urinary Catheter Date of Insertion: 07/06/24 Urinary Catheter Time of Insertion: 23:39 Data 07/08/24 09:20 07/08/24 09:20 Micro: Microbiology 07/07/24 15:21 Blood Culture - Preliminary Blood SPECIMEN COLLECTED 07/07/24 15:19 Blood Culture - Preliminary Blood SPECIMEN COLLECTED A&P Assessment and plan (1) Obesity: (2) Thoracic back pain: Qualifiers: Back pain laterality: bilateral Chronicity: chronic Qualified Code(s): M54.6 - Pain in thoracic spine; G89.29 - Other chronic pain (3) Chronic back pain: (4) Acute back pain: (5) History of lumbar surgery: (6) Intervertebral disc disorder with radiculopathy of lumbosacral region: (7) Lumbar stenosis with neurogenic claudication: (8) S/P spinal fusion: (9) Paresthesia of lower extremity: (10) Obstructive sleep apnea: (11) Insomnia: Plan Acute on chronic back pain Inability to walk, incontinence of urine No rectal incontinence, does have sensations intact medial thigh area She has dorsal/plantarflexion bilateral extremities, intact foot good foot eversion, inversion, ankle jerk reflexes present, ? Diminished strength in anterior posterior compartments of lower extremity Diminished strength with anterior posterior compartment of thigh -Potentially moderate compression deformity at T5 vertebrae playing a role # Sensation is intact CT thoracic spine Bones/joints: Moderate compression deformity of the T5 vertebral body but no significant retropulsion. Posterior spinal instrumentation hardware extending from T5 to the pelvis. No hardware fracture. There is 2 mm lucency surrounding bilateral T5 screws. The T5 screws of relating the upper endplate of T5 into the T4-T5 disc space. Chronic loss of height of the T9 and T10 vertebral bodies with deformity and fusion. Cement seen in the T8, T9 and T10 vertebral bodies. 5 mm lucency surrounding bilateral T11 and T12 screws. Ghost tracts from prior T10 screws. No severe bony canal stenosis. ct lumbar spine Bones/joints: No acute fracture. Extensive thoracic and lumbar fusion spanning through S1. Obviously complex history with previous areas of pedicular screw removal. Areas of periscrew lucency in the mid to lower lumbar spine and sacrum. This implies chronic appearance. There is moderate diffuse lumbar degenerative change with loss of disc space and osteophyte formation with advanced facet arthropathy. Multiple moderate broad-based disc bulges cause moderate mass effect and moderate spinal stenosis. No significant neural foraminal narrowing. Bilateral sacroiliac joint ankylosis screws. There are 2 mm lucency surrounding bilateral T12 screws. 1 mm lucency surrounding the right L3 screw. 3 mm lucency surrounding the right L4 screw. 6 mm lucency surrounding the left S1 screw. 2 mm lucency surrounding the right sacroiliac screws. 1 mm lucency surrounding the right S2 screw. Left L5 screw fragment. No change. Bones/joints: Multiple old healed vertebral body fractures are noted. No definite acute fracture identified. Spinal cord: Normal signal. No cord compression. T1-T2: No significant disc bulge or herniation. No severe spinal canal stenosis. No significant neural foraminal narrowing. T2-T3: No significant disc bulge or herniation. No severe spinal canal stenosis. No significant neural foraminal narrowing. T3-T4: No significant disc bulge or herniation. No severe spinal canal stenosis. No significant neural foraminal narrowing. T4-T5: No significant disc bulge or herniation. No severe spinal canal stenosis. No significant neural foraminal narrowing. T5-T6: No significant disc bulge or herniation. No severe spinal canal stenosis. No significant neural foraminal narrowing. T6-T7: No significant disc bulge or herniation. No severe spinal canal stenosis. No significant neural foraminal narrowing. T7-T8: No significant disc bulge or herniation. No severe spinal canal stenosis. No significant neural foraminal narrowing. T8-T9: No significant disc bulge or herniation. No severe spinal canal stenosis. No significant neural foraminal narrowing. T9-T10: No significant disc bulge or herniation. No severe spinal canal stenosis. No significant neural foraminal narrowing. T10-T11: No significant disc bulge or herniation. No severe spinal canal stenosis. No significant neural foraminal narrowing. T11-T12: No significant disc bulge or herniation. No severe spinal canal stenosis. No significant neural foraminal narrowing. T12-L1: No significant disc bulge or herniation. No severe spinal canal stenosis. No significant neural f Continue Decadron ESR42, CRP, Pro-Virgilio, blood cultures Increasing mobility bilateral lower extremities Patient does not want to be transferred stating that she would wait for Dr. Fowler to see her on Wednesday I will request physical therapy as well Will continue her Lyrica Continue opioids along bowel regimen Patient is requesting Ram catheter placement For struct of sleep apnea will request CPAP Full code DVT prophylaxis heparin Cardiac diet Attestations 2 Medical Necessity Statement*: Patient requires hospitalization for bilateral extremity weakness, T5 compression Diagnoses Obesity E66.9 Thoracic back pain M54.6; G89.29 Back pain laterality: bilateral Chronicity: chronic Chronic back pain M54.9; G89.29 Acute back pain M54.9 History of lumbar surgery Z98.890 Intervertebral disc disorder with radiculopathy of lumbosacral region M51.17 Lumbar stenosis with neurogenic claudication M48.062 S/P spinal fusion Z98.1 Paresthesia of lower extremity R20.2 Obstructive sleep apnea G47.33 Insomnia G47.00
[2024-07-09] VITALS (9 sets, daily range): BP systolic 129–197; BP diastolic 79–99; PULSE 73–85; RESP 16–18; TEMP 36.5–37.1; O2SAT 93–99
[2024-07-09] MEDS: trazodone 50 mg Tablet 25 MG PO (00:57)
[2024-07-09] MEDS: morphine IR 15 mg Tablet PO ×3 (00:57→23:56)
[2024-07-09 04:39] LABS: Basophils % 0.1 %; Hematocrit 44.1 % (36-47); Lymphocytes # 1.8 10^3/uL (0.8-4.8); Lymphocytes % 13.3 %; Mean Corpuscular HGB Conc 29.7 g/dL (30-55); Mean Corpuscular Hemoglobin 22.9 pg (27-33); Mean Corpuscular Volume 77.1 fl (85-98); Mean Platelet Volume 8.3 fL (7.4-10.4); Monocytes # 0.6 10^3/uL (0.2-0.9); Monocytes % 4.5 %; Neutrophils # 10.95 10^3/uL (1.8-7.7); Neutrophils % 80.4 %; Nucleated Red Blood Cells % 0 %; Platelet Count 662 10^3/cmm (157-399); Red Blood Count 5.72 10^6/uL (3.85-5.65); White Blood Count 13.62 10^3/uL (3.29-11.43)
[2024-07-09] MEDS: lactulose oral liq 20 gm/30 mL UDC PO ×2 (04:47→14:03)
[2024-07-09 04:58] LABS: Alanine Aminotransferase 40 U/L (0-33); Albumin Level 3.6 g/dL (3.5-5.2); Alkaline Phosphatase 122 U/L (35-105); Anion Gap 14.2 (5-19); Aspartate Amino Transferase 32 U/L (0-32); Blood Urea Nitrogen 22 mg/dL (8-23); C Reactive Protein 5.3 mg/L (0.0-4.9); Calcium 9.8 mg/dL (8.5-10.5); Carbon Dioxide 28 mmol/L (22-29); Chloride 100 mmol/L (98-107); Creatinine Clr Calc Pharmacy 98.3725; Glucose 140 mg/dL (65-115); Magnesium 2.2 mg/dL (1.7-2.3); Osmolality Calculated 292 mOsm/kg (285-295); Phosphorus 3.6 mg/dL (2.5-4.5); Potassium 4.2 mmol/L (3.5-5.1); Sodium 138 mmol/L (136-145); Total Bilirubin 0.2 mg/dL (0.15-1.2); Total Protein 7.6 g/dL (6.6-8.7)
[2024-07-09] MEDS: sennosides-docusate Tablet 2 TAB PO ×2 (08:07→17:05)
[2024-07-09] MEDS: pregabalin 75 mg Capsule PO (08:07)
[2024-07-09] MEDS: duloxetine 30 mg Capsule PO ×2 (08:07→17:05)
[2024-07-09] MEDS: amitriptyline 25 mg Tablet 100 MG PO (08:07)
[2024-07-09] MEDS: dexamethasone 4 mg/mL INJ PO ×2 (08:08→21:29)
[2024-07-09] MEDS: heparin 5,000 unit/mL INJ 1 mL 5000 UNIT SUBCUT ×2 (09:48→21:29)
[2024-07-09] MEDS: amlodipine 5 mg Tablet PO (09:48)
[2024-07-09] MEDS: polyethylene glycol 3350 Pkt 17 gm PO (14:03)
--- NOTE | 2024-07-09 15:10 | P.PN_ITS ---
Subjective 2 Subjective: Patient was seen this morning, she tells me that she has more mobility in her lower extremities, no loss of sensation, but does report constipation Vitals/I&O/Wt Last Vital Signs Temp 98.5 F 07/09/24 11:47 Pulse 80 07/09/24 11:47 Resp 18 07/09/24 14:05 BP 189/96 07/09/24 11:47 Pulse Ox 95 07/09/24 11:47 O2 Del Method Room Air 07/09/24 11:47 07/09/24 07/09/24 07/09/24 06:59 14:59 22:59 Intake Total 850 / 1570 440 / 440 Output Total 1700 / 3100 1050 / 1050 Balance -850 / -1530 -610 / -610 Weight last 48 hrs Weight 136.259 kg Weight 136.333 kg Physical Exam 2 Const: COMMON NORMALS: no acute distress and patient oriented x3 Resp: COMMON NORMALS: normal respiratory effort, No retractions, No use of accessory muscles and clear to auscultation bilaterally AUSCULTATION: clear to auscultation bilaterally Cardio: COMMON NORMALS: regular rate, regular rhythm, S1 normal heart sound present and S2 normal heart sound present RATE: regular rate RHYTHM: r egular rhythm HEART SOUNDS: S1 normal heart sound present and S2 normal heart sound present GI: COMMON NORMALS: Normal to inspection, nondistended, normoactive bowel sounds present and non-tender Extremity: COMMON NORMALS: no pedal edema Neuro: COMMON NORMALS: patient oriented x3 Psych: COMMON NORMALS: mental status grossly normal Urinary Catheter Management: Ram: Cath Placed During This Visit: yes Reason for Continuing Indwelling Catheter: Acute Urinary Retention or Obstruction Urinary Catheter Date of Insertion: 07/06/24 Urinary Catheter Time of Insertion: 23:39 Data 07/09/24 02:53 07/09/24 02:53 Micro: Microbiology 07/07/24 15:21 Blood Culture - Preliminary Blood NEGATIVE TO DATE 07/07/24 15:19 Blood Culture - Preliminary Blood NEGATIVE TO DATE A&P Assessment and plan (1) Obesity: (2) Thoracic back pain: Qualifiers: Back pain laterality: bilateral Chronicity: chronic Qualified Code(s): M54.6 - Pain in thoracic spine; G89.29 - Other chronic pain (3) Chronic back pain: (4) Acute back pain: (5) History of lumbar surgery: (6) Intervertebral disc disorder with radiculopathy of lumbosacral region: (7) Lumbar stenosis with neurogenic claudication: (8) S/P spinal fusion: (9) Paresthesia of lower extremity: (10) Obstructive sleep apnea: (11) Insomnia: Plan Acute on chronic back pain Inability to walk, incontinence of urine No rectal incontinence, does have sensations intact medial thigh area She has dorsal/plantarflexion bilateral extremities, intact foot good foot eversion, inversion, ankle jerk reflexes present, ? Diminished strength in anterior posterior compartments of lower extremity Diminished strength with anterior posterior compartment of thigh -Potentially moderate compression deformity at T5 vertebrae playing a role # Sensation is intact CT thoracic spine Bones/joints: Moderate compression deformity of the T5 vertebral body but no significant retropulsion. Posterior spinal instrumentation hardware extending from T5 to the pelvis. No hardware fracture. There is 2 mm lucency surrounding bilateral T5 screws. The T5 screws of relating the upper endplate of T5 into the T4-T5 disc space. Chronic loss of height of the T9 and T10 vertebral bodies with deformity and fusion. Cement seen in the T8, T9 and T10 vertebral bodies. 5 mm lucency surrounding bilateral T11 and T12 screws. Ghost tracts from prior T10 screws. No severe bony canal stenosis. ct lumbar spine Bones/joints: No acute fracture. Extensive thoracic and lumbar fusion spanning through S1. Obviously complex history with previous areas of pedicular screw removal. Areas of periscrew lucency in the mid to lower lumbar spine and sacrum. This implies chronic appearance. There is moderate diffuse lumbar degenerative change with loss of disc space and osteophyte formation with advanced facet arthropathy. Multiple moderate broad-based disc bulges cause moderate mass effect and moderate spinal stenosis. No significant neural foraminal narrowing. Bilateral sacroiliac joint ankylosis screws. There are 2 mm lucency surrounding bilateral T12 screws. 1 mm lucency surrounding the right L3 screw. 3 mm lucency surrounding the right L4 screw. 6 mm lucency surrounding the left S1 screw. 2 mm lucency surrounding the right sacroiliac screws. 1 mm lucency surrounding the right S2 screw. Left L5 screw fragment. No change. Bones/joints: Multiple old healed vertebral body fractures are noted. No definite acute fracture identified. Spinal cord: Normal signal. No cord compression. T1-T2: No significant disc bulge or herniation. No severe spinal canal stenosis. No significant neural foraminal narrowing. T2-T3: No significant disc bulge or herniation. No severe spinal canal stenosis. No significant neural foraminal narrowing. T3-T4: No significant disc bulge or herniation. No severe spinal canal stenosis. No significant neural foraminal narrowing. T4-T5: No significant disc bulge or herniation. No severe spinal canal stenosis. No significant neural foraminal narrowing. T5-T6: No significant disc bulge or herniation. No severe spinal canal stenosis. No significant neural foraminal narrowing. T6-T7: No significant disc bulge or herniation. No severe spinal canal stenosis. No significant neural foraminal narrowing. T7-T8: No significant disc bulge or herniation. No severe spinal canal stenosis. No significant neural foraminal narrowing. T8-T9: No significant disc bulge or herniation. No severe spinal canal stenosis. No significant neural foraminal narrowing. T9-T10: No significant disc bulge or herniation. No severe spinal canal stenosis. No significant neural foraminal narrowing. T10-T11: No significant disc bulge or herniation. No severe spinal canal stenosis. No significant neural foraminal narrowing. T11-T12: No significant disc bulge or herniation. No severe spinal canal stenosis. No significant neural foraminal narrowing. T12-L1: No significant disc bulge or herniation. No severe spinal canal stenosis. No significant neural f Continue Decadron ESR42, CRP, Pro-Virgilio, blood cultures Increasing mobility bilateral lower extremities Patient does not want to be transferred stating that she would wait for Dr. Fowler to see her on Wednesday I will request physical therapy as well Will continue her Lyrica Continue opioids Add MiraLAX, lactulose, enema Patient is requesting Ram catheter placement For struct of sleep apnea will request CPAP Full code DVT prophylaxis heparin Cardiac diet Attestations 2 Medical Necessity Statement*: Patient requires hospitalization for back pain, inability to walk Diagnoses Obesity E66.9 Thoracic back pain M54.6; G89.29 Back pain laterality: bilateral Chronicity: chronic Chronic back pain M54.9; G89.29 Acute back pain M54.9 History of lumbar surgery Z98.890 Intervertebral disc disorder with radiculopathy of lumbosacral region M51.17 Lumbar stenosis with neurogenic claudication M48.062 S/P spinal fusion Z98.1 Paresthesia of lower extremity R20.2 Obstructive sleep apnea G47.33 Insomnia G47.00
[2024-07-10] VITALS (8 sets, daily range): BP systolic 101–136; BP diastolic 64–80; PULSE 75–99; RESP 15–19; TEMP 36.5–36.8; O2SAT 91–99
[2024-07-10 06:16] LABS: Basophils # 0.1 10^3/uL (0.0-0.1); Basophils % 0.2 %; Eosinophils % 0.2 %; Hematocrit 44.5 % (36-47); Lymphocytes # 2.7 10^3/uL (0.8-4.8); Lymphocytes % 13.1 %; Mean Corpuscular HGB Conc 29.2 g/dL (30-55); Mean Corpuscular Hemoglobin 22.9 pg (27-33); Mean Corpuscular Volume 78.5 fl (85-98); Mean Platelet Volume 8.2 fL (7.4-10.4); Monocytes # 1.2 10^3/uL (0.2-0.9); Monocytes % 5.9 %; Neutrophils # 16.53 10^3/uL (1.8-7.7); Neutrophils % 79.4 %; Nucleated Red Blood Cells % 0 %; Platelet Count 614 10^3/cmm (157-399); Red Blood Count 5.67 10^6/uL (3.85-5.65); White Blood Count 20.82 10^3/uL (3.29-11.43)
[2024-07-10 07:03] LABS: Alanine Aminotransferase 35 U/L (0-33); Albumin Level 3.2 g/dL (3.5-5.2); Alkaline Phosphatase 121 U/L (35-105); Anion Gap 19.9 (5-19); Aspartate Amino Transferase 33 U/L (0-32); Blood Urea Nitrogen 24 mg/dL (8-23); Carbon Dioxide 20 mmol/L (22-29); Chloride 99 mmol/L (98-107); Creatinine Clr Calc Pharmacy 97.3622; Globulin 3.6 g/dL (1.3-4.6); Glucose 110 mg/dL (65-115); Magnesium 2.5 mg/dL (1.7-2.3); Osmolality Calculated 283 mOsm/kg (285-295); Phosphorus 4.6 mg/dL (2.5-4.5); Potassium 4.9 mmol/L (3.5-5.1); Sodium 134 mmol/L (136-145); Total Bilirubin 0.3 mg/dL (0.15-1.2); Total Protein 6.8 g/dL (6.6-8.7)
--- NOTE | 2024-07-10 07:07 | PM.CONSULT ---
Providers/Reason For Consult Consulting Physician/Specialty*: hospitalist Reason for Consult*: leg weakness Attending Physician: Ciro Serna MD Primary Care Provider: Tadeo Prather MD History of Present Illness History of Present Illness Kathy Patel is a 68 year old female who has had multiple surgeries on her spine. Was admitted to the hospital July 06 for weakness. Patient said she also had not felt weakness in her legs that she woke up she said she normally sleeps on her left side but she is up to her right side this time and had this issue after this. CT scans and MRIs of thoracic and lumbar spine at this point do not show any changes. Patient was seen in the clinic approximately a month ago was walking without a walker. She does have some proximal junctional kyphosis and screw loosening above. Patient states that she does feel your legs are getting stronger slowly. Review of Systems Const: Denies: fever(s) Eyes: Denies: change in vision Resp: Denies: dyspnea GI: Denies: abdominal pain : Denies: flank pain Musc: Reports: back pain Medications/Allergies Home Medications Medication Instructions Recorded Confirmed Last Taken Type ascorbic acid 7.5 mg-vit E 7.5 4 tab PO DAILY 11/09/20 07/07/24 03/07/24 History unit-biotin 1,250 mcg chewable tablet (Hair,Skin,Nails with Biotin) cetirizine 10 mg tablet (Zyrtec) 10 mg PO DAILY@21 PRN allergies 11/09/20 07/07/24 08/24/23 History TLSO Brace #1 ea 06/19/21 07/07/24 Unknown Rx Bone Growth Stimulator [id number] #1 ea 09/28/22 07/07/24 Unknown Rx c-pap supplies #1 ea 08/24/23 07/07/24 Unknown Rx duloxetine 30 mg capsule,delayed 30 mg PO BID 02/02/24 07/07/24 03/07/24 History release omeprazole 20 mg capsule,delayed 20 mg PO DAILY 02/25/24 07/07/24 03/07/24 History release amitriptyline 100 mg tablet 100 mg PO DAILY #30 tabs 05/11/24 07/07/24 Unknown Rx oxycodone-acetaminophen 10 mg-325 1 tab PO Q4H PRN pain 7 days #42 06/19/24 07/07/24 Unknown Rx mg tablet tabs prednisone 50 mg tablet 50 mg PO DAILY #5 tabs 07/04/24 07/07/24 Unknown Rx pregabalin 75 mg capsule (Lyrica) 75 mg PO BID #30 caps 07/04/24 07/07/24 Unknown Rx cyclobenzaprine 10 mg tablet 10 mg PO Q8H PRN muscle spasm #20 07/06/24 Unknown Rx tabs ferrous sulfate 325 mg (65 mg 325 mg PO TID 07/07/24 07/07/24 Unknown History iron) tablet (FeroSul) Allergies Allergy/AdvReac Type Severity Reaction Status Date / Time adhesive tape Allergy Unknown Verified 07/06/24 20:07 Current Medications Generic Name Dose Route Start Last Admin Trade Name Freq PRN Reason Stop Dose Admin Amitriptyline HCl 100 mg 07/08/24 09:00 07/09/24 08:07 Amitriptyline 25 Mg Tablet PO 100 mg DAILY NUBIA Administration Amlodipine Besylate 5 mg 07/09/24 09:00 07/09/24 09:48 Amlodipine 5 Mg Tablet PO 5 mg DAILY NUBIA Administration Dexamethasone 4 mg 07/09/24 21:00 07/09/24 21:29 Dexamethasone 4 Mg/Ml Inj PO 4 mg Q12H NUBIA Administration Duloxetine HCl 30 mg 07/08/24 09:00 07/09/24 17:05 Duloxetine 30 Mg Capsule PO 30 mg BID NUBIA Administration Heparin Sodium (Porcine) 5,000 unit 07/06/24 21:45 07/09/24 21:29 Heparin 5,000 Unit/Ml Inj 1 Ml SUBCUT 5,000 unit Q12H NUBIA Administration Morphine Sulfate 15 mg 07/06/24 21:31 07/09/24 23:56 Morphine Ir 15 Mg Tablet PO 15 mg Q6H PRN Administration MODERATE PAIN Morphine Sulfate 2 mg 07/06/24 22:36 07/08/24 04:47 Morphine 4 Mg/Ml Sdv 1 Ml IVP 2 mg Q4H PRN Administration SEVERE PAIN Polyethylene Glycol 17 gm 07/09/24 11:35 07/09/24 14:03 Polyethylene Glycol 3350 Pkt 17 Gm PO 17 gm DAILY NUBIA Administration Pregabalin 75 mg 07/07/24 09:00 07/09/24 08:07 Pregabalin 75 Mg Capsule PO 75 mg DAILY NUBIA Administration Senna/Docusate Sodium 2 tab 07/07/24 09:00 07/09/24 17:05 Sennosides-Docusate Tablet PO 2 tab BID NUBIA Administration Trazodone HCl 25 mg 07/06/24 22:36 07/09/24 00:57 Trazodone 50 Mg Tablet PO 25 mg BEDTIME PRN Administration insomni PFSH Acute PFSH: Medical History Chronic prescription opiate use Fracture, thoracic vertebra, compression Epigastric abdominal pain Discitis of thoracic region Spondylarthritis DDD (degenerative disc disease), thoracic Fusion of spine, thoracolumbar region Obstructive sleep apnea Morbid obesity Degenerative lumbar spinal stenosis Internal fixation device (pin, nixon, or screw) mechanical complication Morbid obesity with BMI of 50.0-59.9, adult Lumbar stenosis with neurogenic claudication Intervertebral disc disorder with radiculopathy of lumbosacral region Surgical History Status post cervical spinal fusion 09/24 Status post correction of deviated nasal septum History of appendectomy History of carpal tunnel repair History of knee surgery History of laparoscopic adjustable gastric banding Status post insertion of spinal cord stimulator (~2016) History of lumbar surgery (~2011) 12/2016 Dr. Martin Joyner Thoracic spinal cord stimulator placement 04/2016 Dr. Martin Joyner Right SI joint fusion 03/2016 Dr. Martin Joyner [facility] Left SI joint fusion 06/2012 Dr. Christopher Olmstead [facility] L2-L3 posterior fusion/fixation. 10/2011 Dr. Christopher Olmstead [facility] Fractured fusion screws removed. 12/[address] Orthopedic surgeon. [facility] Spine: L3-L4, L4-L5 L5-S1 Posterior Fusion/fusion Family History Father CAD (coronary artery disease) Social History Smoking and tobacco/nicotine status: never used tobacco/nicotine Alcohol intake: former Substance/Drug Use: never Household members: spouse Marital status: Current occupational status: disabled Vitals/I&O/Wt Last Vital Signs Temp 97.8 F 07/10/24 04:00 Pulse 77 07/10/24 04:00 Resp 16 07/10/24 04:00 BP 120/64 07/10/24 04:00 Pulse Ox 91 07/10/24 04:00 O2 Del Method Room Air 07/10/24 04:00 07/09/24 07/10/24 07/10/24 22:59 06:59 14:59 Output Total 950 / 2000 Balance -950 / -1560 Weight last 48 hrs Weight 295 lb 4.8 oz Weight 300 lb 6.4 oz Weight 300 lb 9 oz Physical Exam Narrative: Weakness in bilateral lower extremities left greater than right. Patient is able to lift both legs off the bed at this point. Prior she was unable to do this. Sensation is intact. Patient does have a Ram in at this time. Urinary Catheter Management: Ram: Cath Placed During This Visit: yes Reason for Continuing Indwelling Catheter: Other Urinary Catheter Date of Insertion: 07/06/24 Urinary Catheter Time of Insertion: 23:39 Data 07/10/24 05:12 07/10/24 05:12 A&P Assessment and plan (1) Status post lumbar spinal fusion: At this point would try to get her up with physical therapy see how she does. Consult Attestations Medical Necessity Statement: Per primary service Coding Level of Care Code Acute Code for Chg Fwd Diagnoses Status post lumbar spinal fusion Z98.1
--- NOTE | 2024-07-10 09:10 | PC.CHAP ---
Pastoral Care Encounter/Spiritual Assessment Type of Contact [] Declined deputy grand jury visit [] Patient/Family/Request visit [] Outpatient visit [] Follow-up visit [] Physician referral [] Code/Alert [x] Routine visit [] Staff referral [] Actively dying [] Patient sleeping [] Family support [] [] Out of room [] Palliative care [] [] Receiving care in room [] Pre-surgical visit [] Trauma [] Long length of stay [] ICU visit [] Other: Relational/Emotional Strength [] Patient feels connected with others/family/visitors/staff [] Distress [] Loneliness/isolation [] Abandonment Spirituality of Patient [x] Person of Patience [] Attends Orthodox of their Patience [x] Believes in Prayer [] Reads Bible or Christian materials [] There are Spiritual issues to be addressed Loan Associate Interventions [x] Prayer [x] Active listening [] Non-anxious presence [] Spiritual/emotional support [] Crisis/trauma care [] Spiritual counseling [] Bereavement support [] Provided bereavement packet [] Provided Bible/devotional materials [] Provided toy/stuffed animal, coloring book to patient or family member [] Provided Communion [] Anointing/[place] [] Salvation [x] Completed spiritual assessment [] Other: Impact on Illness or Injury [] Angry [] Fearful [] Anxious [] Often cries [] Exhaustion [] Unable to work [] Unable to attend episcopalian [] Unable to walk/stand [] Unable to read [] Unable to drive [] Unable to eat/drink [] Unable to sleep [] Unable to be with family [] Patient intubated [] Other: Summary Time spent with patient 5 min
[2024-07-10] MEDS: amitriptyline 25 mg Tablet 100 MG PO (10:56)
[2024-07-10] MEDS: amlodipine 5 mg Tablet PO (10:56)
[2024-07-10] MEDS: duloxetine 30 mg Capsule PO ×2 (10:56→19:12)
[2024-07-10] MEDS: sennosides-docusate Tablet 2 TAB PO ×2 (10:56→19:13)
[2024-07-10] MEDS: heparin 5,000 unit/mL INJ 1 mL 5000 UNIT SUBCUT ×2 (10:57→20:53)
[2024-07-10] MEDS: pregabalin 75 mg Capsule PO (10:57)
[2024-07-10] MEDS: polyethylene glycol 3350 Pkt 17 gm PO (10:57)
[2024-07-10] MEDS: dexamethasone 4 mg Tablet PO (12:09)
--- NOTE | 2024-07-10 12:34 | PC.SOCIAL ---
IMM Update pg 2 of IMM Updated and reviewed w/ patient. Copy provided and copy dated, initialed and placed in chart.
--- NOTE | 2024-07-10 13:31 | USCV_ITS ---
Kathy Patel Age: 68 Gender: F : 1955 Exam Date: 07/10/2024 09:30 Ordering Phys: Ciro Serna MD Technologist: [place] [facility] [place]: sob BP: 136 / 76 HR: 84 Rhythm: Sinus Technical Quality: Adequate MEASUREMENTS (Male / Female) Normal Values 2D ECHO LVOT Diameter 2.0 cm LV Ejection Fraction MOD 4C 71.9 % LV Ejection Fraction MOD 2C 53.7 % LV Ejection Fraction 2C AL 57.1 % LA Diameter 4.0 cm RA Systolic Volume 4C AL 47.9 ml RA Systolic Volume 4C MOD 47.8 ml LA Sys Volume AL 55.1 cm cubed LA Sys Volume Index AL 21.4 cm cubed/m squared Aorta at Sinotubular Diameter 2.8 cm M-MODE LA Ao Ratio MM 1.2 AV Cusp Separation MM 2.2 cm DOPPLER AV Peak Velocity 153.0 cm/s LVOT Peak Velocity 117.0 cm/s AV Area Cont Eq vti 3.5 cm squared AV Area Cont Eq pk 2.4 cm squared MV Peak Velocity 101.0 cm/s MV Area PHT 3.7 cm squared Mitral E to A Ratio 0.7 TV Peak E Velocity 63.0 cm/s PV Peak Velocity 101.0 cm/s FINDINGS Left Ventricle Normal left ventricular size, systolic function and wall thickness, with no regional wall motion abnormalities. Left ventricular ejection fraction is estimated at 60 %. Grade I/IV diastolic dysfunction (abnormal relaxation filling pattern), normal to mildly elevated filling pressures. Right Ventricle The right ventricle is normal in size and function. Right Atrium The right atrium is normal in size. Left Atrium The left atrium is normal in size. Mitral Valve Moderate mitral annular calcification. Moderately thickened mitral valve. No mitral valve regurgitation. No mitral valve stenosis. Aortic Valve Moderate aortic valve calcification. No aortic valve stenosis. Trace aortic valve regurgitation. Tricuspid Valve Structurally normal tricuspid valve without significant stenosis or regurgitation. Pulmonary artery systolic pressure is normal. Pulmonic Valve Structurally normal pulmonic valve without significant stenosis. There is no pulmonic regurgitation. Pericardium Normal pericardium without effusion. Aorta Normal ascending aorta dimension. IVC The inferior vena cava appears normal. CONCLUSIONS Normal left ventricular size, systolic function and wall thickness, with no regional wall motion abnormalities. Left ventricular ejection fraction is estimated at 60 %. Grade I/IV diastolic dysfunction (abnormal relaxation filling pattern), normal to mildly elevated filling pressures. No significant valve abnormalities. There is no pericardial effusion. Right atrial pressure is around 5 mm of mercury. Vamshi Rachel MD (Electronically Signed) Final Date: 10 July 2024 19:08 S
--- NOTE | 2024-07-10 14:16 | P.PN_ITS ---
Subjective 2 Subjective: Patient was seen this morning, she complains of back pain, she is wondering if I can increase the dose of her morphine, she tells me that the mobility of her lower extremities, she was able to sit to stand with the help of therapy Vitals/I&O/Wt Last Vital Signs Temp 98.2 F 07/10/24 11:23 Pulse 97 07/10/24 12:38 Resp 16 07/10/24 12:38 BP 106/69 07/10/24 11:23 Pulse Ox 96 07/10/24 12:38 O2 Del Method Room Air 07/10/24 12:38 07/09/24 07/10/24 07/10/24 22:59 06:59 14:59 Intake Total 740 / 740 Output Total 950 / 2000 Balance -950 / -1560 740 / 740 Weight last 48 hrs Weight 133.946 kg Weight 136.259 kg Physical Exam 2 Const: COMMON NORMALS: no acute distress and patient oriented x3 Neck/C-Spine: COMMON NORMALS: no JVD Resp: COMMON NORMALS: normal respiratory effort, No retractions, No use of accessory muscles and clear to auscultation bilaterally AUSCULTATION: clear to auscultation bilaterally Cardio: COMMON NORMALS: no JVD, regular rate, regular rhythm, S1 normal heart sound present and S2 normal heart sound present RATE: regular rate RHYTHM: regular rhythm HEART SOUNDS: S1 normal heart sound present and S2 normal heart sound present GI: COMMON NORMALS: Normal to inspection, nondistended, normoactive bowel sounds present, non-tender and no bruits Extremity: COMMON NORMALS: no pedal edema NARRATIVE EXTREMITY EXAM: Improving bilateral lower extremity strength, good foot eversion, inversion, extension, flexion, good anterior and posterior compartment strength lower extremities, she does have good anterior strength of thighs, no sensation abnormalities lower extremity that I could discern Neuro: COMMON NORMALS: patient oriented x3 Psych: COMMON NORMALS: mental status grossly normal Urinary Catheter Management: Ram: Cath Placed During This Visit: yes Reason for Continuing Indwelling Catheter: Other Urinary Catheter Date of Insertion: 07/06/24 Urinary Catheter Time of Insertion: 23:39 Data 07/10/24 05:12 07/10/24 05:12 A&P Assessment and plan (1) Obesity: (2) Thoracic back pain: Qualifiers: Back pain laterality: bilateral Chronicity: chronic Qualified Code(s): M54.6 - Pain in thoracic spine; G89.29 - Other chronic pain (3) Chronic back pain: (4) Acute back pain: (5) History of lumbar surgery: (6) Intervertebral disc disorder with radiculopathy of lumbosacral region: (7) Lumbar stenosis with neurogenic claudication: (8) S/P spinal fusion: (9) Paresthesia of lower extremity: (10) Obstructive sleep apnea: (11) Insomnia: Plan Acute on chronic back pain Inability to walk, incontinence of urine No rectal incontinence, does have sensations intact medial thigh area She has dorsal/plantarflexion bilateral extremities, intact foot good foot eversion, inversion, ankle jerk reflexes present, ? Diminished strength in anterior posterior compartments of lower extremity Diminished strength with anterior posterior compartment of thigh -Potentially moderate compression deformity at T5 vertebrae playing a role # Sensation is intact CT thoracic spine Bones/joints: Moderate compression deformity of the T5 vertebral body but no significant retropulsion. Posterior spinal instrumentation hardware extending from T5 to the pelvis. No hardware fracture. There is 2 mm lucency surrounding bilateral T5 screws. The T5 screws of relating the upper endplate of T5 into the T4-T5 disc space. Chronic loss of height of the T9 and T10 vertebral bodies with deformity and fusion. Cement seen in the T8, T9 and T10 vertebral bodies. 5 mm lucency surrounding bilateral T11 and T12 screws. Ghost tracts from prior T10 screws. No severe bony canal stenosis. ct lumbar spine Bones/joints: No acute fracture. Extensive thoracic and lumbar fusion spanning through S1. Obviously complex history with previous areas of pedicular screw removal. Areas of periscrew lucency in the mid to lower lumbar spine and sacrum. This implies chronic appearance. There is moderate diffuse lumbar degenerative change with loss of disc space and osteophyte formation with advanced facet arthropathy. Multiple moderate broad-based disc bulges cause moderate mass effect and moderate spinal stenosis. No significant neural foraminal narrowing. Bilateral sacroiliac joint ankylosis screws. There are 2 mm lucency surrounding bilateral T12 screws. 1 mm lucency surrounding the right L3 screw. 3 mm lucency surrounding the right L4 screw. 6 mm lucency surrounding the left S1 screw. 2 mm lucency surrounding the right sacroiliac screws. 1 mm lucency surrounding the right S2 screw. Left L5 screw fragment. No change. Bones/joints: Multiple old healed vertebral body fractures are noted. No definite acute fracture identified. Spinal cord: Normal signal. No cord compression. T1-T2: No significant disc bulge or herniation. No severe spinal canal stenosis. No significant neural foraminal narrowing. T2-T3: No significant disc bulge or herniation. No severe spinal canal stenosis. No significant neural foraminal narrowing. T3-T4: No significant disc bulge or herniation. No severe spinal canal stenosis. No significant neural foraminal narrowing. T4-T5: No significant disc bulge or herniation. No severe spinal canal stenosis. No significant neural foraminal narrowing. T5-T6: No significant disc bulge or herniation. No severe spinal canal stenosis. No significant neural foraminal narrowing. T6-T7: No significant disc bulge or herniation. No severe spinal canal stenosis. No significant neural foraminal narrowing. T7-T8: No significant disc bulge or herniation. No severe spinal canal stenosis. No significant neural foraminal narrowing. T8-T9: No significant disc bulge or herniation. No severe spinal canal stenosis. No significant neural foraminal narrowing. T9-T10: No significant disc bulge or herniation. No severe spinal canal stenosis. No significant neural foraminal narrowing. T10-T11: No significant disc bulge or herniation. No severe spinal canal stenosis. No significant neural foraminal narrowing. T11-T12: No significant disc bulge or herniation. No severe spinal canal stenosis. No significant neural foraminal narrowing. T12-L1: No significant disc bulge or herniation. No severe spinal canal Continue Decadron ESR42, CRP, Pro-Virgilio, blood cultures Increasing mobility bilateral lower extremities Will await Dr. Fowler's recommendation PT OT Will continue her Lyrica Continue opioids De-escalate steroids Leukocytosis, likely secondary to steroids Sed rate improved to 42 Add MiraLAX, lactulose, enema De-escalate off Ram catheter today sleep apnea will request CPAP Full code DVT prophylaxis heparin Cardiac diet Attestations 2 Medical Necessity Statement*: Patient requires hospitalization for lower extremity weakness Diagnoses Obesity E66.9 Thoracic back pain M54.6; G89.29 Back pain laterality: bilateral Chronicity: chronic Chronic back pain M54.9; G89.29 Acute back pain M54.9 History of lumbar surgery Z98.890 Intervertebral disc disorder with radiculopathy of lumbosacral region M51.17 Lumbar stenosis with neurogenic claudication M48.062 S/P spinal fusion Z98.1 Paresthesia of lower extremity R20.2 Obstructive sleep apnea G47.33 Insomnia G47.00
[2024-07-10] MEDS: acetaminophen 500 mg Tablet PO (19:10)
[2024-07-10] MEDS: trazodone 50 mg Tablet 25 MG PO (21:05)
[2024-07-10] MEDS: morphine IR 15 mg Tablet PO (21:05)
[2024-07-11] VITALS (10 sets, daily range): BP systolic 107–159; BP diastolic 60–97; PULSE 73–85; RESP 17–18; TEMP 36.4–36.9; O2SAT 95–100
[2024-07-11] MEDS: morphine IR 15 mg Tablet PO ×3 (04:48→21:40)
[2024-07-11 06:11] LABS: Basophils % 0.2 %; Eosinophils # 0.2 10^3/uL (0.0-0.8); Eosinophils % 1.1 %; Hematocrit 42.3 % (36-47); Lymphocytes # 3.4 10^3/uL (0.8-4.8); Lymphocytes % 19.3 %; Mean Corpuscular HGB Conc 29.3 g/dL (30-55); Mean Corpuscular Volume 78.6 fl (85-98); Mean Platelet Volume 8.4 fL (7.4-10.4); Monocytes # 1.2 10^3/uL (0.2-0.9); Monocytes % 6.7 %; Neutrophils # 12.56 10^3/uL (1.8-7.7); Neutrophils % 71.1 %; Nucleated Red Blood Cells % 0 %; Platelet Count 516 10^3/cmm (157-399); Red Blood Count 5.38 10^6/uL (3.85-5.65); White Blood Count 17.67 10^3/uL (3.29-11.43)
[2024-07-11 06:44] LABS: Alanine Aminotransferase 36 U/L (0-33); Albumin Level 3.2 g/dL (3.5-5.2); Alkaline Phosphatase 117 U/L (35-105); Anion Gap 16.1 (5-19); Aspartate Amino Transferase 35 U/L (0-32); Blood Urea Nitrogen 23 mg/dL (8-23); C Reactive Protein 26.9 mg/L (0.0-4.9); Calcium 8.7 mg/dL (8.5-10.5); Carbon Dioxide 25 mmol/L (22-29); Chloride 102 mmol/L (98-107); Creatinine Clr Calc Pharmacy 97.3819; Globulin 3.2 g/dL (1.3-4.6); Glomerular Filtration Rate 83.7 mL/min (90-130); Glucose 126 mg/dL (65-115); Magnesium 2.3 mg/dL (1.7-2.3); Osmolality Calculated 293 mOsm/kg (285-295); Phosphorus 3.1 mg/dL (2.5-4.5); Potassium 4.1 mmol/L (3.5-5.1); Sodium 139 mmol/L (136-145); Total Bilirubin 0.2 mg/dL (0.15-1.2); Total Protein 6.4 g/dL (6.6-8.7)
--- NOTE | 2024-07-11 08:08 | P.PN_ITS ---
Subjective 2 Subjective: Patient is improved from yesterday. She is up walking with physical therapy. Vitals/I&O/Wt Last Vital Signs Temp 97.6 F 07/11/24 04:00 Pulse 75 07/11/24 04:00 Resp 18 07/11/24 04:48 BP 107/68 07/11/24 04:00 Pulse Ox 96 07/11/24 04:48 O2 Del Method Room Air 07/11/24 04:00 07/10/24 07/11/24 07/11/24 22:59 06:59 14:59 Intake Total 540 / 1280 Balance 540 / 1280 Weight last 48 hrs Weight 295 lb 6.4 oz Weight 295 lb 4.8 oz Physical Exam 2 Narrative: Sitting up in bed looks more comfortable. Urinary Catheter Management: Ram: Cath Placed During This Visit: yes, but has since been removed by the nurse Reason for Continuing Indwelling Catheter: Decision to DC Catheter Urinary Catheter Date of Insertion: 07/06/24 Urinary Catheter Time of Insertion: 23:39 Date Urinary Catheter Removed: 07/10/24 Time Urinary Catheter Discontinued: 01:00 Data 07/11/24 05:28 07/11/24 05:28 A&P Assessment and plan (1) S/P spinal fusion: Discussed with her potentially getting out of the hospital today or tomorrow to go home since she has been did well with therapy yesterday see how she does today. Plan to see her back in the clinic in a week to see if she is better if not we discussed doing for the surgery. Attestations 2 Medical Necessity Statement*: Per primary service Coding Level of Care Code Acute Code for Chg Fwd Diagnoses S/P spinal fusion Z98.1
[2024-07-11] MEDS: amitriptyline 25 mg Tablet 100 MG PO (10:27)
[2024-07-11] MEDS: duloxetine 30 mg Capsule PO ×2 (10:28→17:23)
[2024-07-11] MEDS: dexamethasone 4 mg Tablet PO (10:28)
[2024-07-11] MEDS: sennosides-docusate Tablet 2 TAB PO ×2 (10:28→17:23)
[2024-07-11] MEDS: heparin 5,000 unit/mL INJ 1 mL 5000 UNIT SUBCUT ×2 (10:28→20:57)
[2024-07-11] MEDS: acetaminophen 500 mg Tablet PO (10:28)
[2024-07-11] MEDS: polyethylene glycol 3350 Pkt 17 gm PO (10:29)
[2024-07-11] MEDS: amlodipine 5 mg Tablet PO (10:29)
[2024-07-11] MEDS: pregabalin 75 mg Capsule PO (10:29)
--- NOTE | 2024-07-11 13:40 | P.PN_ITS ---
Subjective 2 Subjective: Patient was seen this morning, she tells me her back pain is improving, her mobility is improving, no fevers, no chills Vitals/I&O/Wt Last Vital Signs Temp 97.8 F 07/11/24 12:00 Pulse 78 07/11/24 12:00 Resp 18 07/11/24 12:00 BP 123/97 07/11/24 12:00 Pulse Ox 97 07/11/24 12:00 O2 Del Method Room Air 07/11/24 12:00 07/10/24 07/11/24 07/11/24 22:59 06:59 14:59 Intake Total 540 / 1280 960 / 960 Balance 540 / 1280 960 / 960 Weight last 48 hrs Weight 133.991 kg Weight 133.946 kg Physical Exam 2 Const: COMMON NORMALS: no acute distress and patient oriented x3 Resp: COMMON NORMALS: normal respiratory effort, No retractions, No use of accessory muscles and clear to auscultation bilaterally AUSCULTATION: clear to auscultation bilaterally Cardio: COMMON NORMALS: regular rate, regular rhythm, S1 normal heart sound present and S2 normal heart sound present RATE: regular rate RHYTHM: r egular rhythm HEART SOUNDS: S1 normal heart sound present and S2 normal heart sound present GI: COMMON NORMALS: Normal to inspection, nondistended, normoactive bowel sounds present and non-tender Extremity: COMMON NORMALS: no pedal edema Neuro: COMMON NORMALS: patient oriented x3 Psych: COMMON NORMALS: mental status grossly normal Urinary Catheter Management: Ram: Cath Placed During This Visit: yes, but has since been removed by the nurse Reason for Continuing Indwelling Catheter: Decision to DC Catheter Urinary Catheter Date of Insertion: 07/06/24 Urinary Catheter Time of Insertion: 23:39 Date Urinary Catheter Removed: 07/10/24 Time Urinary Catheter Discontinued: 01:00 Data 07/11/24 05:28 07/11/24 05:28 A&P Assessment and plan (1) Obesity: (2) Thoracic back pain: Qualifiers: Back pain laterality: bilateral Chronicity: chronic Qualified Code(s): M54.6 - Pain in thoracic spine; G89.29 - Other chronic pain (3) Chronic back pain: (4) Acute back pain: (5) History of lumbar surgery: (6) Intervertebral disc disorder with radiculopathy of lumbosacral region: (7) Lumbar stenosis with neurogenic claudication: (8) S/P spinal fusion: (9) Paresthesia of lower extremity: (10) Obstructive sleep apnea: (11) Insomnia: Plan Acute on chronic back pain Inability to walk, incontinence of urine No rectal incontinence, does have sensations intact medial thigh area She has dorsal/plantarflexion bilateral extremities, intact foot good foot eversion, inversion, ankle jerk reflexes present, ? Diminished strength in anterior posterior compartments of lower extremity Diminished strength with anterior posterior compartment of thigh -Potentially moderate compression deformity at T5 vertebrae playing a role # Sensation is intact CT thoracic spine Bones/joints: Moderate compression deformity of the T5 vertebral body but no significant retropulsion. Posterior spinal instrumentation hardware extending from T5 to the pelvis. No hardware fracture. There is 2 mm lucency surrounding bilateral T5 screws. The T5 screws of relating the upper endplate of T5 into the T4-T5 disc space. Chronic loss of height of the T9 and T10 vertebral bodies with deformity and fusion. Cement seen in the T8, T9 and T10 vertebral bodies. 5 mm lucency surrounding bilateral T11 and T12 screws. Ghost tracts from prior T10 screws. No severe bony canal stenosis. ct lumbar spine Bones/joints: No acute fracture. Extensive thoracic and lumbar fusion spanning through S1. Obviously complex history with previous areas of pedicular screw removal. Areas of periscrew lucency in the mid to lower lumbar spine and sacrum. This implies chronic appearance. There is moderate diffuse lumbar degenerative change with loss of disc space and osteophyte formation with advanced facet arthropathy. Multiple moderate broad-based disc bulges cause moderate mass effect and moderate spinal stenosis. No significant neural foraminal narrowing. Bilateral sacroiliac joint ankylosis screws. There are 2 mm lucency surrounding bilateral T12 screws. 1 mm lucency surrounding the right L3 screw. 3 mm lucency surrounding the right L4 screw. 6 mm lucency surrounding the left S1 screw. 2 mm lucency surrounding the right sacroiliac screws. 1 mm lucency surrounding the right S2 screw. Left L5 screw fragment. No change. Bones/joints: Multiple old healed vertebral body fractures are noted. No definite acute fracture identified. Spinal cord: Normal signal. No cord compression. T1-T2: No significant disc bulge or herniation. No severe spinal canal stenosis. No significant neural foraminal narrowing. T2-T3: No significant disc bulge or herniation. No severe spinal canal stenosis. No significant neural foraminal narrowing. T3-T4: No significant disc bulge or herniation. No severe spinal canal stenosis. No significant neural foraminal narrowing. T4-T5: No significant disc bulge or herniation. No severe spinal canal stenosis. No significant neural foraminal narrowing. T5-T6: No significant disc bulge or herniation. No severe spinal canal stenosis. No significant neural foraminal narrowing. T6-T7: No significant disc bulge or herniation. No severe spinal canal stenosis. No significant neural foraminal narrowing. T7-T8: No significant disc bulge or herniation. No severe spinal canal stenosis. No significant neural foraminal narrowing. T8-T9: No significant disc bulge or herniation. No severe spinal canal stenosis. No significant neural foraminal narrowing. T9-T10: No significant disc bulge or herniation. No severe spinal canal stenosis. No significant neural foraminal narrowing. T10-T11: No significant disc bulge or herniation. No severe spinal canal stenosis. No significant neural foraminal narrowing. T11-T12: No significant disc bulge or herniation. No severe spinal canal stenosis. No significant neural foraminal narrowing. T12-L1: No significant disc bulge or herniation. No severe spinal canal Continue Decadron so far no growth ESR42, CRP, Pro-Virgilio, blood cultures Increasing mobility bilateral lower extremities Will await Dr. Fowler's recommendation PT OT Will continue her Lyrica Continue opioids De-escalate steroids Leukocytosis, likely secondary to steroids Sed rate improved to 42 Add MiraLAX, lactulose, enema sleep apnea will request CPAP Full code DVT prophylaxis heparin Cardiac diet Attestations 2 Medical Necessity Statement*: Patient requires hospitalization for back pain, weakness Diagnoses Obesity E66.9 Thoracic back pain M54.6; G89.29 Back pain laterality: bilateral Chronicity: chronic Chronic back pain M54.9; G89.29 Acute back pain M54.9 History of lumbar surgery Z98.890 Intervertebral disc disorder with radiculopathy of lumbosacral region M51.17 Lumbar stenosis with neurogenic claudication M48.062 S/P spinal fusion Z98.1 Paresthesia of lower extremity R20.2 Obstructive sleep apnea G47.33 Insomnia G47.00
[2024-07-11] MEDS: trazodone 50 mg Tablet 25 MG PO (20:57)
[2024-07-12] VITALS (8 sets, daily range): BP systolic 128–145; BP diastolic 77–84; PULSE 64–76; RESP 16–18; TEMP 36.6–36.9; O2SAT 96–98
[2024-07-12] MEDS: morphine IR 15 mg Tablet PO (03:09)
[2024-07-12] MEDS: heparin 5,000 unit/mL INJ 1 mL 5000 UNIT SUBCUT (08:37)
[2024-07-12] MEDS: pregabalin 75 mg Capsule PO (08:37)
[2024-07-12] MEDS: sennosides-docusate Tablet 2 TAB PO (08:37)
[2024-07-12] MEDS: amitriptyline 25 mg Tablet 100 MG PO (08:37)
[2024-07-12] MEDS: duloxetine 30 mg Capsule PO (08:37)
[2024-07-12] MEDS: dexamethasone 4 mg Tablet PO (08:38)
[2024-07-12] MEDS: polyethylene glycol 3350 Pkt 17 gm PO (08:38)
[2024-07-12] MEDS: amlodipine 5 mg Tablet PO (08:38)
[2024-07-12 08:48] LABS: Basophils # 0.1 10^3/uL (0.0-0.1); Basophils % 0.3 %; Eosinophils # 0.4 10^3/uL (0.0-0.8); Eosinophils % 1.5 %; Hematocrit 44.1 % (36-47); Lymphocytes # 5.2 10^3/uL (0.8-4.8); Lymphocytes % 22.8 %; Mean Corpuscular HGB Conc 29.3 g/dL (30-55); Mean Corpuscular Volume 78.8 fl (85-98); Mean Platelet Volume 8.2 fL (7.4-10.4); Monocytes # 1.4 10^3/uL (0.2-0.9); Monocytes % 6.1 %; Neutrophils # 15.24 10^3/uL (1.8-7.7); Nucleated Red Blood Cells % 0 %; Platelet Count 595 10^3/cmm (157-399); Red Cell Distribution Width 17.2 % (12.1-15.1); White Blood Count 22.76 10^3/uL (3.29-11.43)
--- NOTE | 2024-07-12 10:17 | PC.SOCIAL ---
IMM Update pg 2 of IMM Updated and reviewed w/ patient. Copy provided and copy dated, initialed and placed in chart.
[2024-07-12] MEDS: oxyCODONE-APAP 10-325 mg Tablet PO (10:33)
--- NOTE | 2024-07-12 12:12 | P.DS_ITS ---
Discharge Providers Date of Admission: 07/08/24 11:32 Date of Discharge: July 12, 2024 Attending Provider at Admission: Vamshi Malone MD Attending Provider at Discharge: Ciro Serna MD Primary Care Provider: Tadeo Prather MD Diagnoses at Discharge Discharge Diagnosis (1) Obesity: Status: Acute (2) Thoracic back pain: Status: Inactive Qualifiers: Back pain laterality: bilateral Chronicity: chronic Qualified Code(s): M54.6 - Pain in thoracic spine; G89.29 - Other chronic pain (3) Chronic back pain: Status: Acute (4) Acute back pain: Status: Acute (5) History of lumbar surgery: Status: Chronic Permanent problem details: 12/2016 Dr. Martin Joyner Thoracic spinal cord stimulator placement 04/2016 Dr. Martin Joyner Right SI joint fusion 03/2016 Dr. Martin Joyner [facility] Left SI joint fusion 06/[address] Dr[address] [facility] L2-L3 posterior fusion/fixation. 10/2011 Dr. Christopher Shah [facility] Fractured fusion screws removed. 12/[address] Orthopedic surgeon. [facility] Spine: L3-L4, L4-L5 L5-S1 Posterior Fusion/fusion (6) Intervertebral disc disorder with radiculopathy of lumbosacral region: Status: Chronic (7) Lumbar stenosis with neurogenic claudication: Status: Chronic (8) S/P spinal fusion: Status: Acute (9) Paresthesia of lower extremity: Status: Acute (10) Obstructive sleep apnea: Status: Acute (11) Insomnia: Status: Acute Reason for Visit Reason for Visit: Back Pain post fall Hospital Course Hospital Course This is a 68-year-old female without history of chronic low back pain, history of back surgery who presents [facility] due to back pain and inability to walk Acute on chronic back pain Inability to walk, incontinence of urine No rectal incontinence, does have sensations intact medial thigh area ? Diminished strength in anterior posterior compartments of lower extremity Diminished strength with anterior posterior compartment of thigh -Potentially moderate compression deformity at T5 vertebrae playing a role # Sensation is intact CT thoracic spine Bones/joints: Moderate compression deformity of the T5 vertebral body but no significant retropulsion. Posterior spinal instrumentation hardware extending from T5 to the pelvis. No hardware fracture. There is 2 mm lucency surrounding bilateral T5 screws. The T5 screws of relating the upper endplate of T5 into the T4-T5 disc space. Chronic loss of height of the T9 and T10 vertebral bodies with deformity and fusion. Cement seen in the T8, T9 and T10 vertebral bodies. 5 mm lucency surrounding bilateral T11 and T12 screws. Ghost tracts from prior T10 screws. No severe bony canal stenosis. ct lumbar spine Bones/joints: No acute fracture. Extensive thoracic and lumbar fusion spanning through S1. Obviously complex history with previous areas of pedicular screw removal. Areas of periscrew lucency in the mid to lower lumbar spine and sacrum. This implies chronic appearance. There is moderate diffuse lumbar degenerative change with loss of disc space and osteophyte formation with advanced facet arthropathy. Multiple moderate broad-based disc bulges cause moderate mass effect and moderate spinal stenosis. No significant neural foraminal narrowing. Bilateral sacroiliac joint ankylosis screws. There are 2 mm lucency surrounding bilateral T12 screws. 1 mm lucency surrounding the right L3 screw. 3 mm lucency surrounding the right L4 screw. 6 mm lucency surrounding the left S1 screw. 2 mm lucency surrounding the right sacroiliac screws. 1 mm lucency surrounding the right S2 screw. Left L5 screw fragment. No change. Bones/joints: Multiple old healed vertebral body fractures are noted. No definite acute fracture identified. Spinal cord: Normal signal. No cord compression. T1-T2: No significant disc bulge or herniation. No severe spinal canal stenosis. No significant neural foraminal narrowing. T2-T3: No significant disc bulge or herniation. No severe spinal canal stenosis. No significant neural foraminal narrowing. T3-T4: No significant disc bulge or herniation. No severe spinal canal stenosis. No significant neural foraminal narrowing. T4-T5: No significant disc bulge or herniation. No severe spinal canal stenosis. No significant neural foraminal narrowing. T5-T6: No significant disc bulge or herniation. No severe spinal canal stenosis. No significant neural foraminal narrowing. T6-T7: No significant disc bulge or herniation. No severe spinal canal stenosis. No significant neural foraminal narrowing. T7-T8: No significant disc bulge or herniation. No severe spinal canal stenosis. No significant neural foraminal narrowing. T8-T9: No significant disc bulge or herniation. No severe spinal canal stenosis. No significant neural foraminal narrowing. T9-T10: No significant disc bulge or herniation. No severe spinal canal stenosis. No significant neural foraminal narrowing. T10-T11: No significant disc bulge or herniation. No severe spinal canal stenosis. No significant neural foraminal narrowing. T11-T12: No significant disc bulge or herniation. No severe spinal canal stenosis. No significant neural foraminal narrowing. T12-L1: No significant disc bulge or herniation. No severe spinal canal -Patient was monitored as inpatient, received Decadron therapy, pain control, physical therapy, Dr. Yoo was consulted -Overall her clinical condition improved -Back pain improved -Mobility improved -Her Decadron therapy was de-escalated -Ram catheter removed she was urinating without issue, she was stooling without issue -Overall she clinically improved- -will be discharged on Decadron burst, and oxycodone for pain -discussed with patient to use oxycodone sparingly for pain, do not drive or operate machinery or drink while taking medication -Will have her follow-up with Dr. Hallman as outpatient She was also noted to have leukocytosis during her hospitalization, likely sec to high-dose steroids, remains afebrile, blood cultures have been unremarkable, ESR 47, Pro-Virgilio 0.04, CRP 26.9, nonetheless advised patient that if she has any fevers or chills to call back to the hospital Physical Exam Const: COMMON NORMALS: no acute distress and patient oriented x3 Resp: COMMON NORMALS: normal respiratory effort, No retractions, No use of accessory muscles and clear to auscultation bilaterally AUSCULTATION: clear to auscultation bilaterally Cardio: COMMON NORMALS: regular rate, regular rhythm, S1 normal heart sound present and S2 normal heart sound present RATE: regular rate RHYTHM: regular rhythm HEART SOUNDS: S1 normal heart sound present and S2 normal heart sound present GI: COMMON NORMALS: Normal to inspection, nondistended, normoactive bowel sounds present and non-tender Extremity: COMMON NORMALS: no pedal edema Neuro: COMMON NORMALS: patient oriented x3 Psych: COMMON NORMALS: mental status grossly normal Urinary Catheter Management: Ram: Cath Placed During This Visit: yes, but has since been removed by the nurse Reason for Continuing Indwelling Catheter: Decision to DC Catheter Urinary Catheter Date of Insertion: 07/06/24 Urinary Catheter Time of Insertion: 23:39 Date Urinary Catheter Removed: 07/10/24 Time Urinary Catheter Discontinued: 01:00 Discharge Data Studies Completed and Pending Completed Studies During Hospitalization Category Date Time Status CT lumbar spine wo con* [id number] Stat Cat Scan 07/06/24 20:[address] thoracic spin wo con* [id number] Stat Cat Scan 07/06/24 20:03 Completed MR lumbar spine wo con* [id number] Routine MRI 07/07/24 07:00 Completed MR thoracic spin wo con* [id number] Routine MRI 07/07/24 14:22 Completed CV. echo complete* [id number] Routine Ultrasound 07/10/24 13:31 Completed Pending at discharge Category Date Time Status Blood Culture Stat Lab 07/07/24 15:21 Results Radiology Impressions Lumbar Spine CT 07/06/24 20:03 IMPRESSION: 1. No acute lumbar spine fracture noted. 2. Extensive spinal surgery with multiple periscrew lucencies. No change from 3 days ago. 3. Degenerative change and other chronic findings. Thoracic Spine CT 07/06/24 20:03 IMPRESSION: 1. No significant change from 3 days ago. 2. Complex surgical patient. 3. Partially included posterior T5 to the pelvis instrumentation with multilevel lucencies as described in the findings. 4. Chronic moderate compression deformity of the T5 vertebral body. No severe bony canal stenosis. Lumbar Spine MRI 07/07/24 07:00 IMPRESSION: 1. Nondiagnostic evaluation of the lumbar spine to exclude cauda equina syndrome in compression of the conus. 2. Extensive hardware in the lower thoracic and lumbar spine causing significant artifact obscuring the central canal. Thoracic Spine MRI 07/07/24 14:22 IMPRESSION: Very limited scan. No definite acute abnormality noted. Laboratory Results WBC 22.76 10^3/uL (3.29-11.43) H 07/12/24 08:41 RBC 5.60 10^6/uL (3.85-5.65) 07/12/24 08:41 Hgb 12.90 g/dL (11.27-16.99) 07/12/24 08:41 Hct 44.1 % (36-47) 07/12/24 08:41 MCV 78.8 fl (85-98) L 07/12/24 08:41 MCH 23.0 pg (27-33) L 07/12/24 08:41 MCHC 29.3 g/dL (30-55) L 07/12/24 08:41 RDW 17.2 % (12.1-15.1) H 07/12/24 08:41 Plt Count 595 10^3/cmm (157-399) H 07/12/24 08:41 MPV 8.2 fL (7.4-10.4) 07/12/24 08:41 Neut % (Auto) 67.0 % 07/12/24 08:41 Lymph % (Auto) 22.8 % 07/12/24 08:41 Taney % (Auto) 6.1 % 07/12/24 08:41 Eos % (Auto) 1.5 % 07/12/24 08:41 Baso % (Auto) 0.3 % 07/12/24 08:41 Neut # (Auto) 15.24 10^3/uL (1.8-7.7) H 07/12/24 08:41 Lymph # (Auto) 5.2 10^3/uL (0.8-4.8) H 07/12/24 08:41 Taney # (Auto) 1.4 10^3/uL (0.2-0.9) H 07/12/24 08:41 Eos # (Auto) 0.4 10^3/uL (0.0-0.8) 07/12/24 08:41 Baso # (Auto) 0.1 10^3/uL (0.0-0.1) 07/12/24 08:41 Nucleated RBC % (auto) 0 % 07/12/24 08:41 Nucleated RBCs # 0.0 /100WBC 07/12/24 08:41 ESR 47 mm/hr (0-15) H 07/08/24 09:20 Sodium 139 mmol/L (136-145) 07/11/24 05:28 Potassium 4.1 mmol/L (3.5-5.1) 07/11/24 05:28 Chloride 102 mmol/L (98-107) 07/11/24 05:28 Carbon Dioxide 25 mmol/L (22-29) 07/11/24 05:28 Anion Gap 16.1 (5-19) 07/11/24 05:28 BUN 23 mg/dL (8-23) 07/11/24 05:28 Creatinine 0.7 mg/dL (0.5-0.9) 07/11/24 05:28 GFR Calculation 83.7 mL/min (90-130) L 07/11/24 05:28 Glucose 126 mg/dL (65-115) H 07/11/24 05:28 Calculated Osmolality 293 mOsm/kg (285-295) 07/11/24 05:28 Calcium 8.7 mg/dL (8.5-10.5) 07/11/24 05:28 Phosphorus 3.1 mg/dL (2.5-4.5) 07/11/24 05:28 Magnesium 2.3 mg/dL (1.7-2.3) 07/11/24 05:28 Total Bilirubin 0.2 mg/dL (0.15-1.2) 07/11/24 05:28 AST 35 U/L (0-32) H 07/11/24 05:28 ALT 36 U/L (0-33) H 07/11/24 05:28 Alkaline Phosphatase 117 U/L (35-105) H 07/11/24 05:28 C-Reactive Protein 26.9 mg/L (0.0-4.9) H 07/11/24 05:28 Total Protein 6.4 g/dL (6.6-8.7) L 07/11/24 05:28 Albumin 3.2 g/dL (3.5-5.2) L 07/11/24 05:28 Globulin 3.2 g/dL (1.3-4.6) 07/11/24 05:28 Procalcitonin 0.04 ng/mL (0-0.5) 07/07/24 04:24 Vitals Last Vital Signs Temp 98.1 F 07/12/24 08:00 Pulse 76 07/12/24 09:07 Resp 16 07/12/24 10:33 BP 134/84 07/12/24 08:00 Pulse Ox 97 07/12/24 09:07 O2 Del Method Room Air 07/12/24 09:07 Discharge Plan Discharge Patient Disposition: Home Health Service Condition: Stable Prescriptions: New cyclobenzaprine 10 mg tablet 10 mg PO Q8H PRN (Reason: muscle spasm) Qty: 20 0RF amlodipine 5 mg Tablet 5 mg PO DAILY 30 Days Qty: 30 0RF polyethylene glycol 3350 17 gram Powder In Packet 17 g PO DAILY PRN (Reason: constipation) 30 Days Qty: 30 0RF dexamethasone 4 mg tablet 2 mg PO DAILY 5 Days Qty: 3 0RF naloxone [Narcan] 4 mg/actuation spray,non-aerosol 4 mg intranasal Q2M PRN (Reason: opioid overdose) Qty: 2 0RF Rx Instructions: spray 1 dose into ONE nostril; alternate nostrils w each dose until help arrives Continued (DME) TLSO Brace See Rx Instructions .Route .MEDSUPPLY Qty: 1 0RF Rx Instructions: As directed duloxetine 30 mg capsule,delayed release(DR/EC) 30 mg PO BID amitriptyline 100 mg tablet 100 mg PO DAILY Qty: 30 11RF (DME) Bone Growth Stimulator E0748 See Rx Instructions .Route .MEDSUPPLY Qty: 1 0RF Rx Instructions: As directed (DME) c-pap supplies See Rx Instructions .Route .MEDSUPPLY Qty: 1 11RF Rx Instructions: As directed cetirizine [Zyrtec] 10 mg Tablet 10 mg PO DAILY@21 PRN (Reason: allergies) Hair, Skin, Nails with Biotin 7.5-7.5-1,250 mg-unit-mcg Tablet,Chewable 4 tab PO DAILY omeprazole 20 mg Capsule,Delayed Release(Dr/Ec) 20 mg PO DAILY pregabalin [Lyrica] 75 mg capsule 75 mg PO BID Qty: 30 0RF ferrous sulfate [FeroSul] 325 mg (65 mg iron) tablet 325 mg PO TID oxycodone-acetaminophen 10-325 mg tablet 1 tab PO Q4H MDD 6 PRN (Reason: pain) 7 Days Qty: 42 0RF Discontinued prednisone 50 mg tablet 50 mg PO DAILY Qty: 5 0RF Discharge Orders: Discharge Order (Routine); Ordered 07/12/24 Ordered By: Ciro Serna Referrals: [facility] [Outside] Saul Fowler DO [Physician] - 07/18/24 1:00 pm () Tadeo Prather MD [Primary Care Provider] - 07/19/24 8:50 am Discharge Diet: As Directed Discharge Activity: Increase activity as tolerated Patient Instructions: Cyclobenzaprine (By mouth), Dexamethasone (By mouth), Polyethylene Glycol 3350 (By mouth), Naloxone (Into the nose), Opioid Safety, Pain Management Activity Restrictions/Additional Instructions: -Please use oxycodone sparingly for pain, do not drive, do not operate heavy machinery, or drink while taking medication, do not use with any other controlled substances -If you have worsening back pain go to the emergency room -If you have any fevers please go to the emergency room Thank you for choosing [facility] for your healthcare needs today. Please realize this is an emergency room and that we are providing you with a medical screening exam and this may not be complete and all inclusive of all the testing and or work up that you may need to determine your ailment or severity of your illness. You have been screened and evaluated and felt safe for discharge. Health conditions do change or evolve sometimes and as such it is important that you follow up with your Primary Doctor to be re checked, 3-5 days is a general good time frame for follow up. You are always welcome to return to the ED for re assessment if your symptoms are worsening or you have new concerns Discharge Attestations Time Spent in Discharge Care*: greater than 30 min Status at Discharge: Cognitive status at discharge: cognitively intact , Behavioral status at discharge: cooperative , Quality Metrics Clinical Quality Measures [ No reported AMI, CVA or VTE this stay] Coding Level of Care Code 11031 Total time (in minutes) for Discharge: 45 Diagnoses Obesity E66.9 Thoracic back pain M54.6; G89.29 Back pain laterality: bilateral Chronicity: chronic Chronic back pain M54.9; G89.29 Acute back pain M54.9 History of lumbar surgery Z98.890 Intervertebral disc disorder with radiculopathy of lumbosacral region M51.17 Lumbar stenosis with neurogenic claudication M48.062 S/P spinal fusion Z98.1 Paresthesia of lower extremity R20.2 Obstructive sleep apnea G47.33 Insomnia G47.00
== END 2024-07-12 14:24 | disposition home health service (06) | DRG 74 ==
LOC: ER 21:48 → MEDSURG 07-07 07:59
PROVIDERS: Admitting Provider Internal Medicine; Emergency Provider Emergency Medicine; PCP Family Medicine; Visit Provider Family Medicine
DX: G83.4 Cauda equina syndrome (principal); Z68.42 Body mass index [BMI] 45.0-49.9, adult; E66.01 Morbid (severe) obesity due to excess calories; D72.829 Elevated white blood cell count, unspecified; G47.00 Insomnia, unspecified; G47.33 Obstructive sleep apnea (adult) (pediatric); M48.062 Spinal stenosis, lumbar region with neurogenic claudication; M51.17 Intervertebral disc disorders with radiculopathy, lumbosacral region; Z98.1 Arthrodesis status; Z79.891 Long term (current) use of opiate analgesic
CPT/HCPCS: 36415; 51702; 72128; 72131; 72146; 72148; 80048; 80053; 83735; 84100; 84145; 85025; 85651; 86140; 87040; 93306; 96372; 96374; 96375; 97110; 97116; 97162; 97530; 99222; 99232; 99285; G0378; J1100; J1171; J1644; J2270; J2360; J2919; J8540

== ENCOUNTER 2024-07-12 20:06 | Observation (INO) | payer MEDICARE, SELFPAY ==
[2024-07-12 20:08] VITALS: BP 149/62; PULSE 72; RESP 16; TEMP 37; O2SAT 96; BMI 47.6
--- NOTE | 2024-07-12 20:22 | W.ED.WEAKNES ---
HPI - Weakness General: Chief complaint: Weakness Stated complaint: Gen Weakness Time Seen by Provider: 07/12/24 20:10 History of Present Illness: 68-year-old female presents with generalized lower extremity weakness. Patient was discharged from the hospital the day after approximate 6-day stay due to lower extremity weakness due to post spinal fusion complications. Patient was seen by Dr. Fowler search marketing specialist. They plan a potential possible surgery if symptoms or not improving. Discharge summary reports that she was able to ambulate a little bit upon discharge. However she reports upon arrival home she is weak in her lower extremities and now unable to get up and get her legs moving. She did have MRIs and CTs over the last couple days while she was in the hospital. There is no signs of cauda equina. Her symptoms are similar to when she was seen here in the hospital at the last few days. Associated symptoms: Denies chest pain, chills or fever(s) Review of Systems Const: Denies: fever(s) or chills Card: Denies: chest pain Resp: Denies: dyspnea or productive cough Neuro: Reports: weakness in extremities and difficulty walking PFSH ED PFSH: Medical History Chronic prescription opiate use Fracture, thoracic vertebra, compression Epigastric abdominal pain Discitis of thoracic region Spondylarthritis DDD (degenerative disc disease), thoracic Fusion of spine, thoracolumbar region Obstructive sleep apnea Morbid obesity Degenerative lumbar spinal stenosis Internal fixation device (pin, nixon, or screw) mechanical complication Morbid obesity with BMI of 50.0-59.9, adult Lumbar stenosis with neurogenic claudication Intervertebral disc disorder with radiculopathy of lumbosacral region Surgical History Status post cervical spinal fusion 09/24 Status post correction of deviated nasal septum History of appendectomy History of carpal tunnel repair History of knee surgery History of laparoscopic adjustable gastric banding Status post insertion of spinal cord stimulator (~2016) History of lumbar surgery (~2011) 12/2016 Dr. Martin Joyner Thoracic spinal cord stimulator placement 04/2016 Dr. Martin Joyner Right SI joint fusion 03/2016 [facility] Left SI joint fusion 06/2012 Dr. Christopher Shah [facility] L2-L3 posterior fusion/fixation. 10/2011 Dr. Christopher Olmstead [facility] Fractured fusion screws removed. 12/[address] Orthopedic surgeon. [facility] Spine: L3-L4, L4-L5 L5-S1 Posterior Fusion/fusion Family History Father CAD (coronary artery disease) Social History Smoking and tobacco/nicotine status: never used tobacco/nicotine Alcohol intake: former Substance/Drug Use: never Household members: spouse Marital status: Current occupational status: disabled Physical Exam Const: COMMON NORMALS: no acute distress, patient oriented x3 and alert Resp: COMMON NORMALS: normal respiratory effort and clear to auscultation bilaterally AUSCULTATION: clear to auscultation bilaterally Cardio: COMMON NORMALS: regular rate and regular rhythm RATE: regular rate RHYTHM: regular rhythm Extremity: OTHER: Bilateral lower extremity weakness Neuro: COMMON NORMALS: patient oriented x3 SENSORIUM/ORIENTATION: Yes alert OTHER: Bilateral lower extremity weakness Psych: COMMON NORMALS: Normal thought process present and cooperative THOUGHT PROCESS: Normal thought process present Course Vital Signs: Vital signs: Vital Signs Temperature 98.6 F 07/12/24 20:08 Pulse Rate 72 07/12/24 20:08 Respiratory Rate 16 07/12/24 20:59 Blood Pressure 150/77 07/12/24 20:59 Pulse Oximetry 91 07/12/24 20:59 Oxygen Delivery Me thod Room Air 07/12/24 20:59 MDM - Weakness Medical Decision Making Patient admitted to the hospitalist. She reports that she would now like to go to inpatient rehab or therapy. She initially refuses when she was discharged today but has changed her mind due to her weakness at home and inability to care and ambulate on her own. Review of her hospital inpatient notes discharge summary and imaging reports from her visit. No radiology studies performed this visit Discharge Plan Discharge Patient Disposition: Admitted As Inpatient Clinical Impression: Status post lumbar spinal fusion, Bilateral leg weakness Condition: Stable Prescriptions: No Action (DME) TLSO Brace See Rx Instructions .Route .MEDSUPPLY Qty: 1 0RF Rx Instructions: As directed duloxetine 30 mg capsule,delayed release(DR/EC) 30 mg PO BID amitriptyline 100 mg tablet 100 mg PO DAILY Qty: 30 11RF (DME) Bone Growth Stimulator E0748 See Rx Instructions .Route .MEDSUPPLY Qty: 1 0RF Rx Instructions: As directed (DME) c-pap supplies See Rx Instructions .Route .MEDSUPPLY Qty: 1 11RF Rx Instructions: As directed cetirizine [Zyrtec] 10 mg Tablet 10 mg PO DAILY@21 PRN (Reason: allergies) Hair, Skin, Nails with Biotin 7.5-7.5-1,250 mg-unit-mcg Tablet,Chewable 4 tab PO DAILY omeprazole 20 mg Capsule,Delayed Release(Dr/Ec) 20 mg PO DAILY pregabalin [Lyrica] 75 mg capsule 75 mg PO BID Qty: 30 0RF cyclobenzaprine 10 mg tablet 10 mg PO Q8H PRN (Reason: muscle spasm) Qty: 20 0RF ferrous sulfate [FeroSul] 325 mg (65 mg iron) tablet 325 mg PO TID amlodipine 5 mg Tablet 5 mg PO DAILY 30 Days Qty: 30 0RF polyethylene glycol 3350 17 gram Powder In Packet 17 g PO DAILY PRN (Reason: constipation) 30 Days Qty: 30 0RF dexamethasone 4 mg tablet 2 mg PO DAILY 5 Days Qty: 3 0RF oxycodone-acetaminophen 10-325 mg tablet 1 tab PO Q4H MDD 6 PRN (Reason: pain) 7 Days Qty: 42 0RF naloxone [Narcan] 4 mg/actuation spray,non-aerosol 4 mg intranasal Q2M PRN (Reason: opioid overdose) Qty: 2 0RF Rx Instructions: spray 1 dose into ONE nostril; alternate nostrils w each dose until help arrives Referrals: Tadeo Prather MD [Primary Care Provider] - Coding Level of Care Code ED Service Technician for Chg Fwd Related Data Home Medications Medication Instructions Recorded Confirmed ascorbic acid 7.5 mg-vit E 7.5 4 tab PO DAILY 11/09/20 07/07/24 unit-biotin 1,250 mcg chewable tablet (Hair,Skin,Nails with Biotin) cetirizine 10 mg tablet (Zyrtec) 10 mg PO DAILY@21 PRN allergies 11/09/20 07/07/24 duloxetine 30 mg capsule,delayed 30 mg PO BID 02/02/24 07/07/24 release omeprazole 20 mg capsule,delayed 20 mg PO DAILY 02/25/24 07/07/24 release ferrous sulfate 325 mg (65 mg 325 mg PO TID 07/07/24 07/07/24 iron) tablet (FeroSul) Previous Rx's Medication Instructions Recorded TLSO Brace #1 ea 06/19/21 Bone Growth Stimulator E0748 #1 ea 09/28/22 c-pap supplies #1 ea 08/24/23 amitriptyline 100 mg tablet 100 mg PO DAILY #30 tabs 05/11/24 pregabalin 75 mg capsule (Lyrica) 75 mg PO BID #30 caps 07/04/24 cyclobenzaprine 10 mg tablet 10 mg PO Q8H PRN muscle spasm #20 07/06/24 tabs amlodipine 5 mg tablet 5 mg PO DAILY 30 days #30 tabs 07/12/24 dexamethasone 4 mg tablet 2 mg (1/2 x 4 mg) PO DAILY 5 days 07/12/24 #3 tabs naloxone 4 mg/actuation nasal 4 mg intranasal Q2M PRN opioid 07/12/24 spray (Narcan) overdose #2 ea oxycodone-acetaminophen 10 mg-325 1 tab PO Q4H PRN pain 7 days #42 07/12/24 mg tablet tabs polyethylene glycol 3350 17 gram 17 g PO DAILY PRN constipation 30 07/12/24 oral powder packet days #30 ea Allergies Allergy/AdvReac Type Severity Reaction Status Date / Time adhesive tape Allergy Unknown Verified 07/12/24 20:15
[2024-07-12 20:59] VITALS: BP 150/77; RESP 16; O2SAT 91
--- NOTE | 2024-07-12 21:31 | PM.HP ---
Providers/Chief Complaint Primary Care Provider: Tadeo Prather MD Chief Complaint: Gen Weakness History of Present Illness Kathy Patel is a 68 year old female who was discharged today, came back for not been able to walk, could not get out of the car, four people tried to help her to get up when she fell on the floor, patient is stating that now she is ready to go to rehab. She was evaluated by Dr. Fowler who recommended surgical intervention only in case she will start getting worse, she has had multiple imagings of her back, MRI was inconclusive, history of T11-T5 fusion, takes Lyrica opioids was put on Decadron as well Patient is stating that she is experiencing right-sided back pain which is not new for her Review of Systems Const: Denies: fever(s) Eyes: Denies: change in vision ENMT: Denies: throat pain Card: Reports: swelling of feet/ankles Resp: Denies: dyspnea GI: Reports: nausea : Denies: flank pain Medications/Allergies Home Medications Medication Instructions Recorded Confirmed Last Taken Type ascorbic acid 7.5 mg-vit E 7.5 4 tab PO DAILY 11/09/20 07/07/24 03/07/24 History unit-biotin 1,250 mcg chewable tablet (Hair,Skin,Nails with Biotin) cetirizine 10 mg tablet (Zyrtec) 10 mg PO DAILY@21 PRN allergies 11/09/20 07/07/24 08/24/23 History TLSO Brace #1 ea 06/19/21 07/07/24 Unknown Rx Bone Growth Stimulator E0748 #1 ea 09/28/22 07/07/24 Unknown Rx c-pap supplies #1 ea 08/24/23 07/07/24 Unknown Rx duloxetine 30 mg capsule,delayed 30 mg PO BID 02/02/24 07/07/24 03/07/24 History release omeprazole 20 mg capsule,delayed 20 mg PO DAILY 02/25/24 07/07/24 03/07/24 History release amitriptyline 100 mg tablet 100 mg PO DAILY #30 tabs 05/11/24 07/07/24 Unknown Rx pregabalin 75 mg capsule (Lyrica) 75 mg PO BID #30 caps 07/04/24 07/07/24 Unknown Rx cyclobenzaprine 10 mg tablet 10 mg PO Q8H PRN muscle spasm #20 07/06/24 Unknown Rx tabs ferrous sulfate 325 mg (65 mg 325 mg PO TID 07/07/24 07/07/24 Unknown History iron) tablet (FeroSul) amlodipine 5 mg tablet 5 mg PO DAILY 30 days #30 tabs 07/12/24 Unknown Rx dexamethasone 4 mg tablet 2 mg (1/2 x 4 mg) PO DAILY 5 days 07/12/24 Unknown Rx #3 tabs naloxone 4 mg/actuation nasal 4 mg intranasal Q2M PRN opioid 07/12/24 Unknown Rx spray (Narcan) overdose #2 ea oxycodone-acetaminophen 10 mg-325 1 tab PO Q4H PRN pain 7 days #42 07/12/24 Unknown Rx mg tablet tabs polyethylene glycol 3350 17 gram 17 g PO DAILY PRN constipation 30 07/12/24 Unknown Rx oral powder packet days #30 ea Allergies Allergy/AdvReac Type Severity Reaction Status Date / Time adhesive tape Allergy Unknown Verified 07/12/24 20:15 PFSH Acute PFSH: Medical History Chronic prescription opiate use Fracture, thoracic vertebra, compression Epigastric abdominal pain Discitis of thoracic region Spondylarthritis DDD (degenerative disc disease), thoracic Fusion of spine, thoracolumbar region Obstructive sleep apnea Morbid obesity Degenerative lumbar spinal stenosis Internal fixation device (pin, nixon, or screw) mechanical complication Morbid obesity with BMI of 50.0-59.9, adult Lumbar stenosis with neurogenic claudication Intervertebral disc disorder with radiculopathy of lumbosacral region Surgical History Status post cervical spinal fusion 09/24 Status post correction of deviated nasal septum History of appendectomy History of carpal tunnel repair History of knee surgery History of laparoscopic adjustable gastric banding Status post insertion of spinal cord stimulator (~2016) History of lumbar surgery (~2011) 12/2016 Dr. Martin Joyner Thoracic spinal cord stimulator placement 04/2016 Dr. Martin Joyner Right SI joint fusion 03/2016 Dr. Martin Joyner [facility] Left SI joint fusion 06/2012 Dr. Christopher Shah [facility] L2-L3 posterior fusion/fixation. 10/2011 [facility] Fractured fusion screws removed. 12/[address] Orthopedic surgeon. [facility] Spine: L3-L4, L4-L5 L5-S1 Posterior Fusion/fusion Family History Father CAD (coronary artery disease) Social History Smoking and tobacco/nicotine status: never used tobacco/nicotine Alcohol intake: former Substance/Drug Use: never Household members: spouse Marital status: Current occupational status: disabled Vitals/I&O/Wt Last Vital Signs Temp 98.6 F 07/12/24 20:08 Pulse 72 07/12/24 20:08 Resp 16 07/12/24 20:59 BP 150/77 07/12/24 20:59 Pulse Ox 91 07/12/24 20:59 O2 Del Method Room Air 07/12/24 20:59 07/12/24 07/12/24 07/12/24 06:59 14:59 22:59 Intake Total 0 / 0 Balance 0 / 0 Weight last 48 hrs Weight 133.81 kg Physical Exam Narrative: Morbid obese female Does not have typical features of cauda equina Pleasant cooperative Nonfocal neuroexam No active send meningitis or stroke Family at the bedside Hemodynamically stable Morbidly obese Distended nontender abdomen Nonpitting edema of lower extremity Able to move lower extremities to some extent, able to wiggle her toes, sensation intact medial thigh area A&P Assessment and plan (1) Obesity: (2) Chronic back pain: (3) History of lumbar surgery: (4) Bilateral leg weakness: (5) Obstructive sleep apnea: Plan Patient was recently discharged from the hospital after evaluation of back pain multiple MRIs were done Patient to follow-up with Dr. Fowler outpatient Now she is willing to go to SNF/rehab: Patient is requesting if she could go to inpatient rehab at [facility] Continue opioids and Lyrica Will request PT Cardiac diet CPAP Bowel regimen Full code DVT prophylaxis as per her BMI she should receive higher dose I will choose Lovenox 50mg twice daily WADE?: Abnormal transaminases noted Attestations Medical Necessity Statement*: Anticipating discharge to SNF Diagnoses Obesity E66.9 Chronic back pain M54.9; G89.29 History of lumbar surgery Z98.890 Bilateral leg weakness R29.898 Obstructive sleep apnea G47.33
[2024-07-12 21:58] VITALS: BP 143/96; PULSE 84; RESP 16; O2SAT 96
[2024-07-12 22:53] VITALS: BP 170/88; PULSE 77; RESP 16; O2SAT 97
[2024-07-13] VITALS (9 sets, daily range): BP systolic 119–157; BP diastolic 69–88; PULSE 71–90; RESP 15–20; TEMP 36.4–37; O2SAT 98–100; BMI 47.6
[2024-07-13] MEDS: oxyCODONE-APAP 10-325 mg Tablet 1 TAB PO ×3 (00:11→14:18)
[2024-07-13] MEDS: enoxaparin 60 mg/0.6 mL Syringe 50 MG SUBCUT ×2 (00:11→12:10)
[2024-07-13 07:59] LABS: Basophils # 0.1 10^3/uL (0.0-0.1); Basophils % 0.3 %; Eosinophils # 0.2 10^3/uL (0.0-0.8); Hematocrit 40.3 % (36-47); Lymphocytes # 2.9 10^3/uL (0.8-4.8); Lymphocytes % 15.8 %; Mean Corpuscular HGB Conc 28.5 g/dL (30-55); Mean Corpuscular Volume 80.8 fl (85-98); Mean Platelet Volume 8.8 fL (7.4-10.4); Monocytes # 1.3 10^3/uL (0.2-0.9); Monocytes % 6.9 %; Neutrophils # 13.63 10^3/uL (1.8-7.7); Neutrophils % 74.3 %; Nucleated Red Blood Cells % 0 %; Platelet Count 431 10^3/cmm (157-399); Red Blood Count 4.99 10^6/uL (3.85-5.65); Red Cell Distribution Width 16.9 % (12.1-15.1); White Blood Count 18.33 10^3/uL (3.29-11.43)
[2024-07-13 08:03] LABS: Anion Gap 13.1 (5-19); Blood Urea Nitrogen 16 mg/dL (8-23); Calcium 8.9 mg/dL (8.5-10.5); Carbon Dioxide 28 mmol/L (22-29); Chloride 101 mmol/L (98-107); Creatinine Clr Calc Pharmacy 97.3622; Glomerular Filtration Rate 123.4 mL/min (90-130); Glucose 133 mg/dL (65-115); Magnesium 2.2 mg/dL (1.7-2.3); Osmolality Calculated 289 mOsm/kg (285-295); Phosphorus 3.3 mg/dL (2.5-4.5); Potassium 4.1 mmol/L (3.5-5.1); Sodium 138 mmol/L (136-145)
[2024-07-13] MEDS: sennosides-docusate Tablet 1 TAB PO (09:10)
[2024-07-13] MEDS: dexamethasone 4 mg Tablet 2 MG PO (09:10)
--- NOTE | 2024-07-13 12:51 | USCV_ITS ---
Kathy Patel Age: 68 Gender: F : 1955 Exam Date: 07/13/2024 13:22 Ordering Phys: Ciro Serna MD Technologist: CT Exam Location: [facility] Indication: swelling PROCEDURES: Venous duplex imaging was performed in bilateral lower extremities. Bilaterally, the common femoral, superficial femoral, profunda femoral, popliteal, posterior tibial, greater saphenous veins, and the peroneal trunk were identified and interrogated in the standard fashion. FINDINGS: Normal 2-D Doppler and augmentation and compressibility throughout the lower extremity venous structures. Additional imaging through the proximal calf veins also reveals no thrombus. Limited evaluation of the greater saphenous vein is patent with no thrombus. CONCLUSIONS No DVT bilateral lower extremities. Dr. Keeley Deleon DO (Electronically Signed) Final Date: 13 July 2024 14:40 S
--- NOTE | 2024-07-13 14:12 | PM.DCS ---
Discharge Providers Date of Admission: 07/12/24 22:21 Date of Discharge: July 13, 2024 Attending Provider at Admission: Vamshi Malone MD Attending Provider at Discharge: Ciro Serna MD Primary Care Provider: Tadeo Prather MD Diagnoses at Discharge Discharge Diagnosis (1) Obesity: Status: Acute (2) Chronic back pain: Status: Acute (3) History of lumbar surgery: Status: Chronic Permanent problem details: 12/2016 Dr. Martin Joyner Thoracic spinal cord stimulator placement 04/2016 Dr. Martin Joyner Right SI joint fusion 03/2016 Dr. Martin Joyner [facility] Left SI joint fusion 06/2012 Dr. Christopher Shah [facility] L2-L3 posterior fusion/fixation. 10/2011 Dr. Christophre Shah [facility] Fractured fusion screws removed. 12/[address] Orthopedic surgeon. [facility] Spine: L3-L4, L4-L5 L5-S1 Posterior Fusion/fusion (4) Bilateral leg weakness: Status: Acute (5) Obstructive sleep apnea: Status: Acute Reason for Visit Reason for Visit: Gen Weakness Hospital Course Hospital Course his is a 68-year-old female without history of chronic low back pain, history of back surgery who presents [facility] due to intractable back pain, decreased mobility -Patient was recently discharged from [facility] for back pain, she received inpatient PT OT, pain control, Decadron, Dr. Fowler was consulted, recommended medical management. Patient was discharged home, however patient presented to [facility] due to intractable back pain, decreased mobility,4 people had to get her up off the ground as she had fallen. During my evaluation, patient complained of intractable back pain, no fevers, no chills, no urinary continence, no bowel incontinence no saddle or perianal anesthesia, no fevers, no chills. Her dose of the oxycodone was increased to oxycodone 10-325 every 4 hours as needed, continued her Decadron, received PT OT. Overall patient pain was better controlled, she will be discharged to rehab facility, follow-up with Dr. Fowler as outpatient. Follow up with outpatient physician for LFT, monitor cbc as outpatient, monitor for fever. Elevated leukocytosis likely sec to steroids, but monitor for fevers, chills, if so come back to the emergency room. Physical Exam Const: COMMON NORMALS: no acute distress and patient oriented x3 Resp: COMMON NORMALS: normal respiratory effort, No retractions, No use of accessory muscles and clear to auscultation bilaterally AUSCULTATION: clear to auscultation bilaterally Cardio: COMMON NORMALS: regular rate, regular rhythm, S1 normal heart sound present and S2 normal heart sound present RATE: regular rate RHYTHM: regular rhythm HEART SOUNDS: S1 normal heart sound present and S2 normal heart sound present GI: COMMON NORMALS: Normal to inspection, nondistended, normoactive bowel sounds present and non-tender Extremity: COMMON NORMALS: no pedal edema Neuro: COMMON NORMALS: patient oriented x3 Psych: COMMON NORMALS: mental status grossly normal Discharge Data Studies Completed and Pending Pending at discharge Category [place] [id number] Stat Ultrasound 07/13/24 12:51 Taken Laboratory Results WBC 18.33 10^3/uL (3.29-11.43) H 07/13/24 07:19 RBC 4.99 10^6/uL (3.85-5.65) 07/13/24 07:19 Hgb 11.50 g/dL (11.27-16.99) 07/13/24 07:19 Hct 40.3 % (36-47) 07/13/24 07:19 MCV 80.8 fl (85-98) L 07/13/24 07:19 MCH 23.0 pg (27-33) L 07/13/24 07:19 MCHC 28.5 g/dL (30-55) L 07/13/24 07:19 RDW 16.9 % (12.1-15.1) H 07/13/24 07:19 Plt Count 431 10^3/cmm (157-399) H 07/13/24 07:19 MPV 8.8 fL (7.4-10.4) 07/13/24 07:19 Neut % (Auto) 74.3 % 07/13/24 07:19 Lymph % (Auto) 15.8 % 07/13/24 07:19 [place] % (Auto) 6.9 % 07/13/24 07:19 Eos % (Auto) 1.0 % 07/13/24 07:19 Baso % (Auto) 0.3 % 07/13/24 07:19 Neut # (Auto) 13.63 10^3/uL (1.8-7.7) H 07/13/24 07:19 Lymph # (Auto) 2.9 10^3/uL (0.8-4.8) 07/13/24 07:19 [place] # (Auto) 1.3 10^3/uL (0.2-0.9) H 07/13/24 07:19 Eos # (Auto) 0.2 10^3/uL (0.0-0.8) 07/13/24 07:19 Baso # (Auto) 0.1 10^3/uL (0.0-0.1) 07/13/24 07:19 Nucleated RBC % (auto) 0 % 07/13/24 07:19 Nucleated RBCs # 0.0 /100WBC 07/13/24 07:19 Sodium 138 mmol/L (136-145) 07/13/24 07:19 Potassium 4.1 mmol/L (3.5-5.1) 07/13/24 07:19 Chloride 101 mmol/L (98-107) 07/13/24 07:19 Carbon Dioxide 28 mmol/L (22-29) 07/13/24 07:19 Anion Gap 13.1 (5-19) 07/13/24 07:19 BUN 16 mg/dL (8-23) 07/13/24 07:19 Creatinine 0.5 mg/dL (0.5-0.9) 07/13/24 07:19 GFR Calculation 123.4 mL/min (90-130) 07/13/24 07:19 Glucose 133 mg/dL (65-115) H 07/13/24 07:19 Calculated Osmolality 289 mOsm/kg (285-295) 07/13/24 07:19 Calcium 8.9 mg/dL (8.5-10.5) 07/13/24 07:19 Phosphorus 3.3 mg/dL (2.5-4.5) 07/13/24 07:19 Magnesium 2.2 mg/dL (1.7-2.3) 07/13/24 07:19 Vitals Last Vital Signs Temp 98.6 F 07/13/24 11:47 Pulse 83 07/13/24 11:47 Resp 18 07/13/24 11:47 BP 119/74 01/09/25 11:47 Pulse Ox 98 07/13/24 11:47 O2 Del Method Room Air 07/13/24 11:47 Discharge Plan Discharge Patient Disposition: Xfer SNF Condition: Stable Prescriptions: Continued (DME) TLSO Brace See Rx Instructions .Route .MEDSUPPLY Qty: 1 0RF Rx Instructions: As directed duloxetine 30 mg capsule,delayed release(DR/EC) 30 mg PO BID amitriptyline 100 mg tablet 100 mg PO DAILY Qty: 30 11RF (DME) Bone Growth Stimulator E0748 See Rx Instructions .Route .MEDSUPPLY Qty: 1 0RF Rx Instructions: As directed (DME) c-pap supplies See Rx Instructions .Route .MEDSUPPLY Qty: 1 11RF Rx Instructions: As directed cetirizine [Zyrtec] 10 mg Tablet 10 mg PO DAILY@21 PRN (Reason: allergies) Hair, Skin, Nails with Biotin 7.5-7.5-1,250 mg-unit-mcg Tablet,Chewable 4 tab PO DAILY omeprazole 20 mg Capsule,Delayed Release(Dr/Ec) 20 mg PO DAILY pregabalin [Lyrica] 75 mg capsule 75 mg PO BID Qty: 30 0RF cyclobenzaprine 10 mg tablet 10 mg PO Q8H PRN (Reason: muscle spasm) Qty: 20 0RF ferrous sulfate [FeroSul] 325 mg (65 mg iron) tablet 325 mg PO TID amlodipine 5 mg Tablet 5 mg PO DAILY 30 Days Qty: 30 0RF polyethylene glycol 3350 17 gram Powder In Packet 17 g PO DAILY PRN (Reason: constipation) 30 Days Qty: 30 0RF dexamethasone 4 mg tablet 2 mg PO DAILY 5 Days Qty: 3 0RF naloxone [Narcan] 4 mg/actuation spray,non-aerosol 4 mg intranasal Q2M PRN (Reason: opioid overdose) Qty: 2 0RF Rx Instructions: spray 1 dose into ONE nostril; alternate nostrils w each dose until help arrives oxycodone-acetaminophen 10-325 mg tablet 1 tab PO Q4H MDD 6 PRN (Reason: pain) 7 Days Qty: 42 0RF Discharge Orders: Discharge Order (Routine); Ordered 07/13/24 Ordered By: Ciro Serna Referrals: [facility] [Outside] Saul Fowler DO [Physician] - 07/18/24 1:00 pm Tadeo Prather MD [Primary Care Provider] - 1-3 days Discharge Diet: Cardiac Discharge Activity: Resume usual activity Patient Instructions: Back Pain (GEN), Opioid Safety Discharge Attestations Time Spent in Discharge Care*: greater than 30 min Status at Discharge: Cognitive status at discharge: cognitively intact, Behavioral status at discharge: cooperative, Quality Metrics Clinical Quality Measures [ No reported AMI, CVA or VTE this stay] Coding Level of Care Code 15976 Total time (in minutes) for Discharge: 45 Diagnoses Obesity E66.9 Chronic back pain M54.9; G89.29 History of lumbar surgery Z98.890 Bilateral leg weakness R29.898 Obstructive sleep apnea G47.33
== END 2024-07-13 14:50 | disposition skilled nursing facility (03) ==
LOC: ER 21:40 → MEDSURG 22:46
PROVIDERS: Admitting Provider Internal Medicine; Emergency Provider Student in an Organized Health Care Education/Training Program; PCP Family Medicine; Visit Provider Family Medicine
DX: G89.29 Other chronic pain (principal); M54.9 Dorsalgia, unspecified; G97.82 Other postprocedural complications and disorders of nervous system; E66.01 Morbid (severe) obesity due to excess calories; Z68.42 Body mass index [BMI] 45.0-49.9, adult; R29.898 Other symptoms and signs involving the musculoskeletal system; G47.33 Obstructive sleep apnea (adult) (pediatric); R60.0 Localized edema; Z98.1 Arthrodesis status; Z98.890 Other specified postprocedural states
CPT/HCPCS: 36415; 80048; 83735; 84100; 85025; 93970; 96372; 97110; 97116; 97161; 97530; 99285; G0378; J1650; J8540

== ENCOUNTER → 2024-07-18 13:27 | Outpatient (BNVA) | payer MEDICARE, SELFPAY | PROVIDERS: PCP Family Medicine; Visit Provider Orthopaedic Surgery | DX: R29.898 Other symptoms and signs involving the musculoskeletal system (principal); M54.9 Dorsalgia, unspecified; G89.29 Other chronic pain; M54.6 Pain in thoracic spine; Z98.1 Arthrodesis status | CPT/HCPCS: 72070; 99214 ==

== ENCOUNTER 2024-07-19 11:10 | Inpatient (IN) | payer MEDICARE, SELFPAY ==
[2024-07-19] VITALS (23 sets, daily range): BP systolic 110–177; BP diastolic 49–93; PULSE 70–93; RESP 15–20; TEMP 36.2–36.9; O2SAT 90–99; BMI 47.6
--- NOTE | 2024-07-19 06:16 | W.PM.OPSUD ---
Surgery/Procedure H&P Update DATE OF PROCEDURE: July 19, 2024 DATE H&P PERFORMED: 07/18/24 H&P UPDATE INFORMATION: I have reviewed H&P completed within last 30 days, I have examined patient prior to procedure and No changes to prior documentation PLANNED PROCEDURE: Operation Date: 07/19/24 07:00 Proposed Procedures p Spinal Fusion PSF thoracic(Not Applicable) - Saul Fowler DO s Thoracic Decompression(Not Applicable) - Saul Fowler DO
--- NOTE | 2024-07-19 06:19 | P.ANESASSM_ITS ---
Pre-Anesthetic Assessment Height/Weight: Height 5 ft 6 in Preop Diagnosis: Lumbar stenosis with neurogenic claudication Operation Date: 07/19/24 07:00 Proposed Procedures p Spinal Fusion PSF thoracic(Not Applicable) - Saul Fowler DO s Thoracic Decompression(Not Applicable) - Saul Fowler DO Was Beta Rony taken within 24 hours: N/A Was Clonidine taken within 24 hours: N/A Social No alcohol and No tobacco Exam alert, oriented x 3, clear to auscultation bilaterally and regular rate & rhythm Airway Submandibular: within normal limits Cervical ROM: within normal limits Mallampati: Class I Dentition: chipped Anesthetic Plan ASA status: 3 Anesthesia: General Other: No prior issues with anesthesia NPO since yesterday, took meclizine this AM Patient now reports bilateral leg weakness, actively having muscle spasms down bilateral legs History of hypertension on amlodipine On chronic narcotics Patient previously had a procedure scheduled and she was unable to be positioned appropriately for spinal fusion Labs reviewed 07/13/2024 acceptable for procedure Echo 07/10/2024 reviewed. EF 60% Will plan on GETA Medications/Allergies Home Medications Medication Instructions Recorded Confirmed Last Taken Type ascorbic acid 7.5 mg-vit E 7.5 4 tab PO DAILY 11/09/20 07/18/24 07/18/24 History unit-biotin 1,250 mcg chewable tablet (Hair,Skin,Nails with Biotin) cetirizine 10 mg tablet (Zyrtec) 10 mg PO DAILY@21 PRN allergies 11/09/20 07/18/24 07/17/24 History TLSO Brace #1 ea 06/19/21 07/18/24 Unknown Rx Bone Growth Stimulator E0748 #1 ea 09/28/22 07/18/24 Unknown Rx c-pap supplies #1 ea 08/24/23 07/18/24 Unknown Rx duloxetine 30 mg capsule,delayed 30 mg PO BID 02/02/24 07/18/24 07/18/24 History release omeprazole 20 mg capsule,delayed 20 mg PO DAILY 02/25/24 07/18/24 07/18/24 History release amitriptyline 100 mg tablet 100 mg PO DAILY #30 tabs 05/11/24 07/18/24 07/18/24 Rx pregabalin 75 mg capsule (Lyrica) 75 mg PO BID #30 caps 07/04/24 07/18/24 07/18/24 Rx cyclobenzaprine 10 mg tablet 10 mg PO Q8H PRN muscle spasm #20 07/06/24 07/18/24 07/16/24 Rx tabs ferrous sulfate 325 mg (65 mg 325 mg PO TID 07/07/24 07/18/24 07/18/24 History iron) tablet (FeroSul) amlodipine 5 mg tablet 5 mg PO DAILY 30 days #30 tabs 07/12/24 07/18/24 07/18/24 Rx naloxone 4 mg/actuation nasal 4 mg intranasal Q2M PRN opioid 07/12/24 07/18/24 Unknown Rx spray (Narcan) overdose #2 ea polyethylene glycol 3350 17 gram 17 g PO DAILY PRN constipation 30 07/12/24 07/18/24 07/18/24 Rx oral powder packet days #30 ea oxycodone-acetaminophen 10 mg-325 1 - 2 tab PO Q4H PRN pain 7 days 07/18/24 07/19/24 07/19/24 03:00 Rx mg tablet #42 tabs Allergies Allergy/AdvReac Type Severity Reaction Status Date / Time adhesive tape Allergy Unknown Verified 07/18/24 13:11 [facility] Anesthesia Medical History Chronic prescription opiate use Fracture, thoracic vertebra, compression Epigastric abdominal pain Discitis of thoracic region Spondylarthritis DDD (degenerative disc disease), thoracic Fusion of spine, thoracolumbar region Obstructive sleep apnea Morbid obesity Degenerative lumbar spinal stenosis Internal fixation device (pin, nixon, or screw) mechanical complication Morbid obesity with BMI of 50.0-59.9, adult Lumbar stenosis with neurogenic claudication Intervertebral disc disorder with radiculopathy of lumbosacral region Surgical History Status post cervical spinal fusion 09/24 Status post correction of deviated nasal septum History of appendectomy History of carpal tunnel repair History of knee surgery History of laparoscopic adjustable gastric banding Status post insertion of spinal cord stimulator (~2016) History of lumbar surgery (~2011) 12/2016 Dr. Martin Joyner Thoracic spinal cord stimulator placement 04/2016 Dr. Martin Joyner Right SI joint fusion 03/2016 Dr. Martin Joyner [facility] Left SI joint fusion 06/2012 Dr. Christopher Olmstead [facility] L2-L3 posterior fusion/fixation. 10/2011 Dr. Christopher Olmstead [facility] Fractured fusion screws removed. 12/[address] Orthopedic surgeon. [facility] Spine: L3-L4, L4-L5 L5-S1 Posterior Fusion/fusion Family History Father CAD (coronary artery disease) Social History Smoking and tobacco/nicotine status: never used tobacco/nicotine Alcohol intake: former Substance/Drug Use: never Household members: spouse Marital status: Current occupational status: disabled Data Anesthesia Cardiac Studies: Echocardiogram 07/10/24
[2024-07-19] MEDS: sodium chloride 0.9% 1,000 ML 30 ML IV (06:59)
[2024-07-19] MEDS: ceFAZolin 3,000 MG in sodium chloride 0.9% (plus) 100 ML 200 MG IV (07:06)
[2024-07-19] MEDS: VANCOMYCIN ADD-Vantage 1,000 MG VIAL 1000 MG XX (09:01)
[2024-07-19] MEDS: lidocaine-epi 1% 20 mL INJ 10 ML INJECTION (09:01)
--- NOTE | 2024-07-19 09:53 | XR_ITS ---
WS: [id number] XR thoracic spine 2V 60428 REASON FOR EXAM: OR PICS FINDINGS: Posterior decompression with pedicle screw placement at T2 and T3 with extension of the connecting ro ds from the previous thoracolumbar fusion. Surgical appliances are intact and in proper position and alignment. XR/XR thoracic spine 2V 67732 IMPRESSION: Extension of previous thoraco lumbar posterior fusion without abnormality.
--- NOTE | 2024-07-19 10:02 | P.OP_ITS ---
Operative Report Date of procedure: July 19, 2024 Pre-op diagnosis: Fracture dislocation thoracic T4/T5 Post-op diagnosis: same Procedure done: 1. T2-T6 posterior spine fusion 2. T2-T6 posterior spine instrumentation 3. T4-5 laminectomy with partial facetectomies 4. Use of computer navigation stereotactic for spine 5. Use of allograft 6. Use of autograft from same incision 7. Removal of deep hardware from spine Surgeon: Saul Fowler DO Estimated blood loss (mL): 150 Procedure: 1. T2-T6 posterior spine fusion 2. T2-T6 posterior spine instrumentation 3. T4-5 laminectomy with partial facetectomies 4. Use of computer navigation stereotactic for spine 5. Use of allograft 6. Use of autograft from same incision 7. Removal of deep hardware from spine Patient was brought to the operative suite after undergoing anesthesia was placed in the prone position. Neuromonitoring was used throughout the entire case. These were placed. Patient was well-padded all his impingement were well-padded. Patient was prepped and draped normal sterile fashion. Skin incision was made from T2 down to T6. Subperiosteal dissection was made out to the T2-T6 transverse processes. The nixon was identified along the screws at T5 and T6. The T5 caps were removed. And then the nixon was removed outside the tip of the T5 screws. The teeth 5 screws were removed using a rongeur there were loose. Next attention was brought to placing the fiducial for the spinous process clamp. The spinous process clamp was locked down. Fiducial was attached. C- arm was brought in and the information from the serum was loaded the computer later used for placing the pedicle screws. Pedicle screws were placed at T2 bilaterally as well as T3 bilaterally. This was done using computer navigation. The technique was done by using a high- speed bur followed by using the gearshift probe which is linked to the computer navigation. Followed by the pedicle feeler followed by placing screws using the computer navigation. Next attention was brought to performing the laminectomy at T4-5. This is done by biting down the spinous process of T4. There is actually a fracture between T4 and T5. The spinous process was taken down and the superior part of the T5 lamina as well as of the T4 lamina were taken down using high-speed bur Curved curettes and Kerrison rongeurs. Medial aspect of the facet joints of T4-5 were taken down using high-speed bur as well as the rongeur Kerrisons. The liga mentum flavum was taken down from T4-T5. The dura was then inspected in good repair. Neuromonitoring showed that the left leg side come back. Preoperatively the both legs were not functioning. However once the laminectomy was performed the left leg started to come back. Next a nixon nixon connector was attached to a nixon from T2 down to the T6 nixon connection. The screw caps were placed and T2 and T3. These were torqued down and then the screw caps in the connector were torqued down therefore the sacral torqued down. This was done bilaterally. High-speed bur was then used to decorticate the lamina of T2 and T3 as well as the transverse processes. As well as the trans processes of T5 and T6. Posterior bone graft was packed along with the autograft from the laminectomy. Vancomycin powder was placed deep drain was placed and was closed in layered fashion with 0 Vicryl 2-0 Vicryl and Monocryl suture. Sterile dressings were applied patient was transferred to the PACU in stable condition.
--- NOTE | 2024-07-19 11:19 | ANE.PACU2 ---
Inpatient post-anesthesia follow up: Airway intact: Yes Vital signs: Temperature 97.5 F Pulse Rate 78 Respiratory Rate 16 Blood Pressure 139/69 Pulse Oximetry 95 Oxygen Delivery Me thod Nasal Cannula Oxygen Flow Rate 2 Fraction of Inspir ed Oxygen Hydration adequate: Yes Nausea and vomiting: No Pain level: 1 Mental status: Baseline
[2024-07-19] MEDS: ketorolac 30 mg/mL INJ IVP (13:08)
[2024-07-19] MEDS: lactated ringers 1,000 ML 90 ML IV ×2 (13:09→20:58)
[2024-07-19] MEDS: oxyCODONE-APAP 10-325 mg Tablet PO ×3 (13:09→22:31)
[2024-07-19] MEDS: ferrous sulfate EC 325 mg Tablet PO ×2 (14:45→20:57)
[2024-07-19] MEDS: duloxetine 30 mg Capsule PO (17:55)
[2024-07-19] MEDS: ceFAZolin 2,000 mg SDV 3000 MG IVP (17:56)
[2024-07-19] MEDS: docusate sodium 100 mg Capsule PO (17:56)
[2024-07-19] MEDS: pregabalin 75 mg Capsule PO (17:56)
[2024-07-20] VITALS (11 sets, daily range): BP systolic 101–122; BP diastolic 57–70; PULSE 63–83; RESP 15–20; TEMP 36.6–37.1; O2SAT 94–99
[2024-07-20] MEDS: ceFAZolin 2,000 mg SDV 3000 MG IVP ×2 (01:31→09:50)
[2024-07-20] MEDS: oxyCODONE-APAP 10-325 mg Tablet PO ×5 (03:43→23:50)
[2024-07-20] MEDS: ketorolac 30 mg/mL INJ IVP ×3 (08:35→23:52)
[2024-07-20] MEDS: amitriptyline 25 mg Tablet 100 MG PO (08:36)
[2024-07-20] MEDS: lactated ringers 1,000 ML 90 ML IV ×2 (08:37→21:41)
[2024-07-20] MEDS: amlodipine 5 mg Tablet PO (08:37)
[2024-07-20] MEDS: pantoprazole DR 40 mg Tablet PO (08:37)
[2024-07-20] MEDS: docusate sodium 100 mg Capsule PO ×2 (08:37→17:01)
[2024-07-20] MEDS: duloxetine 30 mg Capsule PO ×2 (08:37→17:01)
[2024-07-20] MEDS: pregabalin 75 mg Capsule PO ×2 (08:37→17:01)
[2024-07-20] MEDS: ferrous sulfate EC 325 mg Tablet PO ×3 (08:37→21:41)
--- NOTE | 2024-07-20 11:21 | PM.PN ---
Subjective Subjective: Patient's pain is significant proved. She was up with therapy was a full assist but was able to walk 4 steps. Vitals/I&O/Wt Last Vital Signs Temp 98.0 F 07/20/24 07:57 Pulse 83 07/20/24 07:57 Resp 16 07/20/24 08:36 BP 116/67 07/20/24 07:57 Pulse Ox 94 07/20/24 07:57 O2 Del Method Room Air 07/20/24 07:57 O2 Flow Rate 2 07/19/24 14:30 07/19/24 07/20/24 07/20/24 22:59 06:59 14:59 Intake Total 1503.5 / 3203.5 620 / 3823.5 1430 / 1430 Output Total 800 / 2600 800 / 3400 700 / 700 Balance 703.5 / 603.5 -180 / 423.5 730 / 730 Weight last 48 hrs Weight 295 lb 9.6 oz Weight 295 lb Weight 295 lb Physical Exam Narrative: Patient is now able to move her legs has good strength in her legs sensation intact. Compared to yesterday where she could not move her legs at all intraoperatively she had no function with neuromonitoring. Urinary Catheter Management: Ram: Cath Placed During This Visit: yes Reason for Continuing Indwelling Catheter: Required Immobilization for Trauma or Surgery or Anesthesia Urinary Catheter Date of Insertion: 07/19/24 Urinary Catheter Time of Insertion: 07:40 Data Micro: Microbiology 07/19/24 08:23 Gram Stain - Final Back Anaerobic Culture - Preliminary A&P Assessment and plan (1) Status post lumbar spinal fusion: Patient is postop day #1 T2-T5 posterior spine fusion. Up with physical therapy Anticipate discharge planning tomorrow to [place]. Attestations Medical Necessity Statement*: Ambulation and pain control Coding Level of Care Code Acute Code for Chg Fwd Diagnoses Status post lumbar spinal fusion Z98.1
[2024-07-20] MEDS: cyclobenzaprine 10 mg Tablet PO ×2 (12:57→23:52)
[2024-07-21] VITALS (7 sets, daily range): BP systolic 107–141; BP diastolic 66–79; PULSE 73–81; RESP 16–20; TEMP 36.6–37.3; O2SAT 94–97; BMI 47.7
--- NOTE | 2024-07-21 05:21 | PC.NURSE ---
Bladder scan per order. bladder scan showed 900 ml. Straight cath per order and removed 1300ml from bladder. Patient stated she felt no urge to void.
[2024-07-21] MEDS: oxyCODONE-APAP 10-325 mg Tablet PO ×2 (05:27→11:20)
[2024-07-21] MEDS: pregabalin 75 mg Capsule PO (09:21)
[2024-07-21] MEDS: duloxetine 30 mg Capsule PO (09:21)
[2024-07-21] MEDS: amlodipine 5 mg Tablet PO (09:21)
[2024-07-21] MEDS: ferrous sulfate EC 325 mg Tablet PO (09:21)
[2024-07-21] MEDS: amitriptyline 25 mg Tablet 100 MG PO (09:21)
[2024-07-21] MEDS: docusate sodium 100 mg Capsule PO (09:21)
[2024-07-21] MEDS: pantoprazole DR 40 mg Tablet PO (09:21)
--- NOTE | 2024-07-21 09:34 | PC.SOCIAL ---
IMM Update pg 2 of IMM Updated and reviewed w/ patient. Copy provided and copy dated, initialed and placed in chart.
--- NOTE | 2024-07-21 09:35 | P.DS_ITS ---
Discharge Providers Date of Admission: 07/19/24 11:10 Date of Discharge: July 21, 2024 Attending Provider at Admission: Saul Fowler DO Attending Provider at Discharge: Saul Fowler DO Primary Care Provider: Tadeo Prather MD Diagnoses at Discharge Discharge Diagnosis (1) Status post lumbar spinal fusion: Status: Acute Physical Exam Narrative: Patient doing well pain controlled. Was up with physical therapy could walk 5 steps still has weakness. Urinary Catheter Management: Ram: Cath Placed During This Visit: yes, but has since been removed by the nurse Reason for Continuing Indwelling Catheter: Decision to DC Catheter Urinary Catheter Date of Insertion: 07/19/24 Urinary Catheter Time of Insertion: 07:40 Date Urinary Catheter Removed: 07/20/24 Time Urinary Catheter Discontinued: 11:48 Discharge Data Studies Completed and Pending Completed Studies During Hospitalization Category Date Time Status XR thoracic spine 2V 10559 Routine Exams 07/19/24 09:53 Completed Pending at discharge Category Date Time Status Anaerobic Culture Routine Lab 07/19/24 08:23 Results COVID [SARS Covid-2 Antigen] Routine Lab 07/21/24 08:25 Uncollected Wound Culture and Gram Stain Routine Lab 07/19/24 08:23 Results Radiology Impressions Thoracic Spine X-Ray 07/19/24 09:53 IMPRESSION: Extension of previous thoraco lumbar posterior fusion without abnormality. Laboratory Results Blood Type Cancelled 07/19/24 06:43 Rho(D) Type Cancelled 07/19/24 06:43 Antibody Screen Cancelled 07/19/24 06:43 Vitals Last Vital Signs Temp 98.3 F 07/21/24 07:59 Pulse 74 07/21/24 07:59 Resp 18 07/21/24 07:59 BP 112/66 07/21/24 07:59 Pulse Ox 95 07/21/24 07:59 O2 Del Method Room Air 07/21/24 07:59 O2 Flow Rate 2 07/19/24 14:30 Discharge Plan Discharge Patient Disposition: Home Prescriptions: New oxycodone-acetaminophen 10-325 mg tablet 1 - 2 tab PO Q4H PRN (Reason: pain) 7 Days Qty: 42 0RF guaifenesin 1,200 mg tablet extended release 12hr 1,200 mg PO BID PRN (Reason: congestion) 30 Days Qty: 60 0RF simethicone 180 mg capsule 180 mg PO BID PRN (Reason: abdominal distention) 30 Days Qty: 60 0RF Continued (DME) TLSO Brace See Rx Instructions .Route .MEDSUPPLY Qty: 1 0RF Rx Instructions: As directed duloxetine 30 mg capsule,delayed release(DR/EC) 30 mg PO BID amitriptyline 100 mg tablet 100 mg PO DAILY Qty: 30 11RF (DME) Bone Growth Stimulator E0748 See Rx Instructions .Route .MEDSUPPLY Qty: 1 0RF Rx Instructions: As directed (DME) c-pap supplies See Rx Instructions .Route .MEDSUPPLY Qty: 1 11RF Rx Instructions: As directed cetirizine [Zyrtec] 10 mg Tablet 10 mg PO DAILY@21 PRN (Reason: allergies) Hair, Skin, Nails with Biotin 7.5-7.5-1,250 mg-unit-mcg Tablet,Chewable 4 tab PO DAILY omeprazole 20 mg Capsule,Delayed Release(Dr/Ec) 20 mg PO DAILY pregabalin [Lyrica] 75 mg capsule 75 mg PO BID Qty: 30 0RF cyclobenzaprine 10 mg tablet 10 mg PO Q8H PRN (Reason: muscle spasm) Qty: 20 0RF ferrous sulfate [FeroSul] 325 mg (65 mg iron) tablet 325 mg PO TID amlodipine 5 mg Tablet 5 mg PO DAILY 30 Days Qty: 30 0RF polyethylene glycol 3350 17 gram Powder In Packet 17 g PO DAILY PRN (Reason: constipation) 30 Days Qty: 30 0RF naloxone [Narcan] 4 mg/actuation spray,non-aerosol 4 mg intranasal Q2M PRN (Reason: opioid overdose) Qty: 2 0RF Rx Instructions: spray 1 dose into ONE nostril; alternate nostrils w each dose until help arrives Discontinued oxycodone-acetaminophen 10-325 mg tablet 1 - 2 tab PO Q4H MDD 6 PRN (Reason: pain) 7 Days Qty: 42 0RF Discharge Orders: Discharge Order (Routine); Ordered 07/21/24 Ordered By: Saul Fowler Discharge Diet: Advance as tolerated Discharge Activity: Limit activity as instructed Patient Instructions: Acute Wound Care (DC), Opioid Safety, Post Anesthesia Care Activity Restrictions/Additional Instructions: Thank you for [facility] for your care! The following is a list of instructions, from your provider, to follow upon your discharge to ensure you have the optimal recovery from your recent injury orsurgery. Follow-up care is a panchal part of your treatment and safety. Be sure to make and go to all appointments, and call your doctor if you are having problems. If you do not already have a follow-up appointment made, call Dr. Fowler office in the next 1-3 days to make follow up appointment for 1 weeks at [phone]. It is also a good idea to know your test results and keep a list of the medicines you take. Medications will be prescribed for you at your provider's discretion. These medications are to be used as instructed; if they are taken more often that prescribed they will not be refilled early and in most cases will not be refilled at all. > When a refill is needed,you should contact yulissa streeter 2-3 business days before your prescription runs out. Medications will NOT be refilled by commission auditor providers after hours! > Many pain medications contain Tylenol (Acetaminophen). Do not consume more than 4,000 mg of Tylenol per day in total with any combination ofmedications. > Pain medications can cause constipation. Please use an over the counter stool softener as directed, while taking pain medications. Consulty our local pharmacist with questions or recommendations on stool softeners. If constipation persists, contact our office or your primary care provider. > While under our care,you are not to receive pain medications or other controlled substances from any other provider unless our office is notified and approves. Any attempts to do so will result in refusal to prescribe any further pain medications and possible dismissal from our practice. Will change dressing in clinic ? Showering is permitted, however we ask that you do not take a bath, sit in a whirlpool / Jacuzzi, or go swimming for 1 month. For only the first 2 days after surgery, lt wilt be necessary for you to cover your wound/dressing with plastic and tape to keep it dry. ? Walking is essential for the healing process after surgery. We would like you to slowly advance your walking. This should be done on relatively flat clear ground (inside or out) or can be done on a treadmill. Remember this goal does not have to happen all at once, slowly increase your distance and duration. This can be broken into more more than one walk per day as tolerated. Patients who walk as directed after surgery rarely require Physical Therapy. In the unlikely event this issue arises your provider will direct hospital staff to make the appropriate arrangements. ? No lifting over 5 pounds {a gallon of milk) or bending/twisting until further notice. Each of these activities places an unnecessary amount of stress onto the body and can impede the delicate healing process. > Instead of bending at the waist, keep your back straight and bend at the knees. > Instead of twisting your torso, keep your back straight and turn your entire body with your feet. ? You may sleep in any position which makes you comfortable. Many patients find comfort sleeping in a reclining chair. It is not abnormal to have difficulty sleeping for the first several weeks following your surgery. We recommend trying Benadry! or Tylenol PM as directed to help with your sleeping difficulties. Both medications are over the counter and available withoutprescription. ? NO SMOKING!!! Smoking dramatically increases the probability of developing postoperative wound infections. ? Common complaints after lumbar and/or thoracic spine surgery include, but are not limited to: numbness and/or tingling in the legs, pain around the incision and surrounding tissues, muscle spasms, or stiffness of the middle to low back. Contact our office if these symptoms persist or if an acute change occurs. ? No driving for the first 3-5days, and not while taking narcotics [] until seen at your follow-up appointment and cleared. There are no restrictions for riding on short trips, however if you take a longer trip, arrangements should be made to make regular stops to get out of the vehicle and stretch . ? Swelling is an unfortunate event that will take place with any surgery and is the primary source of your postoperative discomfort. While walking and regular approved activities helps control inflammation, there are additional steps you can take to minimizeswelling. > Place ice over the surgical site and surrounding tissue for twenty minutes, followed by applying a low/medium heat (heating pad) for an additional twenty minutes every 1-2 hours as needed for painrelief. > You may use of over the counter anti-inflammatory medications (Ibuprofen, Motrin, Aleve, Advil, etc) as directed on the package label. These types of medicines wm significantly reduce the amount of discomfort you experien ce after surgery from swelling. It should be noted that if you have and allergy to any of these medications, or a history of ulcers or kidney disease you should consult you primary care provider prior to starting these medications. Discharge Attestations Time Spent in Discharge Care*: less than 30 min Status at Discharge: Cognitive status at discharge: cognitively intact , Behavioral status at discharge: cooperative , Quality Metrics Clinical Quality Measures [ No reported AMI, CVA or VTE this stay] Coding Level of Care Code Acute Code for Chg Fwd Diagnoses Status post lumbar spinal fusion Z98.1
--- NOTE | 2024-07-21 09:35 | PC.SOCIAL ---
IMM Update pg 2 of IMM Updated and reviewed w/ patient. Copy provided and copy dated, initialed and placed in chart.
[2024-07-21 10:27] LABS: SARS Covid-2 Antigen negative (Negative)
--- NOTE | 2024-07-21 12:00 | PC.NURSE ---
Report called to [facility] to [place]. Surgical site, dressing, berry, v/s, pain medications, and baseline all given in report. All questions answered. Reports transport will be here to retrieve pt at some point this afternoon.
== END 2024-07-21 13:25 | disposition skilled nursing facility (03) | DRG 448 ==
LOC: MEDSURG 11:16
PROVIDERS: Admitting Provider Orthopaedic Surgery; PCP Family Medicine; Visit Provider Orthopaedic Surgery
PROC: 0RG7071 Fusion of 2 to 7 Thoracic Vertebral Joints with Autologous Tissue Substitute, Posterior Approach, Posterior Column, Open Approach (ICD-10-PCS; principal; 2024-07-19 07:00)
PROC: 0RG7071 Fusion of 2 to 7 Thoracic Vertebral Joints with Autologous Tissue Substitute, Posterior Approach, Posterior Column, Open Approach (ICD-10-PCS; CPT 63003; 2024-07-19 07:00)
DX: S22.049A Unspecified fracture of fourth thoracic vertebra, initial encounter for closed fracture (principal); Z68.43 Body mass index [BMI] 50.0-59.9, adult; S22.059A Unspecified fracture of T5-T6 vertebra, initial encounter for closed fracture; X58.XXXA Exposure to other specified factors, initial encounter; M48.062 Spinal stenosis, lumbar region with neurogenic claudication; M54.17 Radiculopathy, lumbosacral region; Z79.891 Long term (current) use of opiate analgesic; Z98.1 Arthrodesis status; G47.33 Obstructive sleep apnea (adult) (pediatric); E66.01 Morbid (severe) obesity due to excess calories
CPT/HCPCS: 36415; 51702; 51798; 72070; 76000; 87070; 87075; 87205; 87426; 97110; 97116; 97162; 97530; 99214; C1713; J0330; J0690; J1100; J1171; J1885; J2250; J2405; J2704; J3010; J3370; J7030; J7120; P9045

== ENCOUNTER → 2024-07-27 08:10 | Outpatient (BNVA) | payer MEDICARE, SELFPAY | PROVIDERS: PCP Family Medicine; Visit Provider Orthopaedic Surgery | DX: Z98.1 Arthrodesis status (principal); Z48.89 Encounter for other specified surgical aftercare | CPT/HCPCS: 99024 ==

== ENCOUNTER → 2024-08-03 10:39 | Outpatient (BNVA) | payer MEDICARE, SELFPAY | PROVIDERS: PCP Family Medicine; Visit Provider Orthopaedic Surgery | DX: Z98.1 Arthrodesis status (principal) | CPT/HCPCS: 99024 ==

== ENCOUNTER → 2024-08-29 09:49 | Outpatient (BNVA) | payer MEDICARE, SELFPAY | PROVIDERS: PCP Family Medicine; Visit Provider Psychiatry & Neurology Neurology | DX: R20.2 Paresthesia of skin (principal); R29.898 Other symptoms and signs involving the musculoskeletal system; I63.9 Cerebral infarction, unspecified; E55.9 Vitamin D deficiency, unspecified | CPT/HCPCS: 36415; 82306; 82607; 82746; 83921; 84439; 84443; 84481; 99203 ==

== ENCOUNTER → 2024-08-31 07:58 | Outpatient (BNVA) | payer MEDICARE, SELFPAY | PROVIDERS: PCP Family Medicine; Visit Provider Orthopaedic Surgery | DX: Z98.1 Arthrodesis status (principal) | CPT/HCPCS: 72072; 72100; 99024 ==

== ENCOUNTER 2024-09-12 08:56 | Outpatient (CLI) | payer MEDICARE, SELFPAY ==
--- NOTE | 2024-09-12 09:30 | MR_ITS ---
WS: [id number] MRI BRAIN WITH AND WITHOUT CONTRAST HISTORY: R29.898 - Other symptoms and signs involving the musculos... COMPARISON: CT head 07/15/2021 TECHNIQUE: Multiplanar imaging performed through the brain with MultiHance 20 ml's IV. No acute infarcts are seen. Flores-white matter differentiation is well preserved. Mild bifrontal lobe atrophy and volume loss. No prior infarct. Mild small vessel disease. Ovoid cyst along the inferior RIGHT temporal lobe closely associated with the sylvian fissure measures 6 x 11 mm and does not enhance. No susceptibility artifacts or prior lacunar infarcts. Ventricles and extra-axial spaces are normal. Small pituitary gland in the base of the dorsum sellae. Visualized posterior fossa and brainstem are also normal. Postcontrast images are negative for masses or vascular malformations. Dural venous sinuses are normal. Paranasal sinuses: Well aerated with no significant disease. Mastoid air cells: Normal. Calvarium and scalp: Normal. MR/MR head wo/w con [id number] IMPRESSION: 1. No acute infarct or hemorrhage. 2. No enhancing masses or vascular malformations. 3. Minimal small vessel disease and bifrontal lobe atrophy. 4. RIGHT temporal lobe nonenhancing cystic mass measures 6 x 11 mm, may be a s mall arachnoid cyst or perivascular space. No follow-up necessary.
[2024-09-12] MEDS: gadobenate dimeglumine 20 mL vial IV (10:19)
== END 2024-09-12 08:57 | disposition home or self-care (01) ==
PROVIDERS: PCP Family Medicine; Visit Provider Psychiatry & Neurology Neurology
DX: R29.898 Other symptoms and signs involving the musculoskeletal system (principal); I63.9 Cerebral infarction, unspecified; R93.0 Abnormal findings on diagnostic imaging of skull and head, not elsewhere classified; G31.89 Other specified degenerative diseases of nervous system; I67.89 Other cerebrovascular disease
CPT/HCPCS: 70553; 95910

== ENCOUNTER → 2024-10-12 08:00 | Outpatient (BNVA) | payer MEDICARE, SELFPAY | PROVIDERS: PCP Family Medicine; Visit Provider Orthopaedic Surgery | DX: Z98.1 Arthrodesis status (principal) | CPT/HCPCS: 72072; 99213 ==

== ENCOUNTER 2024-11-03 08:15 | Outpatient (CLI) | payer MEDICARE, SELFPAY ==
[2024-11-03 09:21] LABS: 25 Hydroxy Vitamin D 37 ng/mL (30-100)
== END 2024-11-03 08:16 | disposition home or self-care (01) ==
LOC: LAB 08:16
PROVIDERS: PCP Family Medicine; Visit Provider Psychiatry & Neurology Neurology
DX: E55.9 Vitamin D deficiency, unspecified (principal)
CPT/HCPCS: 36415; 82306

== ENCOUNTER → 2024-11-06 15:02 | Outpatient (BNVA) | payer MEDICARE, SELFPAY | PROVIDERS: PCP Family Medicine; Visit Provider Psychiatry & Neurology Neurology | DX: R20.2 Paresthesia of skin (principal); R29.898 Other symptoms and signs involving the musculoskeletal system | CPT/HCPCS: 99212 ==

== ENCOUNTER 2024-12-04 22:11 | Inpatient (IN) | payer MEDICARE, SELFPAY ==
[2024-12-04 22:12] VITALS: BP 104/64; PULSE 67; RESP 18; TEMP 36.7; O2SAT 88; BMI 40.3
[2024-12-04 22:21] VITALS: BP 104/64; PULSE 69; O2SAT 90
--- NOTE | 2024-12-04 22:39 | CTR_ITS ---
PROCEDURE INFORMATION: Exam: CT Chest With Contrast; Diagnostic Exam date and time: 12/04/2024 11:13 PM Age: 69 years old Clinical indication: Injury or trauma; Fall; Generalized; Blunt trauma (contusions or hematomas); Prior surgery; Surgery date: 6+ months; Surgery type: Cervical and lumbar fusions; Additional info: Trauma, fall, thoracic and lumbar pain TECHNIQUE: Imaging protocol: Diagnostic computed tomography of the chest with contrast. Radiation optimization: All CT scans at this facility use at least one of these dose optimization techniques: automated exposure control; mA and/or kV adjustment per patient size (includes targeted exams where dose is matched to clinical indication); or iterative reconstruction. Contrast material: OMNI 350; Contrast volume: 100 ml; Contrast route: INTRAVENOUS (IV); COMPARISON: CR XR chest 1V portable [id number] 11/08/2020 7:17 AM RADIATION DOSE METRICS: Total DLP (mGy-cm): 740.7 FINDINGS: Lungs: There is some mild dependent atelectasis or scarring at the lung bases. There is no acute pulmonary infiltrate. Pleural spaces: Unremarkable. No pneumothorax. No pleural effusion. Heart: Heart is within normal limits of size. Lymph nodes: There is no evidence of lymphadenopathy. Vasculature: There is no thoracic aortic aneurysm or dissection. Bones/joints: There are extensive postsurgical changes in the thoracic spine with posterior spinal fusion beginning at T2 and extending into the lumbar region. The upper part of this fusion is new compared with 07/06/2023 with pedicle screws at T2 and T3 bilaterally and posterior metallic hardware. There is a new severe chronic appearing compression deformity of T5 from the previous examination with wide laminectomies at T4 and T5. There also old healed fractures T9 and T10 and vertebroplasties at the T8 and T9-T10 levels. No acute appearing fracture is demonstrated. Soft tissues: Unremarkable. PROCEDURE INFORMATION: Exam: CT Abdomen And Pelvis With Contrast Exam date and time: 12/04/2024 11:13 PM Age: 69 years old Clinical indication: Injury or trauma; Fall; Generalized; Blunt trauma (contusions or hematomas); Prior surgery; Surgery date: 6+ months; Surgery type: Cervical and lumbar fusions; Additional info: Trauma, fall, thoracic and lumbar pain TECHNIQUE: Imaging protocol: Computed tomography of the abdomen and pelvis with contrast. Radiation optimization: All CT scans at this facility use at least one of these dose optimization techniques: automated exposure control; mA and/or kV adjustment per patient size (includes targeted exams where dose is matched to clinical indication); or iterative reconstruction. Contrast material: OMNI 350; Contrast volume: 100 ml; Contrast route: INTRAVENOUS (IV); COMPARISON: 1. CT abdomen pelvis w con* [id number] 04/13/2021 2:[address] thoracic spin wo con* [id number] 07/06/2024 8:27 PM RADIATION DOSE METRICS: Total DLP (mGy-cm): 108.15 FINDINGS: Liver: There is no focal abnormality within the liver. Gallbladder and biliary ducts: Normal. No calcified stones. No ductal dilation. Pancreas: The pancreas is normal. Spleen: The spleen is normal. Adrenal glands: The adrenal glands are normal. Kidneys and ureters: There is a 2 cm sized benign-appearing simple cyst lower pole of the right kidney not significantly changed. There are multiple left renal collecting system calcifications. There is no evidence of hydronephrosis. There is no stone along the course of either ureter. Stomach and bowel: There is no evidence of colitis/diverticulitis. There is no evidence of intestinal obstruction. Appendix: Not identified Intraperitoneal space: There is no evidence of free intraperitoneal fluid. Vasculature: The aorta demonstrates mild atherosclerotic calcification. Lymph nodes: There is no evidence of lymphadenopathy. Urinary bladder: Unremarkable as visualized. Reproductive: There has been a hysterectomy. Bones/joints: There is posterior spinal fusion in the lumbar spine with bilateral pedicle screws at multiple levels instrumentation in the disc spaces at L2-L3, L3-L4 and L5-S1, and arthrodesis in the sacroiliac joints bilaterally with multiple levels of the lumbar laminectomies. The postsurgical changes in the lumbar region are stable compared with 04/13/2021. No acute fracture is demonstrated. Soft tissues: Unremarkable. CT/CT chest abdpel w/*[id number] IMPRESSION: 1. Extensive postsurgical changes in the thoracic spine. 2. No acute findings in the chest IMPRESSION: 1. Stable postsurgical changes in the lumbar spine 2. Left nephrolithiasis 3. No acute fracture
--- NOTE | 2024-12-04 22:39 | CTR_ITS ---
PROCEDURE INFORMATION: Exam: CT Cervical Spine Without Contrast Exam date and time: 12/04/2024 11:08 PM Age: 69 years old Clinical indication: Injury or trauma; Fall; Other: Neck pain; Prior surgery; Surgery date: 6+ months; Surgery type: Cervical to lumbar fusion, hyster; Additional info: Fall, pain TECHNIQUE: Imaging protocol: Computed tomography of the cervical spine without contrast. Radiation optimization: All CT scans at this facility use at least one of these dose optimization techniques: automated exposure control; mA and/or kV adjustment per patient size (includes targeted exams where dose is matched to clinical indication); or iterative reconstruction. COMPARISON: MR cervical spin wo con* [id number] 07/23/2022 3:43 PM RADIATION DOSE METRICS: Total DLP (mGy-cm): 703.4 FINDINGS: Bones: In the interval from prior MR in 2022, there has been anterior plate and screw fixation with interbody bone graft spanning C4-C6. There is no evidence of hardware failure. No acute fracture or malalignment. There is also a new fusion hardware in the upper thoracic spine beginning at T2 and extending below the lower margin the exam with multilevel laminectomy defect. Pharynx: Normal fossa of Rosenmuller. Normal tonsillar pillars. Larynx: Normal epiglottis. Symmetric vocal folds. Lungs: Lung parenchyma is notable for linear scarring or atelectasis in the right upper lobe and mild bronchial wall thickening. Thyroid: Homogeneous thyroid. Vasculature: Mild calcific plaque noted at each carotid bifurcation. Soft tissues: No prevertebral soft tissue swelling. CT/CT cervical spin wo con* [id number] IMPRESSION: No evidence of acute cervical spine fracture or malalignment. There has been interval fusion spanning C4-C6 without evidence of hardware failure.
--- NOTE | 2024-12-04 22:39 | CTR_ITS ---
PROCEDURE INFORMATION: Exam: CT Head Without Contrast Exam date and time: 12/04/2024 11:08 PM Age: 69 years old Clinical indication: Injury or trauma; Fall; Other: Posterior head pain; Prior surgery; Surgery date: 6+ months; Surgery type: Hyster, spinal fusion TECHNIQUE: Imaging protocol: Computed tomography of the head without contrast. Radiation optimization: All CT scans at this facility use at least one of these dose optimization techniques: automated exposure control; mA and/or kV adjustment per patient size (includes targeted exams where dose is matched to clinical indication); or iterative reconstruction. COMPARISON: MR head wo/w con [id number] 09/12/2024 9:25 AM RADIATION DOSE METRICS: Total DLP (mGy-cm): 1301.9 FINDINGS: Brain: No hemorrhage. Unremarkable white matter. No mass effect. Preserved griggs-white interfaces. Cerebral ventricles: No ventriculomegaly. Paranasal sinuses: Visualized sinuses are unremarkable. No fluid levels. Mastoid air cells: There is fluid throughout the left mastoid air cells. Bones: No bony destructive change. Hyperostosis frontalis interna. No evidence of acute fracture. Soft tissues: Unremarkable. CT/CT head wo con* [id number] IMPRESSION: 1. No evidence of acute intracranial hemorrhage, mass effect, or edema. 2. There is fluid in the left mastoid air cells. No evidence of acute fracture or bony destructive change.
[2024-12-04 22:51] VITALS: BP 112/76; PULSE 67; O2SAT 95
[2024-12-04] MEDS: iohexol 350 mg/mL 500 mL Btl (per mL) IV (23:09)
[2024-12-04 23:21] VITALS: BP 132/76; PULSE 62; O2SAT 99
[2024-12-04 23:24] LABS: Basophils # 0.2 10^3/uL (0.0-0.1); Basophils % 1.1 %; Eosinophils # 0.7 10^3/uL (0.0-0.8); Eosinophils % 5.3 %; Hematocrit 41.2 % (36-47); Lymphocytes # 4.2 10^3/uL (0.8-4.8); Lymphocytes % 31.6 %; Mean Corpuscular HGB Conc 28.9 g/dL (30-55); Mean Corpuscular Hemoglobin 24.4 pg (27-33); Mean Corpuscular Volume 84.6 fl (85-98); Mean Platelet Volume 8.3 fL (7.4-10.4); Monocytes # 0.9 10^3/uL (0.2-0.9); Monocytes % 6.8 %; Neutrophils # 7.21 10^3/uL (1.8-7.7); Neutrophils % 54.3 %; Nucleated Red Blood Cells % 0 %; Platelet Count 426 10^3/cmm (157-399); Red Blood Count 4.87 10^6/uL (3.85-5.65); Red Cell Distribution Width 16.9 % (12.1-15.1); White Blood Count 13.29 10^3/uL (3.29-11.43)
[2024-12-04 23:30] VITALS: BP 132/76; PULSE 67; O2SAT 95
[2024-12-04 23:35] LABS: Alanine Aminotransferase 10 U/L (0-33); Albumin Level 3.4 g/dL (3.5-5.2); Alkaline Phosphatase 109 U/L (35-105); Anion Gap 13.2 (5-19); Aspartate Amino Transferase 14 U/L (0-32); Blood Urea Nitrogen 14 mg/dL (8-23); Calcium 8.9 mg/dL (8.5-10.5); Carbon Dioxide 29 mmol/L (22-29); Chloride 101 mmol/L (98-107); Globulin 3.6 g/dL (1.3-4.6); Glomerular Filtration Rate 83.5 mL/min (90-130); Glucose 94 mg/dL (65-115); Osmolality Calculated 288 mOsm/kg (285-295); Potassium 4.2 mmol/L (3.5-5.1); Sodium 139 mmol/L (136-145); Total Bilirubin 0.2 mg/dL (0.15-1.2)
[2024-12-05] VITALS (18 sets, daily range): BP systolic 110–150; BP diastolic 43–97; PULSE 66–82; RESP 12–18; TEMP 36.4–36.9; O2SAT 90–99
[2024-12-05 00:03] LABS: Bilirubin Urine Negative (Negative); Blood Urine Trace (Negative); Glucose Urine UA Negative (Normal); Ketones Urine Negative (Negative); Leukocyte Esterase Urine 2+ (Negative); Nitrate Urine Positive (Negative); Protein Urine 1+ (Negative); Urine Appearance Cloudy (CLEAR); Urine Color Yellow (Yellow); Urobilinogen Urine 0.2 mg/dL (Negative)
[2024-12-05 00:08] LABS: Add Urine Microscopic? YES; Bacteria Urine 2+ /hpf; Hyaline Casts Urine 4.11 /lpf; RBC Urine 0-2 /hpf (0-2); Squamous Epithelial Cell Urine 0-5 /hpf (0-5); WBC Urine >100 /hpf (0-5)
[2024-12-05 00:09] LABS: Specific Gravity, Urine 1.052 (1.005-1.030)
[2024-12-05] MEDS: oxyCODONE-APAP 10-325 mg Tablet 1 TAB PO ×2 (00:23→23:41)
[2024-12-05 00:31] LABS: Add Urine Culture? Yes; UA Slide Review UA Slide Review Perf
[2024-12-05] MEDS: cefTRIAXone 2,000 mg SDV 2000 MG IVP ×2 (00:54→23:43)
--- NOTE | 2024-12-05 04:57 | ED_ITS ---
HPI - Fall 2 General: Chief Complaint: ER Hold Stated Complaint: FALL W/BACK PAIN Time Seen by Provider: 12/04/24 22:23 History of Present Illness: Patient is a 69-year-old female from home seen for fall. She states that she was very recently discharged from long term where she stayed for an extended period of time and during which time she had a Ram catheter for several months. She has had multiple falls and multiple injuries of her spine and tonight she states that she was standing at the sink when she fell backward onto her back causing increase in her chronic pain particularly at the mid. She denies striking her head and has no pain in her neck. She states that prior to this fall she has been feeling somewhat weak. She wears adult diapers and is concerned she might have a UTI given that she had a Ram catheter for so long while at the long term. She denies fever, cough, diarrhea, constipation, and has no other acute complaints. Related Data Home Medications ?Medication ?Instructions ?Recorded ?Confirmed ascorbic acid 7.5 mg-vit E 7.5 4 tab PO DAILY 11/09/20 11/06/24 unit-biotin 1,250 mcg chewable tablet (Hair,Skin,Nails with Biotin) cetirizine 10 mg tablet (Zyrtec) 10 mg PO DAILY@21 PRN allergies 11/09/20 11/06/24 duloxetine 30 mg capsule,delayed 30 mg PO BID 02/02/24 11/06/24 release omeprazole 20 mg capsule,delayed 20 mg PO DAILY 11/06/24 release ferrous sulfate 325 mg (65 mg 325 mg PO TID 07/07/24 0 11/06/24 iron) tablet (FeroSul) polyethylene glycol 3350 17 17 g PO ONCE 08/29/24 05/11/26 gram/dose oral powder (ClearLax) Previous Rx's ?Medication ?Instructions ?Recorded TLSO Brace #1 ea 06/19/21 Bone Growth Stimulator E0748 #1 ea 09/28/22 c-pap supplies #1 ea 08/24/23 amitriptyline 100 mg tablet 100 mg PO DAILY #30 tabs 1 07/11/23 pregabalin 75 mg capsule (Lyrica) 75 mg PO BID #30 cap s 07/04/24 cyclobenzaprine 10 mg tablet 10 mg PO Q8H PRN muscle s pasm #20 07/06/24 tabs naloxone 4 mg/actuation nasal 4 mg intranasal Q2M PRN opioid 07/12/24 spray (Narcan) overdose #2 ea cholecalciferol (vitamin D3) 1,250 50,000 unit PO .pako clintony #12 caps 08/29/24 mcg (50,000 unit) capsule Allergies Allergy/AdvReac Type Severity Reaction Status Date / Time adhesive tape Allergy Unknown Verified 11/06/24 14:33 PFSH ED 2 PFSH: Medical History Chronic prescription opiate use Fracture, thoracic vertebra, compression Epigastric abdominal pain Discitis of thoracic region Spondylarthritis DDD (degenerative disc disease), thoracic Fusion of spine, thoracolumbar region Obstructive sleep apnea Morbid obesity Degenerative lumbar spinal stenosis Internal fixation device (pin, nixon, or screw) mechanical complication Morbid obesity with BMI of 50.0-59.9, adult Lumbar stenosis with neurogenic claudication Intervertebral disc disorder with radiculopathy of lumbosacral region Surgical History Status post cervical spinal fusion 09/24 Status post correction of deviated nasal septum History of appendectomy History of carpal tunnel repair History of knee surgery History of laparoscopic adjustable gastric banding Status post insertion of spinal cord stimulator (~2016) History of lumbar surgery (~2011) 12/2016 Dr. Martin Joyner Thoracic spinal cord stimulator placement 04/2016 Dr. Martin Joyner Right SI joint fusion 03/2016 Dr. Martin Joyner [facility] Left SI joint fusion 06/2012 Dr. Christopher [facility] L2-L3 posterior fusion/fixation. 10/2011 Dr. Christopher Ol[facility] Fractured fusion screws removed. 12/[address] Orthopedic surgeon. [facility] Spine: L3-L4, L4-L5 L5-S1 Posterior Fusion/fusion Family History Father CAD (coronary artery disease) Social History Smoking and tobacco/nicotine status: never used tobacco/nicotine Alcohol intake: former Substance/Drug Use: never Household members: spouse Marital status: Current occupational status: disabled Physical Exam 2 Const: COMMON NORMALS: no acute distress, patient oriented x3 and alert HENMT: COMMON NORMALS: normocephalic and atraumatic HEAD & SCALP: n ormocephalic and atraumatic Eye: COMMON NORMALS: Equal, round and reactive pupils present, EOMs intact bilaterally and no scleral icterus PUPIL: Yes Equal, round and reactive pupils present Resp: COMMON NORMALS: normal respiratory effort and No retractions Cardio: COMMON NORMALS: regular rate, regular rhythm and No murmurs present (Cardio) RATE: regular rate RHYTHM: regular rhythm GI: COMMON NORMALS: Normal to inspection, nondistended, normoactive bowel sounds present, Soft to palpation and non-tender PALPATION: Yes Soft to palpation Back/Pelvis: OTHER: No obvious deformity of the head, neck, or spine. No step-off. No radiculopathy. All long bones palpated and all joints ranged with no obvious fracture or dislocation. Generally weak. Neuro: COMMON NORMALS: patient oriented x3 SENSORIUM/ORIENTATION: Yes alert Skin: COMMON NORMALS: no rashes or lesions noted GENERAL SKIN EXAM: no rashes or lesions noted Course 2 Vital Signs: Vital signs: Vital Signs Temperature 98.0 F 12/04/24 22:12 Pulse Rate 73 12/05/24 03:30 Respiratory Rate 12 12/05/24 03:30 Blood Pressure 132/81 12/05/24 03:30 Pulse Oximetry 97 12/05/24 03:30 Oxygen Delivery Me thod Room Air 12/04/24 22:12 MDM - Fall Medical Decision Making In summary, patient is a 69 old female from home seen for fall. CT head, neck, chest and pelvis showed no acute fracture or injury sustained in the fall. Though she does not have dysuria or frequency, there is high concern for UTI given her long use of a Ram catheter while in the long term and urinalysis does show positive leukocyte esterase and nitrites and bacteria and white blood cells concerning for UTI. Culture was sent and she was started on ceftriaxone. Given her general weakness I do not feel she is safe for discharge home and will admit her to the hospitalist service for for further treatment of her suspected UTI and consultation to PT and OT to see whether she requires higher level of care than what she is receiving at home. Lab Data 12/04/24 22:57 12/04/24 22:57 Radiology Impressions Cervical Spine CT 12/04/24 22:39 IMPRESSION: No evidence of acute cervical spine fracture or malalignment. There has been interval fusion spanning C4-C6 without evidence of hardware failure. Chest/Abdomen/Pelvis CT 12/04/24 22:39 IMPRESSION: 1. Extensive postsurgical changes in the thoracic spine. 2. No acute findings in the chest IMPRESSION: 1. Stable postsurgical changes in the lumbar spine 2. Left nephrolithiasis 3. No acute fracture Head CT 12/04/24 22:39 IMPRESSION: 1. No evidence of acute intracranial hemorrhage, mass effect, or edema. 2. There is fluid in the left mastoid air cells. No evidence of acute fracture or bony destructive change. Laboratory Results WBC 13.29 10^3/uL (3.29-11.43) H 12/04/24 22:57 RBC 4.87 10^6/uL (3.85-5.65) 12/04/24 22:57 Hgb 11.90 g/dL (11.27-16.99) 12/04/24 22:57 Hct 41.2 % (36-47) 12/04/24 22:57 MCV 84.6 fl (85-98) L 12/04/24 22:57 MCH 24.4 pg (27-33) L 12/04/24 22:57 MCHC 28.9 g/dL (30-55) L 12/04/24 22:57 RDW 16.9 % (12.1-15.1) H 12/04/24 22:57 Plt Count 426 10^3/cmm (157-399) H 12/04/24 22:57 MPV 8.3 fL (7.4-10.4) 12/04/24 22:57 Neut % (Auto) 54.3 % 12/04/24 22:57 Lymph % (Auto) 31.6 % 12/04/24 22:57 [place] % (Auto) 6.8 % 12/04/24 22:57 Eos % (Auto) 5.3 % 12/04/24 22:57 Baso % (Auto) 1.1 % 12/04/24 22:57 Neut # (Auto) 7.21 10^3/uL (1.8-7.7) 12/04/24 22:57 Lymph # (Auto) 4.2 10^3/uL (0.8-4.8) 12/04/24 22:57 [place] # (Auto) 0.9 10^3/uL (0.2-0.9) 12/04/24 22:57 Eos # (Auto) 0.7 10^3/uL (0.0-0.8) 12/04/24 22:57 Baso # (Auto) 0.2 10^3/uL (0.0-0.1) H 12/04/24 22:57 Nucleated RBC % (auto) 0 % 12/04/24 22:57 Nucleated RBCs # 0.0 /100WBC 12/04/24 22:57 Sodium 139 mmol/L (136-145) 12/04/24 22:57 Potassium 4.2 mmol/L (3.5-5.1) 12/04/24 22:57 Chloride 101 mmol/L (98-107) 12/04/24 22:57 Carbon Dioxide 29 mmol/L (22-29) 12/04/24 22:57 Anion Gap 13.2 (5-19) 12/04/24 22:57 BUN 14 mg/dL (8-23) 12/04/24 22:57 Creatinine 0.7 mg/dL (0.5-0.9) 12/04/24 22:57 GFR Calculation 83.5 mL/min (90-130) L 12/04/24 22:57 Glucose 94 mg/dL (65-115) 12/04/24 22:57 Calculated Osmolality 288 mOsm/kg (285-295) 12/04/24 22:57 Calcium 8.9 mg/dL (8.5-10.5) 12/04/24 22:57 Total Bilirubin 0.2 mg/dL (0.15-1.2) 12/04/24 22:57 AST 14 U/L (0-32) 12/04/24 22:57 ALT 10 U/L (0-33) 12/04/24 22:57 Alkaline Phosphatase 109 U/L (35-105) H 12/04/24 22:57 Total Protein 7.0 g/dL (6.6-8.7) 12/04/24 22:57 Albumin 3.4 g/dL (3.5-5.2) L 12/04/24 22:57 Globulin 3.6 g/dL (1.3-4.6) 12/04/24 22:57 Urine Color Yellow (Yellow) 12/04/24 23:10 Urine Appearance Cloudy (CLEAR) A 12/04/24 23:10 Urine pH 5.0 (5-7) 12/04/24 23:10 Ur Specific [place] 1.052 (1.005-1.030) H 12/04/24 23:10 Urine Protein 1+ (Negative) A 12/04/24 23:10 Urine Glucose (UA) Negative (Normal) 12/04/24 23:10 Urine Ketones Negative (Negative) 12/04/24 23:10 Urine Blood Trace (Negative) A 12/04/24 23:10 Urine Nitrate Positive (Negative) A 12/04/24 23:10 Urine Bilirubin Negative (Negative) 12/04/24 23:10 Urine Urobilinogen 0.2 mg/dL (Negative) 12/04/24 23:10 Ur Leukocyte Esterase 2+ (Negative) A 12/04/24 23:10 Urine RBC 0-2 /hpf (0-2) 12/04/24 23:10 Urine WBC >100 /hpf (0-5) H 12/04/24 23:10 Ur Squamous Epith Cells 0-5 /hpf (0-5) 12/04/24 23:10 Amorphous Sediment Not Reportable 12/04/24 23:10 Urine Bacteria 2+ /hpf (NONE) H 12/04/24 23:10 Hyaline Casts 4.11 /lpf 12/04/24 23:10 All radiology interpretation(s) finalized by discharge Discharge Plan Discharge Patient Disposition: Admitted As Inpatient Admit Provider: Etta Marie Clinical Impression: UTI (urinary tract infection), Fall Condition: Stable Coding Level of Care Code ED Accounts Collector for Morro Ayers
[2024-12-05] MEDS: sodium chloride 0.9% 1,000 ML 75 ML IV ×2 (05:42→17:05)
[2024-12-05] MEDS: heparin 5,000 unit/mL INJ 1 mL 5000 UNIT SUBCUT ×2 (05:44→17:02)
[2024-12-05 06:20] LABS: Basophils # 0.1 10^3/uL (0.0-0.1); Basophils % 0.9 %; Eosinophils # 0.6 10^3/uL (0.0-0.8); Eosinophils % 4.7 %; Hematocrit 44.1 % (36-47); Lymphocytes # 3.2 10^3/uL (0.8-4.8); Lymphocytes % 25.6 %; Mean Corpuscular HGB Conc 28.8 g/dL (30-55); Mean Corpuscular Hemoglobin 24.4 pg (27-33); Mean Corpuscular Volume 84.6 fl (85-98); Mean Platelet Volume 8.1 fL (7.4-10.4); Monocytes # 0.9 10^3/uL (0.2-0.9); Monocytes % 6.9 %; Neutrophils # 7.75 10^3/uL (1.8-7.7); Neutrophils % 61.3 %; Nucleated Red Blood Cells % 0 %; Platelet Count 437 10^3/cmm (157-399); Red Blood Count 5.21 10^6/uL (3.85-5.65); Red Cell Distribution Width 16.9 % (12.1-15.1); White Blood Count 12.67 10^3/uL (3.29-11.43)
[2024-12-05] MEDS: acetaminophen 325 mg Tablet 650 MG PO ×2 (06:29→17:48)
[2024-12-05 06:37] LABS: Alanine Aminotransferase 10 U/L (0-33); Albumin Level 3.6 g/dL (3.5-5.2); Alkaline Phosphatase 127 U/L (35-105); Aspartate Amino Transferase 15 U/L (0-32); Blood Urea Nitrogen 15 mg/dL (8-23); Calcium 9.1 mg/dL (8.5-10.5); Carbon Dioxide 29 mmol/L (22-29); Chloride 99 mmol/L (98-107); Glomerular Filtration Rate 83.5 mL/min (90-130); Glucose 117 mg/dL (65-115); Osmolality Calculated 294 mOsm/kg (285-295); Sodium 141 mmol/L (136-145); Total Bilirubin 0.2 mg/dL (0.15-1.2); Total Protein 7.6 g/dL (6.6-8.7)
--- NOTE | 2024-12-05 09:04 | PM.HP ---
Providers/Chief Complaint Admitting Physician: Etta Marie MD----patient was seen after 12 midnight today Primary Care Provider: Tadeo Prather MD Chief Complaint: FALL W/BACK PAIN, profound weakness History of Present Illness Kathy Patel is a 69 year old female who had had multiple back surgery and actually was recently discharged from [facility] to go home. Patient had been in the [facility] get into almost 4 months. While at the [facility] she had Ram catheter up to 3 months prior to the time they removed it patient was then discharged the last week with removal of the Ram catheter. Patient is coming this time because of the mechanical fall that is compounded with her weakness. Patient also was found to be with UTI. Patient related that she had been home from the [facility] and was not set up to have a home health. She added that they were planning on it but this people never showed up she got weaker and weaker at home she barely can walk without a cane. Patient was given 2 g of ceftriaxone IV x 1 in the emergency room. I continued with ceftriaxone 2 g IV daily Follow-up with cultures and optimize accordingly patient does meet criteria for inpatient admission because of weakness and debility and with underlining urinary tract infection after 1 week or more of discontinuing the Ram catheter. It is very important that the culprit organism being none and be treated for. Review of Systems Narrative: System review appointing and debility of the musculoskeletal system Medications/Allergies Home Medications ?Medication ?Instructions ?Recorded ?Confirmed ?Last Taken ?Type ascorbic acid 7.5 mg-vit E 7.5 4 tab PO DAILY 11/09/20 11/06/24 07/18/24 History unit-biotin 1,250 mcg chewable tablet (Hair,Skin,Nails with Biotin) cetirizine 10 mg tablet (Zyrtec) 10 mg PO DAILY@21 PRN allergies 11/09/20 11/06/24 07/17/24 History TLSO Brace #1 ea 06/19/21 11/06/24 Unknown Rx Bone Growth Stimulator E0748 #1 ea 09/28/22 11/06/24 Unknown Rx c-pap supplies #1 ea 08/24/23 11/06/24 Unknown Rx duloxetine 30 mg capsule,delayed 30 mg PO BID 02/02/24 11/06/24 07/18/24 History release omeprazole 20 mg capsule,delayed 20 mg PO DAILY 02/25/24 11/06/24 07/18/24 History release amitriptyline 100 mg tablet 100 mg PO DAILY #30 tabs 05/11/24 11/06/24 07/18/24 Rx pregabalin 75 mg capsule (Lyrica) 75 mg PO BID #30 caps 07/04/24 11/06/24 07/18/24 Rx cyclobenzaprine 10 mg tablet 10 mg PO Q8H PRN muscle spasm #20 07/06/24 11/06/24 07/16/24 Rx tabs ferrous sulfate 325 mg (65 mg 325 mg PO TID 07/07/24 11/06/24 07/18/24 History iron) tablet (FeroSul) naloxone 4 mg/actuation nasal 4 mg intranasal Q2M PRN opioid 07/12/24 11/06/24 Unknown Rx spray (Narcan) overdose #2 ea cholecalciferol (vitamin D3) 1,250 50,000 unit PO .weekly #12 caps 08/29/24 11/06/24 Unknown Rx mcg (50,000 unit) capsule polyethylene glycol 3350 17 17 g PO ONCE 08/29/24 11/06/24 Unknown History gram/dose oral powder (ClearLax) Allergies Allergy/AdvReac Type Severity Reaction Status Date / Time adhesive tape Allergy Unknown Verified 11/06/24 14:33 PFSH Acute PFSH: Medical History Chronic prescription opiate use Fracture, thoracic vertebra, compression Epigastric abdominal pain Discitis of thoracic region Spondylarthritis DDD (degenerative disc disease), thoracic Fusion of spine, thoracolumbar region Obstructive sleep apnea Morbid obesity Degenerative lumbar spinal stenosis Internal fixation device (pin, nixon, or screw) mechanical complication Morbid obesity with BMI of 50.0-59.9, adult Lumbar stenosis with neurogenic claudication Intervertebral disc disorder with radiculopathy of lumbosacral region Surgical History Status post cervical spinal fusion 09/24 Status post correction of deviated nasal septum History of appendectomy History of carpal tunnel repair History of knee surgery History of laparoscopic adjustable gastric banding Status post insertion of spinal cord stimulator (~2016) History of lumbar surgery (~2011) 12/2016 Dr. Martin Joyner Thoracic spinal cord stimulator placement 04/2016 Dr. Martin Joyner Right SI joint fusion 03/2016 Dr. Martin Joyner [facility] Left SI joint fusion 06/2012 Dr. Christopher Olmstead [facility] L2-L3 posterior fusion/fixation. 10/2011 Dr. Christopher Olmstead [facility] Fractured fusion screws removed. 12/[address] Orthopedic surgeon. [facility] Spine: L3-L4, L4-L5 L5-S1 Posterior Fusion/fusion Family History Father CAD (coronary artery disease) Social History Smoking and tobacco/nicotine status: never used tobacco/nicotine Alcohol intake: former Substance/Drug Use: never Household members: spouse Marital status: Current occupational status: disabled Vitals/I&O/Wt Last Vital Signs Temp 98.0 F 12/04/24 22:12 Pulse 75 12/05/24 05:00 Resp 16 12/05/24 05:00 BP 150/95 12/05/24 05:00 Pulse Ox 96 12/05/24 05:00 O2 Del Method Room Air 12/05/24 04:35 Weight last 48 hrs Weight 113.398 kg Physical Exam Narrative: Generally patient is doing fairly well admits to mild weakness. Patient did not come to the emergency room with any Ram catheter that was only removed a week before she was discharged from the [facility]. HEENT?normocephalic/atraumatic Neck?neck is supple Cardiovascular?heart rate is regular Chest?lungs are with coarse breath sounds Abdomen?soft nontender nondistended, good bowel sounds unremarkable Extremities intact no edema has good pulses Neurology patient is nonfocal only generalized debility Data 12/05/24 06:14 12/05/24 06:14 A&P Assessment and plan (1) Fall: Patient status post mechanical fall because of lack of strength - Patient fell forward - Nothing fractured - PT OT to follow-up with this patient - Case management consulted for discharge planning - Follow through with urine culture as we treat the patient to be shot this is not a multi resistant organism (2) UTI (urinary tract infection): Continue antibiotics with ceftriaxone and to follow through with sensitivity to UTI bacteria (3) Weakness of both lower extremities: PT OT is needed to optimize patient debility patient walks with a cane and she does have some leverage to get stronger if this is applied appropriately (4) Dehydration: Gentle hydration to rehydrate patient and give her volume. PDMP PDMP Reviewed: Last Reviewed 12/05/24 09:21 by Etta Marie MD Attestations Medical Necessity Statement*: I attest that the patient has presentation that is suitable for inpatient stay admission pending what grows out from the UTI. The patient had been empirically covered with ceftriaxone and feeling good. Coding Level of Care Code Acute Code for Chg Fwd Diagnoses Fall W19.XXXA UTI (urinary tract infection) N39.0 Weakness of both lower extremities R29.898 Dehydration E86.0
[2024-12-05] MEDS: pantoprazole DR 40 mg Tablet PO (10:30)
--- NOTE | 2024-12-05 13:30 | PM.PN ---
Subjective Subjective: Patient was seen this morning, currently alert oriented x 3, following all commands, she tells me that her brought to the hospital is that she was weak, when she went to pivot to turn she fell, she has been weak for some period of time, when she was discharged to the care home she was discharged with a Ram catheter in place, they tried to remove it, but she kept retaining urine, she followed up with a urologist in [place], they were planning on doing urodynamic testing but it never got done and they kept getting delayed, Vitals/I&O/Wt Last Vital Signs Temp 97.5 F L 12/05/24 11:41 Pulse 76 12/05/24 11:41 Resp 17 12/05/24 11:41 BP 131/68 12/05/24 11:41 Pulse Ox 95 12/05/24 11:41 O2 Del Method Room Air 12/05/24 11:41 12/04/24 12/05/24 12/05/24 22:59 06:59 14:59 Intake Total 240 / 240 Output Total 200 / 200 Balance 40 / 40 Weight last 48 hrs Weight 131.542 kg Weight 113.398 kg Physical Exam Const: COMMON NORMALS: no acute distress and patient oriented x3 Neck/C-Spine: COMMON NORMALS: no JVD Resp: COMMON NORMALS: normal respiratory effort, No retractions, No use of accessory muscles and clear to auscultation bilaterally AUSCULTATION: clear to auscultation bilaterally Cardio: COMMON NORMALS: no JVD, regular rate, regular rhythm, S1 normal heart sound present and S2 normal heart sound present RATE: regular rate RHYTHM: regular rhythm HEART SOUNDS: S1 normal heart sound present and S2 normal heart sound present GI: COMMON NORMALS: Normal to inspection, nondistended, normoactive bowel sounds present and non-tender Extremity: COMMON NORMALS: no pedal edema Neuro: COMMON NORMALS: patient oriented x3 Psych: COMMON NORMALS: mental status grossly normal Data 12/05/24 06:14 12/05/24 06:14 A&P Assessment and plan (1) Fall: Mechanical fall -No preceding chest pain or palpitations or lightheadedness or strokelike symptoms - PT OT to follow-up with this patient - Case management consulted for discharge planning (2) UTI (urinary tract infection): Continue Rocephin (3) Weakness of both lower extremities: PT OT (4) Dehydration: Status post fluids Plan Acute on chronic back pain - Continue PT OT - Pain control Obstructive sleep apnea, CPAP PDMP PDMP Reviewed: Not Reviewed Attestations Medical Necessity Statement*: Patient requires hospitalization for fall, UTI, dehydration Diagnoses Fall W19.XXXA UTI (urinary tract infection) N39.0 Weakness of both lower extremities R29.898 Dehydration E86.0
--- NOTE | 2024-12-05 16:31 | PC.OT ---
OT EVALUATION ATTEMPTED X3; PATIENT SLEEPING SOUNDLY AT ALL TIMES. WILL ATTEMPT AGAIN TOMORROW.
[2024-12-05] MEDS: pregabalin 75 mg Capsule PO (17:02)
[2024-12-05] MEDS: duloxetine 30 mg Capsule PO (17:02)
[2024-12-05] MEDS: doxycycline 100 mg Tablet PO (17:02)
[2024-12-05] MEDS: cyclobenzaprine 10 mg Tablet PO (21:20)
[2024-12-05] MEDS: amitriptyline 25 mg Tablet 100 MG PO (21:20)
[2024-12-06] VITALS (11 sets, daily range): BP systolic 88–171; BP diastolic 53–91; PULSE 68–96; RESP 16–19; TEMP 36.6–36.9; O2SAT 90–96
--- NOTE | 2024-12-06 01:03 | PC.NURSE ---
Bp at 0000 was 93/56, recheck showed 88/53, Dr. Marie notified and order received for 250 ml bolus NS and recheck BP after 1 hour of bolus admin
--- NOTE | 2024-12-06 01:04 | PC.NURSE ---
250 ml bolus from the bag already hanging per Dr. Marie
[2024-12-06] MEDS: sodium chloride 0.9% 1,000 ML 75 ML IV ×2 (03:00→17:17)
[2024-12-06] MEDS: oxyCODONE-APAP 10-325 mg Tablet 1 TAB PO ×3 (04:54→17:17)
[2024-12-06] MEDS: heparin 5,000 unit/mL INJ 1 mL 5000 UNIT SUBCUT ×2 (04:55→17:17)
[2024-12-06 06:01] LABS: Basophils # 0.1 10^3/uL (0.0-0.1); Basophils % 0.9 %; Eosinophils # 0.4 10^3/uL (0.0-0.8); Eosinophils % 5.2 %; Hematocrit 40.7 % (36-47); Lymphocytes # 2.7 10^3/uL (0.8-4.8); Lymphocytes % 31.1 %; Mean Corpuscular HGB Conc 28.3 g/dL (30-55); Mean Corpuscular Hemoglobin 23.9 pg (27-33); Mean Corpuscular Volume 84.4 fl (85-98); Mean Platelet Volume 8.7 fL (7.4-10.4); Monocytes # 0.7 10^3/uL (0.2-0.9); Monocytes % 8.3 %; Neutrophils # 4.57 10^3/uL (1.8-7.7); Neutrophils % 53.8 %; Nucleated Red Blood Cells % 0 %; Platelet Count 444 10^3/cmm (157-399); Red Blood Count 4.82 10^6/uL (3.85-5.65); White Blood Count 8.51 10^3/uL (3.29-11.43)
[2024-12-06 06:25] LABS: Blood Urea Nitrogen 12 mg/dL (8-23); Calcium 8.9 mg/dL (8.5-10.5); Carbon Dioxide 30 mmol/L (22-29); Chloride 101 mmol/L (98-107); Glomerular Filtration Rate 83.5 mL/min (90-130); Glucose 90 mg/dL (65-115); Osmolality Calculated 289 mOsm/kg (285-295); Sodium 140 mmol/L (136-145)
[2024-12-06] MEDS: pantoprazole DR 40 mg Tablet PO (07:44)
[2024-12-06] MEDS: pregabalin 75 mg Capsule PO ×2 (07:44→17:17)
[2024-12-06] MEDS: doxycycline 100 mg Tablet PO ×2 (07:44→17:17)
[2024-12-06] MEDS: cholecalciferol (vitamin D3) 1,000 unit Tablet 2000 UNIT PO (07:44)
[2024-12-06] MEDS: duloxetine 30 mg Capsule PO ×2 (07:44→17:17)
[2024-12-06] MEDS: ferrous sulfate EC 325 mg Tablet PO (07:44)
--- NOTE | 2024-12-06 09:57 | PC.SOCIAL ---
IMM Update pg 2 of IMM Updated and reviewed w/ patient. Copy dated, initialed and placed in chart.
--- NOTE | 2024-12-06 10:11 | PC.CHAP ---
Pastoral Care Encounter/Spiritual Assessment Type of Contact [] Declined farm management adviser visit [] Patient/Family/Request visit [] Outpatient visit [] Follow-up visit [] Physician referral [] Code/Alert [x] Routine visit [] Staff referral [] Actively dying [] Patient sleeping [] Family support [] [] Out of room [] Palliative care [] [] Receiving care in room [] Pre-surgical visit [] Trauma [] Long length of stay [] ICU visit [] Other: Relational/Emotional Strength [x] Patient feels connected with others/family/visitors/staff [] Distress [] Loneliness/isolation [] Abandonment Spirituality of Patient [x] Person of Patience [] Attends Adventism of their Patience [x] Believes in Prayer [] Reads Bible or Adventism materials [] There are Spiritual issues to be addressed Paint 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 Hand Interventions [x] Prayer [x] Active listening [x] Non-anxious presence [x] Spiritual/emotional support [] Crisis/trauma care [] Spiritual counseling [] Bereavement support [] Provided bereavement packet [] Provided Bible/devotional materials [] Provided toy/stuffed animal, coloring book to patient or family member [] Provided Communion [] Anointing/[place] [] Salvation [x] Completed spiritual assessment [] Other: Impact on Illness or Injury [] Angry [] Fearful [] Anxious [] Often cries [] Exhaustion [] Unable to work [] Unable to attend mu-ism [] Unable to walk/stand [] Unable to read [] Unable to drive [] Unable to eat/drink [] Unable to sleep [] Unable to be with family [] Patient intubated [] Other: Summary Time spent with patient 5 min
--- NOTE | 2024-12-06 16:33 | P.PN_ITS ---
Subjective 2 Subjective: Patient was seen this morning, currently alert oriented x 3, following all commands, does report generalized weakness, no fevers, no chills Vitals/I&O/Wt Last Vital Signs Temp 98.5 F 12/06/24 16:29 Pulse 76 12/06/24 16:29 Resp 18 12/06/24 16:29 BP 124/66 12/06/24 16:29 Pulse Ox 94 12/06/24 16:29 O2 Del Method Room Air 12/06/24 16:29 12/06/24 12/06/24 12/06/24 06:59 14:59 22:59 Intake Total 1343.75 / 2987.50 720 / 720 1000 / 1720 Output Total 1000 / 2200 700 / 700 Balance 343.75 / 787.50 20 / 20 1000 / 1020 Weight last 48 hrs Weight 133.628 kg Weight 131.542 kg Weight 113.398 kg Physical Exam 2 Const: COMMON NORMALS: no acute distress and patient oriented x3 Resp: COMMON NORMALS: normal respiratory effort, No retractions, No use of accessory muscles and clear to auscultation bilaterally AUSCULTATION: clear to auscultation bilaterally Cardio: COMMON NORMALS: regular rate, regular rhythm, S1 normal heart sound present and S2 normal heart sound present RATE: regular rate RHYTHM: r egular rhythm HEART SOUNDS: S1 normal heart sound present and S2 normal heart sound present GI: COMMON NORMALS: Normal to inspection, nondistended, normoactive bowel sounds present and non-tender Extremity: COMMON NORMALS: no pedal edema Neuro: COMMON NORMALS: patient oriented x3 Psych: COMMON NORMALS: mental status grossly normal Data 12/06/24 04:28 12/06/24 04:28 Micro: Microbiology 12/04/24 23:10 Urine Culture - Preliminary Urine,Clean Catch Gram Negative Rods A&P Assessment and plan (1) Fall: Mechanical fall -No preceding chest pain or palpitations or lightheadedness or strokelike symptoms - PT OT to follow-up with this patient - Case management consulted for discharge planning (2) UTI (urinary tract infection): Concern for catheter associated UTI, catheter has been removed in the emergency room Continue following postvoid residuals, bladder scan as needed Continue Rocephin (3) Weakness of both lower extremities: PT OT (4) Dehydration: Status post fluids Plan Acute on chronic back pain - Continue PT OT - Pain control Obstructive sleep apnea, CPAP PDMP PDMP Reviewed: Not Reviewed Attestations 2 Medical Necessity Statement*: Patient requires hospitalization for generalized weakness secondary to UTI Diagnoses Fall W19.XXXA UTI (urinary tract infection) N39.0 Weakness of both lower extremities R29.898 Dehydration E86.0
[2024-12-06] MEDS: cyclobenzaprine 10 mg Tablet PO (20:06)
[2024-12-06] MEDS: amitriptyline 25 mg Tablet 100 MG PO (20:06)
[2024-12-07] VITALS (8 sets, daily range): BP systolic 128–150; BP diastolic 75–85; PULSE 65–78; RESP 16–20; TEMP 36.6–37.1; O2SAT 91–96
[2024-12-07] MEDS: cefTRIAXone 2,000 mg SDV 2000 MG IVP (00:52)
[2024-12-07] MEDS: oxyCODONE-APAP 10-325 mg Tablet 1 TAB PO ×3 (01:03→11:56)
[2024-12-07] MEDS: heparin 5,000 unit/mL INJ 1 mL 5000 UNIT SUBCUT (05:34)
[2024-12-07] MEDS: sodium chloride 0.9% 1,000 ML 75 ML IV (05:35)
[2024-12-07 06:40] LABS: Basophils # 0.1 10^3/uL (0.0-0.1); Basophils % 1.1 %; Eosinophils # 0.6 10^3/uL (0.0-0.8); Eosinophils % 6.8 %; Hematocrit 37.3 % (36-47); Lymphocytes # 2.6 10^3/uL (0.8-4.8); Lymphocytes % 31.5 %; Mean Corpuscular HGB Conc 29.5 g/dL (30-55); Mean Corpuscular Hemoglobin 24.8 pg (27-33); Mean Platelet Volume 8.6 fL (7.4-10.4); Monocytes # 0.6 10^3/uL (0.2-0.9); Monocytes % 7.4 %; Neutrophils # 4.31 10^3/uL (1.8-7.7); Neutrophils % 52.6 %; Nucleated Red Blood Cells % 0 %; Platelet Count 405 10^3/cmm (157-399); Red Blood Count 4.44 10^6/uL (3.85-5.65); Red Cell Distribution Width 16.9 % (12.1-15.1)
[2024-12-07 07:09] LABS: Anion Gap 12.9 (5-19); Blood Urea Nitrogen 11 mg/dL (8-23); Calcium 8.7 mg/dL (8.5-10.5); Carbon Dioxide 29 mmol/L (22-29); Chloride 104 mmol/L (98-107); Glomerular Filtration Rate 99.7 mL/min (90-130); Glucose 118 mg/dL (65-115); Osmolality Calculated 294 mOsm/kg (285-295); Potassium 3.9 mmol/L (3.5-5.1); Sodium 142 mmol/L (136-145)
[2024-12-07 07:42] LABS: Lyme AB Screen <0.90 index
--- NOTE | 2024-12-07 07:52 | PM.DCS ---
Discharge Providers Date of Admission: 12/05/24 03:11 Date of Discharge: December 07, 2024 Attending Provider at Admission: Etta Marie MD Attending Provider at Discharge: Ciro Serna MD Primary Care Provider: Tadeo Prather MD Diagnoses at Discharge Discharge Diagnosis (1) Fall: Status: Acute (2) UTI (urinary tract infection): Status: Acute (3) Weakness of both lower extremities: Status: Acute (4) Dehydration: Status: Acute Reason for Visit Reason for Visit: FALL W/BACK PAIN, profound weakness Hospital Course Hospital Course This is a 69-year-old female with past history of multiple back surgeries, recently discharged from long term facility, discharged with Ram catheter in place, who presents [facility] due to weakness, fatigue Patient was admitted to [facility] for urinary tract infection, Ram catheter was removed, received broad-spectrum antibiotic therapy, overall clinically improved, remains afebrile. Urine cultures are growing gram-negative rods. She will be discharged on cefdinir therapy with close follow-up with primary care provider as outpatient For her Ram catheter this was removed during hospitalization, her postvoid residuals were monitored, she was able to ambulate on her own, her postvoid residuals were less than 200, overall clinically improving. We had a detailed discussion on discharge she has to follow-up with urology at [place] as they were planning on doing urodynamic testing. For her fall, acute on chronic back pain, received inpatient PT OT, inpatient pain control, overall clinically improved. Will be discharged with instructions to use oxycodone sparingly for pain do not drive or operate heavy machinery or drink while taking medication She was also found to have a tick on her which was removed, she will be discharged on doxycycline Physical Exam Const: COMMON NORMALS: no acute distress and patient oriented x3 Resp: COMMON NORMALS: normal respiratory effort, No retractions, No use of accessory muscles and clear to auscultation bilaterally AUSCULTATION: clear to auscultation bilaterally Cardio: COMMON NORMALS: regular rate, regular rhythm, S1 normal heart sound present and S2 normal heart sound present RATE: regular rate RHYTHM: regular rhythm HEART SOUNDS: S1 normal heart sound present and S2 normal heart sound present GI: COMMON NORMALS: Normal to inspection, nondistended, normoactive bowel sounds present and non-tender Extremity: COMMON NORMALS: no pedal edema Neuro: COMMON NORMALS: patient oriented x3 Psych: COMMON NORMALS: mental status grossly normal Discharge Data Studies Completed and Pending Completed Studies During Hospitalization Category Date Time Status CT cervical spin wo con* [id number] Stat Cat Scan 12/04/24 22:[address] chest abdpel w/*[id number] Stat Cat Scan 12/04/24 22:[address] head wo con* [id number] Stat Cat Scan 12/04/24 22:39 Completed Pending at discharge Category Date Time Status Basic Metabolic Panel AM LABS Lab 12/08/24 04:00 Ordered Complete Blood Count w/Auto AM LABS Lab 12/08/24 04:00 Ordered Tick Panel Routine Lab 12/05/24 12:51 Results Urine Culture Stat Lab 12/04/24 23:10 Results Radiology Impressions Cervical Spine CT 12/04/24 22:39 IMPRESSION: No evidence of acute cervical spine fracture or malalignment. There has been interval fusion spanning C4-C6 without evidence of hardware failure. Chest/Abdomen/Pelvis CT 12/04/24 22:39 IMPRESSION: 1. Extensive postsurgical changes in the thoracic spine. 2. No acute findings in the chest IMPRESSION: 1. Stable postsurgical changes in the lumbar spine 2. Left nephrolithiasis 3. No acute fracture Head CT 12/04/24 22:39 IMPRESSION: 1. No evidence of acute intracranial hemorrhage, mass effect, or edema. 2. There is fluid in the left mastoid air cells. No evidence of acute fracture or bony destructive change. Laboratory Results WBC 8.20 10^3/uL (3.29-11.43) 12/07/24 05:39 RBC 4.44 10^6/uL (3.85-5.65) 12/07/24 05:39 Hgb 11.00 g/dL (11.27-16.99) L 12/07/24 05:39 Hct 37.3 % (36-47) 12/07/24 05:39 MCV 84.0 fl (85-98) L 12/07/24 05:39 MCH 24.8 pg (27-33) L 12/07/24 05:39 MCHC 29.5 g/dL (30-55) L 06/05/25 05:39 RDW 16.9 % (12.1-15.1) H 12/07/24 05:39 Plt Count 405 10^3/cmm (157-399) H 12/07/24 05:39 MPV 8.6 fL (7.4-10.4) 12/07/24 05:39 Neut % (Auto) 52.6 % 12/07/24 05:39 Lymph % (Auto) 31.5 % 12/07/24 05:39 [place] % (Auto) 7.4 % 12/07/24 05:39 Eos % (Auto) 6.8 % 12/07/24 05:39 Baso % (Auto) 1.1 % 12/07/24 05:39 Neut # (Auto) 4.31 10^3/uL (1.8-7.7) 12/07/24 05:39 Lymph # (Auto) 2.6 10^3/uL (0.8-4.8) 12/07/24 05:39 [place] # (Auto) 0.6 10^3/uL (0.2-0.9) 12/07/24 05:39 Eos # (Auto) 0.6 10^3/uL (0.0-0.8) 12/07/24 05:39 Baso # (Auto) 0.1 10^3/uL (0.0-0.1) 12/07/24 05:39 Nucleated RBC % (auto) 0 % 12/07/24 05:39 Nucleated RBCs # 0.0 /100WBC 12/07/24 05:39 Sodium 142 mmol/L (136-145) 12/07/24 05:39 Potassium 3.9 mmol/L (3.5-5.1) 12/07/24 05:39 Chloride 104 mmol/L (98-107) 12/07/24 05:39 Carbon Dioxide 29 mmol/L (22-29) 12/07/24 05:39 Anion Gap 12.9 (5-19) 12/07/24 05:39 BUN 11 mg/dL (8-23) 12/07/24 05:39 Creatinine 0.6 mg/dL (0.5-0.9) 12/07/24 05:39 GFR Calculation 99.7 mL/min (90-130) 12/07/24 05:39 Glucose 118 mg/dL (65-115) H 12/07/24 05:39 Calculated Osmolality 294 mOsm/kg (285-295) 12/07/24 05:39 Calcium 8.7 mg/dL (8.5-10.5) 12/07/24 05:39 Magnesium 2.0 mg/dL (1.7-2.3) 12/05/24 06:14 Total Bilirubin 0.2 mg/dL (0.15-1.2) 12/05/24 06:14 AST 15 U/L (0-32) 12/05/24 06:14 ALT 10 U/L (0-33) 12/05/24 06:14 Alkaline Phosphatase 127 U/L (35-105) H 12/05/24 06:14 Total Protein 7.6 g/dL (6.6-8.7) 12/05/24 06:14 Albumin 3.6 g/dL (3.5-5.2) 12/05/24 06:14 Globulin 4.0 g/dL (1.3-4.6) 12/05/24 06:14 Urine Color Yellow (Yellow) 12/04/24 23:10 Urine Appearance Cloudy (CLEAR) A 12/04/24 23:10 Urine pH 5.0 (5-7) 12/04/24 23:10 Ur Specific [place] 1.052 (1.005-1.030) H 12/04/24 23:10 Urine Protein 1+ (Negative) A 12/04/24 23:10 Urine Glucose (UA) Negative (Normal) 12/04/24 23:10 Urine Ketones Negative (Negative) 12/04/24 23:10 Urine Blood Trace (Negative) A 12/04/24 23:10 Urine Nitrate Positive (Negative) A 12/04/24 23:10 Urine Bilirubin Negative (Negative) 12/04/24 23:10 Urine Urobilinogen 0.2 mg/dL (Negative) 12/04/24 23:10 Ur Leukocyte Esterase 2+ (Negative) A 12/04/24 23:10 Urine RBC 0-2 /hpf (0-2) 12/04/24 23:10 Urine WBC >100 /hpf (0-5) H 12/04/24 23:10 Ur Squamous Epith Cells 0-5 /hpf (0-5) 12/04/24 23:10 Amorphous Sediment Not Reportable 12/04/24 23:10 Urine Bacteria 2+ /hpf (NONE) H 12/04/24 23:10 Hyaline Casts 4.11 /lpf 12/04/24 23:10 Lyme Ab (Western Blot) <0.90 index 12/05/24 12:51 Vitals Last Vital Signs Temp 98.4 F 12/07/24 03:56 Pulse 78 12/07/24 03:56 Resp 20 H 12/07/24 05:34 BP 150/85 12/07/24 03:56 Pulse Ox 93 12/07/24 03:56 O2 Del Method Room Air 12/07/24 03:56 Discharge Plan Discharge Patient Disposition: Home Health Service Condition: Stable Prescriptions: New oxycodone-acetaminophen 10-325 mg Tablet 1 tab PO Q6H PRN (Reason: Moderate Pain) 5 Days Qty: 20 0RF doxycycline monohydrate 100 mg Tablet 100 mg PO BID 10 Days Qty: 20 0RF cefdinir 300 mg capsule 300 mg PO BID 5 Days Qty: 10 0RF Continued (DME) TLSO Brace See Rx Instructions .Route .MEDSUPPLY Qty: 1 0RF Rx Instructions: As directed polyethylene glycol 3350 [ClearLax] 17 gram/dose powder 17 g PO DAILY PRN (Reason: Constipation) duloxetine 30 mg capsule,delayed release(DR/EC) 30 mg PO BID (DME) Bone Growth Stimulator E0748 See Rx Instructions .Route .MEDSUPPLY Qty: 1 0RF Rx Instructions: As directed (DME) c-pap supplies See Rx Instructions .Route .MEDSUPPLY Qty: 1 11RF Rx Instructions: As directed cetirizine [Zyrtec] 10 mg Tablet 10 mg PO DAILY@21 PRN (Reason: allergies) Hair, Skin, Nails with Biotin 7.5-7.5-1,250 mg-unit-mcg Tablet,Chewable 4 tab PO DAILY omeprazole 20 mg Capsule,Delayed Release(Dr/Ec) 20 mg PO DAILY pregabalin [Lyrica] 75 mg capsule 75 mg PO BID Qty: 30 0RF cholecalciferol (vitamin D3) [Vitamin D3] 50 mcg (2,000 unit) Tablet 50 mcg PO DAILY amitriptyline 100 mg tablet 100 mg PO BEDTIME cyclobenzaprine 10 mg tablet 10 mg PO Q8H PRN (Reason: muscle spasm) Qty: 20 0RF ferrous sulfate [FeroSul] 325 mg (65 mg iron) tablet 325 mg PO DAILY naloxone [Narcan] 4 mg/actuation spray,non-aerosol 4 mg intranasal Q2M PRN (Reason: opioid overdose) Qty: 2 0RF Rx Instructions: spray 1 dose into ONE nostril; alternate nostrils w each dose until help arrives Discharge Orders: Discharge Order (Routine); Ordered 12/07/24 Ordered By: Ciro Serna Referrals: [facility] [Outside] Tadeo Prather MD [Primary Care Provider, Family Practice] - 12/14/24 2:00 pm Discharge Diet: Cardiac Discharge Activity: Resume usual activity Patient Instructions: Dehydration - Adult, Doxycycline (By mouth), Oxycodone/Acetaminophen (By mouth), Cefdinir (By mouth), Urinary Tract Infection in Women (GEN), Opioid Safety Activity Restrictions/Additional Instructions: - Please use hydrocodone sparingly do not drive or operate heavy machinery or drink while taking medication Discharge Attestations Time Spent in Discharge Care*: greater than 30 min Status at Discharge: Cognitive status at discharge: cognitively intact, Behavioral status at discharge: cooperative, Quality Metrics Clinical Quality Measures [ No reported AMI, CVA or VTE this stay] Coding Level of Care Code 61505 Total time (in minutes) for Discharge: 45 Diagnoses Fall W19.XXXA UTI (urinary tract infection) N39.0 Weakness of both lower extremities R29.898 Dehydration E86.0
[2024-12-07] MEDS: pregabalin 75 mg Capsule PO (08:19)
[2024-12-07] MEDS: cyclobenzaprine 10 mg Tablet PO (08:19)
[2024-12-07] MEDS: cholecalciferol (vitamin D3) 1,000 unit Tablet 2000 UNIT PO (08:19)
[2024-12-07] MEDS: ferrous sulfate EC 325 mg Tablet PO (08:19)
[2024-12-07] MEDS: pantoprazole DR 40 mg Tablet PO (08:19)
[2024-12-07] MEDS: doxycycline 100 mg Tablet PO (08:19)
[2024-12-07] MEDS: duloxetine 30 mg Capsule PO (08:19)
--- NOTE | 2024-12-07 09:11 | PC.NURSE ---
D/C pending ride home. Pt to call to pick her up.
[2024-12-09 18:29] LABS: E. Chaffeensis AB IGG <1:64; E. Chaffeensis AB IGM <1:20
[2024-12-11 16:53] LABS: RMSF IGG NOT DETECTED; RMSF IGM NOT DETECTED
== END 2024-12-07 12:25 | disposition home health service (06) | DRG 699 ==
LOC: ER 12-05 03:10 → ER IP 12-05 04:07 → MEDSURG 12-05 09:25
PROVIDERS: Admitting Provider Internal Medicine; Emergency Provider Student in an Organized Health Care Education/Training Program; PCP Family Medicine; Visit Provider Family Medicine
DX: T83.511A Infection and inflammatory reaction due to indwelling urethral catheter, initial encounter (principal); Z68.42 Body mass index [BMI] 45.0-49.9, adult; Y73.8 Miscellaneous gastroenterology and urology devices associated with adverse incidents, not elsewhere classified; W01.0XXA Fall on same level from slipping, tripping and stumbling without subsequent striking against object, initial encounter; E86.0 Dehydration; B96.89 Other specified bacterial agents as the cause of diseases classified elsewhere; G89.29 Other chronic pain; T14.8XXA Other injury of unspecified body region, initial encounter; W57.XXXA Bitten or stung by nonvenomous insect and other nonvenomous arthropods, initial encounter; E66.01 Morbid (severe) obesity due to excess calories; Z79.891 Long term (current) use of opiate analgesic; Z98.1 Arthrodesis status
CPT/HCPCS: 36415; 51701; 51798; 70450; 71260; 72125; 74177; 80048; 80053; 81001; 83735; 85025; 86618; 86666; 86757; 87077; 87086; 87186; 96372; 96374; 96375; 97110; 97116; 97163; 97166; 97530; 97535; 99285; J0696; J1644; J7030; J9999

== ENCOUNTER → 2024-12-26 16:40 | Outpatient (BNVA) | payer MEDICARE, SELFPAY | PROVIDERS: PCP Family Medicine; Visit Provider Orthopaedic Surgery | DX: Z98.890 Other specified postprocedural states (principal); Z98.1 Arthrodesis status | CPT/HCPCS: 72040; 72072; 72100; 99213 ==

== ENCOUNTER 2025-01-10 15:51 | Outpatient (CLI) | payer MEDICARE, SELFPAY ==
--- NOTE | 2025-01-10 15:15 | MR_ITS ---
WS: [id number] MRI CERVICAL SPINE NONCONTRAST TECHNIQUE: Sagittal T1, T2 and STIR imaging. Axial T2, gradient, and fiesta imaging. CLINICAL INFORMATION: cervical pain COMPARISON: 2022 FINDINGS: Straightening of the normal cervical lordosis. Prior postoperative changes ACDF C4-C6. Dorsal fusion in the upper thoracic spine. Cervical ACDF is new since 2022 C2-C3: Mild facet arthropathy. Mild LEFT bony foraminal narrowing. C3-C4: Disc osteophyte complex with endplate ridging. Mild bilateral bony foraminal narrowing. Mild facet arthropathy. C4-C5: ACDF with central osteophyte protrusion and indentation on the LEFT ventral cervical cord. Mild central canal stenosis.. Mild bilateral bony foraminal narrowing. Mild facet arthropathy. C5-C6: ACDF. Osteophytic ridging. Mild bilateral bony foraminal narrowing. Mild central canal stenosis. Slight indentation on the LEFT ventral cervical cord. C6-C7: Disc osteophyte complex with moderate to severe bilateral bony foraminal narrowing. Moderate facet arthropathy. C7-T1: Spinal canal and foramen are patent. Visualized brain stem structures: Normal. Prevertebral soft tissues: Normal. MR/MR cervical spin wo con* [id number] IMPRESSION: 1. Cervical ACDF is new from previous. 2. Mild central canal stenosis C4-C5 and C5-C6 with osteophyte ridging and sli ght indentation on the cervical cord. 3. Moderate to severe bilateral bony foraminal narrowing C6-7. 4. Moderate RIGHT C3-4 and LEFT C5-6 bony foraminal narrowing
== END 2025-01-10 15:52 | disposition home or self-care (01) ==
LOC: RAD 15:56
PROVIDERS: PCP Family Medicine; Visit Provider Orthopaedic Surgery
DX: M47.22 Other spondylosis with radiculopathy, cervical region (principal); M47.12 Other spondylosis with myelopathy, cervical region; M48.02 Spinal stenosis, cervical region
CPT/HCPCS: 72141

== ENCOUNTER → 2025-01-18 07:51 | Outpatient (BNVA) | payer MEDICARE, SELFPAY | PROVIDERS: PCP Family Medicine; Visit Provider Orthopaedic Surgery | DX: M48.02 Spinal stenosis, cervical region (principal); R29.898 Other symptoms and signs involving the musculoskeletal system | CPT/HCPCS: 99213 ==

== ENCOUNTER 2025-01-18 14:10 | Observation (INO) | payer MEDICARE, SELFPAY ==
--- OUTSIDE RECORDS SUMMARY | 2024-08-24 04:30 | XMS_ITS ---
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 Name Role Phone Tadeo Prather MD Primary Care Provider Unavail able Familia MOLINA, Jimbo Unavailable [phone] Allergies Allergen (clinical drug ingredient) Drug/Non Drug Allergy documented on EMR Reaction Allergy Type Onset Date Status Latex LATEX (uncoded) Unknown Allergy Acti ve Surgical tape (uncoded) rash and blisters Allergy Active REASON FOR VISIT Patient states she is here today for pain., Prescription visit, FALL, WG-MV (NEED NEW PHARM INFO) Medications Medication SIG (Take, Route, Frequency, Duration) Notes Start Date End Date Status DULoxetine Hydrochloride 30 mg 1 cap orally Q12H Active acetaminophen-oxycodone 325 mg-7.5 mg 1 tab orally Q4H prn pain (max 4/day; hold within 4H of planned sleep) Active Vitamin D3 2000 intl units gummies orall y as directed Active albuterol 90 mcg/inh 2 puff(s) inhaled e very 6 hours for 30 day(s) Active amitriptyline 25 mg 2 tabs orally at bedtime Active Potassium Gluconate 99 mg as directed Active sucralfate 1 g/10 mL 10 mL orally 4 time s a day (before meals and at bedtime) Active pantoprazole 40 mg 1 tab(s) orally twic e a day Active Vitamin B12 1000 mcg 4 tabs orally once a day Active Vitamin C 1000 mg 4 tabs orally once a day Active omeprazole 20 mg 1 cap(s) orally once a day for 30 day(s) Active ibuprofen 200 mg 5-6 orally 2-3 times a day Active magnesium citrate Ac tive fluticasone nasal 50 mcg/inh 2 sprays intranasally once a day Active furosemide 20 mg 1 tab(s) orally once a day Active black cohosh 1 tab po BID Acti ve Calcium 600+D gummies orally as directed Active biotin 5000 mcg 1 tab(s) orally once a day Active Cranberry Supplement as directed Active ferrous sulfate 325 mg 1 tab(s) orally 3 times a day for 30 day(s) Active aspirin 81 mg 1 tab(s) chewed once a day for 30 day(s) Active Social History Tobacco Use: Social History Observation Description Date Details (start date - stop date) Former Smoker NA - NA alcohol Question Answer Notes Did you have a drink containing alcohol in the p ast year? 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 Underwent TSP fusion on 03/08/[address] [facility] [address] Fowler. Plan to obtain Operative Note; will request again today. 08/24/2024 Other chronic pain (ICD-10 - G89.29) Patient reports that taking her pain medication allows her to prepare for the holiday season. Plan to continue oral opioid medication management. 08/24/2024 Obstructive sleep apnea (adult) (pediatric) (ICD-10 - G47.33) Patient reports consistent nightly use of her CPAP device. Plan to continue to restrict opioid use in relation to sleep for safety concerns. 08/24/2024 Essential (primary) hypertension (ICD-10 - I10) Education sheet given at today's visit; patient to address with her PCP. 08/24/2024 care home (current) use of opiate analgesic (ICD-10 - Z79.891) 2022 opioid (OUD) risk tool score = 1. This places the patient in the low risk category. Plan urine toxicology screen today to monitor for presence of any unprescribed or illicit controlled substance(s), as well as prescribed oxycodone. 08/24/2024 Other Patient to notify this office regarding her new pharmacy selection as [facility] will be closing in 07/2024. The service was provided by WILLOW Griffiths, as part of the ongoing care plan established by Jimbo Barbosa MD, who was present in the office for direct supervision during the encounter. Plan Of Treatment Medication Medication Name Sig Start Date Stop Date Notes DULoxetine Hydrochloride 30 mg 1 cap orally Q12H acetaminophen-oxycodone 325 mg-7.5 mg 1 tab orally Q4H prn pain (max 4/day; hold within 4H of planned sleep) Treatment Notes Assessment Notes Pain in thoracic spine Chronic axial tho racic spine pain. Underwent TSP fusion on 03/08/[address] [facility] [address] Fowler. Plan to obtain Operative Note; will request again today. Other chronic pain Patient reports that taking her pain medication allows her to prepare for the holiday season. Plan to continue oral opioid medication management. Obstructive sleep apnea (adult) (pediatr ic) Patient reports consistent nightly use of her CPAP device. Plan to continue to restrict opioid use in relation to sleep for safety concerns. Essential (primary) hypertension Educati on sheet given at today's visit; patient to address with her PCP. care home (current) use of opiate analge sic 2022 opioid (OUD) risk tool score = 1. This places the patient in the low risk category. Plan urine toxicology screen today to monitor for presence of any unprescribed or illicit controlled substance(s), as well as prescribed oxycodone. Other Patient to notify this office regarding her new pharmacy selection as [facility] will be closing in 07/2024. The service was provided by WILLOW Griffiths, as part of the ongoing care plan established by Jimbo Barbosa MD, who was present in the office for direct supervision during the encounter. Progress Notes * Kathy MAGAÑA LDOB:1955 (69 yo F)Acc No.[id number]:08/24/2024 Patient: Kathy TODD Provider: Preston angel Metzgerrandy :1955 A ge:68 Y S ex:Female Date:08/24/2024 Address:[address] [place], [place] [id number] Pcp:Tadeo Prather MD Subjective: * Chief Complaints: * 1 . Patient states she is here today for pain.. 2. Prescription visit. 3. FALL. 4. WG-MV (NEED NEW PHARM INFO). * HPI: T horacic Spine: 68 year old female presents with c/o pain i n the bilateral mid back. This pain is described as intermittent aching.This pain extends into bilateral ribs and muscles.The mid-back pain is aggravated by sudden movements, riding in a car, and standing to do dishes. The mid-back pain is somewhat alleviated by lying on her left side, lying on her back, and with rest.? Denies : numbness and tingling. Denies : injury: ( history of falls noted). surgery T 10-pelvis fusion and removal of SCS system, p erformed by Dr. Fowler on 11/08/20; thoracic fusion, p erformed by Dr. Fowler on 03/08/24. P revious Therapy: Previous therapy: C BT sessions with Dr. Moody; TENS unit therapy w ith history of no b enefit; chiropractic t herapy with history of no benefit; physical therapy with history of no b enefit; ice/heat therapy w ith history of s ome benefit; massage therapy with history of transient benefit; history of aquatic therapy (initiated in 2016); acupuncture therapy with h istory of no significant b enefit; injection therapy b y Dr. Cosmo Louis - injections with history of no significant benefit (RFA also with history of no significant benefit); injection therapy via this facility was a SCS trial f rom 12/16/16 through 12/21/16 (with excellent benefit). Medication history: C ymbalta 60 mg; Mobic 15 mg; Flexeril 10 mg QD; Neurontin multiple trials from 1200 mg to 2400 mg per day (falls); [place] 10/325 QID; oxycodone 15 mg; Flexeril 5 mg; zonisamide 100 mg (1-3 QHS); Lyrica (increased falls); oxycodone 5 mg.? M edications: Cymbalta (duloxetine) 3 0 mg, 1 cap, orally, Q12H, 28 days, 56, Refills 1(last prescribed 06/22/24). Patient reports * benefit with * quantity and * refills.Last fill date: *. Percocet (oxycodone / acetaminophen) 3 25 mg-7.5 mg, 1 tab, orally, Q4H prn pain (max 4/day; hold within 4H of planned sleep), 28 days, 112, Refills 0.Notes: Prescription given (1) on 06/22/24. Patient reports * benefit, as evidenced by improved ability to *, with quantity * and * prescription(s) remaining.Last fill date: *.Last dose taken: *. N on Compliance/Failure to Follow Treatment Agreement: Failure to bring prescribed medications to appointments: 0 01/18/17, 12/10/16. Failure to take medication as prescribed: 0 01/18/18 (short #30 [place]), 08/03/17. Failure to secure medications/prescriptions: 0 01/06/17.? Obtaining a controlled substance from another individual: 0 02/02/23 (spouse). Previous concerns with misuse of medications; see related telephone encounter and office visit from 07/2021. * Medical History: C hronic pain, Low back pain, Lumbar spondylosis, spinal stenosis and post- laminectomy syndrome, history of SCS system placement and subsequent spinal fusion, Sciatica, Sacroiliitis, Mid back pain, Thoracic spondylosis, Thoracic T10 compression fracture, retropulsion contacting thoracic spinal cord, Neck pain, Cervical spondylosis and spinal stenosis, cervical fusion surgery, Fibromyalgia, Osteoarthritis, Neuropathy, Asthma, Mild concentric left ventricular hypertrophy, Seasonal allergies, Depression, Fatigue, Somnolence, Abdominal pain, Edema, Anxiety disorder, Bleeding ulcers, Anemia, Obstructive sleep apnea, Obesity, morbid. * Surgical History: C arpal tunnel release, right x 2, 1986, 1987, Carpal tunnel release, left, 1990, Deviated septum repair, 1992, Bilateral knee surgery, patellar, 1995, 1997, Right tendon reattachment, elbow, 1993, Appendectomy, 1997, Hysterectomy (abdominal), 1998, Bunionectomy, right, 1998, Lumbar fusion L3-S1, 2001, Lap-band surgery, 2003, Trigger finger release, right middle, 2007, Suspensionplasty, thumbs, 2008, Hardware removal, 2011, L2-L3 fusion / fixation; revision of L3-S1 fusion, 2011, Left SI joint fusion, 04/15/15, Right SI joint fusion, 04/01/16, SCS system implantation, performed at [facility] in [place], [place], 12/31/16, Left knee replacement, performed in [place], [place] by Dr. Mccoy, 05/04/17, Removal of lap band, performed at [facility] by Dr. Diallo, 03/01/18, Right knee surgery, performed at [facility] by Dr. Mccoy, 11/01/18, U35-Ftykne fusion / fixation with removal of spinal stimulator (SCS system), performed at [facility] by Dr. Fowler, 11/08/20, Kyphoplasty at T8-T9, performed at [facility] by Dr. Fowler, 04/16/21, Cervical fusion, performed at [facility] by Dr. Fowler, 09/28/22, Upper GI, performed at [facility] by Dr. Garcia, 08/26/23, Fusion, thoracic, performed at [facility] by Dr. Fowler, 03/08/24. * Hospitalization/Major Diagno stic Procedure: S troke like symptoms, treated at [facility] (overnight), 07/15/21. * Medications: T aking acetaminophen-oxycodone 325 mg-7.5 mg tablet 1 tab orally Q4H prn pain (max 4/day; hold within 4H of planned sleep) , Taking albuterol 90 mcg/inh powder 2 puff(s) inhaled every 6 hours , Taking amitriptyline 25 mg tablet 2 tabs orally at bedtime , Taking aspirin 81 mg tablet, chewable 1 tab(s) chewed once a day , Taking biotin 5000 mcg tablet, disintegrating 1 tab(s) orally once a day , Taking black cohosh 1 tab po BID , Taking Calcium 600+D(calcium-vitamin D) gummies orally as directed , Taking Cranberry Supplement as directed , Taking DULoxetine Hydrochloride 30 mg delayed release capsule 1 cap orally Q12H , Taking ferrous sulfate 325 mg tablet 1 tab(s) orally 3 times a day , Taking fluticasone nasal 50 mcg/inh spray 2 sprays intranasally once a day , Taking furosemide 20 mg tablet 1 tab(s) orally once a day , Taking ibuprofen 200 mg tablet 5-6 orally 2-3 times a day , Taking magnesium citrate , Taking omeprazole 20 mg delayed release capsule 1 cap(s) orally once a day , Taking pantoprazole 40 mg delayed release tablet 1 tab(s) orally twice a day , Taking Potassium Gluconate 99 mg as directed , Taking sucralfate 1 g/10 mL suspension 10 mL orally 4 times a day (before meals and at bedtime) , Taking Vitamin B12(cyanocobalamin) 1000 mcg tablet 4 tabs orally once a day , Taking Vitamin C(ascorbic acid) 1000 mg tablet 4 tabs orally once a day , Taking Vitamin D3(cholecalciferol) 2000 intl units gummies orally as directed * Allergies: L ATEX, Surgical tape: rash and blisters. Objective: Therapeutic Interventions: Assessment: * Assessment: 1. P ain in thoracic spine - M54.6 (Primary) 2 . O ther chronic pain - G89.29 3 . O bstructive sleep apnea (adult) (pediatric) - G47.33 4 .?Essential (primary) hypertension - I10 5 . L maria guadalupe term (current) use of opiate analgesic - Z79.891 Plan: * Treatment: 2. O ther chronic pain Notes: Patient reports that taking her pain medication allows her to prepare for the holiday season. Plan to continue oral opioid medication management. 3. O bstructive sleep apnea (adult) (pediatric) Notes: Patient reports consistent nightly use of her CPAP device. Plan to continue to restrict opioid use in relation to sleep for safety concerns. 4. E ssential (primary) hypertension Notes: Education sheet given at today's visit; patient to address with her PCP. 5. L maria guadalupe term (current) use of opiate analgesic Notes: 2022 opioid (OUD) risk tool score = 1. This places the patient in the low risk category. Plan urine toxicology screen today to monitor for presence of any unprescribed or illicit controlled substance(s), as well as prescribed oxycodone. 6. O thers Continue DULoxetine Hydrochloride delayed release capsule, 30 mg, 1 cap, orally, Q12H; C ontinue acetaminophen-oxycodone tablet, 325 mg-7.5 mg, 1 tab, orally, Q4H prn pain (max 4/day; hold within 4H of planned sleep), Refills 0. Notes: Patient to notify this office regarding her new pharmacy selection as [facility] will be closing in 07/2024. The service was provided by WILLOW Griffiths, as part of the ongoing care plan established by Jimbo Barbosa MD, who was present in the office for direct supervision during the encounter. ? * Procedure Codes: 8 0305 Urine Dip Cup, Modifiers: QW * Preventive Medicine: Counseling: P ain Management: Follow-up Plan documented: Y es Pain Screenin .5 B P Management LIFESTYLE RECOMMENDATION: Fang alegre education regarding hypertension - patient education sheet given on 06/22/2024 Screening / Special Tests: F all Risk Screening: N o falls in the past year as of: 06/22/2024 * Images: * Electronic signature of Raoul Barbosa MD on 01/19/2025 at 11:36 AM CDT Sign off status: Pending * Provider: Preston Barbosa Date: 0 08/24/2024 Generated for Berny umaña/Silver/Juanitting on: 0 01/19/2025 11:36 AM CDT History and Physical Notes * HPI (History of Present Illness) Category Sub-Category Detail Notes Category Not es Thoracic Spine injury: (history of falls noted) numbness and tingling pain in the bilateral mid back. This pain is described as intermittent aching. This pain extends into bilateral ribs and muscles. The mid-back pain is aggravated by sudden movements, riding in a car, and standing to do dishes. The mid-back pain is somewhat alleviated by lying on her left side, lying on her back, and with rest surgery [id number] fusion an d removal of SCS system, performed by Dr. Fowler on 11/08/20; thoracic fusion, performed by Dr. Fowler on 03/08/24 Medications Percocet (oxycodone / acetaminophen) 325 mg-7.5 mg, 1 tab, orally, Q4H prn pain (max 4/day; hold within 4H of planned sleep), 28 days, 112, Refills 0. Notes: Prescription given (1) on 06/22/24. Patient reports * benefit, as evidenced by improved ability to *, with quantity * and * prescription(s) remaining. Last fill date: *. Last dose taken: * Cymbalta (duloxetine) 30 mg, 1 cap, oral ly, Q12H, 28 days, 56, Refills 1 (last prescribed 06/22/24). Patient reports * benefit with * quantity and * refills. Last fill date: * Previous Therapy Previous therapy: CBT sessions with Dr. Moody; TENS unit therapy with history of no benefit; chiropractic therapy with history of no benefit; physical therapy with history of no benefit; ice/heat therapy with history of some benefit; massage therapy with history of transient benefit; history of aquatic therapy (initiated in 2016); acupuncture therapy with history of no significant benefit; injection therapy by Dr. Cosmo Louis - injections with history of no significant benefit (RFA also with history of no significant benefit); injection therapy via this facility was a SCS trial from 12/16/16 through 12/21/16 (with excellent benefit) Medication history: Cymbalta 60 mg; Mobi c 15 mg; Flexeril 10 mg QD; Neurontin multiple trials from 1200 mg to 2400 mg per day (falls); [place] 10/325 QID; oxycodone 15 mg; Flexeril 5 mg; zonisamide 100 mg (1- 3 QHS); Lyrica (increased falls); oxycodone 5 mg Non Compliance/Failure to Follow Treatment Agreement Failure to bring prescribed medications to appointments: 01/18/17, 12/10/16 Previous concerns with misuse of medications; see related telephone encounter and office visit from 07/2021 Failure to take medication as prescribed : 01/18/18 (short #30 [place]), 08/03/17 Failure to secure medications/prescripti ons: 01/06/17 Obtaining a controlled subst ance from another individual: 02/02/23 (spouse)
--- OUTSIDE RECORDS SUMMARY | 2024-09-14 12:00 | XMS_ITS ---
Author Organization [facility] Address [address] [place] [address] Care Team Providers Care Slurry Man Name Role Phone Noble Moreno Primary Care Provider UnavailFRED Mccrary Unavailable [phone] CRIS MICHELLE Unavailable [phone] REASON FOR VISIT UDS f/u Encounters Encounter Location Date Provider Diagnosis [facility] [address] [place] [address] 09/14/2024 CRIS MICHELLE Plan Of Treatment No Information Progress Notes * Kathy MAGAÑADOB:1955 ( 69 yo F)Acc No.[id number]:09/14/2024 Progress Notes Patient: Kathy TODD Provider: Amarjit MICHELLE MD :1955 A ge:68 Y S ex:Female Date:09/14/2024 Address:[address] [place] [address] [address] [place], [place] [id number] Pcp:Noble Moreno Subjective: * Chief Complaints: * 1 . UDS f/u. * Medical History: Objective: * Vitals: Assessment: Plan: * Treatment: * Billing Information: * Visit Code: * Procedure Codes: * Electronic signature of AUST IN MD MIGUEL ANGEL on 01/19/2025 at 11:36 AM CDT Sign off status: Pending * Provider: Amarjit MICHELLE MD Date: 0 09/14/2024 Generated for Berny umaña/Silver/Juanitting on: 0 01/19/2025 11:36 AM CDT
--- OUTSIDE RECORDS SUMMARY | 2024-12-05 12:00 | XMS_ITS ---
Author Organization [facility] Address [address] [place] [address] Care Team Providers Care Bankruptcy Legal Assistant Name Role Phone Noble Moreno Primary Care Provider FRDE Hwang Unavailable [phone] DMITRIY ESPITIA Unavailable [phone] REASON FOR VISIT UDS Encounters Encounter Location Date Provider Diagnosis [facility] [address] [place] [address] 12/05/2024 DMITRIY ESPITIA Plan Of Treatment No Information Progress Notes * Kathy MAGAÑADOB:1955 ( 69 yo F)Acc No.[id number]:12/05/2024 Progress Note Patient: Kathy TODD Provider: Sergio Espitia APRN :1955 A ge:69 Y S ex:Female Date:12/05/2024 Address:[address] [place] [address] [address] [place], [place] [id number] Pcp:Noble Moreno Subjective: * Chief Complaints: * 1 . UDS. * Medical History: Objective: * Vitals: Assessment: Plan: * Treatment: * Billing Information: * Visit Code: * Procedure Codes: * Electronic signature of SORAYA ESPITIA APRN on 01/19/2025 at 11:37 AM CDT Sign off status: Pending * Provider: Sergio Espitia APRN Date: 0 12/05/2024 Generated for Berny umaña/Silver/Henrietta on: 0 01/19/2025 11:37 AM CDT
--- OUTSIDE RECORDS SUMMARY | 2024-12-14 12:00 | XMS_ITS ---
Author Organization [email or web address] Address [address] [place] [address] Care Team Providers Care Electrical Superintendent Name Role Phone Noble Moreno Primary Care Provider UnavailFRED Mccrary Unavailable [phone] CRIS MICHELLE Unavailable [phone] REASON FOR VISIT UDS f/u Encounters Encounter Location Date Provider Diagnosis [facility] [address] [place] [facility] [place] [address] 12/14/2024 CRIS MICHELLE Plan Of Treatment No Information Progress Notes * Kathy MAGAÑADOB:1955 ( 69 yo F)Acc No.[id number]:12/14/2024 Progress Notes Patient: Kathy TODD Provider: Amarjit MICHELLE MD :1955 A ge:69 Y S ex:Female Date:12/14/2024 Address:[address] [place] [address] [address] [place], [place] [id number] Pcp:Noble Moreno Subjective: * Chief Complaints: * 1 . UDS f/u. * Medical History: Objective: * Vitals: Assessment: Plan: * Treatment: * Billing Information: * Visit Code: * Procedure Codes: * Electronic signature of AUST IN MD MIGUEL ANGEL on 01/19/2025 at 07:50 AM CDT Sign off status: Pending * Provider: Amarjit MICHELLE MD Date: 0 12/14/2024 Generated for Berny umaña/Silver/Juanitting on: 0 01/19/2025 07:50 AM CDT
--- OUTSIDE RECORDS SUMMARY | 2024-12-28 08:10 | XMS_ITS | Encounter Summary ---
Author Organization [facility] Address [address] [place] [address] Care Team Providers Care Button Station Worker Name Role Phone Tadeo Prather MD Primary Care Provider [phone] Encounter Details Date Type Department Care Team (Late st Contact Info) Description 12/28/2024 8:10 AM CDT Hospital Encounter [facility] Emergency [facility] Services [place] [address] [phone] Ambulance, [facility] [address] [address] Arrived Social History Tobacco Use Types Packs/Day Years Used Date Smoking Tobacco: Never Smokeless Tobacco: Never Alcohol Use Standard Drinks/Week Comments Yes 0 (1 standard drink = 0.6 oz pur e alcohol) Comments Unknown Sex and Gender Information Value Date Recorded Sex Assigned at Not on file Legal Sex Female 9:12 AM [employer] Gender Identity Not on file Sexual Orientation Not on file documented as of this encounter Plan of Treatment Not on file documented as of this encounter Visit Diagnoses Not on filedocumented in this encounter Care Teams Button Station Worker Relationship Specialty Start Date End Date Tadeo Prather MD [address] [place] [phone] PCP - General Family Practice 04/03/14 documented as of this encounter
[2025-01-18] VITALS (12 sets, daily range): BP systolic 138–181; BP diastolic 77–139; PULSE 79–98; RESP 17–20; TEMP 36.2–36.7; O2SAT 96–99; BMI 47.4; BMI 47.0
--- NOTE | 2025-01-18 14:00 | CT_ITS ---
WS: [id number] CT HEAD TECHNIQUE: Noncontrast CT of the head obtained from the skullbase to the vertex. CLINICAL INFORMATION: Symptoms of acute stroke COMPARISON: CT 12/04/2024 DLP: [address] scans at [facility] use at least one of these dose optimization techniques: automated exposure control; mA and/or kV adjustment per patient size (includes targeted exams where dose is matched to clinical indication); or iterative reconstruction. FINDINGS: No evidence of intracranial hemorrhage or mass effect. Ventricular system and basal cisterns are patent. Moderate small vessel changes with mild parenchymal volume loss. No extra-axial fluid collections. No evidence of mass or mass effect. Vascular calcification. Chronic encephalomalacia RIGHT anterior temporal lobe unchanged. Paranasal sinuses and mastoid air cells are well aerated. .Normal visualized soft tissues. CT/CT head thrombolytic [id number] IMPRESSION: 1. No evidence of intracranial hemorrhage or mass effect. 2. No acute intracranial findings. Notified Trinh Mcgee MD at 01/18/2025 2:24 PM.
--- NOTE | 2025-01-18 14:01 | XR_ITS ---
WS: [id number] XR chest 1V portable [id number] REASON FOR EXAM: Weakness FINDINGS: Mild tortuosity and ectasia of the thoracic aorta. Normal heart size. Calcified granulomatous disease bilaterally. No acute pulmonary parenchymal or pleural abnormality. Posterior decompression with pedicle screws and interconnecting rods pelvis to T2. Previous vertebroplasty at T9 and T10. XR/XR chest 1V portable [id number] IMPRESSION: No acute chest abnormality. Extensive posterior spinal fusion.
--- NOTE | 2025-01-18 14:20 | ECG_ITS ---
[facility] Test Date: 2025-01-18 Pat Name: Kathy Patel Department: Room: Gender: Female Eyeglass Inspector: : 1955 Requested By: Trinh Headley Order Number: [id number] Fany MD: ASHUTOSH CORTES Measurements Intervals [place] Rate: 95 P: 24 FL: 241 QRS: 17 QRSD: 118 T: 29 QT: 349 QTc: 439 Interpretive Statements SINUS RHYTHM WITH FIRST DEGREE AV BLOCK MODERATE INTRAVENTRICULAR CONDUCTION DELAY [110+ ms QRS DURATION] Compared to ECG 02/02/2024 09:23:30 First degree AV block now present Intraventricular conduction delay now present Electronically Signed On 01-20-2025 16:09:42 CDT by ASHUOTSH CORTES [email or web address]
--- NOTE | 2025-01-18 14:36 | ED_ITS ---
HPI - Neuro Symptoms/Deficit 2 General: Chief Complaint: Neuro Symptoms/Deficit Stated Complaint: stroke alert History of Present Illness: 69-year-old female with a history of chr onic pain syndrome on chronic opiate therapy, morbid obesity, chronic lower extremity weakness, obstructive sleep apnea, who presents to the emergency room by ambulance with concern for stroke. says she was normal at noon. She arrives in the ER at 1410 2 hours and 10 minutes later. says he found her on the floor with slurred speech. Here she has some word salad she will answer a few questions appropriately but only 1 word in optimal just start saying random words. She has equal weakness in her lower extremities bilaterally. She has some drift in her arms bilaterally as well. Related Data Home Medications ?Medication ?Instructions ?Recorded ?Confirmed ascorbic acid 7.5 mg-vit E 7.5 4 tab PO DAILY 11/09/20 01/18/25 unit-biotin 1,250 mcg chewable tablet (Hair,Skin,Nails with Biotin) cetirizine 10 mg tablet (Zyrtec) 10 mg PO DAILY@21 PRN allergies 11/09/20 01/18/25 duloxetine 30 mg capsule,delayed 30 mg PO BID 02/02/24 01/18/25 release omeprazole 20 mg capsule,delayed 20 mg PO DAILY 01/18/25 release ferrous sulfate 325 mg (65 mg 325 mg PO DAILY 07/07/24 01/18/25 iron) tablet (FeroSul) polyethylene glycol 3350 17 17 g PO DAILY PRN Constipa tion 08/29/24 01/18/25 gram/dose oral powder (ClearLax) amitriptyline 100 mg tablet 100 mg PO BEDTIME 12/05/24 01/18/25 cholecalciferol (vitamin D3) 50 50 mcg PO DAILY 01/18/25 mcg (2,000 unit) tablet (Vitamin D3) Previous Rx's ?Medication ?Instructions ?Recorded TLSO Brace #1 ea 06/19/21 Bone Growth Stimulator E0748 #1 ea 09/28/22 c-pap supplies #1 ea 08/24/23 pregabalin 75 mg capsule (Lyrica) 75 mg PO BID #30 cap s 07/04/24 naloxone 4 mg/actuation nasal 4 mg intranasal Q2M PRN opioid 07/12/24 spray (Narcan) overdose #2 ea amoxicillin 875 mg tablet 875 mg PO BID #20 tabs 01/02 cyclobenzaprine 10 mg tablet 10 mg PO Q8H PRN muscle s pasm #20 01/18/25 tabs oxycodone-acetaminophen 10 mg-325 1 tab PO Q4H PRN jaye n 7 days #42 01/18/25 mg tablet tabs Allergies Allergy/AdvReac Type Severity Reaction Status Date / Time adhesive tape Allergy Unknown Verified 12/26/24 16:41 Review of Systems 2 Narrative: Constitutional symptoms: Negative except as documented in HPI. Skin symptoms: Negative except as documented in HPI. Eye symptoms: Negative except as documented in HPI. ENMT symptoms: Negative except as documented in HPI. Respiratory symptoms: Negative except as documented in HPI. Cardiovascular symptoms: Negative except as documented in HPI. Gastrointestinal symptoms: Negative except as documented in HPI. Genitourinary symptoms: Negative except as documented in HPI. Musculoskeletal symptoms: Negative except as documented in HPI. Neurologic symptoms: Negative except as documented in HPI. Psychiatric symptoms: Negative except as documented in HPI. Endocrine symptoms: Negative except as documented in HPI. PFSH ED 2 PFSH: Medical History (Updated 01/18/25 @ 19:12 by Trinh Mcgee MD) Chronic prescription opiate use Fracture, thoracic vertebra, compression Epigastric abdominal pain Discitis of thoracic region Spondylarthritis DDD (degenerative disc disease), thoracic Fusion of spine, thoracolumbar region Obstructive sleep apnea Morbid obesity Degenerative lumbar spinal stenosis Internal fixation device (pin, nixon, or screw) mechanical complication Morbid obesity with BMI of 50.0-59.9, adult Lumbar stenosis with neurogenic claudication Intervertebral disc disorder with radiculopathy of lumbosacral region Surgical History Status post cervical spinal fusion 09/24 Status post correction of deviated nasal septum History of appendectomy History of carpal tunnel repair History of knee surgery History of laparoscopic adjustable gastric banding Status post insertion of spinal cord stimulator (~2016) History of lumbar surgery (~2011) 12/2016 Dr. Martin Joyner Thoracic spinal cord stimulator placement 04/2016 Dr. Martin Joyner Right SI joint fusion 03/2016 Dr. Martin Joyner [facility] Left SI joint fusion 06/2012 Dr. Christopher Olmstead [facility] L2-L3 posterior fusion/fixation. 10/2011 Dr. Christopher Shah [facility] Fractured fusion screws removed. 12/[address] Orthopedic surgeon. Rajani Spine: L3-L4, L4-L5 L5-S1 Posterior Fusion/fusion Family History Father CAD (coronary artery disease) Social History Smoking and tobacco/nicotine status: former use of tobacco/nicotine Alcohol intake: former Substance/Drug Use: never Household members: spouse Marital status: Current occupational status: disabled Physical Exam 2 Narrative: EXAM NARRATIVE: General: Alert, no acute distress. Skin: Warm, dry. Head: Normocephalic, atraumatic. Neck: Supple, trachea midline. Eye: Extraocular movements are intact. Ears, nose, mouth and throat: mucosa moist. Cardiovascular: Regular, Normal peripheral perfusion. Respiratory: Lungs are clear to auscultation, respirations are non-labored, breath sounds are equal, Symmetrical chest wall expansion. Gastrointestinal: Soft, Nontender, Non distended Musculoskeletal: Normal ROM, no deformity. Neurological: Alert, some difficulty following commands, cannot evaluate her visual rogers, she has drift in her arms bilaterally that seems to be related to weakness, she can lift each leg off the bed but immediately they fall back down and this is equal on both sides and she has a history of lower extremity weakness. No facial droop. She can tell me her name and she tells me where she is from but further questioning she starts having word salad talking about random things. Nonsensical Psychiatric: Cooperative, appropriate mood & affect. Course 2 Vital Signs: Vital signs: Vital Signs Temperature 97.1 F L 01/18/25 14:39 Pulse Rate 82 01/18/25 18:00 Respiratory Rate 18 01/18/25 15:57 Blood Pressure 166/133 01/18/25 16:15 Pulse Oximetry 98 01/18/25 18:00 Oxygen Delivery Me thod Room Air 01/18/25 18:00 MDM - Neuro Symptoms/Deficit Medical Decision Making Medical decision making: Differential diagnosis for patient with focal neurologic deficit(s) includes but not limited to and based on the above HPI, review of systems and physical exam: ischemic stroke, hemorrhagic stroke and embolic stroke secondary to atrial fibrillation), TIA, Crooks's palsey, metabolic encephalopathy with previous stroke. Orders placed to evaluate differential diagnosis based on the above differential, HPI and physical exam CT head: No acute intracranial process. no intracranial hemorrhage, no evidence of infarct. no evidence of acute fracture.This was reviewed and interpreted by myself the ER physician. Chest x-ray: No acute process. No infiltrate. No pneumothorax. This was reviewed and interpreted by myself the emergency room physician. I also reviewed the radiology report. EKG: Time 1420. Rate 95. Normal sinus rhythm, No ST-T changes, no ectopy, first-degree AV block, This was reviewed and interpreted by myself the ER physician at 1424 Consultation: I spoke with Dr. Palacios who is not on-call but was in clinic and kindly is consulting on this patient. Difficult as it is not a straightforward stroke. She does have some word salad/aphasia. She has bilateral weakness that I believe may be chronic. Dr. Palacios evaluated the patient and feels this is not a stroke but rather she is having visual hallucinations and metabolic encephalopathy. Lab Review: Laboratory results were reviewed and interpreted by myself the emergency room physician. No leukocytosis. No anemia. No renal failure. No urinary tract infection. Drug screen is positive for opiates. I reviewed the patient's medical record. Reexamination: Patient still has strange speech and sort of flight of ideas encephalopathy picture. No focal motor deficits and she appears somewhat improved. is concerned she is overdosed on her medications. Consultation: I spoke with Dr. Potts who is on-call for the hospitalist service who agrees to admission to observation. Assessment and plan: Encephalopathy Accelerated hypertension Chronic pain syndrome ?Hydralazine for accelerated hypertension. Admission for continued workup -I discussed the patient with the hospitalist on-call who is admitting the patient. - Discussed findings and plan with patient. Answered any questions. - All laboratory values were reviewed and interpreted personally by myself, the ER physician - All imaging was reviewed and interpreted personally by myself, the ER physician. - Evaluation and treatment of this problem were appropriate in the emergency setting Lab Data 01/18/25 14:35 01/18/25 14:[address] 01/18/25 14:00 IMPRESSION: 1. No evidence of intracranial hemorrhage or mass effect. 2. No acute intracranial findings. Notified Trinh Mcgee MD at 01/18/2025 2:24 PM. Chest X-Ray 01/18/25 14:01 IMPRESSION: No acute chest abnormality. Extensive posterior spinal fusion. Laboratory Results WBC 8.83 10^3/uL (3.29-11.43) 01/18/25 14:35 RBC 4.98 10^6/uL (3.85-5.65) 01/18/25 14:35 Hgb 11.90 g/dL (11.27-16.99) 01/18/25 14:35 Hct 40.4 % (36-47) 01/18/25 14:35 MCV 81.1 fl (85-98) L 01/18/25 14:35 MCH 23.9 pg (27-33) L 01/18/25 14:35 MCHC 29.5 g/dL (30-55) L 01/18/25 14:35 RDW 16.8 % (12.1-15.1) H 01/18/25 14:35 Plt Count 399 10^3/cmm (157-399) 01/18/25 14:35 MPV 8.0 fL (7.4-10.4) 01/18/25 14:35 Neut % (Auto) 67.4 % 01/18/25 14:35 Lymph % (Auto) 20.5 % 01/18/25 14:35 [place] % (Auto) 7.4 % 01/18/25 14:35 Eos % (Auto) 3.1 % 01/18/25 14:35 Baso % (Auto) 1.0 % 01/18/25 14:35 Neut # (Auto) 5.96 10^3/uL (1.8-7.7) 01/18/25 14:35 Lymph # (Auto) 1.8 10^3/uL (0.8-4.8) 01/18/25 14:35 [place] # (Auto) 0.7 10^3/uL (0.2-0.9) 01/18/25 14:35 Eos # (Auto) 0.3 10^3/uL (0.0-0.8) 01/18/25 14:35 Baso # (Auto) 0.1 10^3/uL (0.0-0.1) 01/18/25 14:35 Nucleated RBC % (auto) 0 % 01/18/25 14:35 Nucleated RBCs # 0.0 /100WBC 01/18/25 14:35 PT 13.10 SECONDS (12.1-14.9) 01/18/25 14:35 INR 0.93 (0.8-1.2) 01/18/25 14:35 APTT 31.4 SECONDS (23.9-36.7) 01/18/25 14:35 Specimen Type Arterial 01/18/25 17:49 Sample Site Radial, right 01/18/25 17:49 ABG pH 7.42 (7.35-7.45) 01/18/25 17:49 ABG pCO2 45.7 mmHg (35-45) H 01/18/25 17:49 ABG pO2 63.8 mmHg (80.0-100.0) L 01/18/25 17:49 ABG PO2/FiO2 Ratio 303 01/18/25 17:49 ABG HCO3 29.8 mmol/L (22-26) H 01/18/25 17:49 ABG O2 Saturation 93.1 01/18/25 17:49 ABG Base Excess 4.6 mmol/L (-2.0-2.0) H 01/18/25 17:49 [place] Test Pos 01/18/25 17:49 A-a O2 Gradient 3.8 mmHg (5-10) L 01/18/25 17:49 Hematocrit 40.2 % (37-47) 01/18/25 17:49 Hgb O2 Saturation 91.0 % (95-100) L 01/18/25 17:49 Carboxyhemoglobin 1.2 %THgb (0.4-20.1) 01/18/25 17:49 Methemoglobin 1.0 % (0.4-1.5) 01/18/25 17:49 Total Hemoglobin 13.1 g/dL (12-16) 01/18/25 17:49 Sodium 144.0 mmol/L (131-143) H 01/18/25 17:49 Potassium 4.1 mmol/L (3.5-5.0) 01/18/25 17:49 Glucose 116.0 mg/dL (70-115) H 01/18/25 17:49 Ionized Calcium 1.3 mmol/L (1.1-1.4) 01/18/25 17:49 O2 Delivery Device Room air 01/18/25 17:49 FiO2 21.0 % 01/18/25 17:49 Black [place]ather Buffer ID Chris 01/18/25 17:49 Sodium 143 mmol/L (136-145) 01/18/25 14:35 Potassium 4.3 mmol/L (3.5-5.1) 01/18/25 14:35 Chloride 103 mmol/L (98-107) 01/18/25 14:35 Carbon Dioxide 28 mmol/L (22-29) 01/18/25 14:35 Anion Gap 16.3 (5-19) 01/18/25 14:35 BUN 11 mg/dL (8-23) 01/18/25 14:35 Creatinine 0.6 mg/dL (0.5-0.9) 01/18/25 14:35 GFR Calculation 99.7 mL/min (90-130) 01/18/25 14:35 Glucose 141 mg/dL (65-115) H 01/18/25 14:35 POC Glucose 112 mg/dL (70-110) H 01/18/25 14:22 Calculated Osmolality 298 mOsm/kg (285-295) H 01/18/25 14:35 Lactic Acid 1.1 mmol/L (0.5-2.2) 01/18/25 14:35 Calcium 9.4 mg/dL (8.5-10.5) 01/18/25 14:35 Total Bilirubin 0.2 mg/dL (0.15-1.2) 01/18/25 14:35 AST 15 U/L (0-32) 01/18/25 14:35 ALT 11 U/L (0-33) 01/18/25 14:35 Alkaline Phosphatase 146 U/L (35-105) H 01/18/25 14:35 Total Protein 8.3 g/dL (6.6-8.7) 01/18/25 14:35 Albumin 4.2 g/dL (3.5-5.2) 01/18/25 14:35 Globulin 4.1 g/dL (1.3-4.6) 01/18/25 14:35 Urine Color Yellow (Yellow) 01/18/25 15:44 Urine Appearance Clear (CLEAR) 01/18/25 15:44 Urine pH 8.0 (5-7) A 01/18/25 15:44 Ur Specific [place] 1.008 (1.005-1.030) 01/18/25 15:44 Urine Protein Negative (Negative) 01/18/25 15:44 Urine Glucose (UA) Negative (Normal) 01/18/25 15:44 Urine Ketones Negative (Negative) 01/18/25 15:44 Urine Blood Negative (Negative) 01/18/25 15:44 Urine Nitrate Negative (Negative) 01/18/25 15:44 Urine Bilirubin Negative (Negative) 01/18/25 15:44 Urine Urobilinogen 0.2 mg/dL (Negative) 01/18/25 15:44 Ur Leukocyte Esterase Trace (Negative) A 01/18/25 15:44 Urine RBC 0-2 /hpf (0-2) 01/18/25 15:44 Urine WBC 0-5 /hpf (0-5) 01/18/25 15:44 Ur Squamous Epith Cells 0-5 /hpf (0-5) 01/18/25 15:44 Amorphous Sediment Not Reportable 01/18/25 15:44 Urine Bacteria None seen /hpf (NONE) 01/18/25 15:44 Hyaline Casts 0-4 /lpf H 01/18/25 15:44 Salicylates 0.5 mg/dL (3-10) L 01/18/25 14:35 Urine Opiates Screen Positive ng/mL (Negative) H 01/18/25 15:44 Acetaminophen < 5.0 ug/mL (10-30) L 01/18/25 14:35 Ur Barbiturates Screen Negative ng/mL (Negative) 01/18/25 15:44 Ur Phencyclidine Scrn Negative ng/mL (Negative) 01/18/25 15:44 Ur Amphetamines Screen Negative ng/mL (Negative) 01/18/25 15:44 U Benzodiazepines Scrn Negative ng/mL (Negative) 01/18/25 15:44 Urine Cocaine Screen Negative ng/mL (Negative) 01/18/25 15:44 U Marijuana (THC) Screen Negative ng/mL (Negative) 01/18/25 15:44 Ethyl Alcohol < 10 mg/dL (0-10) 01/18/25 14:35 All radiology interpretation(s) finalized by discharge Discharge Plan Discharge Patient Disposition: Admitted As Inpatient Admit Provider: Brad Potts Clinical Impression: Encephalopathy, Chronic pain syndrome, Accelerated hypertension Condition: Stable Coding Level of Care Code ED Cardiac Nurse Practitioner for Morro Ayers
[2025-01-18 14:46] LABS: Hematocrit 40.4 % (36-47); Hemoglobin 11.90 g/dL (11.27-16.99); Mean Corpuscular HGB Conc 29.5 g/dL (30-55); Mean Corpuscular Hemoglobin 23.9 pg (27-33); Mean Corpuscular Volume 81.1 fl (85-98); Nucleated Red Blood Cells % 0 %; Platelet Count 399 10^3/cmm (157-399); Red Blood Count 4.98 10^6/uL (3.85-5.65); White Blood Count 8.83 10^3/uL (3.29-11.43)
[2025-01-18 14:59] LABS: INR 0.93 (0.8-1.2); Prothrombin Time 13.10 SECONDS (12.1-14.9)
[2025-01-18 15:00] LABS: Partial Thromboplastin Time 31.4 SECONDS (23.9-36.7)
[2025-01-18 15:04] LABS: Alanine Aminotransferase 11 U/L (0-33); Albumin Level 4.2 g/dL (3.5-5.2); Alkaline Phosphatase 146 U/L (35-105); Anion Gap 16.3 (5-19); Aspartate Amino Transferase 15 U/L (0-32); Blood Urea Nitrogen 11 mg/dL (8-23); Calcium 9.4 mg/dL (8.5-10.5); Carbon Dioxide 28 mmol/L (22-29); Chloride 103 mmol/L (98-107); Creatinine Clr Calc Pharmacy 95.7923; Globulin 4.1 g/dL (1.3-4.6); Glucose 141 mg/dL (65-115); Lactic Sepsis W/Reflex 1.1 mmol/L (0.5-2.2); Osmolality Calculated 298 mOsm/kg (285-295); Potassium 4.3 mmol/L (3.5-5.1); Sodium 143 mmol/L (136-145); Total Protein 8.3 g/dL (6.6-8.7)
--- OUTSIDE RECORDS SUMMARY | 2025-01-18 15:12 | XMS_ITS | Encounter Summary ---
Author Organization [facility] Address [address] Fernandez: [place] [address] Care Team Providers Care Equalizer Operator Name Role Phone Tadeo Prather MD Primary Care Provider [phone] Encounter Details Date Type Department Care Team (Late st Contact Info) Description 07/20/1995 Outpatient Historical Riaz Ruiz MD [address] [place] [address] Social History Tobacco Use Types Packs/Day Years Used Date Smoking Tobacco: Never Assessed Comments Unknown Sex and Gender Information Value Date Recorded Sex Assigned at Not on file Legal Sex Female 9:12 AM LEGAL SECRETARY Gender Identity Not on file Sexual Orientation Not on file documented as of this encounter Plan of Treatment Not on file documented as of this encounter Visit Diagnoses Not on filedocumented in this encounter Care Teams Equalizer Operator Relationship Specialty Start Date End Date Tadeo Prather MD [address] [place] [phone] PCP - General Family Practice 04/03/14 documented as of this encounter
--- OUTSIDE RECORDS SUMMARY | 2025-01-18 15:12 | XMS_ITS | Encounter Summary ---
Author Organization [facility] Address [address] [place] [address] Care Team Providers Care Slot Manager Name Role Phone Tadeo Prather MD Primary Care Provider [phone] Encounter Details Date Type Department Care Team (Late st Contact Info) Description 01/16/2025 External Device Data STL ABSTRACTION Provider, Abstract NO ADDRESS ON FILE Social History Tobacco Use Types Packs/Day Years Used Date Smoking Tobacco: Never Smokeless Tobacco: Never Alcohol Use Standard Drinks/Week Comments Yes 0 (1 standard drink = 0.6 oz pur e alcohol) Comments Unknown Sex and Gender Information Value Date Recorded Sex Assigned at Not on file Legal Sex Female 9:12 AM UPPER CUTTER OUT Gender Identity Not on file Sexual Orientation Not on file documented as of this encounter Plan of Treatment Not on file documented as of this encounter Visit Diagnoses Not on filedocumented in this encounter Care Teams Slot Manager Relationship Specialty Start Date End Date Tadeo Prather MD [address] [place] [phone] PCP - General Family Practice 04/03/14 documented as of this encounter
--- OUTSIDE RECORDS SUMMARY | 2025-01-18 15:12 | XMS_ITS | Clinical Summary ---
Author Organization [facility] Address [address] Fernandez: [place] [address] Care Team Providers Care Medical Logistics Specialist Name Role Phone Tadeo Prather MD Primary Care Provider Allergies Active Allergy Reactions Criticality Noted Date Comments Unclassified Drug Rash Low 04/10/2011 Active Problems Problem Noted Date Diagnosed Date Morbid obesity with BMI of 50.0-59.9, adult 08/05 S/P lumbar fusion 04/10/2011 Overview (01/09/2021): L4-S1 in 12/2001 by Maciel Sacroiliitis, not elsewhere classified 1 Overview (01/09/2021): Bilateral Trochanteric bursitis 04/10/2011 Overview (01/09/2021): Bilateral DDD (degenerative disc disease), lumbar 04/10/20 11 Overview (01/09/2021): L3-4 Encounters Date Type Department Care Team Description 01/16/2025 External Device Data STL ABSTRACTION Provider, Abstract 12/26/2024 External Device Data STL ABSTRACTION Provider, Abstract 12/20/2024 1:00 AM CDT - 12/20/2024 11:59 PM CDT Hospital Encounter [facility] [place] [address] [place] [phone] Ambulance, [facility] Discharge Disposition: Home or Self Care 12/15/2024 9:40 AM CDT - 12/15/2024 11:59 PM CDT Hospital Encounter [facility] [address] [place] [address] Ambulance, [facility] Discharge Disposition: Home or Self Care 12/11/2024 - 12/11/2024 11:59 PM CDT Hospital Encounter [facility] [address] [place] [phone] Ambulance, [facility] Discharge Disposition: Home or Self Care 12/05/2024 Orders Only [facility] Admitting [address] [place] [address] Saul Fowler, Arthrodesis status (Primary Dx) 12/04/2024 8:45 AM CDT - 12/04/2024 11:59 PM CDT Hospital Encounter [facility] [address] [place] [phone] Ambulance, [facility] Discharge Disposition: [facility] 11/23/2024 External Device Data STL ABSTRACTION Provider, Abstract 11/23/2024 External Device Data STL ABSTRACTION Provider, Abstract 11/22/2024 External Device Data STL ABSTRACTION Provider, Abstract 11/21/2024 External Device Data STL ABSTRACTION Provider, Abstract from Last 3 Months Family History Relation Name Status Comments Father Mother Alive Social History Tobacco Use Types Packs/Day Years Used Date Smoking Tobacco: Never Smokeless Tobacco: Never Alcohol Use Standard Drinks/Week Comments Yes 0 (1 standard drink = 0.6 oz pur e alcohol) Comments Unknown Sex and Gender Information Value Date Recorded Sex Assigned at Not on file Legal Sex Female 9:12 AM CHILD NUTRITION MANAGER Gender Identity Not on file Sexual Orientation Not on file Last Filed Vital Signs Vital Sign Reading Time Taken Comments Blood Pressure 130/70 08/26/2016 12:26 PM CHILD NUTRITION MANAGER Pulse 70 08/26/2016 12:26 PM CHILD NUTRITION MANAGER Temperature 36.7 C (98 F) 08/26/2016 11:36 AM CHILD NUTRITION MANAGER Respiratory Rate 16 08/26/2016 12:26 PM CHILD NUTRITION MANAGER Oxygen Saturation - - Inhaled Oxygen Concentration - - Weight 137.9 kg (304 lb) 08/26/2016 11:36 AM CHILD NUTRITION MANAGER Height 167.6 cm (5' 6 ) 08/26/2016 11:36 AM CHILD NUTRITION MANAGER Body Mass Index 49.07 08/26/2016 11:36 AM CHILD NUTRITION MANAGER Plan of Treatment Health Maintenance Due Date Last Done Comments Pre-Diabetes and Diabetes Screening 1955 DTAP/TDAP/TD VACCINES (1 - Tdap) 1976 BREAST CANCER SCREENING 1997 COLORECTAL SCREENING 2002 Colorectal Cancer Screening 2002 FIT-DNA Q 3 years 2002 FIT/FOBT Q 1 year 2002 Flex Sig/CT Colonography Q 5 years 2002 RSV VACCINE (60+ or ) (1 - Risk 60-74 years 1-dose series) 2017 OSTEOPOROSIS SCREENING 2022 COVID-19 Vaccine (2023-2 5 season) 2024 05/16/2024, 08/11/2023, 05/08/2022, Additional history exists INFLUENZA VACCINE (#1) 2025 , 05/16/2024, 05/08/2022, Additional history exists PNEUMOCOCCAL VACCINE 50+ YEARS Completed 0 10/28/2023, 09/23/2023, 05/11/2019 ZOSTER VACCINE Completed 11/16/2023, 10/04, 09/23/2023 Insurance MEDICARE PART A AND B [facility] [id number] [place] [id number] Care Teams Medical Logistics Specialist Relationship Specialty Start Date End Date Tadeo Prather MD [address] [place] [phone] PCP - General Family Practice 04/03/14
--- OUTSIDE RECORDS SUMMARY | 2025-01-18 15:12 | XMS_ITS | Encounter Summary ---
Author Organization [facility] Address [address] Fernandez: [place] [address] Care Team Providers Care Fruit And Vegetable Inspector Name Role Phone Tadeo Prather MD Primary Care Provider [phone] Encounter Details Date Type Department Care Team (Late st Contact Info) Description 08/11/1996 Outpatient Historical Conversion, History Shawn Holley Social History Tobacco Use Types Packs/Day Years Used Date Smoking Tobacco: Never Assessed Comments Unknown Sex and Gender Information Value Date Recorded Sex Assigned at Not on file Legal Sex Female 9:12 AM STATIONS SUPERINTENDENT Gender Identity Not on file Sexual Orientation Not on file documented as of this encounter Plan of Treatment Not on file documented as of this encounter Visit Diagnoses Not on filedocumented in this encounter Care Teams Fruit And Vegetable Inspector Relationship Specialty Start Date End Date Tadeo Prather MD [address] [place] [phone] PCP - General Family Practice 04/03/14 documented as of this encounter
--- NOTE | 2025-01-18 15:17 | PC.PHAR ---
Pt unable to verify her medications. [facility] faxed most current medication list. 01/18/25
[2025-01-18] MEDS: morphine 4 mg/mL SDV 1 mL IVP (15:57)
[2025-01-18 16:27] LABS: Salicylate 0.5 mg/dL (3-10)
[2025-01-18 16:28] LABS: Acetaminophen < 5.0 ug/mL (10-30); Alcohol Level < 10 mg/dL (0-10)
[2025-01-18 16:46] LABS: Glucose Urine UA Negative (Normal); Nitrate Urine Negative (Negative); Specific Gravity, Urine 1.008 (1.005-1.030)
[2025-01-18 16:53] LABS: PCP Screen Urine Negative (Negative)
[2025-01-18 18:00] LABS: ABG PCO2 45.7 mmHg (35-45); ABG PH Result 7.42 (7.35-7.45); Alveolar-Arterial Oxygen Gradi 3.8 mmHg (5-10); Arterial Blood Gas Hematocrit 40.2 % (37-47); Blood Gas Allen Test Pos; Blood Gas Operator Identificat WALCI; Blood Gas Sample Site Radial, right; Blood Gas Sample Type Arterial; Carboxyhemoglobin 1.2 %THgb (0.4-20.1); Glucose Level-ABG 116.0 mg/dL (70-115); HCO3 ABG 29.8 mmol/L (22-26); Ionized Calcium Level - ABG 1.3 mmol/L (1.1-1.4); Methemoglobin 1.0 % (0.4-1.5); Oxygen Saturation ABG 93.1; PO2 ABG 63.8 mmHg (80.0-100.0); PO2 FiO2 Ratio Arterial Blood 303; Potassium Level - ABG 4.1 mmol/L (3.5-5.0); Sodium Level - ABG 144.0 mmol/L (131-143)
--- NOTE | 2025-01-18 19:09 | PM.HP ---
Providers/Chief Complaint Admitting Physician: Brad Potts MD Primary Care Provider: Tadeo Prather MD Chief Complaint: stroke alert History of Present Illness Kathy Patel is a 69 year old female brought in by her Nehemias. I interviewed the patient and she had very tangential speech could not stay on track. She states that in home care comes weekly people noted she was talking weird this afternoon, she knows it is [facility] in the EMD tells me she has 7-8/10 pain in the lower back had sciatica fusion she says from S1-2 and then she could not tell me. She states that she worked in [employer] and that her family had a [employer] for 25 years. She denies alcohol or drugs but says she quit smoking years ago after 6 to 7 cigarettes a day. It was clear that the patient was having flight of ideas. Initially I thought she was confabulating but I think all the things she told me are true though her history giving is poor. Patient's Nehemias returned and states that patient was fine yesterday 8 AM they went and saw Saul Hallman. Patient had been walking around in the house fine up to 20 feet. He took her to the clinic and they used a wheelchair because of the distance of travel on him sidewalks and in the building. Once they got home patient walked into the house and then sat in a recliner chair at 1130. When he came back an hour later she had fallen on the floor and was speaking in gibberish. He states she could have taken meds because she keeps her box of meds right next to her. He states he does not pay that much attention to the meds and should but that the patient has had overdose in the past on pain meds and had similar gibberish and flight of ideas Patient came in as a code stroke CT of the head was negative and she was evaluated by Dr. Palacios Review of Systems Narrative: The review of systems was not able to be accurately obtained because the patient would not stay on track. She says she has back pain 7-8/10 denies chest pain Nurses report the patient was scooting down to the foot of the bed and almost would fall off so they put her in Trendelenburg Medications/Allergies Home Medications ?Medication ?Instructions ?Recorded ?Confirmed ?Last Taken ?Type ascorbic acid 7.5 mg-vit E 7.5 4 tab PO DAILY 11/09/20 01/18/25 12/04/24 History unit-biotin 1,250 mcg chewable tablet (Hair,Skin,Nails with Biotin) cetirizine 10 mg tablet (Zyrtec) 10 mg PO DAILY@21 PRN allergies 11/09/20 01/18/25 07/17/24 History TLSO Brace #1 ea 06/19/21 01/18/25 Unknown Rx Bone Growth Stimulator [id number] #1 ea 09/28/22 01/18/25 Unknown Rx c-pap supplies #1 ea 08/24/23 01/18/25 Unknown Rx duloxetine 30 mg capsule,delayed 30 mg PO BID 02/02/24 01/18/25 12/04/24 History release omeprazole 20 mg capsule,delayed 20 mg PO DAILY 02/25/24 01/18/25 12/04/24 History release pregabalin 75 mg capsule (Lyrica) 75 mg PO BID #30 caps 07/04/24 01/18/25 12/04/24 Rx ferrous sulfate 325 mg (65 mg 325 mg PO DAILY 07/07/24 01/18/25 12/04/24 History iron) tablet (FeroSul) naloxone 4 mg/actuation nasal 4 mg intranasal Q2M PRN opioid 07/12/24 01/18/25 Unknown Rx spray (Narcan) overdose #2 ea polyethylene glycol 3350 17 17 g PO DAILY PRN Constipation 08/29/24 01/18/25 Unknown History gram/dose oral powder (ClearLax) amitriptyline 100 mg tablet 100 mg PO BEDTIME 12/05/24 01/18/25 12/04/24 History cholecalciferol (vitamin D3) 50 50 mcg PO DAILY 12/05/24 01/18/25 12/04/24 History mcg (2,000 unit) tablet (Vitamin D3) amoxicillin 875 mg tablet 875 mg PO BID #20 tabs 01/02/25 01/18/25 Unknown Rx cyclobenzaprine 10 mg tablet 10 mg PO Q8H PRN muscle spasm #20 01/18/25 01/18/25 Unknown Rx tabs oxycodone-acetaminophen 10 mg-325 1 tab PO Q4H PRN pain 7 days #42 01/18/25 01/18/25 Unknown Rx mg tablet tabs Allergies Allergy/AdvReac Type Severity Reaction Status Date / Time adhesive tape Allergy Unknown Verified 12/26/24 16:41 PFSH Acute PFSH: Medical History (Updated 01/18/25 @ 19:12 by Trinh Mcgee MD) Chronic prescription opiate use Fracture, thoracic vertebra, compression Epigastric abdominal pain Discitis of thoracic region Spondylarthritis DDD (degenerative disc disease), thoracic Fusion of spine, thoracolumbar region Obstructive sleep apnea Morbid obesity Degenerative lumbar spinal stenosis Internal fixation device (pin, nixon, or screw) mechanical complication Morbid obesity with BMI of 50.0-59.9, adult Lumbar stenosis with neurogenic claudication Intervertebral disc disorder with radiculopathy of lumbosacral region Surgical History Status post cervical spinal fusion 09/24 Status post correction of deviated nasal septum History of appendectomy History of carpal tunnel repair History of knee surgery History of laparoscopic adjustable gastric banding Status post insertion of spinal cord stimulator (~2016) History of lumbar surgery (~2011) 12/2016 Dr. Martin Joyner Thoracic spinal cord stimulator placement 04/2016 Dr. Martin Joyner Right SI joint fusion 03/2016 Dr. Martin Joyner [facility] Left SI joint fusion 06/2012 Dr. Christopher Olmstead [facility] L2-L3 posterior fusion/fixation. 10/2011 Dr. Christopher Olmstead [facility] Fractured fusion screws removed. 12/[address] Orthopedic surgeon. 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 She states she had thought about [employer] and did not want it but I stated that maybe she was not clear enough to make this decision. returned and he said they both decided they did not want long-term life support but that if an emergency CPR could help that he would want her to have it as discussed on 01/18/2025 by Brad Potts MD Household members: spouse Marital status: Marital status details: Nehemias Current occupational status: disabled Vitals/I&O/Wt Last Vital Signs Temp 97.1 F L 01/18/25 14:39 Pulse 82 01/18/25 18:00 Resp 18 01/18/25 15:57 BP 166/133 01/18/25 16:15 Pulse Ox 98 01/18/25 18:00 O2 Del Method Room Air 01/18/25 18:00 Weight last 48 hrs Weight 133.356 kg Physical Exam Narrative: General well-developed well-nourished female in no acute cardiopulmonary stress Pupils 6 mm are reactive and equal Oropharynx Mallampati 3 CV regular rate and rhythm Lungs clear to auscultation bilaterally Neuro she is alert and oriented to person place and was right on the month but got the date wrong she is able to use both upper extremities. Lower extremity she cannot dorsiflex her right big toe but can flex and extend her ankles and toes otherwise. The patient is weak and cannot do straight leg lifting although she is in Trendelenburg She goes from 1 topic to another sometimes in the same sentence. This statements are somewhat inaccurate but not actual confabulation of stories Data 01/18/25 14:35 01/18/25 14:35 Micro: Microbiology 01/18/25 17:40 Blood Culture - Preliminary Blood SPECIMEN COLLECTED A&P Assessment and plan 1. Obstructive sleep apnea: Patient states she no longer has sleep apnea. Will clarify with patient and in the morning if she still uses CPAP she has not obviously Sonos obstructing here 2. Chronic back pain: May have taken too much pain medication. I reviewed her medications amitriptyline causes drowsiness and sedation and hypotension. Patient is hypertensive. Duloxetine can cause al or hypertension which is more suspicious and more fitting the symptoms. Lyrica can cause abnormal thinking. 3. Accelerated hypertension: Blood pressure is elevated will treat with hydralazine and clonidine. Monitor for signs of serotonin syndrome. Start IV fluids Plan: Monitor for prolonged QRS. Start seizure precaution PDMP PDMP Reviewed: Not Reviewed Attestations Medical Necessity Statement*: Patient is a served in the hospital for potential overdose and monitored on telemetry anticipate 1-2 nights Coding Level of Care Code 14715 Diagnoses Obstructive sleep apnea G47.33 Chronic back pain M54.9; G89.29 Accelerated hypertension I10 Time Spent (min) 70
[2025-01-18 19:38] LABS: Iron 27 ug/dL (37-145); Thyroid Stimulating Hormone 2.72 uIU/mL (0.27-4.20); Total Iron Binding Capacity 273 mcg/dl; Unsaturated Iron Binding 246 ug/dL (112-347)
[2025-01-18] MEDS: hyDRALAzine 20 mg/mL INJ 1 mL 10 MG IVP (19:43)
[2025-01-19 00:22] VITALS: BP 139/82; PULSE 80; RESP 16; TEMP 36.6; O2SAT 94
[2025-01-19 04:29] LABS: Hematocrit 39.1 % (36-47); Hemoglobin 11.50 g/dL (11.27-16.99); Mean Corpuscular HGB Conc 29.4 g/dL (30-55); Mean Corpuscular Hemoglobin 24.1 pg (27-33); Mean Corpuscular Volume 81.8 fl (85-98); Nucleated Red Blood Cells % 0 %; Platelet Count 380 10^3/cmm (157-399); Red Blood Count 4.78 10^6/uL (3.85-5.65); White Blood Count 11.81 10^3/uL (3.29-11.43)
[2025-01-19 04:54] LABS: Alanine Aminotransferase 9 U/L (0-33); Albumin Level 3.7 g/dL (3.5-5.2); Alkaline Phosphatase 135 U/L (35-105); Anion Gap 14.6 (5-19); Aspartate Amino Transferase 13 U/L (0-32); Blood Urea Nitrogen 10 mg/dL (8-23); Calcium 9.3 mg/dL (8.5-10.5); Carbon Dioxide 30 mmol/L (22-29); Chloride 102 mmol/L (98-107); Creatinine Clr Calc Pharmacy 95.2058; Globulin 3.4 g/dL (1.3-4.6); Glucose 106 mg/dL (65-115); Osmolality Calculated 293 mOsm/kg (285-295); Potassium 4.6 mmol/L (3.5-5.1); Sodium 142 mmol/L (136-145); Total Protein 7.1 g/dL (6.6-8.7)
[2025-01-19 05:41] VITALS: BP 137/68; PULSE 71; RESP 15; TEMP 36.6; O2SAT 95
[2025-01-19 08:18] VITALS: BP 151/94; PULSE 81; RESP 19; TEMP 36.8; O2SAT 96
[2025-01-19 08:52] VITALS: BP 151/94
--- NOTE | 2025-01-19 10:13 | PC.SOCIAL ---
IMM Updated Updated pt on IMM. No questions voiced. Provided pt a copy. Initialed, dated, & timed a copy & placed in chart.
--- NOTE | 2025-01-19 10:13 | PM.SAN ---
Stroke Alert Activation ED Arrival Date: 01/18/25 ED Arrival Time: 14:15 ED Physican at Bedside: 14:15 Last Known Normal/at Baseline: 2-3 hours ago Other Last Known Well Infomation: A stroke alert was called at 1357 by EMS when the patient was 20 minutes away. I called and talked with the nursing staff and learned that the onset of symptoms was reportedly around noon and involved confusion, slurred speech and possible unilateral weakness. Dr. Mcgee was assigned the patient and followed her from the ambulance bay to the CAT scan and examined her. He called me immediately and described that the patient was speaking in word salad, diffusely confused. She was not cooperative for visual field testing so he could not establish visual field abnormality and she was weak all over especially in both legs, a chronic finding. I came immediately to the emergency department and examined her. I arrived as the nursing staff were trying to get her up to the bedside commode and she was upset and spoke in full sentences stating I need to pee. She was able to tell me that she moved here in 1996. She was mildly globally confused and had a tremor consistent with asterixis. Between the time that I had talked with Dr. Mcgee earlier and my arrival in ER the patient's talked with nursing staff and informed them that he made a decision to cut back on her opioids. She has been opioid dependent for years. Stroke Alert Activated by: EMS Stroke Alert Activation Time: 13:57 Stroke MD @ Bedside Time: 13:58 NIH stroke score NIHSS: Level Of Consciousness - 1a: 0 Level Of Consciousness Questions - 1b: Both Correct Level Of Consciousness Commands - 1c: Both Correct Best Gaze - 2: Normal Visual Raymond - 3: No Visual Loss Facial Palsy - 4: Normal Motor Arm Right - 5: No Drift Motor Arm Left - 5: No Drift Motor Leg Right - 6: Effort Against [place] Motor Leg Left - 6: Effort Against [place] Limb Ataxia - 7: Absent Sensory - 8: Normal Best Language - 9: No Aphasia Dysarthia - 10: Normal Extinction And Inattention - 11: 0 Score: Total Score: 4 Stroke Alert Data/Treatment Time to CT of Head: 14:00 CT Results Time: 14:31 CT Impression: No acute findings. Mild diffuse white matter changes. Right anterior temporal lobe encephalomalacia, chronic. Stroke Risk Factors: obesity and depression tPA Contraindication: tPA Contraindication: Treatment not indcated tPA Admin Prior to Arrival: No Patient & Family Educated on: Alanament Plan Other Patient & Family Education: I discussed with Dr. Mcgee the findings on my exam and correlated with his. The patient appears to have a metabolic encephalopathy and likely due to opioid withdrawal. Thrombolytic therapy is not indicated. She has an arachnoid cyst in the right temporal lobe that was seen on MRI 09/12/2024. She has never had a seizure as far as I can tell from her old chart. She previously saw Dr. Branch for her bilateral leg weakness. Other Information: I reviewed her MRI from 09/12/2024 as well as her current CAT scan Critical Care Time Critical Care Time: 30 - 74 mins A&P Assessment and plan 1. Toxic metabolic encephalopathy: She does not have focal findings to indicate an acute stroke. Her pattern of speech is not consistent with receptive aphasia which was reasonably the initial concern. Findings are more consistent with a toxic metabolic encephalopathy and thrombolytic therapy not indicated. Discussed with Dr. Mcgee. 2. Bilateral leg weakness: PDMP PDMP Reviewed: Not Reviewed Coding Level of Care Code Acute Code for Chg Fwd Diagnoses Toxic metabolic encephalopathy G92.8 Bilateral leg weakness R29.898
--- OUTSIDE RECORDS SUMMARY | 2025-01-19 11:37 | XMS_ITS | Patient Health Record ---
Author Organization [facility] Address [address] [place], [place] [id number] Care Team Providers Care Tube Room Supervisor Name Role Phone Tadeo Prather MD Primary Care Provider Unavail able Familia MOLINA, Jimbo Unavailable [phone] Heidi Cherry Unavailable [phone] Allergies Allergen (clinical drug ingredient) Drug/Non Drug Allergy documented on EMR Reaction Allergy Type Onset Date Status Latex LATEX (uncoded) Unknown Allergy Acti ve Surgical tape (uncoded) rash and blisters Allergy Active Reason For Referral No Information Medications Medication SIG (Take, Route, Frequency, Duration) Notes Start Date End Date Status black cohosh 1 tab po BID Acti ve Potassium Gluconate 99 mg as directed Active Calcium 600+D gummies orally as directed Active sucralfate 1 g/10 mL 10 mL orally 4 time s a day (before meals and at bedtime) Active aspirin 81 mg 1 tab(s) chewed once a day for 30 day(s) Active omeprazole 20 mg 1 cap(s) orally once a day for 30 day(s) Active biotin 5000 mcg 1 tab(s) orally once a day Active pantoprazole 40 mg 1 tab(s) orally twic e a day Active DULoxetine Hydrochloride 30 mg 1 cap orally Q12H Active acetaminophen-oxycodone 325 mg-7.5 mg 1 tab orally Q4H prn pain (max 4/day; hold within 4H of planned sleep) Active Cranberry Supplement as directed Active Vitamin B12 1000 mcg 4 tabs orally once a day Active Vitamin C 1000 mg 4 tabs orally once a day Active ferrous sulfate 325 mg 1 tab(s) orally 3 times a day for 30 day(s) Active Vitamin D3 2000 intl units gummies orall y as directed Active albuterol 90 mcg/inh 2 puff(s) inhaled e very 6 hours for 30 day(s) Active ibuprofen 200 mg 5-6 orally 2-3 times a day Active amitriptyline 25 mg 2 tabs orally at bedtime Active magnesium citrate Ac tive fluticasone nasal 50 mcg/inh 2 sprays intranasally once a day Active acetaminophen-oxycodone 325 mg-7.5 mg 1 tab orally Q4H prn pain (max 4/day; hold within 4H of planned sleep) for 28 days Active furosemide 20 mg 1 tab(s) orally once a day Active Social History Tobacco Use: Social History Observation Description Date Details (start date - stop date) Former Smoker NA - NA alcohol Question Answer Notes Did you have a drink containing alcohol in the p ast year? 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 (Z79.891) Active confirmed Problem Anxiety disorder (656629062) Other specified anxiety disorders (F41.8) Active confirmed Problem Obstructive sleep apnea syndrome (33798883) Obstructive sleep apnea (adult) (pediatric) (G47.33) Active confirmed Problem Chronic pain (73523236) Other chronic pain (G89.29) Active confirmed Problem Essential hypertension (42789684) Essential (primary) hypertension (I10) 06/21/20 24 Active confirmed Problem Cervical spondylosis without myelopathy (802762486) Spondylosis without myelopathy or radiculopathy, cervical region (M47.812) Active confirmed Problem Spinal stenosis in cervical region (23594728) Spinal stenosis, cervical region (M48.02) Active confirmed Problem Spinal stenosis of lumbar region (07991462) Spinal stenosis, lumbar region (M48.06) Active confirmed Problem Cervicalgia (58732922) Cervicalgia (M54.2) Active confirmed Problem Pain in thoracic spine (343720649) Pain in thoracic spine (M54.6) Active confirmed Problem Post-laminectomy syndrome (86799088) Postlaminectomy syndrome, not elsewhere classified (M96.1) Active confirmed Problem Long-term current use of drug therapy (586387261) Other technician terminal and repeater (current) drug therapy (Z79.899) Active confirmed Problem Spinal stenosis of lumbar region (10651871) Spinal stenosis, lumbar region without neurogenic claudication (M48.061) Active confirmed Problem Myalgia (75207228) Myalgia of auxiliary muscles, head and neck (M79.12) Active confirmed Problem Pain in lumbar spine (568268187) Vertebrogenic low back pain (M54.51) Active confirmed Vital Signs Temperature 97.6 degrees Fahrenheit 06/22/2024 Oximetry 95 % 06/22/2024 Blood pressure diastolic 95 mm Hg 06/22/2024 Height 65 in 06/22/2024 Blood pressure systolic 162 mm Hg 06/22/2024 Weight 295.2 lbs 06/22/2024 BMI 49.12 kg/m2 06/22/2024 Encounters Encounter Location Date Provider Diagnosis [facility] [address] [place], [place] [id number] 03/02/2024 Heidi Patel Pain in thoracic spine M54.6 ; Other chronic pain G89.29 and Obstructive sleep apnea (adult) (pediatric) G47.33 [facility] [address] [place], [place] [id number] 04/27/2024 Jimbo Barbosa Pain in thoracic spine M54.6 ; Other chronic pain G89.29 and Obstructive sleep apnea (adult) (pediatric) G47.33 [facility] [address] [place], [place] [id number] 06/22/2024 Jimbo Barbosa Pain in thoracic spine M54.6 ; Other chronic pain G89.29 ; Obstructive sleep apnea (adult) (pediatric) G47.33 and Essential (primary) hypertension I10 [facility] [address] [place], [place] [id number] 07/17/2024 Jimbo Barbosa Assessments Encounter Date Diagnosis (ICD Code) Assessment Notes Treatment Notes Treatment Clinical Notes Section Notes 04/27/2024 Other chronic pain (ICD-10 - G89.29) Patient reports that taking her pain medication allows her to continue her post operative recovery. Patient confirms she has had some sessions with Dr. Martin Moody for CBT. Plan to continue oral opioid medication management. 04/27/2024 Pain in thoracic spine (ICD-10 - M54.6) Chronic axial thoracic spine pain. Underwent TSP fusion on 03/08/[address] [facility] [address] Fowler. Plan to obtain Operative Note. 03/02/2024 Pain in thoracic spine (ICD-10 - M54.6) Chronic axial thoracic spine pain. Patient was scheduled for back surgery with Dr. Fowler on 02/09/24, rescheduled for 02/29/24, and now postponed indefinitely. 06/22/2024 Other chronic pain (ICD-10 - G89.29) Patient reports that taking her pain medication allows her to prepare for the holiday season. Plan to continue oral opioid medication management. 06/22/2024 Pain in thoracic spine (ICD-10 - M54.6) Chronic axial thoracic spine pain. Underwent TSP fusion on 03/08/[address] [facility] [address] Fowler. Plan to obtain Operative Note; will request again today. 06/22/2024 Obstructive sleep apnea (adult) (pediatric) (ICD-10 - G47.33) Patient reports consistent nightly use of her CPAP device. Plan to continue to restrict opioid use in relation to sleep for safety concerns. 03/02/2024 Obstructive sleep apnea (adult) (pediatric) (ICD-10 - G47.33) Patient reports consistent nightly use of her CPAP device. Plan to continue to restrict opioid use in relation to sleep for safety concerns. 03/02/2024 Other chronic pain (ICD-10 - G89.29) Patient reports that taking her pain medication allows her to care for her animals. Patient confirms she has had some sessions with Dr. Martin Moody for CBT. Plan to continue oral opioid medication management. 04/27/2024 Obstructive sleep apnea (adult) (pediatric) (ICD-10 - G47.33) Patient reports consistent nightly use of her CPAP device. Plan to continue to restrict opioid use in relation to sleep for safety concerns. 06/22/2024 Essential (primary) hypertension (ICD-10 - I10) Education sheet given at today's visit; patient to address with her PCP. 04/27/2024 Other Above prescriptions printed for patient to hand carry to their pharmacy; eRx system down. The service was provided by WILLOW Griffiths, as part of the ongoing care plan established by Jimbo Barbosa MD, who was present in the office for direct supervision during the encounter. 06/22/2024 Other Patient to notify this office regarding her new pharmacy selection as [facility] will be closing in 07/2024. The service was provided by WILLOW Griffiths, as part of the ongoing care plan established by Jimbo Barbosa MD, who was present in the office for direct supervision during the encounter. 08/24/2024 Other Patient to notify this office regarding her new pharmacy selection as [facility] will be closing in 07/2024. The service was provided by WILLOW Griffiths, as part of the ongoing care plan established by Jimbo Barbosa MD, who was present in the office for direct supervision during the encounter. 03/02/2024 Other Plan Of Treatment No Information Insurance Providers Payer Name Payer Address Payer Phone Subscriber Number Group Number Insured Name Patient Relationship to Insured Coverage Start Date Coverage End Date [employer] Medicare Part B Claims Department [address] [address] [place] [address] [id number] Kathy Patel Self - patient is the insured [facility] [employer] [address] [place] [address] [id number] Kathy Patel Self - patient is the insured Medical (General) History Medical History History ICD Code Chronic pain Low back pain Lumbar spondylosis, spinal s tenosis and post-laminectomy syndrome, history of SCS system placement and subsequent spinal fusion Sciatica Sacroiliitis Mid back pain Thoracic spondylosis Thoracic T10 compression fra cture, retropulsion contacting thoracic spinal cord Neck pain Cervical spondylosis and spinal stenosis , cervical fusion surgery Fibromyalgia Osteoarthritis Neuropathy Asthma Mild concentric left ventricular hypertr ophy Seasonal allergies Depression Fatigue Somnolence Abdominal pain Edema Anxiety disorder Bleeding ulcers Anemia Obstructive sleep apnea Obesity, morbid Surgical History Surgery Date(Month/Year) Carpal tunnel release, right x 2, 1986, 1987 Carpal tunnel release, left, 1990 Deviated septum repair, 1992 Bilateral knee surgery, patellar, 1996, 1997 Right tendon reattachment, elbow, 1993 Appendectomy, 1997 Hysterectomy (abdominal), 1998 Bunionectomy, right, 1998 Lumbar fusion L3-S1, 2001 Lap-band surgery, 2004 Trigger finger release, right middle, 20 08 Suspensionplasty, thumbs, 2009 Hardware removal, 2011 L2-L3 fusion / fixation; revision of L3- S1 fusion, 2011 Left SI joint fusion, 04/15/15 Right SI joint fusion, 04/01/16 SCS system implantation, per formed at [facility] in [place], [place], 12/31/16 Left knee replacement, performed in [place], [place] by Dr. Mccoy, 05/04/17 Removal of lap band, performed at [facility] by Dr. Diallo, 03/01/18 Right knee surgery, performed at [facility] by Dr. Mccoy, 11/01/18 I47-[id number] fusion / fixation with removal of spinal stimulator (SCS system), performed at [facility] by Dr. Fowler, 11/08/20 Kyphoplasty at T8-T9, performed at [facility] b y Dr. Fowler, 04/16/21 Cervical fusion, performed at [facility] by Dr. Fowler, 09/28/22 Upper GI, performed at [facility] by Dr. Garcia, 08/26/23 Fusion, thoracic, performed at [facility] by Dr Gerardo Fowler, 03/08/24 Hospitalization History Reason Date(Month/Year) Stroke like symptoms, treated at [facility] ([facility]), 07/15/21
--- OUTSIDE RECORDS SUMMARY | 2025-01-19 11:37 | XMS_ITS | Patient Health Record ---
Author Organization [facility] Address [address] [place] [address] Support Name Relationship Address Phone Kathy Patel Guarantor Unknown [phone] Reason For Referral No Information Medications Medication SIG (Take, Route, Frequency, Duration) Notes Start Date End Date Status Cyclobenzaprine hydrochloride 10 MG Oral Tablet Cyclobenzaprine hydrochloride 10 MG Oral Tablet 04/27/2012 0 Active gabapentin 600 MG Oral Tablet gabapentin 600 MG Oral Tablet 10/08/2016 0 Active Fluticasone propionate 0.05 MG/ACTUAT Metered Dose Nasal [place] Fluticasone propionate 0.05 MG/ACTUAT Metered Dose Nasal [place] 10/08/2016 0 Active Acetaminophen 325 MG / Hydrocodone Bitartrate 10 MG Oral Tablet [[place] 10/325] Acetaminophen 325 MG / Hydrocodone Bitartrate 10 MG Oral Tablet [[place] 10/325] 01/17/2019 0 Active PriLOSEC Prilosec 10/08/2016 0 Active Cranberry preparation Cranberry preparation 12/2016 0 Active duloxetine 30 MG Enteric Coated Capsule duloxetine 30 MG Enteric Coated Capsule 11/15/2017 0 Active Meclizine Hydrochloride 25 MG Oral Tablet Meclizine Hydrochloride 25 MG Oral Tablet 04/27/2012 0 Active duloxetine 60 MG Enteric Coated Capsule duloxetine 60 MG Enteric Coated Capsule 11/15/2017 0 Active Mucinex Mucinex 10/08/2016 0 Active Alprazolam 0.5 MG Oral Tablet Alprazolam 0.5 MG Oral Tablet 10/08/2016 0 Active Furosemide 20 MG Oral Tablet Furosemide 20 MG Oral Tablet 01/17/2019 01/01/190 0 Active Immunizations Vaccine Route Administration Date Status Comme nts Influenza (whole), CPT 59543 Inactive Unknown 05/04/2017 Administered Influenza (whole), CPT 58862 Inactive Unknown 01/17/2019 Administered Social History Social History Additional Details Category Social Info Options Details zzMigrated Social History Migrated Social History Smoking Status:Ex-smoker (finding) Plan Of Treatment No Information
--- OUTSIDE RECORDS SUMMARY | 2025-01-19 11:37 | XMS_ITS | Encounter Summary ---
Author Organization [facility] Address [address] 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
--- OUTSIDE RECORDS SUMMARY | 2025-01-19 11:37 | XMS_ITS | Encounter Summary ---
Author Organization [facility] Address 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
--- OUTSIDE RECORDS SUMMARY | 2025-01-19 11:37 | XMS_ITS | Encounter Summary ---
Author Organization [facility] Address [address] 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
--- OUTSIDE RECORDS SUMMARY | 2025-01-19 11:37 | XMS_ITS | Patient Health Record ---
Author Organization [facility] Address [address] [place] [address] Care Team Providers Care Otm Consultant Name Role Phone Noble Moreno Primary Care Provider UnavailFRED Mccrary Unavailable [phone] DMITRIY ESPITIA Unavailable [phone] CRIS MICHELLE Unavailable [phone] Allergies No Known Allergies Reason For Referral No Information Medications Medication SIG (Take, Route, Frequency, Duration) Notes Start Date End Date Status Narcan 4 MG/0.1ML as directed Nasally Active predniSONE 20 MG 1 tablet Orally Once a day Active Biotin Active Ferrous Sulfate 325 (65 Fe) MG 1 tablet Orally Three times a Week Active Dulcolax 10 MG 1 suppository as nee ded Rectal Once a day Active MiraLax 17 GM/SCOOP 1 scoop mixed with 8 ounces of fluid Orally Once a day Active Probiotics + Bariatric Multi - as directed Orally Active guaiFENesin ER 1200 MG 1 tablet as neede d Orally every 12 hrs Active Simethicone 180 MG 1 capsule after meal s and at bedtime as needed Orally Twice a day Active Amitriptyline HCl 150 MG 1 tablet at bed time Orally Once a day Active Milk of Magnesia 400 MG/5ML 5 mL at leas t 4 hours between doses as needed Orally Four times a day Active Imodium A-D 2 MG 1 tablet as needed Orally Four times a day Active Cetirizine HCl 10 MG 1 tablet Orally Onc e a day Active Lyrica 75 MG 1 capsule Orally Onc e a day Active amLODIPine Besylate 5 MG 1 tablet Orally Once a day Active Robitussin 12 Hour Cough Active DULoxetine HCl 30 MG 1 capsule Orally On ce a day Active Tylenol 325 MG 1 tablet as needed Orally every 6 hrs Active Cyclobenzaprine HCl 10 MG 1 tablet at be dtime as needed Orally Once a day Active HYDROcodone-Acetaminophen 10-325 MG 1 tablet as needed Orally every 6 hrs Active Omeprazole 20 MG 1 capsule 1/2 to 1 h our before morning meal Orally Once a day Active oxyCODONE-Acetaminophen 10-325 MG 1 tablet as needed Orally every 6 hrs Active Vital Signs Heart Rate 88 /min 08/21/2024 Height-cm 167.64 cm 08/21/2024 Blood pressure diastolic 71 mm Hg 08/21/2024 Weight-kg 150.14 kg 08/21/2024 Height 66 in 08/21/2024 Blood pressure systolic 120 mm Hg 08/21/2024 Weight 331 lbs 08/21/2024 BMI 53.42 kg/m2 08/21/2024 Encounters Encounter Location Date Provider Diagnosis [facility] [address] [place] [address] 08/21/2024 DMITRIY ESPITIA Urinary retention R33.9 Assessments Encounter Date Diagnosis (ICD Code) Assessment Notes Treatment Notes Treatment Clinical Notes Section Notes 08/21/2024 Urinary retention (ICD-10 - R33.9) Pt has urinary retention with significant spinal disease with mulitple surgeries. She has failed multiple voiding trials since June 2024. She is still not weight bearing or ambulatory with significant LE weakness and parasthesia. Concerned for neurogenic bladder. She cannot CIC due to body habitus. Recommend scheduling UDS to confirm diagnosis and likely transition to suprapubic tube. She has been given orders to continue berry and change q4 weeks. Plan Of Treatment No Information Insurance Providers Payer Name Payer Address Payer Phone Subscriber Number Group Number Insured Name Patient Relationship to Insured Coverage Start Date Coverage End Date [place] [address] [place]ER[place] ORELLANA [id number] Kathy Patel Self - patient is the insured [facility] Medicare Supplement [address] [place], [place] [id number] Kathy Patel Self - patient is the insured Medical (General) History Medical History History ICD Code arthritis - osteoarthritis degenerative disc disease Surgical History Surgery Date(Month/Year) back surgery Hospitalization History Reason Date(Month/Year) see sx
--- OUTSIDE RECORDS SUMMARY | 2025-01-19 11:37 | XMS_ITS | Clinical Summary ---
Author Organization [facility] Address [address] Fernandez: [place] [address] Care Team Providers Care Mid Level Developer Name Role Phone Tadeo Prather MD Primary Care Provider [phone] Allergies Active Allergy Reactions Criticality Noted Date [...] External Device Data STL ABSTRACTION Provider, Abstract 12/28/2024 8:10 AM CDT Hospital Encounter [facility] [place] [address] [place] [phone] Ambulance, [facility] Arrived 12/26/2024 External Device Data STL ABSTRACTION Provider, Abstract 12/20/2024 1:00 AM CDT - 12/20/2024 11:59 PM CDT Hospital Encounter [facility] [address] [address] [place] [address] Ambulance, [facility] Discharge Disposition: Home or Self Care 12/15/2024 9:40 AM CDT - 12/15/2024 11:59 PM CDT Hospital Encounter [facility] [address] [facility] [address] [place] [address] Ambulance, [facility] Discharge Disposition: Home or Self Care 12/11/2024 - 12/11/2024 11:59 PM CDT Hospital Encounter [facility] [address] [facility] [address] [place] [address] Ambulance, [facility] Discharge Disposition: Home or Self Care 12/05/2024 Orders Only [facility] Admitting [address] [facility] [address] [place] [address] Saul Fowler DO Arthrodesis status (Primary Dx) 12/04/2024 8:45 AM CDT - 12/04/2024 11:59 PM CDT Hospital Encounter [facility] [address] [place] [address] Ambulance, [facility] Discharge Disposition: [facility] 11/23/2024 External Device Data STL ABSTRACTION [...] on file 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 Gender Identity Not on file Sexual Orientation Not on file Last Filed Vital Signs Vital Sign Reading Time Taken Comments Blood Pressure 130/70 08/26/2016 12:26 PM CAMPAIGN ADVISOR Pulse 70 08/26/2016 12:26 PM CAMPAIGN ADVISOR Temperature 36.7 C (98 F) 08/26/2016 11:36 AM CAMPAIGN ADVISOR Respiratory Rate 16 08/26/2016 12:26 PM CAMPAIGN ADVISOR Oxygen Saturation - - Inhaled Oxygen Concentration - - Weight 137.9 kg (304 lb) 08/26/2016 11:36 AM CAMPAIGN ADVISOR Height 167.6 cm (5' 6 ) 08/26/2016 11:36 AM CAMPAIGN ADVISOR Body Mass Index 49.07 08/26/2016 11:36 AM CAMPAIGN ADVISOR Plan of Treatment Health Maintenance Due Date Last Done Comments Pre-Diabetes and Diabetes Screening 1957 DTAP/TDAP/TD VACCINES (1 - Tdap) 1976 Traditional Medicare (ACO) A nnual Wellness Visit 1976 BREAST CANCER SCREENING 1997 COLORECTAL SCREENING [...] 09/23/2023 Insurance MEDICARE PART A AND B [facility] [id number] Care Teams Mid Level Developer Relationship Specialty Start Date End Date Tadeo Prather MD [address] [place] [phone] PCP - General Family Practice 04/03/14
--- NOTE | 2025-01-19 12:32 | PM.DCS ---
"Discharge Providers Date of Admission: 01/18/25 20:09 Date of Discharge: January 19, 2025 Attending Provider at Admission: Brad Potts MD Attending Provider at Discharge: Brad Potts MD Consults: None Primary Care Provider: Tadeo Prather MD Diagnoses at Discharge Discharge Diagnosis 1. Toxic metabolic encephalopathy: Details from hospital stay: Suspected medication error. Much improved 2. Bilateral leg weakness: Details from hospital stay: Known spinal stenosis 3. Hypertension: Details from hospital stay: Follow-up with Dr. Prather in the office and consider treatment if still elevated Reason for Visit Reason for Visit: stroke alert Brief History: Kathy Patel is a 69 year old female brought in by her Nehemias. I interviewed the patient and she had very tangential speech could not stay on track. She states that in home care comes weekly people noted she was talking weird this afternoon, she knows it is [facility] in the EMD tells me she has 7-8/10 pain in the lower back had sciatica fusion she says from S1-2 and then she could not tell me. She states that she worked in [employer] and that her family had a [employer] | [employer] [facility] for 25 years. She denies alcohol or drugs but says she quit smoking years ago after 6 to 7 cigarettes a day. It was clear that the patient was having flight of ideas. Initially I thought she was confabulating but I think all the things she told me are true though her history giving is poor. Patient's Nehemias returned and states that patient was fine yesterday 8 AM they went and saw Saul Hallman. Patient had been walking around in the house fine up to 20 feet. He took her to the clinic and they used a wheelchair because of the distance of travel on him sidewalks and in the building. Once they got home patient walked into the house and then sat in a recliner chair at 1130. When he came back an hour later she had fallen on the floor and was speaking in gibberish. He states she could have taken meds because she keeps her box of meds right next to her. He states he does not pay that much attention to the meds and should but that the patient has had overdose in the past on pain meds and had similar gibberish and flight of ideas Patient came in as a code stroke CT of the head was negative and she was evaluated by Dr. Palacios Hospital Course Hospital Course Given the high blood pressure and confusion with flight of ideas I felt that duloxetine overdose was most likely but the patient did not have further [id number] blood pressure or temperature to suggest a true serotonin syndrome. She tells me that she has taken too much amitriptyline in the past and that has caused similar confusion. Patient states that because she was down to the last few pills in her bottle she was just taking them out of the bottle instead of using her pill organizer. She thinks that she double took her medications yesterday and is agreeable to using a pill organizer at home. Patient was treated with clonidine and hydralazine here due to the findings of hypertension and mild agitation in the emergency department. This has resolved. Patient is completely alert and oriented today and has walked with therapy fine. She is discharged to resume her home medications with the exception of maybe taking only 50 mg of amitriptyline at night instead of 100 mg Physical Exam Narrative: General Well-developed well-nourished morbidly obese female in no acute cardiopulmonary stress CV regular rate and rhythm Lungs clear to auscultation bilaterally Abdomen positive bowel sounds Calves trace ankle edema Neuro she moves all extremities symmetrically she is alert and oriented times person place and date Discharge Data Studies Completed and Pending Completed Studies During Hospitalization Category Date Time Status CT head thrombolytic [id number] Stat Cat Scan 01/18/25 14:00 Completed XR chest 1V portable [id number] Stat Exams 01/18/25 14:01 Completed Pending at discharge Category Date Time Status Blood Culture Stat Lab 01/18/25 21:33 Results Vitamin B1 (Thiamine),Blood Routine Lab 01/18/25 21:33 Received Radiology Impressions Head CT 01/18/25 14:00 IMPRESSION: 1. No evidence of intracranial hemorrhage or mass effect. 2. No acute intracranial findings. Notified Trinh Mcgee MD at 01/18/2025 2:24 PM. Chest X-Ray 01/18/25 14:01 IMPRESSION: No acute chest abnormality. Extensive posterior spinal fusion. Laboratory Results WBC 11.81 10^3/uL (3.29-11.43) H 01/19/25 04:00 RBC 4.78 10^6/uL (3.85-5.65) 01/19/25 04:00 Hgb 11.50 g/dL (11.27-16.99) 01/19/25 04:00 Hct 39.1 % (36-47) 01/19/25 04:00 MCV 81.8 fl (85-98) L 01/19/25 04:00 MCH 24.1 pg (27-33) L 01/19/25 04:00 MCHC 29.4 g/dL (30-55) L 01/19/25 04:00 RDW 17.1 % (12.1-15.1) H 01/19/25 04:00 Plt Count 380 10^3/cmm (157-399) 01/19/25 04:00 MPV 8.4 fL (7.4-10.4) 01/19/25 04:00 Neut % (Auto) 70.5 % 01/19/25 04:00 Lymph % (Auto) 20.2 % 01/19/25 04:00 O'Brien % (Auto) 6.2 % 01/19/25 04:00 Eos % (Auto) 1.9 % 01/19/25 04:00 Baso % (Auto) 0.8 % 01/19/25 04:00 Neut # (Auto) 8.31 10^3/uL (1.8-7.7) H 01/19/25 04:00 Lymph # (Auto) 2.4 10^3/uL (0.8-4.8) 01/19/25 04:00 O'Brien # (Auto) 0.7 10^3/uL (0.2-0.9) 01/19/25 04:00 Eos # (Auto) 0.2 10^3/uL (0.0-0.8) 01/19/25 04:00 Baso # (Auto) 0.1 10^3/uL (0.0-0.1) 01/19/25 04:00 Nucleated RBC % (auto) 0 % 01/19/25 04:00 Nucleated RBCs # 0.0 /100WBC 01/19/25 04:00 PT 13.10 SECONDS (12.1-14.9) 01/18/25 14:35 INR 0.93 (0.8-1.2) 01/18/25 14:35 APTT 31.4 SECONDS (23.9-36.7) 01/18/25 14:35 Specimen Type Arterial 01/18/25 17:49 Sample Site Radial, right 01/18/25 17:49 ABG pH 7.42 (7.35-7.45) 01/18/25 17:49 ABG pCO2 45.7 mmHg (35-45) H 01/18/25 17:49 ABG pO2 63.8 mmHg (80.0-100.0) L 01/18/25 17:49 ABG PO2/FiO2 Ratio 303 01/18/25 17:49 ABG HCO3 29.8 mmol/L (22-26) H 01/18/25 17:49 ABG O2 Saturation 93.1 01/18/25 17:49 ABG Base Excess 4.6 mmol/L (-2.0-2.0) H 01/18/25 17:49 Benton Test Pos 01/18/25 17:49 A-a O2 Gradient 3.8 mmHg (5-10) L 01/18/25 17:49 Hematocrit 40.2 % (37-47) 01/18/25 17:49 Hgb O2 Saturation 91.0 % (95-100) L 01/18/25 17:49 Carboxyhemoglobin 1.2 %THgb (0.4-20.1) 01/18/25 17:49 Methemoglobin 1.0 % (0.4-1.5) 01/18/25 17:49 Total Hemoglobin 13.1 g/dL (12-16) 01/18/25 17:49 Sodium 144.0 mmol/L (131-143) H 01/18/25 17:49 Potassium 4.1 mmol/L (3.5-5.0) 01/18/25 17:49 Glucose 116.0 mg/dL (70-115) H 01/18/25 17:49 Ionized Calcium 1.3 mmol/L (1.1-1.4) 01/18/25 17:49 O2 Delivery Device Room air 01/18/25 17:49 FiO2 21.0 % 01/18/25 17:49 Linen Room Worker ID Walci 01/18/25 17:49 Sodium 142 mmol/L (136-145) 01/19/25 04:00 Potassium 4.6 mmol/L (3.5-5.1) 01/19/25 04:00 Chloride 102 mmol/L (98-107) 01/19/25 04:00 Carbon Dioxide 30 mmol/L (22-29) H 01/19/25 04:00 Anion Gap 14.6 (5-19) 01/19/25 04:00 BUN 10 mg/dL (8-23) 01/19/25 04:00 Creatinine 0.6 mg/dL (0.5-0.9) 01/19/25 04:00 GFR Calculation 99.7 mL/min (90-130) 01/19/25 04:00 Glucose 106 mg/dL (65-115) 01/19/25 04:00 POC Glucose 112 mg/dL (70-110) H 01/18/25 14:22 Calculated Osmolality 293 mOsm/kg (285-295) 01/19/25 04:00 Lactic Acid 1.1 mmol/L (0.5-2.2) 01/18/25 14:35 Calcium 9.3 mg/dL (8.5-10.5) 01/19/25 04:00 Iron 27 ug/dL (37-145) L 01/18/25 14:25 TIBC 273 mcg/dl 01/18/25 14:25 % Saturation 9.8 % (20-50) L 01/18/25 14:25 Unsat Iron Binding 246 ug/dL (112-347) 01/18/25 14:25 Total Bilirubin 0.2 mg/dL (0.15-1.2) 01/19/25 04:00 AST 13 U/L (0-32) 01/19/25 04:00 ALT 9 U/L (0-33) 01/19/25 04:00 Alkaline Phosphatase 135 U/L (35-105) H 01/19/25 04:00 Total Protein 7.1 g/dL (6.6-8.7) 01/19/25 04:00 Albumin 3.7 g/dL (3.5-5.2) 01/19/25 04:00 Globulin 3.4 g/dL (1.3-4.6) 01/19/25 04:00 Folate > 20.0 ng/mL (4.8-37.3) 01/18/25 21:33 TSH 2.72 uIU/mL (0.27-4.20) 01/18/25 14:25 Urine Color Yellow (Yellow) 01/18/25 15:44 Urine Appearance Clear (CLEAR) 01/18/25 15:44 Urine pH 8.0 (5-7) A 01/18/25 15:44 Ur Specific [place] 1.008 (1.005-1.030) 01/18/25 15:44 Urine Protein Negative (Negative) 01/18/25 15:44 Urine Glucose (UA) Negative (Normal) 01/18/25 15:44 Urine Ketones Negative (Negative) 01/18/25 15:44 Urine Blood Negative (Negative) 01/18/25 15:44 Urine Nitrate Negative (Negative) 01/18/25 15:44 Urine Bilirubin Negative (Negative) 01/18/25 15:44 Urine Urobilinogen 0.2 mg/dL (Negative) 01/18/25 15:44 Ur Leukocyte Esterase Trace (Negative) A 01/18/25 15:44 Urine RBC 0-2 /hpf (0-2) 01/18/25 15:44 Urine WBC 0-5 /hpf (0-5) 01/18/25 15:44 Ur Squamous Epith Cells 0-5 /hpf (0-5) 01/18/25 15:44 Amorphous Sediment Not Reportable 01/18/25 15:44 Urine Bacteria None seen /hpf (NONE) 01/18/25 15:44 Hyaline Casts 0-4 /lpf H 01/18/25 15:44 Salicylates 0.5 mg/dL (3-10) L 01/18/25 14:35 Urine Opiates Screen Positive ng/mL (Negative) H 01/18/25 15:44 Acetaminophen < 5.0 ug/mL (10-30) L 01/18/25 14:35 Ur Barbiturates Screen Negative ng/mL (Negative) 01/18/25 15:44 Ur Phencyclidine Scrn Negative ng/mL (Negative) 01/18/25 15:44 Ur Amphetamines Screen Negative ng/mL (Negative) 01/18/25 15:44 U Benzodiazepines Scrn Negative ng/mL (Negative) 01/18/25 15:44 Urine Cocaine Screen Negative ng/mL (Negative) 01/18/25 15:44 U Marijuana (THC) Screen Negative ng/mL (Negative) 01/18/25 15:44 Ethyl Alcohol < 10 mg/dL (0-10) 01/18/25 14:35 Vitals Last Vital Signs Temp 98.2 F 01/19/25 08:18 Pulse 81 01/19/25 08:18 Resp 19 H 01/19/25 08:18 BP 151/94 01/19/25 08:52 Pulse Ox 96 01/19/25 08:18 O2 Del Method Room Air 01/18/25 20:24 Discharge Plan Discharge Patient Disposition: Home Condition: Stable Prescriptions: New acetaminophen 325 mg Tablet 650 mg PO Q6H PRN (Reason: Mild/Mod Pain Or Temp >/= 101) Qty: 30 0RF Continued (DME) TLSO Brace See Rx Instructions .Route .MEDSUPPLY Qty: 1 0RF Rx Instructions: As directed polyethylene glycol 3350 [ClearLax] 17 gram/dose powder 17 g PO DAILY PRN (Reason: Constipation) duloxetine 30 mg capsule,delayed release(DR/EC) 30 mg PO BID (DME) Bone Growth Stimulator E0748 See Rx Instructions .Route .MEDSUPPLY Qty: 1 0RF Rx Instructions: As directed (DME) c-pap supplies See Rx Instructions .Route .MEDSUPPLY Qty: 1 11RF Rx Instructions: As directed amoxicillin 875 mg tablet 875 mg PO BID Qty: 20 0RF cyclobenzaprine 10 mg tablet 10 mg PO Q8H PRN (Reason: muscle spasm) Qty: 20 0RF oxycodone-acetaminophen 10-325 mg tablet 1 tab PO Q4H MDD 6 PRN (Reason: pain) 7 Days Qty: 42 0RF cetirizine [Zyrtec] 10 mg Tablet 10 mg PO DAILY@21 PRN (Reason: allergies) Hair, Skin, Nails with Biotin 7.5-7.5-1,250 mg-unit-mcg Tablet,Chewable 4 tab PO DAILY omeprazole 20 mg Capsule,Delayed Release(Dr/Ec) 20 mg PO DAILY pregabalin [Lyrica] 75 mg capsule 75 mg PO BID Qty: 30 0RF cholecalciferol (vitamin D3) [Vitamin D3] 50 mcg (2,000 unit) Tablet 50 mcg PO DAILY amitriptyline 100 mg tablet 100 mg PO BEDTIME ferrous sulfate [FeroSul] 325 mg (65 mg iron) tablet 325 mg PO DAILY naloxone [Narcan] 4 mg/actuation spray,non-aerosol 4 mg intranasal Q2M PRN (Reason: opioid overdose) Qty: 2 0RF Rx Instructions: spray 1 dose into ONE nostril; alternate nostrils w each dose until help arrives Discharge Order = DC NOW: Discharge Order (Routine); Ordered 01/19/25 Ordered By: Brad Potts Referrals: Tadeo Prather MD [Primary Care Provider, [facility]] - 1 week Discharge Diet: Diabetic Discharge Activity: Increase activity as tolerated Patient Instructions: Opioid Safety, Patient Portal & Marcia Instructions Activity Restrictions/Additional Instructions: I recommend to you a 1600-calorie low carbohydrate high-protein diet for weight loss. Avoid sugar high fructose corn syrup and other high-calorie foods to try and reach her goal of less than 1600 robi daily for weight loss 2 to 3 pounds a week. This should help your back pain over time Use a pill bottle for your meds and take only as prescribed. Discussed with your PCP the amitriptyline dose which is on the high side especially in the setting of taking also duloxetine and Lyrica. Consider taking only 50 mg of amitriptyline if you can get by with that. Discharge Attestations Time Spent in Discharge Care*: greater than 30 min Time Spent in Smoking Cessation: Patient is a non-smoker Status at Discharge: Cognitive status at discharge: cognitively intact, Behavioral status at discharge: cooperative, Quality Metrics Clinical Quality Measures [ No reported AMI, CVA or VTE this stay] Coding Level of Care Code Acute Code for Chg Fwd Diagnoses Toxic metabolic encephalopathy G92.8 Bilateral leg weakness R29.898 Hypertension I10 Time Spent (min) 35"
[2025-01-19 13:11] VITALS: BP 145/59; PULSE 83; RESP 18; TEMP 36.6; O2SAT 95
--- NOTE | 2025-01-19 14:40 | PC.NURSE ---
Discharged this patient for Irina RN. Patient is A&Ox3 Respirations even and non-labored on room air. Patient verbalized understanding of discharge instructions including the need to use a pill box. Patient wheel chaired to private car.
[2025-01-19 15:25] VITALS: BP 137/68; PULSE 83; RESP 16; TEMP 36.7; O2SAT 95
== END 2025-01-19 14:05 | disposition home or self-care (01) ==
LOC: ER 17:52 → MEDSURG 19:12
PROVIDERS: Admitting Provider Internal Medicine; Emergency Provider Emergency Medicine; PCP Family Medicine; Visit Provider Internal Medicine
DX: G92.8 Other toxic encephalopathy (principal); R29.898 Other symptoms and signs involving the musculoskeletal system; I10 Essential (primary) hypertension; K21.9 Gastro-esophageal reflux disease without esophagitis; G47.33 Obstructive sleep apnea (adult) (pediatric); E66.01 Morbid (severe) obesity due to excess calories; Z68.42 Body mass index [BMI] 45.0-49.9, adult; Z82.49 Family history of ischemic heart disease and other diseases of the circulatory system; M54.9 Dorsalgia, unspecified; G89.29 Other chronic pain
CPT/HCPCS: 36415; 36416; 36600; 70450; 71045; 80051; 80053; 80306; 80307; 81001; 82330; 82746; 82805; 82962; 83540; 83550; 83605; 84425; 84443; 85025; 85610; 85730; 87040; 93005; 96372; 97116; 97161; 97165; 99285; G0378; J0360; J1650; J2270; J7120; J9999

== ENCOUNTER → 2025-02-13 11:38 | Outpatient (BNVA) | payer MEDICARE, SELFPAY | PROVIDERS: PCP Family Medicine; Referring Provider Orthopaedic Surgery; Visit Provider Psychiatry & Neurology Neurology | DX: R20.0 Anesthesia of skin (principal); R20.2 Paresthesia of skin; M79.631 Pain in right forearm; M79.642 Pain in left hand | CPT/HCPCS: 95912 ==

== ENCOUNTER 2025-02-22 13:48 | Outpatient (CLI) | payer MEDICARE, SELFPAY ==
--- NOTE | 2025-02-22 13:56 | XRR_ITS ---
PROCEDURE INFORMATION: Exam: XR Left Hip Exam date and time: 02/22/2025 2:15 PM Age: 69 years old Clinical indication: Injury or trauma; Fall; Blunt trauma (contusions or hematomas); Left; Hip; Prior surgery; Surgery date: 6+ months; Surgery type: Si joint and L spine fusion; Additional info: Left hip pain TECHNIQUE: Imaging protocol: Radiologic exam of the left hip. Views: 2 or 3 views hip with pelvis when performed. COMPARISON: CR XR lumbar spine 2-3V* [id number] 12/26/2024 4:42 PM FINDINGS: Bones/joints: Stable appearance of bilateral SI joint fusion. Lumbar spine fusion hardware is partially included. No acute fracture or dislocation. The left hip joint is well-maintained. Soft tissues: Unremarkable. XR/XR hip LT 2-3V wo/w pel* [id number] IMPRESSION: No acute findings.
== END 2025-02-22 13:49 | disposition home or self-care (01) ==
LOC: RAD 13:52
PROVIDERS: PCP Family Medicine; Visit Provider Family Medicine
DX: M25.552 Pain in left hip (principal)
CPT/HCPCS: 73502

== ENCOUNTER 2025-03-13 09:51 | Outpatient (CLI) | payer MEDICARE, MEDICAID, SELFPAY ==
--- NOTE | 2025-03-13 10:03 | FL_ITS ---
WS: [id number] Barium swallow and esophagram, 03/13/2025 Clinical Data: DYSPHAGIA Comparison: Upper GI series, 03/02/2018 Fluoroscopy time: 1min [id number] # of spot films: 8 Findings: The patient swallowed the thick and thin barium, and it flowed through the hypopharynx without hesitation. No stricture, mass, polyp or erosion was seen. No aspiration or penetration occurred. There was an anterior cervical disc fusion. The barium entered the esophagus and there was normal motility throughout. No stricture, polyp, mass, erosion or ulcer was noted. No reflux was present. There was a small sliding hiatal hernia. The barium passed normally into the stomach. There was a extensive thoracolumbar posterior fusion. FL/FL barium swallow [id number] Impression: Small sliding hiatal hernia.
== END 2025-03-13 09:52 | disposition home or self-care (01) ==
LOC: RAD 09:57
PROVIDERS: PCP Family Medicine; Visit Provider Nurse Practitioner Family
DX: R13.10 Dysphagia, unspecified (principal); K44.9 Diaphragmatic hernia without obstruction or gangrene
CPT/HCPCS: 74220

== ENCOUNTER 2025-03-20 08:21 | Outpatient (CLI) | payer MEDICARE, MEDICAID, SELFPAY ==
--- NOTE | 2025-03-20 13:23 | FL_ITS ---
FL barium swallow modifd [id number] REASON FOR EXAM: Other dysphagia FLUOROSCOPY TIME: 2min [id number] # OF SPOT FILMS: None TECHNIQUE: Examination was supervised by the speech therapy department. Patient was examined in the sitting upright lateral projection. Swallowing of barium of varying consistencies was monitored fluoroscopically and video recorded. FINDINGS: Minimal penetration of liquid contrast into the laryngeal vestibule without aspiration. Barium tablet passed unimpeded from the oropharynx to the stomach. IMPRESSION: A detailed report of the swallowing will be rendered by the speech therapy department. Mild laryngeal vestibule penetration as above. No aspiration or stricture. MTDD
== END 2025-03-20 08:22 | disposition home or self-care (01) ==
LOC: RAD 08:21
PROVIDERS: PCP Family Medicine; Visit Provider Nurse Practitioner Family
DX: R13.10 Dysphagia, unspecified (principal)
CPT/HCPCS: 74230; 92611

== ENCOUNTER 2025-04-04 06:30 | Outpatient (RCR) | payer MEDICARE, MEDICAID, SELFPAY | END 2025-05-04 23:59 | disposition home or self-care (01) | LOC: SPT 06:30 | PROVIDERS: Visit Provider Nurse Practitioner Family | DX: H81.11 Benign paroxysmal vertigo, right ear (principal) | CPT/HCPCS: 95992; 97161 ==

== ENCOUNTER → 2025-04-19 12:59 | Outpatient (BNVA) | payer MEDICARE, MEDICAID, SELFPAY | PROVIDERS: Visit Provider Orthopaedic Surgery | DX: Z47.89 Encounter for other orthopedic aftercare (principal); Z98.1 Arthrodesis status; M47.12 Other spondylosis with myelopathy, cervical region; G89.29 Other chronic pain | CPT/HCPCS: 72040; 72072; 72100; 99213 ==

== ENCOUNTER 2025-05-09 13:00 | Outpatient (RCR) | payer MEDICARE, MEDICAID, SELFPAY | END 2025-06-03 23:59 | disposition home or self-care (01) | LOC: SPT 13:00 | PROVIDERS: Visit Provider Orthopaedic Surgery | DX: M43.22 Fusion of spine, cervical region (principal); M54.2 Cervicalgia; G89.29 Other chronic pain; R10.10 Upper abdominal pain, unspecified; R03.0 Elevated blood-pressure reading, without diagnosis of hypertension | CPT/HCPCS: 97110; 97140; 97161; 97530; 99214 ==

== ENCOUNTER → 2025-05-14 14:22 | Outpatient (BNVA) | payer MEDICARE, MEDICAID, SELFPAY | PROVIDERS: Referring Provider Orthopaedic Surgery; Visit Provider Anesthesiology Pain Medicine | DX: M54.2 Cervicalgia (principal) | CPT/HCPCS: 99204 ==

== ENCOUNTER → 2025-05-22 10:41 | Outpatient (BNVA) | payer MEDICARE, MEDICAID, SELFPAY | PROVIDERS: Visit Provider Anesthesiology Pain Medicine | DX: M79.18 Myalgia, other site (principal); M54.2 Cervicalgia | CPT/HCPCS: 20553; 99214; J1010; J3490 ==

== ENCOUNTER 2025-06-04 05:00 | Outpatient (RCR) | payer MEDICARE, MEDICAID, SELFPAY | END 2025-07-04 23:59 | disposition home or self-care (01) | LOC: SPT 05:00 | PROVIDERS: PCP Family Medicine; Visit Provider Orthopaedic Surgery | DX: M43.22 Fusion of spine, cervical region (principal); M54.2 Cervicalgia | CPT/HCPCS: 97110; 97140; 97164 ==

== ENCOUNTER 2025-06-07 08:51 | Day surgery (SDC) | payer MEDICARE, MEDICAID, SELFPAY ==
--- NOTE | 2025-06-07 09:18 | W.PM.OPSUD ---
Surgery/Procedure H&P Update DATE OF PROCEDURE: June 07, 2025 DATE H&P PERFORMED: 05/09/25 H&P UPDATE INFORMATION: I have reviewed H&P completed within last 30 days, I have examined patient prior to procedure, No changes to prior documentation, H&P is in [facility] EMR on date indicated and Risks and benefits of the procedure reviewed PLANNED PROCEDURE: Operation Date: 06/07/25 10:35 Proposed Procedures p EGD W/ Biopsy 90506 K27.9(Not Applicable) - Morris Alba MD
[2025-06-07 09:27] VITALS: BP 166/90; PULSE 86; RESP 17; TEMP 36.4; O2SAT 97
--- NOTE | 2025-06-07 09:36 | ANES.PREANE2 ---
Pre-Anesthetic Assessment Height/Weight: Height 1.68 m Temp Pulse Resp BP Pulse Ox O2 Del Method 97.6 F 86 17 166/90 97 Room Air 06/07/25 09:27 06/07/25 09:27 06/07/25 09:27 06/07/25 09:27 06/07/25 09:27 06/07/25 09:27 Operation Date: 06/07/25 10:35 Proposed Procedures p EGD W/ Biopsy [id number] K27.9(Not Applicable) - Morris Alba MD Was Beta Rony taken within 24 hours: N/A Was Clonidine taken within 24 hours: N/A Last intake: Intake Last Liquid Date 06/06/25 Last Liquid Time 22:00 Last Solid Date 06/06/25 Last Solid Time 18:00 Social No alcohol and No tobacco Exam alert and oriented x 3 Airway Submandibular: within normal limits Cervical ROM: Other (history of back surgeries; stiffness in neck) Mallampati: Class II Dentition: full History/ROS No significant history except as noted Pulmonary None reported CV/HEM None reported None reported Hepatic None reported GI Gastroesophageal Reflux Disease Metabolic None reported Musc/skel Lower Back Pain, Osteoarthritis/DJD and Weakness (lower extremity) multiple back surgeries Neuropsych Anxiety and Neuropathy (lower extremities) Anesthetic Plan ASA status: 3 Anesthesia: MAC Risk of > 500 ml blood loss (7ml/kg in children): No Medications/Allergies Home Medications ?Medication ?Instructions ?Recorded ?Confirmed ?Last Taken ?Type ascorbic acid 7.5 mg-vit E 7.5 4 tab PO DAILY 11/09/20 06/07/25 06/06/25 History unit-biotin 1,250 mcg chewable tablet (Hair,Skin,Nails with Biotin) TLSO Brace #1 ea 06/19/21 05/22/25 Unknown Rx Bone Growth Stimulator E0748 #1 ea 09/28/22 05/22/25 Unknown Rx c-pap supplies #1 ea 08/24/23 05/22/25 Unknown Rx omeprazole 20 mg capsule,delayed 20 mg PO DAILY 02/25/24 06/07/25 06/06/25 History release polyethylene glycol 3350 17 17 g PO DAILY PRN Constipation 08/29/24 06/07/25 Unknown History gram/dose oral powder (ClearLax) amitriptyline 100 mg tablet 100 mg PO BEDTIME 12/05/24 06/07/25 06/06/25 History cholecalciferol (vitamin D3) 50 50 mcg PO DAILY 12/05/24 06/07/25 06/06/25 History mcg (2,000 unit) tablet (Vitamin D3) duloxetine 30 mg capsule,delayed 30 mg PO BID #180 caps 02/22/25 06/07/25 06/06/25 Rx release pregabalin 75 mg capsule (Lyrica) 75 mg PO BID #60 caps 04/29/25 06/07/25 06/06/25 Rx ibuprofen 800 mg tablet 800 mg PO Q8H PRN Pain 05/14/25 06/07/25 06/06/25 History alprazolam 0.25 mg tablet 0.25 mg PO BID PRN anxiety #30 tabs 05/17/25 06/07/25 06/04/25 Rx Allergies Allergy/AdvReac Type Severity Reaction Status Date / Time adhesive tape Allergy Unknown Verified 06/07/25 09:12 Current Medications Generic Name Dose Route Start Last Admin Trade Name Freq PRN Reason Stop Dose Admin Sodium Chloride 1,000 mls @ 15 mls/hr 06/07/25 09:04 06/07/25 09:31 Sodium Chloride 0.9% IV 06/08/25 09:03 15 mls/hr .Q24H PRN Administration COLONOSCOPY FLUIDS PFSH Anesthesia Medical History Chronic prescription opiate use Fracture, thoracic vertebra, compression Epigastric abdominal pain Discitis of thoracic region Spondylarthritis DDD (degenerative disc disease), thoracic Fusion of spine, thoracolumbar region Obstructive sleep apnea Morbid obesity Degenerative lumbar spinal stenosis Internal fixation device (pin, nixon, or screw) mechanical complication Morbid obesity with BMI of 50.0-59.9, adult Lumbar stenosis with neurogenic claudication Intervertebral disc disorder with radiculopathy of lumbosacral region Surgical History Status post cervical spinal fusion 09/24 Status post correction of deviated nasal septum History of appendectomy History of carpal tunnel repair History of knee surgery History of laparoscopic adjustable gastric banding Status post insertion of spinal cord stimulator (~2016) History of lumbar surgery (~2011) 12/2016 Dr. Martin Joyner Thoracic spinal cord stimulator placement 04/2016 Dr. Martin Joyner Right SI joint fusion 03/2016 [facility] Left SI joint fusion 06/[address] [facility] L2-L3 posterior fusion/fixation. 10/[address] [facility] Fractured fusion screws removed. 12/[address] Orthopedic surgeon. 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 She states she had thought about CODE STATUS and did not want it but I stated that maybe she was not clear enough to make this decision. returned and he said they both decided they did not want long-term life support but that if an emergency CPR could help that he would want her to have it as discussed on 01/18/2025 by Brad Potts MD Household members: spouse Marital status: Marital status details: Nehemias Current occupational status: disabled Data Anesthesia Cardiac Studies: Echocardiogram 07/10/24
[2025-06-07 10:19] VITALS: BP 153/88; PULSE 90; RESP 16; TEMP 36.9; O2SAT 96
[2025-06-07 10:26] VITALS: BP 159/78; PULSE 85; RESP 18; O2SAT 99
--- NOTE | 2025-06-07 15:31 | ANE.PACU2 ---
Inpatient post-anesthesia follow up: Airway intact: Yes Vital signs: Temperature 98.4 F Pulse Rate 85 Respiratory Rate 18 Blood Pressure 159/78 Pulse Oximetry 99 Oxygen Delivery Me thod Room Air Oxygen Flow Rate Fraction of Inspir ed Oxygen Hydration adequate: Yes Nausea and vomiting: No Pain level: 1 Mental status: Baseline
== END 2025-06-07 10:40 | disposition home or self-care (01) ==
PROVIDERS: PCP Family Medicine; Visit Provider Surgery
PROC: 0DJ08ZZ Inspection of Upper Intestinal Tract, Via Natural or Artificial Opening Endoscopic (ICD-10-PCS; principal; 2025-06-07 10:35)
DX: K21.9 Gastro-esophageal reflux disease without esophagitis (principal); K44.9 Diaphragmatic hernia without obstruction or gangrene; K29.80 Duodenitis without bleeding; K29.50 Unspecified chronic gastritis without bleeding; K21.00 Gastro-esophageal reflux disease with esophagitis, without bleeding; F41.9 Anxiety disorder, unspecified; Z79.891 Long term (current) use of opiate analgesic; G47.33 Obstructive sleep apnea (adult) (pediatric); Z99.89 Dependence on other enabling machines and devices; E66.01 Morbid (severe) obesity due to excess calories; Z68.43 Body mass index [BMI] 50.0-59.9, adult
CPT/HCPCS: 43239; 88305; 88342; J2704; J3490; J7030

== ENCOUNTER → 2025-06-19 11:29 | Outpatient (BNVA) | payer MEDICARE, MEDICAID, SELFPAY | PROVIDERS: PCP Family Medicine; Visit Provider Surgery | DX: Z51.89 Encounter for other specified aftercare (principal) | CPT/HCPCS: 99213 ==